=== PATIENT | female | born 1945 | race Caucasian/White ===

== ENCOUNTER 2021-10-27 13:57 | Observation (INO) ==
[2021-10-27 14:22] LABS: Hematocrit (blood only) 30.6 % (37-47); Mean Corpuscular Hemoglobin 30.5 pg (25-34); Mean Corpuscular Hgb Conc 32.7 g/dL (32-36); Mean Corpuscular Volume 93.3 fL (80-100); Mean Platelet Volume 8.7 fL (7.4-10.4); Platelet Count 104 K/uL (130-400); RDW Coefficient of Variation 12.8 % (11.5-14.5); RDW Standard Deviation 43.5 fL (36.4-46.3); Red Blood Count 3.28 M/uL (4.2-5.4); White Blood Count 1.08 K/uL (4.8-10.8)
[2021-10-27 14:57] LABS: ALC (manual) 0.27 K/uL (1.2-3.4); ANC (manual) 0.77 K/uL (1.4-6.5); Blast # (manual) 0.02 K/uL (0-0); Blast Cells % (manual) 1.7 %; Lymphocytes # (manual) 0.27 K/uL (1.2-3.4); Monocytes # (manual) 0.02 K/uL (0.11-0.59); Monocytes % (manual) 1.7 %; Neutrophils # (manual) 0.77 K/uL (1.4-6.5); Neutrophils % (manual) 71.6 %
[2021-10-27 14:59] LABS: Alanine Aminotransferase 30 U/L (7-52); Albumin Level 3.4 gm/dl (3.4-5.0); Alkaline Phosphatase 183 U/L (34-104); Anion Gap 8 (3-11); Aspartate Aminotransferase 31 U/L (13-39); BUN Creatinine Ratio 32.1 (10-20); Bilirubin,Total 0.5 mg/dl (0.2-1.0); Blood Urea Nitrogen 42 mg/dl (6-23); Carbon Dioxide 23 mmol/L (21-32); Chloride 105 mmol/L (98-107); Est GFR (African American) 45.1 ml/min; Est GFR (Non-African American) 38.9 ml/min; Globulin 3.3 gm/dl (2.5-4.0); Glucose 122 mg/dl (70-99(Fasting)); Potassium 4.1 mmol/L (3.5-5.1); Sodium 136 mmol/L (136-145); Total Protein 6.7 gm/dl (6.0-8.3)
[2021-10-27] MEDS ORDERED: SODIUM CHLORIDE 0.9% 1000ML 500 ML IV ONE (15:42)
[2021-10-27] MEDS ORDERED: CEFEPIME 2,000 MG/20 ML VIAL IV STA (15:42)
--- NOTE | 2021-10-27 15:53 | Emergency Department Note ---
Impression & Plan Acute dehydration, Vomiting, Neutropenia, Bladder cancer metastasized to bone ED Provider Note NAME: SIL SALDANA AGE: 76 SEX: F : 1945 ARRIVES VIA: Walk-In INFORMANT: [Patient][family] ED PROVIDER(S): [Hiram Florence MD] CHIEF COMPLAINT: Doctor referred HISTORY OF PRESENT ILLNESS: The patient is a 76-year-old female who presents to the ER with weakness, failure to thrive, lethargy, vomiting. This has been ongoing for about 2 weeks since the patient received her initial dose of chemotherapy for metastatic bladder cancer. In the last 5 to 6 days, patient has complained of a lot of left pelvic and left femur pain. She is on a fentanyl patch and oxycodone but, this is not controlling her pain. She is using Compazine and Zofran at home without control of her nausea/vomiting. There is concern for dehydration. There has been no fever, no cough. She has not complained of abdominal pain. No urinary complaints. She is vaccinated for COVID-19 x3 and has had her influenza vaccination. Her last chemotherapy was 6 days ago. The patient was seen at the cancer center today, she was given IV fluids. Given her lethargy, her weakness, her failure to do well as an outpatient, she was referred to the ER for further work-up and hospitalization. Her family is not able to manage her in her current condition. Of note, the patient was given a dose of Ativan at the cancer center. Now she seems a bit lethargic to the daughter. She was fine before the Ativan. REVIEW OF SYSTEMS: See HPI for pertinent positives and negatives. A total of ten systems were reviewed and were otherwise negative. PMHx/PSHx: See Below SOCIAL HISTORY: See Below. PHYSICAL EXAM: GENERAL: Patient is in no acute distress. HEENT: No acute trauma, normocephalic atraumatic, mucous membranes dry, no nasal congestion, no scleral icterus. NECK: No stridor, no adenopathy, no meningismus, trachea is midline. LUNGS: Clear to auscultation bilaterally when listening anterior, no wheeze, no rhonchi, breath sounds equal. HEART: 2/6 systolic murmur, regular rate and rhythm. ABDOMEN: Soft, nontender, bowel sounds positive, no hernias, no peritonitis. EXTREMITIES: No cyanosis, mild bilateral pedal edema, full range of motion of all the joints without pain or difficulty, no signs for acute trauma. NEUROLOGIC: Sleepy, answers questions, no acute motor or sensory deficits, no focal weakness. SKIN: No rash, no jaundice, no diaphoresis. DIFFERENTIAL DIAGNOSIS: Infection, dehydration, COVID-19, influenza, brain metastases, UTI, bacteremia, sepsis, failed outpatient management, metabolic abnormality, hypo/hyperglycemia, electrolyte disturbance, anemia, hypoxia, cardiac sources, intracerebral event, toxicologic issues, stroke, TIA, as well as other pathologies. EMERGENCY DEPARTMENT COURSE/PROCEDURES: ECG: Indication was weakness. The ECG shows a normal sinus rhythm with a rate of 63. There are inverted T waves in the anterior and inferior lateral leads. There is no ST elevation, no PVCs. The QTc is 474. Compared to an ECG from 05 August 2021, the T wave inversions are new. Continuous Cardiac Monitoring: An order was placed for continuous cardiac monitoring. The monitor shows a rate of 61 with normal sinus rhythm. MEDICAL DECISION MAKING: The patient has a low white count, she is neutropenic. Hemoglobin and platelet count were both low consistent with her recent chemotherapy. There was an elevation to the creatinine consistent with some dehydration. Lactic acid level was not elevated making sepsis less likely. Alk phos was elevated, the remaining liver enzymes were unremarkable. ECG showed a sinus rhythm with some T wave inversions. No ST elevation. Cardiac enzyme testing x1 is not consistent with acute cardiac injury. Urinalysis shows some blood, no infection. COVID testing returned negative. Chest x-ray does not show pneumonia or CHF. Brain CT shows no acute bleed or mass-effect. Films of the pelvis and left femur were done, no lytic lesion seen. On exam, the patient appeared dehydrated and a bit somnolent. The patient was given IV saline, 500 cc. She received IV Dilaudid for pain as needed. She was given IV cefepime as empiric antibiotic coverage. Patient has failed outpatient treatment. She is vomiting despite numerous medications for nausea. Her pain is not controlled despite aggressive outpatie nt pain management. She is no longer strong enough to be taken care of by her family. Hydration, pain control and further work-up are required. I spoke with the patient and her daughter. I spoke with case management. The on-call hospitalist was consulted. 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, back and lung MORONGO (hard of hearing) HTN (hypertension) Hx SBO Osteoarthritis Poor historian SOB (shortness of breath) on exertion Surgical History (Updated 10/19/21 @ 09:49 by Shelli Medina, ELLIE) History of colonoscopy History of intestinal surgery History of surgery TURBT History of total abdominal hysterectomy and bilateral salpingo-oophorectomy History of wisdom tooth extraction Port-A-Cath in place (10/18/21) Insertion Access Port in Right Jugular with Fluoroscopy(Right) - Peterson Dasilva DO, FACS 10/18/21 Family History Father Cancer lung Colorectal cancer Mother Hearing loss Hypertension Stroke Other No family history of adverse response to anesthesia No family history of bleeding disorder Denies family history of Ovarian cancer Prostate cancer Myocardial infarction Breast cancer Social History Smoking Status: Never smoker packs per day: 1; Years Smoked: 10; Second Hand Exposure: No; Hx Alcohol Use: Yes Alcohol type: wine Alcohol Intake Frequency: Monthly or Less Hx Substance Use: No Preferred Language: South African Communication Ability: Effective Hearing Ability: Hard of Hearing Cyber Security Specialist Required: No Beliefs That Will Affect Care: None marital status: / Current Living Situation: Family Current Living Situation Comment: LIVES WITH DAUGHTER TAINA current occupational status: retired How many Children do You have: 3 Feels Safe at Home: Yes Childhood Exposure to Second-Hand Smoke: Yes caffeine: Yes Dental Care, Regularly: No Physical Activity Frequency: Does not Exercise Seatbelt Use: always Sunscreen Use: Yes Assistive Devices: Glasses Allergies Allergies Allergy/AdvReac Type Severity Reaction Status Date / Time morphine AdvReac Intermediate "Makes me Verified 10/27/21 16:48 crazy" Home Meds Home Medications Medication Instructions Recorded Confirmed ascorbic acid (vitamin C) 500 mg 500 mg PO QAM 08/04/21 10/27/21 tablet (Vitamin C) calcium carbonate 600 mg calcium 600 mg PO QAM 08/04/21 10/27/21 (1,500 mg) tablet (Calcium) cholecalciferol (vitamin D3) 25 25 mcg PO QAM 08/04/21 10/27/21 mcg (1,000 unit) capsule (Vitamin D3) cyanocobalamin (vitamin B-12) 1,000 mcg PO QAM 10/08/21 10/27/21 1,000 mcg tablet (Vitamin B-12) omega 6-uko-oqo-fish oil 1,000 mg 1 cap PO QAM 10/08/21 10/27/21 (120 mg-180 mg) capsule (Fish Oil) vitamin E 400 unit capsule 400 unit PO QAM 10/08/21 10/27/21 zinc 50 mg tablet 50 mg PO QAM 10/08/21 10/27/21 acetaminophen 500 mg tablet 500 mg PO Q6H PRN 10/14/21 10/27/21 fentanyl 25 mcg/hr transdermal 1 patch TRANSDERMAL Q72H 10/14/21 10/27/21 patch oxycodone 5 mg tablet 5 mg PO .Q 4-6 HRS PRN 10/14/21 10/27/21 dexamethasone 4 mg tablet 4 mg PO UD 10/27/21 10/27/21 fentanyl 12 mcg/hr transdermal 12 mcg TRANSDERMAL [id number] 10/27/21 10/27/21 patch olanzapine 2.5 mg tablet 2.5 mg PO UD 10/27/21 10/27/21 ondansetron HCl 8 mg tablet 8 mg PO Q8 PRN 10/27/21 10/27/21 prochlorperazine maleate 10 mg 10 mg PO Q6 PRN 10/27/21 10/27/21 tablet Previous Rx's Medication Instructions Recorded amlodipine 5 mg tablet 5 mg PO QPM #90 tab 08/17/21 hydrochlorothiazide 25 mg tablet 25 mg PO QPM #90 tab 08/17/21 metoprolol succinate 100 mg 100 mg PO QPM #90 tab 08/17/21 tablet,extended release 24 hr hydrocortisone-acetic acid 1 %-2 % 5 drp OTIC (EAR) BID PRN #10 ml 09/08/21 ear drops allopurinol 100 mg tablet 100 mg PO BID #60 tab 10/27/21 omeprazole 20 mg tablet,delayed 20 mg PO DAILY #30 tab 10/27/21 release prednisone 50 mg tablet 50 mg PO DAILY #5 tab 10/27/21 Results & Data (ED) Vital Signs Vital Signs - 24 hr 10/27/21 14:00 10/27/21 15:34 10/27/21 17:00 Temperature 36.8 C Temperature Source Temporal Artery Scan Pulse Rate 92 H Pulse Rate [Apical] 61 73 Respiratory Rate 18 18 22 Respiratory Effort / Characteristics Non-Labored Spontaneous Non-Labored Spontaneous Respiratory Depth Normal Normal Blood Pressure 129/73 Blood Pressure [Right Arm] 158/87 H 183/66 H Blood Pressure Mean 91 Blood Pressure Mean [Right Arm] 110 105 Blood Pressure Position [Right Arm] Lying Pulse Oximetry 97 92 93 Oxygen Delivery Method Room Air Room Air Room Air Sepsis Recent Fever Within 48 Hours No Sepsis New/Unexplained Change in Mental Status N/A Sepsis Action Taken by Nursing No Action Required Home Medications Current Medication List: was personally reviewed by me Laboratory Data Attestation: I reviewed the patient's lab results. Result diagrams: 10/27/21 14:13 10/27/21 14:13 Lab Results 10/27/21 10/27/21 10/27/21 Range/Units 14:13 14:13 16:03 WBC 1.08 L (4.8-10.8) K/uL RBC 3.28 L (4.2-5.4) M/uL Hgb 10.0 L (12.0-16.0) g/dL Hct 30.6 L (37-47) % MCV 93.3 (80-100) fL MCH 30.5 (25-34) pg MCHC 32.7 (32-36) g/dL RDW Std Deviation 43.5 (36.4-46.3) fL RDW Coeff of Janice 12.8 (11.5-14.5) % Plt Count 104 L (130-400) K/uL MPV 8.7 (7.4-10.4) fL Neutrophils % (Manual) 71.6 % Lymphocytes % (Manual) 25.0 % Monocytes % (Manual) 1.7 % Blast Cells % (Manual) 1.7 % Neutrophils # (Manual) 0.77 L (1.4-6.5) K/uL Total Absolute Neuts 0.77 L* (1.4-6.5) K/uL Lymphocytes # (Manual) 0.27 L (1.2-3.4) K/uL Total Abs Lymphocytes 0.27 L (1.2-3.4) K/uL Monocytes # (Manual) 0.02 L (0.11-0.59) K/uL Blast Cells # (Man) 0.02 H (0-0) K/uL Blood Smear Review Sodium 136 (136-145) mmol/L Potassium 4.1 (3.5-5.1) mmol/L Chloride 105 (98-107) mmol/L Carbon Dioxide 23 (21-32) mmol/L Anion Gap 8 (3-11) BUN 42 H (6-23) mg/dl Creatinine 1.31 H (0.6-1.2) mg/dl Est Cr Clr Drug Dosing Not Reportable Est GFR ( Amer) 45.1 ml/min Est GFR (Non-Af Amer) 38.9 ml/min BUN/Creatinine Ratio 32.1 H (10-20) Glucose 122 H (70-99(Fasting)) mg/dl Lactate (0.4-2.0) mmol/L Calcium 8.0 L (8.5-10.1) mg/dl Total Bilirubin 0.5 (0.2-1.0) mg/dl AST 31 (13-39) U/L ALT 30 (7-52) U/L Alkaline Phosphatase 183 H (34-104) U/L Troponin I (0-0.04) ng/ml Total Protein 6.7 (6.0-8.3) gm/dl Albumin 3.4 (3.4-5.0) gm/dl Globulin 3.3 (2.5-4.0) gm/dl Albumin/Globulin Ratio 1.0 (0.9-2) Urine Color Yellow Urine Appearance Clear (Clear) Urine pH 5.0 (4.5-7.5) Ur Specific Hickman 1.023 (1.000-1.030) Urine Protein 2+ H (Negative) Urine Glucose (UA) Negative (Negative) Urine Ketones Negative (Negative) Urine Blood 3+ H (Negative) Urine Nitrite Negative (Negative) Urine Bilirubin Negative (Negative) Urine Urobilinogen Negative (Negative) Ur Leukocyte Esterase Negative (Negative) Urine WBC (Auto) 10-30 H (0-5) /hpf Urine RBC (Auto) 10-30 H (0-4) /hpf U Hyaline Cast (Auto) 1-5 (0-5) /lpf U Epithel Cells (Auto) >30 H (0-5) /lpf Urine Bacteria (Auto) Negative (Negative) Urine Yeast Not Reportable SARS-CoV-2, RNA, NAAT (NEGATIVE) 10/27/21 10/27/21 10/27/21 Range/Units 16:13 16:13 17:42 WBC (4.8-10.8) K/uL RBC (4.2-5.4) M/uL Hgb (12.0-16.0) g/dL Hct (37-47) % MCV (80-100) fL MCH (25-34) pg MCHC (32-36) g/dL RDW Std Deviation (36.4-46.3) fL RDW Coeff of Janice (11.5-14.5) % Plt Count (130-400) K/uL MPV (7.4-10.4) fL Neutrophils % (Manual) % Lymphocytes % (Manual) % Monocytes % (Manual) % Blast Cells % (Manual) % Neutrophils # (Manual) (1.4-6.5) K/uL Total Absolute Neuts (1.4-6.5) K/uL Lymphocytes # (Manual) (1.2-3.4) K/uL Total Abs Lymphocytes (1.2-3.4) K/uL Monocytes # (Manual) (0.11-0.59) K/uL Blast Cells # (Man) (0-0) K/uL Blood Smear Review Sodium (136-145) mmol/L Potassium (3.5-5.1) mmol/L Chloride (98-107) mmol/L Carbon Dioxide (21-32) mmol/L Anion Gap (3-11) BUN (6-23) mg/dl Creatinine (0.6-1.2) mg/dl Est Cr Clr Drug Dosing Est GFR ( Amer) ml/min Est GFR (Non-Af Amer) ml/min BUN/Creatinine Ratio (10-20) Glucose (70-99(Fasting)) mg/dl Lactate 0.6 (0.4-2.0) mmol/L Calcium (8.5-10.1) mg/dl Total Bilirubin (0.2-1.0) mg/dl AST (13-39) U/L ALT (7-52) U/L Alkaline Phosphatase (34-104) U/L Troponin I < 0.03 (0-0.04) ng/ml Total Protein (6.0-8.3) gm/dl Albumin (3.4-5.0) gm/dl Globulin (2.5-4.0) gm/dl Albumin/Globulin Ratio (0.9-2) Urine Color Urine Appearance (Clear) Urine pH (4.5-7.5) Ur Specific Hickman (1.000-1.030) Urine Protein (Negative) Urine Glucose (UA) (Negative) Urine Ketones (Negative) Urine Blood (Negative) Urine Nitrite (Negative) Urine Bilirubin (Negative) Urine Urobilinogen (Negative) Ur Leukocyte Esterase (Negative) Urine WBC (Auto) (0-5) /hpf Urine RBC (Auto) (0-4) /hpf U Hyaline Cast (Auto) (0-5) /lpf U Epithel Cells (Auto) (0-5) /lpf Urine Bacteria (Auto) (Negative) Urine Yeast SARS-CoV-2, RNA, NAAT NEGATIVE (NEGATIVE) Administered Medications Hydromorphone HCl (Hydromorphone Inj 0.5 Mg/0.5 Ml Syr) 0.5 mg IV Q15M PRN PRN Reason: Pain Stop: 11/10/21 17:21 Last Admin: 10/27/21 17:32 Dose: 0.5 mg Documented by: [id number] Discontinued Medications Sodium Chloride (Nss 1000ml) 500 mls @ 999 mls/hr IV .Q31M ONE Stop: 10/27/21 16:12 Last Infusion: 10/27/21 16:44 Dose: 0 mls/hr Documented by: [id number] Admin: 10/27/21 16:13 Dose: 999 mls/hr Documented by: [id number] Cefepime HCl (Maxipime) 2,000 mg in 20 mls @ 5 mls/min IV NOW STA; Protocol Stop: 10/27/21 15:45 Last Admin: 10/27/21 16:27 Dose: 5 mls/min Documented by: [id number] Imaging Data Radiologist's Impression: Chest X-Ray 10/27/21 15:42 XR chest 1V portable CLINICAL HISTORY: weakness. Evaluate cardiopulmonary status COMPARISON STUDY: 10/18/2021 TECHNIQUE: 1 view of the chest FINDINGS: Single frontal view of the chest demonstrates the heart to again be enlarged. Right-sided Port-A-Cath is again seen. Stable mild prominence of the interstitial markings is seen at the lung bases which appear chronic in nature. No confluent alveolar opacities are identified. There is no evidence for pleural effusion. There is no evidence for vascular congestion. Lytic, destructive lesion is again seen involving the left clavicle. IMPRESSION: No acute cardiopulmonary disease. Chronic prominence of the interstitial markings at the lung bases. Lytic, destructive lesion of the left clavicle. ACT 112: Negative or not required by law. Electronically signed by: Usman Waterman M.D. 10/27/2021 6:02 PM Femur X-Ray 10/27/21 15:42 XR femur LT 2V routine CLINICAL HISTORY: poss mets. Pain. COMPARISON STUDY: No previous studies for comparison. TECHNIQUE: AP and lateral left femur views FINDINGS: Bones: There is no evidence for an acute fracture or dislocation. There is no lytic or blastic lesion. Joints: There is mild narrowing of the hip joint and the knee joint. The bones are in anatomic alignment. Soft tissues: There is no focal soft tissue abnormality. There is no radiopaque foreign body. IMPRESSION: No acute osseous pathology. ACT 112: Negative or not required by law. Electronically signed by: Usman Waterman M.D. 10/27/2021 6:[address] 10/27/21 15:[address] DOSE: 638.56 mGycm HISTORY: confusion TECHNIQUE: Multiaxial CT images of the head were performed without the use of intravenous contrast. Automated exposure control was utilized for this study. A dose lowering technique was utilized adhering to the principles of ALARA. Comparison: None. Findings: The paranasal sinuses and mastoid air cells are clear. The calvarium and skull base are intact. There is no mass, hematoma, midline shift, acute infarct. White matter hypodensity is nonspecific but suggestive of microvascular ischemic change. The ventricles and sulci demonstrate mild age-related involutional changes. Impression: No acute intracranial abnormality. ACT 112: Negative or not required by law. Electronically signed by: Prakash Concepcion M.D. 10/27/2021 4:52 PM Pelvis X-Ray 10/27/21 15:42 XR pelvis 1-2V routine CLINICAL HISTORY: poss mets. COMPARISON STUDY: No previous studies for comparison. TECHNIQUE: [A single AP radiograph was obtained. FINDINGS: There is no evidence for an acute fracture. There is mild narrowing hip joint spaces bilaterally. Degenerative changes are also seen involving the SI joints. The remaining visualized bones of the pelvis are intact. No lytic or blastic lesions are identified. No focal soft tissue abnormalities identified. IMPRESSION: No acute abnormality. Degenerative changes. ACT 112: Negative or not required by law. Electronically signed by: Usman Waterman M.D. 10/27/2021 5:59 PM Discharge Plan Visit Data Chief Complaint: Referred by Doctor Stated Complaint: VOMITING, ABNORMAL LABS, PAIN ED Provider: Hiram Florence Discharge Problem: Acute dehydration, Vomiting, Neutropenia, Bladder cancer metastasized to bone Patient Disposition: Admitted As Inpatient Condition: Fair Forms Stand Alone Forms: [facility] Prescriptions Prescriptions: No Action amlodipine 5 mg tablet 5 mg PO QPM Qty: 90 RF: 3 hydrochlorothiazide 25 mg tablet 25 mg PO QPM Qty: 90 RF: 3 metoprolol succinate 100 mg tablet extended release 24 hr 100 mg PO QPM Qty: 90 RF: 3 allopurinol 100 mg tablet 100 mg PO BID Qty: 60 RF: 2 omeprazole 20 mg tablet,delayed release (DR/EC) 20 mg PO DAILY Qty: 30 RF: 2 prednisone 50 mg tablet 50 mg PO DAILY Qty: 5 RF: 0 hydrocortisone-acetic acid 1-2 % drops 5 drp otic (ear) BID PRN (Reason: Pain and drainage) Qty: 10 RF: 5 calcium carbonate [Calcium 600] 600 mg calcium (1,500 mg) Tablet 600 mg PO QAM RF: 0 ascorbic acid (vitamin C) [Vitamin C] 500 mg Tablet 500 mg PO QAM RF: 0 cholecalciferol (vitamin D3) [Vitamin D3] 25 mcg (1,000 unit) Capsule 25 mcg PO QAM RF: 0 fentanyl 25 mcg/hr Patch 72 Hour 1 patch TRANSDERMAL Q72H RF: 0 oxycodone 5 mg Tablet 5 mg PO .Q 4-6 HRS PRN (Reason: Pain) RF: 0 acetaminophen 500 mg Tablet 500 mg PO Q6H PRN (Reason: Pain) RF: 0 dexamethasone 4 mg tablet 4 mg PO UD RF: 0 olanzapine 2.5 mg tablet 2.5 mg PO UD RF: 0 ondansetron HCl 8 mg tablet 8 mg PO Q8 PRN (Reason: Nausea And Vomiting) RF: 0 fentanyl 12 mcg/hr patch 72 hour 12 mcg transdermal [id number] RF: 0 prochlorperazine maleate 10 mg tablet 10 mg PO Q6 PRN (Reason: Nausea) RF: 0 cyanocobalamin (vitamin B-12) [Vitamin B-12] 1,000 mcg Tablet 1,000 mcg PO QAM RF: 0 zinc 50 mg Tablet 50 mg PO QAM RF: 0 omega 1-smx-lyo-fish oil [Fish Oil] 1,000 mg (120 mg-180 mg) Capsule 1 cap PO QAM RF: 0 vitamin E 400 unit Capsule 400 unit PO QAM RF: 0 Referrals Referrals: Britt Maria MD [Primary Care Provider] -
[2021-10-27 16:13] LABS: Appearance Urine Clear (Clear); Bacteria Urine Automated Negative (Negative); Bilirubin Urine Negative (Negative); Blood Urine 3+ (Negative); Color Urine Yellow; Epithelial Cell Urine Auto >30 /lpf (0-5); Glucose Urine UA Negative (Negative); Ketones Urine Negative (Negative); Leukocyte Esterase Urine Negative (Negative); Nitrite Urine Negative (Negative); Protein Urine 2+ (Negative); Specific Gravity Urine 1.023 (1.000-1.030); Urobilinogen Urine Negative (Negative)
--- NOTE | 2021-10-27 16:53 | CT Scan Report ---
HEAD CT NONCONTRAST CT DOSE: 638.56 mGycm HISTORY: confusion TECHNIQUE: Multiaxial CT images of the head were performed without the use of intravenous contrast. A utomated exposure control was utilized for this study. A dose lowering technique was utilized adheri ng to the principles of ALARA. Comparison: None. Findings: The paranasal sinuses and mastoid air cells are clear. The calvarium and skull base are int act. There is no mass, hematoma, midline shift, acute infarct. White matter hypodensity is nonspecifi c but suggestive of microvascular ischemic change. The ventricles and sulci demonstrate mild age-rela jimbo involutional changes. Impression: No acute intracranial abnormality. ACT 112: Negative or not required by law. Electronically signed by: Prakash Concepcion M.D. 10/27/2021 4:52 PM
[2021-10-27] MEDS: HYDROmorphone INJ 0.5 MG/0.5 ML SYR IV PRN ×2 (17:32→19:33)
--- NOTE | 2021-10-27 18:01 | XRay Report ---
XR pelvis 1-2V routine CLINICAL HISTORY: poss mets. COMPARISON STUDY: No previous studies for comparison. TECHNIQUE: [A single AP radiograph was obtained. FINDINGS: There is no evidence for an acute fracture. There is mild narrowing hip joint spaces bilaterally. Deg enerative changes are also seen involving the SI joints. The remaining visualized bones of the pelvis are intact. No lytic or blastic lesions are identified. No focal soft tissue abnormalities identifie d. IMPRESSION: No acute abnormality. Degenerative changes. ACT 112: Negative or not required by law. Electronically signed by: Usman Waterman M.D. 10/27/2021 5:59 PM
--- NOTE | 2021-10-27 18:02 | XRay Report ---
XR femur LT 2V routine CLINICAL HISTORY: poss mets. Pain. COMPARISON STUDY: No previous studies for comparison. TECHNIQUE: AP and lateral left femur views FINDINGS: Bones: There is no evidence for an acute fracture or dislocation. There is no lytic or blastic lesion . Joints: There is mild narrowing of the hip joint and the knee joint. The bones are in anatomic alignm ent. Soft tissues: There is no focal soft tissue abnormality. There is no radiopaque foreign body. IMPRESSION: No acute osseous pathology. ACT 112: Negative or not required by law. Electronically signed by: Usman Waterman M.D. 10/27/2021 6:00 PM
--- NOTE | 2021-10-27 18:04 | XRay Report ---
XR chest 1V portable CLINICAL HISTORY: weakness. Evaluate cardiopulmonary status COMPARISON STUDY: 10/18/2021 TECHNIQUE: 1 view of the chest FINDINGS: Single frontal view of the chest demonstrates the heart to again be enlarged. Right-sided Port-A-Cath is again seen. Stable mild prominence of the interstitial markings is seen at the lung bases which a ppear chronic in nature. No confluent alveolar opacities are identified. There is no evidence for ple ural effusion. There is no evidence for vascular congestion. Lytic, destructive lesion is again seen involving the left clavicle. IMPRESSION: No acute cardiopulmonary disease. Chronic prominence of the interstitial markings at the lung bases. Lytic, destructive lesion of the left clavicle. ACT 112: Negative or not required by law. Electronically signed by: Usman Waterman M.D. 10/27/2021 6:02 PM
[2021-10-27] MEDS ORDERED: GABAPENTIN 300 MG CAP PO ONE (18:39)
[2021-10-27] MEDS ORDERED: METOPROLOL SUCC 50MG EXT REL TAB PO STA (18:53)
--- NOTE | 2021-10-27 19:06 | History & Physical Report ---
Date of Service October 27, 2021 Assessment & Plan (1) Vomiting: Plan: 76 yo F with hx HTN, mixed hearing loss, OA, hx bladder cancer, undergoing treatments for recently diagnosed metastatic urothelial carcinoma, admitted for nausea and pain control, found to be neutropenic. Nausea and Vomiting - was on PO zofran and compazine at home, w/o control of symptoms - IV zofran Q4h scheduled, with IV compazine scheduled Q6h in between - dexamethasone 4mg IV daily for additional nausea control - monitor electrolytes - maintenance fluids while nauseous - external urinary catheter, monitor I/O Pain control - pelvis and femur xrays negative for new lytic or blastic lesions, fractures - was on 5mg roxicodone q4h, with 25 mcg transdermal fentanyl patch (due to increase up to 37.5) - Basal control with 37.5 mg fentanyl patch, roxicodone 5mg PO Q4h - Dilaudid 0.5mg Q2h for breakthrough pain - 300 mg gabapentin BID added for possible neuropathic component of pain secondary to cisplatin - radiation oncology consulted for possible palliative radiation treatments Neutropenia - WBC 1.4, absolute neutrophil cunt 0.77 - neutropenic precautions - afebrile, VSS, no findings of infection evident on exam, received cefepime x1 in ER. - blood and urine cultures pending - heme/onc recommendations appreciated HTN - per patient recollection, she is no longer taking her HCTZ because it makes he r urinate more - continue toprol xl 100 Qpm, amlodipine 5 mg QPM Gout - continue allopurinol 100 mg bid per home regimen DVT ppx: lovenox FEN/GI: regular diet as tolerated, iv famotidine Bowel regimen: scheduled daily miralax Code Status: DNR/DNI Dispo: Med/Tele (2) Neutropenia: (3) Bladder cancer metastasized to bone: (4) Acute dehydration: (5) Uncontrolled pain: Admission and Anticipated Discharge Date Admission Date: I personally saw and examined the patient. 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 O/E Thin, not well nourished, in distress due to left lateral leg pain, HS1+2, no murmurs, Chest CTAB, Abdo SNT, Left lateral upper thigh pain not reproducible on palpation. A/P Left sided radiculopathy - will defer further imaging to rad onc +/- pain management. Agree with gabapentin in addition to her usual acetaminophen and oxycodone. Dilaudid for extra breakthrough pain. Nausea and vomiting - suspect secondary to chemotherapy. Continue ondansetron and Compazine PRN. Metastatic high grade muscle invasive urothelial carcinoma - consult oncology and radiation oncology Pancytopenia secondary to chemotherapy - Neutropenic isolation precautions. No fever or symptoms/signs to suggestive infection. Follow up blood and urine cultures but no need for further antibiotics currently History of Present Illness Primary Care Provider: Britt Maria MD Pleasant 76 yo F with hx bladder cancer treated in 2011, recently diagnosed metastatic high grade urothelial carcinoma, started on Cisplastin chemotherapy with CCP, and received round 2 of chemo on 10/21. She states that since then she's had persistent uncontrollable nausea and vomiting since then despite use of zofran and compazine spaced out. Also describes having severe pain throughout her body and back but worst is concentrated in her left hip. She says the pain started today and ranges from being persistent and throbbing to being sharp and burning. Denies any hx of DM or peripheral neuropathy. Has been using her 5mg roxicodone at home every 4 hours without improvement in pain control. Allergies Allergy/AdvReac Type Severity Reaction Status Date / Time morphine AdvReac Intermediate "Makes me Verified 10/27/21 16:48 crazy" Home Medications Medication Instructions Recorded Confirmed Type ascorbic acid (vitamin C) 500 mg 500 mg PO QAM 08/04/21 10/27/21 History tablet (Vitamin C) calcium carbonate 600 mg calcium 600 mg PO QAM 08/04/21 10/27/21 History (1,500 mg) tablet (Calcium) cholecalciferol (vitamin D3) 25 25 mcg PO QAM 08/04/21 10/27/21 History mcg (1,000 unit) capsule (Vitamin D3) amlodipine 5 mg tablet 5 mg PO QPM #90 tab 08/17/21 10/27/21 Rx hydrochlorothiazide 25 mg tablet 25 mg PO QPM #90 tab 08/17/21 10/27/21 Rx metoprolol succinate 100 mg 100 mg PO QPM #90 tab 08/17/21 10/27/21 Rx tablet,extended release 24 hr hydrocortisone-acetic acid 1 %-2 % 5 drp OTIC (EAR) BID PRN #10 ml 09/08/21 10/27/21 Rx ear drops cyanocobalamin (vitamin B-12) 1,000 mcg PO QAM 10/08/21 10/27/21 History 1,000 mcg tablet (Vitamin B-12) omega 3-guy-xqg-fish oil 1,000 mg 1 cap PO QAM 10/08/21 10/27/21 History (120 mg-180 mg) capsule (Fish Oil) vitamin E 400 unit capsule 400 unit PO QAM 10/08/21 10/27/21 History zinc 50 mg tablet 50 mg PO QAM 10/08/21 10/27/21 History acetaminophen 500 mg tablet 500 mg PO Q6H PRN 10/14/21 10/27/21 History fentanyl 25 mcg/hr transdermal 1 patch TRANSDERMAL Q72H 10/14/21 10/27/21 History patch oxycodone 5 mg tablet 5 mg PO .Q 4-6 HRS PRN 10/14/21 10/27/21 History allopurinol 100 mg tablet 100 mg PO BID #60 tab 10/27/21 10/27/21 Rx dexamethasone 4 mg tablet 4 mg PO UD 10/27/21 10/27/21 History fentanyl 12 mcg/hr transdermal 12 mcg TRANSDERMAL [id number] 10/27/21 10/27/21 History patch olanzapine 2.5 mg tablet 2.5 mg PO UD 10/27/21 10/27/21 History omeprazole 20 mg tablet,delayed 20 mg PO DAILY #30 tab 10/27/21 10/27/21 Rx release ondansetron HCl 8 mg tablet 8 mg PO Q8 PRN 10/27/21 10/27/21 History prednisone 50 mg tablet 50 mg PO DAILY #5 tab 10/27/21 10/27/21 Rx prochlorperazine maleate 10 mg 10 mg PO Q6 PRN 10/27/21 10/27/21 History tablet 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, back and lung [place] (hard of hearing) HTN (hypertension) Hx SBO Osteoarthritis Poor historian SOB (shortness of breath) on exertion Surgical History (Updated 10/19/21 @ 09:49 by Shelli Medina, RN) History of colonoscopy History of intestinal surgery History of surgery TURBT History of total abdominal hysterectomy and bilateral salpingo-oophorectomy History of wisdom tooth extraction Port-A-Cath in place (10/18/21) Insertion Access Port in Right Jugular with Fluoroscopy(Right) - Peterson Dasilva DO, FACS 10/18/21 Family History Father Cancer lung Colorectal cancer Mother Hearing loss Hypertension Stroke Other No family history of adverse response to anesthesia No family history of bleeding disorder Denies family history of Ovarian cancer Prostate cancer Myocardial infarction Breast cancer Social History Smoking Status: Former smoker packs per day: 1; Years Smoked: 10; Second Hand Exposure: No; Hx Alcohol Use: Yes Alcohol type: wine Alcohol Intake Frequency: Monthly or Less Hx Substance Use: No Preferred Language: [place] Communication Ability: Effective Hearing Ability: Hard of Hearing Radiography Technician Required: No Beliefs That Will Affect Care: None marital status: / Current Living Situation: Family Current Living Situation Comment: LIVES WITH DAUGHTER TAINA current occupational status: retired How many Children do You have: 3 Feels Safe at Home: Yes Safety Concerns: Feels Safe At This Time Childhood Exposure to Second-Hand Smoke: Yes caffeine: Yes Dental Care, Regularly: No Physical Activity Frequency: Does not Exercise Seatbelt Use: always Sunscreen Use: Yes Assistive Devices: Glasses Review of Systems Constitutional: + sweats, + fatigue and + anorexia; no fever, no chills and no body aches Respiratory: + pain on inspiration (pain with quick deep breath); no cough and no dyspnea Cardiovascular: + dyspnea on exertion; no chest pain, no dyspnea and no edema Gastrointestinal: + nausea and + vomiting; no abdominal pain, no hematemesis, no change in bowel habits, no constipation, no diarrhea/loose stools, no blood in stools and no melena Neurologic: no tingling, no numbness and no dizziness Physical Exam Physical Exam: Constitutional: elderly, fatigued appearing, uncomfortable appearing Eyes: EOMI, pupils equal and reactive bilaterally, no scleral icterus Cardiac: RRR, no murmurs, gallops or rubs. Normal S1, S2 Pulm: CTA BL, no wheezes, rhonchi, crackles or rubs, moving air well throughout both lungs Abd: soft, nontender, nondistended, hyperactive bowel sounds, no rebound or guarding Extremities: 2+ peripheral pulses, 2+ pitting edema to ankles BL Neuro: no focal deficits, moving all 4 limbs, A&Ox3 MSK: TTP over IT band and ASIS, no groin pain Results & Data Results & Data ([facility]) Vital Signs (Past 12 Hours) Vital Signs Temp Pulse Pulse Resp BP BP Pulse Ox 10/27/21 17:00 73 22 183/66 H 93 10/27/21 15:34 61 18 158/87 H 92 10/27/21 14:00 36.8 C 92 H 18 129/73 97 Laboratory Results Laboratory Results WBC 1.08 K/uL (4.8-10.8) L 10/27/21 14:13 RBC 3.28 M/uL (4.2-5.4) L 10/27/21 14:13 Hgb 10.0 g/dL (12.0-16.0) L 10/27/21 14:13 Hct 30.6 % (37-47) L 10/27/21 14:13 MCV 93.3 fL (80-100) 10/27/21 14:13 MCH 30.5 pg (25-34) 10/27/21 14:13 MCHC 32.7 g/dL (32-36) 10/27/21 14:13 RDW Std Deviation 43.5 fL (36.4-46.3) 10/27/21 14:13 RDW Coeff of Janice 12.8 % (11.5-14.5) 10/27/21 14:13 Plt Count 104 K/uL (130-400) L 10/27/21 14:13 MPV 8.7 fL (7.4-10.4) 10/27/21 14:13 Neutrophils % (Manual) 71.6 % 10/27/21 14:13 Lymphocytes % (Manual) 25.0 % 10/27/21 14:13 Monocytes % (Manual) 1.7 % 10/27/21 14:13 Blast Cells % (Manual) 1.7 % 10/27/21 14:13 Neutrophils # (Manual) 0.77 K/uL (1.4-6.5) L 10/27/21 14:13 Total Absolute Neuts 0.77 K/uL (1.4-6.5) L* 10/27/21 14:13 Lymphocytes # (Manual) 0.27 K/uL (1.2-3.4) L 10/27/21 14:13 Total Abs Lymphocytes 0.27 K/uL (1.2-3.4) L 10/27/21 14:13 Monocytes # (Manual) 0.02 K/uL (0.11-0.59) L 10/27/21 14:13 Blast Cells # (Man) 0.02 K/uL (0-0) H 10/27/21 14:13 Blood Smear Review 10/27/21 14:13 Sodium 136 mmol/L (136-145) 10/27/21 14:13 Potassium 4.1 mmol/L (3.5-5.1) 10/27/21 14:13 Chloride 105 mmol/L (98-107) 10/27/21 14:13 Carbon Dioxide 23 mmol/L (21-32) 10/27/21 14:13 Anion Gap 8 (3-11) 10/27/21 14:13 BUN 42 mg/dl (6-23) H 10/27/21 14:13 Creatinine 1.31 mg/dl (0.6-1.2) H 10/27/21 14:13 Est Cr Clr Drug Dosing Not Reportable 10/27/21 14:13 Est GFR ( Amer) 45.1 ml/min 10/27/21 14:13 Est GFR (Non-Af Amer) 38.9 ml/min 10/27/21 14:13 BUN/Creatinine Ratio 32.1 (10-20) H 10/27/21 14:13 Glucose 122 mg/dl (70-99(Fasting)) H 10/27/21 14:13 Lactate 0.6 mmol/L (0.4-2.0) 10/27/21 16:13 Calcium 8.0 mg/dl (8.5-10.1) L 10/27/21 14:13 Phosphorus 2.1 mg/dl (2.5-4.9) L 10/27/21 14:18 Magnesium 1.8 mg/dl (1.7-2.4) 10/27/21 14:18 Total Bilirubin 0.5 mg/dl (0.2-1.0) 10/27/21 14:13 AST 31 U/L (13-39) 10/27/21 14:13 ALT 30 U/L (7-52) 10/27/21 14:13 Alkaline Phosphatase 183 U/L (34-104) H 10/27/21 14:13 Troponin I < 0.03 ng/ml (0-0.04) 10/27/21 16:13 Total Protein 6.7 gm/dl (6.0-8.3) 10/27/21 14:13 Albumin 3.4 gm/dl (3.4-5.0) 10/27/21 14:13 Globulin 3.3 gm/dl (2.5-4.0) 10/27/21 14:13 Albumin/Globulin Ratio 1.0 (0.9-2) 10/27/21 14:13 Urine Color Yellow 10/27/21 16:03 Urine Appearance Clear (Clear) 10/27/21 16:03 Urine pH 5.0 (4.5-7.5) 10/27/21 16:03 Ur Specific [place] 1.023 (1.000-1.030) 10/27/21 16:03 Urine Protein 2+ (Negative) H 10/27/21 16:03 Urine Glucose (UA) Negative (Negative) 10/27/21 16:03 Urine Ketones Negative (Negative) 10/27/21 16:03 Urine Blood 3+ (Negative) H 10/27/21 16:03 Urine Nitrite Negative (Negative) 10/27/21 16:03 Urine Bilirubin Negative (Negative) 10/27/21 16:03 Urine Urobilinogen Negative (Negative) 10/27/21 16:03 Ur Leukocyte Esterase Negative (Negative) 10/27/21 16:03 Urine WBC (Auto) 10-30 /hpf (0-5) H 10/27/21 16:03 Urine RBC (Auto) 10-30 /hpf (0-4) H 10/27/21 16:03 U Hyaline Cast (Auto) 1-5 /lpf (0-5) 10/27/21 16:03 U Epithel Cells (Auto) >30 /lpf (0-5) H 10/27/21 16:03 Urine Bacteria (Auto) Negative (Negative) 10/27/21 16:03 Urine Yeast Not Reportable 10/27/21 16:03 SARS-CoV-2, RNA, NAAT NEGATIVE (NEGATIVE) 10/27/21 17:42 Impressions Chest X-Ray 10/27/21 15:42 XR chest 1V portable CLINICAL HISTORY: weakness. Evaluate cardiopulmonary status COMPARISON STUDY: 10/18/2021 TECHNIQUE: 1 view of the chest FINDINGS: Single frontal view of the chest demonstrates the heart to again be enlarged. Right-sided Port-A-Cath is again seen. Stable mild prominence of the interstitial markings is seen at the lung bases which appear chronic in nature. No confluent alveolar opacities are identified. There is no evidence for pleural effusion. There is no evidence for vascular congestion. Lytic, destructive lesion is again seen involving the left clavicle. IMPRESSION: No acute cardiopulmonary disease. Chronic prominence of the interstitial markings at the lung bases. Lytic, destructive lesion of the left clavicle. ACT 112: Negative or not required by law. Electronically signed by: Usman Waterman M.D. 10/27/2021 6:02 PM Femur X-Ray 10/27/21 15:42 XR femur LT 2V routine CLINICAL HISTORY: poss mets. Pain. COMPARISON STUDY: No previous studies for comparison. TECHNIQUE: AP and lateral left femur views FINDINGS: Bones: There is no evidence for an acute fracture or dislocation. There is no lytic or blastic lesion. Joints: There is mild narrowing of the hip joint and the knee joint. The bones are in anatomic alignment. Soft tissues: There is no focal soft tissue abnormality. There is no radiopaque foreign body. IMPRESSION: No acute osseous pathology. ACT 112: Negative or not required by law. Electronically signed by: Usman Waterman M.D. 10/27/2021 6:[address] 10/27/21 15:[address] DOSE: 638.56 mGycm HISTORY: confusion TECHNIQUE: Multiaxial CT images of the head were performed without the use of intravenous contrast. Automated exposure control was utilized for this study. A dose lowering technique was utilized adhering to the principles of ALARA. Comparison: None. Findings: The paranasal sinuses and mastoid air cells are clear. The calvarium and skull base are intact. There is no mass, hematoma, midline shift, acute infarct. White matter hypodensity is nonspecific but suggestive of microvascular ischemic change. The ventricles and sulci demonstrate mild age-related involutional changes. Impression: No acute intracranial abnormality. ACT 112: Negative or not required by law. Electronically signed by: Prakash Concepcion M.D. 10/27/2021 4:52 PM Pelvis X-Ray 10/27/21 15:42 XR pelvis 1-2V routine CLINICAL HISTORY: poss mets. COMPARISON STUDY: No previous studies for comparison. TECHNIQUE: [A single AP radiograph was obtained. FINDINGS: There is no evidence for an acute fracture. There is mild narrowing hip joint spaces bilaterally. Degenerative changes are also seen involving the SI joints. The remaining visualized bones of the pelvis are intact. No lytic or blastic lesions are identified. No focal soft tissue abnormalities identified. IMPRESSION: No acute abnormality. Degenerative changes. ACT 112: Negative or not required by law. Electronically signed by: Usman Waterman M.D. 10/27/2021 5:59 PM Code Status & VTE Plan VTE Prophylaxis Plan VTE Prophylaxis will be ordered: Yes Resident Activity Tracking Resident Involvement: Resident Care Provided Care Provided: Adult Hospital Medicine (1) Neutropenia Neutropenia type: secondary to cancer chemotherapy Qualified Code(s): D70.1 - Agranulocytosis secondary to cancer chemotherapy; T45.1X5A - Adverse effect of antineoplastic and immunosuppressive drugs, initial encounter (2) Vomiting Nausea presence: with nausea Vomiting type: unspecified Qualified Code(s): R11.2 - Nausea with vomiting, unspecified
[2021-10-27] MEDS ORDERED: PROCHLORPERAZINE 1 ML IV ONE (19:14)
[2021-10-27 19:22] LABS: Magnesium 1.8 mg/dl (1.7-2.4); Phosphorus 2.1 mg/dl (2.5-4.9)
[2021-10-27] MEDS ORDERED: POTASSIUM PHOS 3 MMOL/1 ML INFUSION IV STA (19:44)
[2021-10-27] MEDS ORDERED: oxyCODONE HCL IR 5 MG TAB (IMMEDIATE RELEASE) PO STA (20:57)
[2021-10-27] MEDS ORDERED: POTASSIUM PHOSPHATE 21 MMOL in DEXTROSE 5% 500 ML IV ONE (21:00)
[2021-10-27] MEDS ORDERED: ONDANSETRON INJ 2 MG/ML 2 ML VIAL IV PRN (22:42)
[2021-10-27] MEDS ORDERED: HYDROmorphone INJ 0.5 MG/0.5 ML SYR IV PRN (22:42)
[2021-10-27] MEDS ORDERED: ACETIC AC/HYDROCORTISONE OTIC 10ML BTL OT PRN (22:42)
[2021-10-27] MEDS ORDERED: NITROGLYCERIN SL 0.4 MG/TAB TAB SL PRN (22:42)
[2021-10-27] MEDS ORDERED: ACETAMINOPHEN 325 MG TAB PO PRN (22:42)
[2021-10-27] MEDS ORDERED: PROCHLORPERAZINE 5 MG in SYRINGE 4 ML IV PRN (22:42)
[2021-10-28] MEDS: FAMOTIDINE 20 MG in SYRINGE 3 ML IV SCH ×3 (00:04→20:58)
[2021-10-28] MEDS: dexAMETHasone 4 MG in SYRINGE 0 ML IV SCH ×2 (00:04→07:50)
[2021-10-28] MEDS: METOPROLOL SUCC 50MG EXT REL TAB PO SCH ×2 (00:05→20:53)
[2021-10-28] MEDS: amLODIPine BESYLATE 5 MG TAB PO SCH ×2 (00:05→20:52)
[2021-10-28] MEDS: allopurinoL 100 MG TAB PO SCH ×3 (00:05→20:53)
[2021-10-28] MEDS: SODIUM CHLORIDE 0.9% 1000ML 1,000 ML IV SCH ×2 (00:06→07:50)
[2021-10-28] MEDS: oxyCODONE HCL IR 5 MG TAB (IMMEDIATE RELEASE) PO SCH ×5 (00:12→11:34)
[2021-10-28] MEDS: ENOXAPARIN INJ 40 MG/0.4 ML SYR SQ SCH ×2 (03:02→20:51)
[2021-10-28] MEDS: POLYETHYLENE (MIRALAX) 17 GM PACK PO SCH (07:51)
[2021-10-28] MEDS: PANTOprazole 40 MG TAB PO SCH (07:52)
[2021-10-28 08:44] LABS: Hematocrit (blood only) 31.3 % (37-47); Hemoglobin 10.4 g/dL (12.0-16.0); Mean Corpuscular Hemoglobin 30.5 pg (25-34); Mean Corpuscular Hgb Conc 33.2 g/dL (32-36); Mean Corpuscular Volume 91.8 fL (80-100); Platelet Count 121 K/uL (130-400); RDW Coefficient of Variation 12.4 % (11.5-14.5); RDW Standard Deviation 41.9 fL (36.4-46.3); Red Blood Count 3.41 M/uL (4.2-5.4); White Blood Count 1.14 K/uL (4.8-10.8)
[2021-10-28] MEDS ORDERED: GABAPENTIN 300 MG CAP PO SCH (09:00)
[2021-10-28 09:03] LABS: Immature Granulocytes # (auto) 0.01 K/uL (0.00-0.02); Immature Granulocytes % (auto) 0.9 %; Lymphocytes # (auto) 0.39 K/uL (1.2-3.4); Lymphocytes % (auto) 34.2 %; Monocytes # (auto) 0.04 K/uL (0.11-0.59); Monocytes % (auto) 3.5 %; Neutrophils % (auto) 61.4 %
[2021-10-28 09:30] LABS: Albumin Level 3.2 gm/dl (3.4-5.0); BUN Creatinine Ratio 37.5 (10-20); Bilirubin,Total 0.5 mg/dl (0.2-1.0); Calcium 7.6 mg/dl (8.5-10.1); Est GFR (African American) 59.6 ml/min; Est GFR (Non-African American) 51.4 ml/min; Globulin 3.2 gm/dl (2.5-4.0); Magnesium 1.7 mg/dl (1.7-2.4); Phosphorus 2.1 mg/dl (2.5-4.9); Total Protein 6.4 gm/dl (6.0-8.3)
--- NOTE | 2021-10-28 10:47 | Billing Data ---
Date of Service October 27, 2021 Coding Level of Care Code 55238 Initial Inpt Care Lvl 2
[2021-10-28] MEDS: ACETAMINOPHEN 325 MG TAB PO SCH ×2 (16:08→20:52)
--- NOTE | 2021-10-28 17:58 | Hospitalist Progress Note ---
Date of Service October 28, 2021 Assessment & Plan (1) Vomiting: Plan: 76 yo F with hx HTN, mixed hearing loss, OA, hx bladder cancer, undergoing treatments for recently diagnosed metastatic urothelial carcinoma, admitted for nausea and pain control, found to be neutropenic. Nausea and Vomiting - was on PO zofran and compazine at home, w/o control of symptoms * IV zofran Q4h scheduled, with IV compazine medications (sparingly) * dexamethasone 4mg IV daily for additional nausea control * monitor electrolytes * maintenance fluids while nauseous * external urinary catheter, monitor I/O Pain control - pelvis and femur xrays negative for new lytic or blastic lesions, fractures - At home regimen of 5mg roxicodone q4h, with 25 mcg transdermal fentanyl patch (due to increase up to 37.5) * Basal control with Tylenol 650 mg 4 times daily, 37.5 mg fentanyl patch, roxicodone 5mg PO Q4h * Dilaudid 0.5mg Q2h for breakthrough pain * Discontinued gabapentin * radiation oncology consulted for possible palliative radiation treatments Neutropenia - WBC 1.4, absolute neutrophil count 0.77 * neutropenic precautions * blood and urine cultures pending * heme/onc recommendations appreciated HTN - per patient recollection, she is no longer taking her HCTZ because it makes her urinate more * continue toprol xl 100 Qpm, amlodipine 5 mg QPM Gout * continue allopurinol 100 mg bid per home regimen DVT ppx: lovenox FEN/GI: regular diet as tolerated, iv famotidine Bowel regimen: scheduled daily miralax Code Status: DNR/DNI Dispo: Med/Tele (2) Neutropenia: (3) Bladder cancer metastasized to bone: (4) Acute dehydration: (5) Uncontrolled pain: Admission and Anticipated Discharge Date Admission Date: October 27, 2021 Supervising Physician Co-Signing Physician Notes I personally examined the patient and verified all rosas points of history and exam, discussed case, and agree with decision making with Dr Jama feeling better ate about 50% of lunch no abdominal pain and pain doing better overall. extensive d/w pt and dtr re cancer treatment/symptom management/nutrition vitals noted nad heent nc at mmm breathing unlabored no accessory muscles good effort skin no rashes no pallor or icterus neuro no focal deficits intractable nausea/vomiting, uncontrolled pain - now doing better. follow overnight to ensure improvement in sx holds, then hopefully home tomorrow. to follow w PCP regularly for symptom eval/management, nutritional status, overall status; continue to follow w heme/onc for chemo/cancer related treatments. discussed nutrition extensively, hydration fairly in depth. otherwise as above Subjective Rain is a 76-year-old woman with a history of bladder cancer (2011), as well as a more recent history of metastatic high-grade urothelial carcinoma (on cisplatinweek 1 of 18 weekly chemotherapy treatments). She presented to the emergency room with nausea and worsening pain control and found to be neutropenic. In the room today, patient corroborated this account. She reports that this is the best she has felt in the last 3 to 4 weeks. She reports 0 out of 10 pain. She denies shortness of breath, nausea, vomiting, abdominal pain. Review of Systems Review of Systems: All systems reviewed & are unremarkable except as noted in HPI & below Physical Exam Constitutional: WD/WN, vitals as above Eyes: PERRL, conjunctivae normal, anicteric sclerae Respiratory: normal respiratory effort, lungs clear to auscultation Cardiovascular: RRR, no murmur, no edema Gastrointestinal (Abdomen): normal bowel sounds, soft, nontender, no hepatosplenomegaly Results & Data Results & Data ([facility]) Vital Signs (Past 12 Hours) Vital Signs Temp Pulse Resp BP Pulse Ox 10/28/21 15:29 36.3 C L 58 L 18 130/68 95 10/28/21 07:18 36.6 C 60 18 147/73 H 94 Resident Activity Tracking Resident Involvement: Resident Care Provided Care Provided: Adult Hospital Medicine (1) Neutropenia Neutropenia type: secondary to cancer chemotherapy Qualified Code(s): D70.1 - Agranulocytosis secondary to cancer chemotherapy; T45.1X5A - Adverse effect of antineoplastic and immunosuppressive drugs, initial encounter (2) Vomiting Nausea presence: with nausea Vomiting type: unspecified Qualified Code(s): R11.2 - Nausea with vomiting, unspecified
--- NOTE | 2021-10-28 19:39 | Billing Data ---
Date of Service October 28, 2021 Coding Level of Care Code 06073 Subseq Hosp Care Lvl 3
[2021-10-29] MEDS: oxyCODONE HCL IR 5 MG TAB (IMMEDIATE RELEASE) PO PRN ×2 (05:00→12:24)
--- NOTE | 2021-10-29 05:54 | Electrocardiogram Report ---
Test Reason : Blood Pressure : / mmHG Vent. Rate : 063 BPM Atrial Rate : 063 BPM P-R Int : 168 ms QRS Dur : 090 ms QT Int : 480 ms P-R-T Axes : 045 -23 011 degrees QTc Int : 492 ms Normal sinus rhythm Possible Left atrial enlargement T wave abnormality, consider anterior ischemia Prolonged QT Abnormal ECG When compared with ECG of 05-AUG-2021 10:59, T wave inversion now evident in Inferior leads T wave inversion now evident in Anterior leads QT has lengthened Confirmed by Raghavendra Soria ([id number]) on 10/29/2021 5:53:34 AM Referred By: REFERRED SELF Confirmed By:Raghavendra Soria
--- NOTE | 2021-10-29 07:15 | Hospitalist Progress Note ---
Date of Service October 29, 2021 Assessment & Plan (1) Vomiting: Plan: 76 yo F with hx HTN, mixed hearing loss, OA, hx bladder cancer, undergoing treatments for recently diagnosed metastatic urothelial carcinoma, admitted for nausea and pain control, found to be neutropenic. Nausea and Vomiting - was on PO zofran and compazine at home, w/o control of symptoms * IV zofran Q4h scheduled, with IV Compazine medications * dexamethasone 4mg IV daily for additional nausea control * monitor electrolytes * maintenance fluids while nauseous * external urinary catheter, monitor I/O Pain control - pelvis and femur xrays negative for new lytic or blastic lesions, fractures - At home regimen of 5mg roxicodone q4h, with 25 mcg transdermal fentanyl patch (due to increase up to 37.5) * Basal control with Tylenol 650 mg 4 times daily, 37.5 mg fentanyl patch, roxicodone 5mg PO Q4h * Dilaudid 0.5mg Q2h for breakthrough pain * Discontinued gabapentin * radiation oncology consulted for possible palliative radiation treatments Neutropenia - WBC 1.4, absolute neutrophil count 0.77 * neutropenic precautions * blood and urine cultures pending * heme/onc recommendations appreciated HTN - per patient recollection, she is no longer taking her HCTZ because it makes her urinate more * continue toprol xl 100 Qpm, amlodipine 5 mg QPM Gout * continue allopurinol 100 mg bid per home regimen DVT ppx: lovenox FEN/GI: regular diet as tolerated, iv famotidine Bowel regimen: scheduled daily miralax Code Status: DNR/DNI Dispo: Med/Tele (2) Neutropenia: (3) Bladder cancer metastasized to bone: (4) Acute dehydration: (5) Uncontrolled pain: Admission and Anticipated Discharge Date Admission Date: October 27, 2021 Results & Data Results & Data ([facility]) Vital Signs (Past 12 Hours) Vital Signs Temp Pulse Resp BP Pulse Ox 10/28/21 22:26 36.7 C 59 L 17 121/67 98 (1) Vomiting Nausea presence: with nausea Vomiting type: unspecified Qualified Code(s): R11.2 - Nausea with vomiting, unspecified (2) Neutropenia Neutropenia type: secondary to cancer chemotherapy Qualified Code(s): D70.1 - Agranulocytosis secondary to cancer chemotherapy; T45.1X5A - Adverse effect of antineoplastic and immunosuppressive drugs, initial encounter
[2021-10-29 07:44] LABS: Basophils # (auto) 0.01 K/uL (0-0.2); Basophils % (auto) 0.4 %; Hematocrit (blood only) 27.9 % (37-47); Hemoglobin 9.4 g/dL (12.0-16.0); Immature Granulocytes # (auto) 0.07 K/uL (0.00-0.02); Lymphocytes # (auto) 0.72 K/uL (1.2-3.4); Lymphocytes % (auto) 30.9 %; Mean Corpuscular Hemoglobin 30.7 pg (25-34); Mean Corpuscular Hgb Conc 33.7 g/dL (32-36); Mean Corpuscular Volume 91.2 fL (80-100); Mean Platelet Volume 9.5 fL (7.4-10.4); Monocytes # (auto) 0.35 K/uL (0.11-0.59); Neutrophils # (auto) 1.18 K/uL (1.4-6.5); Neutrophils % (auto) 50.7 %; Nucleated RBC # (auto) 0.08 K/uL (0-0); Nucleated RBC % (auto) 3.2 %; Platelet Count 170 K/uL (130-400); RDW Coefficient of Variation 12.6 % (11.5-14.5); RDW Standard Deviation 42.4 fL (36.4-46.3); Red Blood Count 3.06 M/uL (4.2-5.4); White Blood Count 2.33 K/uL (4.8-10.8)
[2021-10-29 08:21] LABS: BUN Creatinine Ratio 36.5 (10-20); Calcium 7.7 mg/dl (8.5-10.1); Creatinine Clr Calc Pharmacy 38.9 ml/min; Est GFR (African American) 52.8 ml/min; Est GFR (Non-African American) 45.5 ml/min; Potassium 4.2 mmol/L (3.5-5.1)
[2021-10-29] MEDS: ACETAMINOPHEN 325 MG TAB PO SCH ×2 (08:36→12:25)
[2021-10-29] MEDS: PANTOprazole 40 MG TAB PO SCH (08:36)
[2021-10-29] MEDS: allopurinoL 100 MG TAB PO SCH (08:37)
[2021-10-29 08:45] LABS: RBC Morphology Unremarkable
[2021-10-29] MEDS: POLYETHYLENE (MIRALAX) 17 GM PACK PO SCH (10:04)
[2021-10-29] MEDS: dexAMETHasone 4 MG in SYRINGE 0 ML IV SCH (10:04)
[2021-10-29] MEDS: FAMOTIDINE 20 MG in SYRINGE 3 ML IV SCH (10:04)
[2021-10-29] MEDS ORDERED: HEPARIN 100 UNIT/ML 5ML FLUSH FLUSH PRN (10:16)
--- NOTE | 2021-10-29 18:47 | Discharge Summary ---
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 She states that since then she's had persistent uncontrollable nausea and vomiting since then despite use of zofran and compazine spaced out. Also describes having severe pain throughout her body and back but worst is concentrated in her left hip. She says the pain started today and ranges from being persistent and throbbing to being sharp and burning. Denies any hx of DM or peripheral neuropathy. Has been using her 5mg roxicodone at home every 4 hours without improvement in pain control. Principal Diagnosis chemo related side effects Discharge Exam gen aao riaz nad heent nc at mmm abd soft nd nt L thigh lateral soft tissue high tone/tender/decreased ROM - region of IT band - LAS w some improvement pt tolerated well. cn 2-12 grossly intact gross motor/sensory intact Discharge Data Allergies Allergy/AdvReac Type Severity Reaction Status Date / Time morphine AdvReac Intermediate "Makes me Verified 10/27/21 16:48 crazy" Consultations 10/27/21 17:24 ED Decision to Admit Stat Ordered Studies 10/27/21 15:42 CT head/brain wo con Stat Hospital Course (1) Vom[age] yo F with hx HTN, mixed hearing loss, OA, hx bladder cancer, undergoing treatments for recently diagnosed metastatic urothelial carcinoma, admitted for nausea and pain control, found to be neutropenic. Nausea and Vomiting - chemo + dehydration related - improved - stable for home, ongoing symptomatic care prn for now (can escalate if needed) and discussed ensuring hydrated prior to chemo so that when she has worsneing she is less at risk to have dehydration compounding the problem Pain control - pelvis and femur xrays negative for new lytic or blastic lesions, fractures - was on 5mg roxicodone q4h, with 25 mcg transdermal fentanyl patch (due to increase up to 37.5) - despite risks for metastatic pain, etc - actually much of exam c/w tight IT band - likely worsneed by dehydration. OMT done. voltaren gel to region QID Neutropenia, chemotherapy induced pancytopenia - improving - outpt f/u stable for home discussed seeing PCP frequently during chemo/treatment as well for ongoign assessment and management of pain/nausea/failure to thrive/nutrition/etc educated extensively on critical importance of nutrition when going through cancer/chemo (2) Neutropenia: (3) Bladder cancer metastasized to bone: (4) Acute dehydration: (5) Uncontrolled pain: Total Time Total Time Spent Total Time Spent (In Minutes): <30 Discharge Plan Discharge Items Patient Disposition: Home - Self-Care Reason For Visit: UNCONTROLLED PAIN, UNCONT. VOMITING, NEUTROPENIA Discharge Diagnosis: Intractable pain, neutropenia Condition on Discharge: Fair Activity: Per Instructions section Non-emergency contact: Primary Care Provider and Oncologist Call non-emergency contact if: you have any medication questions, your pain is not controlled, your pain is worsening and your temperature is above 101 Follow-up/Referrals: Britt Maria MD [Primary Care Provider] - 11/04/21 11:30 am Diet: Regular Addtl Attending Provider Instructions: You were admitted to the hospital due to worsening uncontrolled pain, vomiting, and neutropenia, which is an abnormally low amount of neutrophils (a type of white blood cell) in your blood. While you were here, you were evaluated and treated for other issues that arose during her stay. Please read carefully for more information on your treatment plan after discharge. Unless otherwise specified here, please continue to take your home medications as instructed. Vomiting -We believe this is a consequence of your chemotherapy treatment. -We are sending you home with a prescription for Zofran for your nausea. * Take Zofran 8 mg every 8 hours for 2 doses. Then take 8 mg every 12 hours for up to 2 days after chemotherapy treatment as needed. Take the first dose about 30 minutes before starting chemo. * If you are still nauseous after, you can take Zofran 8 mg every 8 hours as needed for your nausea. -If this does not help manage your nausea, contact your primary care provider (PCP). Leg pain -Your evaluated for your leg pain while you were here. -We believe your symptoms are consistent with iliotibial band (IT band) pain. * We are sending you home with a prescription for medication called Voltaren gel . * Please apply Voltaren gel 4 times daily as needed for your leg pain. * You can continue taking your Tylenol 650 mg 4 times daily as needed for leg pain. * If you plan to take both the Voltaren and your Tylenol, you should alternate between your pain medications, so as not to take them at the same time. * If you have any trouble managing your pain, or any confusion on how to manage your pain, contact your PCP so that they can help adjust your medications to your satisfaction. Nutrition/Hydration -As we discussed, an important part of chemotherapy is meeting your daily caloric requirements. -We calculated your daily caloric goal to be 1200 santos/day. -It is critical that you consume this many calories every day while you are undergoing chemotherapy. -You can use a variety of calorie counting apps to track your intake for the day. It is highly recommended that you track your caloric intake, rather than guessing/estimating, as this can lead to wildly inaccurate calorie counts. -In order to avoid dehydration after chemotherapy, we recommend that you drink at least 80 ounces of water a day about 4 to 5 days before your treatment. This will allow you to retain enough water to avoid being dehydrated in the following days. -If you have issues meeting your daily caloric target because of nausea, lack of appetite, dehydration, or other physical symptoms that affect your ability to meet your daily goals, please contact your PCP. -Your PCP can make any number of adjustments to help manage your symptoms so it is highly important that you reach out to them. -Finally, as part of a multi-pronged approach to your care, it is highly recommended that you follow-up with your primary care physician at least once a month, for as long as you are undergoing chemotherapy. This is so that your other medical issues related or unrelated to chemotherapy are being addressed. We believe that this approach offers the best chance of success moving forward. It has been a pleasure caring for you here at [facility]. If you have any questions, please feel free to reach out to us. Pending Studies at Discharge: No Stand-Alone Forms: My [facility] emaze, Smoking Cessation Medications and DC Order Prescriptions: Continued amlodipine 5 mg tablet 5 mg PO QPM Qty: 90 RF: 3 hydrochlorothiazide 25 mg tablet 25 mg PO QPM Qty: 90 RF: 3 metoprolol succinate 100 mg tablet extended release 24 hr 100 mg PO QPM Qty: 90 RF: 3 allopurinol 100 mg tablet 100 mg PO BID Qty: 60 RF: 2 omeprazole 20 mg tablet,delayed release (DR/EC) 20 mg PO DAILY Qty: 30 RF: 2 prednisone 50 mg tablet 50 mg PO DAILY Qty: 5 RF: 0 hydrocortisone-acetic acid 1-2 % drops 5 drp otic (ear) BID PRN (Reason: Pain and drainage) Qty: 10 RF: 5 calcium carbonate [Calcium 600] 600 mg calcium (1,500 mg) Tablet 600 mg PO QAM RF: 0 ascorbic acid (vitamin C) [Vitamin C] 500 mg Tablet 500 mg PO QAM RF: 0 cholecalciferol (vitamin D3) [Vitamin D3] 25 mcg (1,000 unit) Capsule 25 mcg PO QAM RF: 0 fentanyl 25 mcg/hr Patch 72 Hour 1 patch TRANSDERMAL Q72H RF: 0 oxycodone 5 mg Tablet 5 mg PO .Q 4-6 HRS PRN (Reason: Pain) RF: 0 dexamethasone 4 mg tablet 4 mg PO UD RF: 0 olanzapine 2.5 mg tablet 2.5 mg PO UD RF: 0 ondansetron HCl 8 mg tablet 8 mg PO Q8 PRN (Reason: Nausea And Vomiting) RF: 0 fentanyl 12 mcg/hr patch 72 hour 12 mcg transdermal [id number] RF: 0 prochlorperazine maleate 10 mg tablet 10 mg PO Q6 PRN (Reason: Nausea) RF: 0 cyanocobalamin (vitamin B-12) [Vitamin B-12] 1,000 mcg Tablet 1,000 mcg PO QAM RF: 0 zinc 50 mg Tablet 50 mg PO QAM RF: 0 omega 8-muc-jgk-fish oil [Fish Oil] 1,000 mg (120 mg-180 mg) Capsule 1 cap PO QAM RF: 0 vitamin E 400 unit Capsule 400 unit PO QAM RF: 0 Changed acetaminophen 500 mg Tablet 650 mg PO Q6H PRN (Reason: Pain) Qty: 0 RF: 0 Discharge Orders: Discharge Order (Routine); Ordered 10/29/21 Ordered By: Nicole Jama Admission Data Admit Date/Time: 10/27/21 18:29 Attending Provider: Nakul Shearer Admit Provider: Tala Rothman Primary Care Provider: Britt Maria Other Providers: Nacho Matos ; [facility] Other Interventions: Discharge Summary Assessment (RN) Last Done: 10/29/21 15:17 Coding Level of Care Code D/C DAY MANAGEMENT <30 MINS Diagnoses Vomiting R11.2 Nausea presence: with nausea Vomiting type: unspecified Neutropenia D70.1; T45.1X5A Neutropenia type: secondary to cancer chemotherapy Bladder cancer metastasized to bone C67.9; C79.51 Acute dehydration E86.0 Uncontrolled pain R52
== END 2021-10-29 18:30 | disposition home health service (06) ==
LOC: ED 13:57 → INTOOBSV 18:29 → EDINP 18:29 → SUATTDRO 18:29 → 3W 22:12

== ENCOUNTER 2021-12-04 18:41 | Inpatient (IN) ==
[2021-12-04] MEDS ORDERED: SODIUM CHLORIDE 0.9% 1000ML 1,000 ML IV ONE ×2 (19:15→21:05)
[2021-12-04] MEDS ORDERED: PROMETHAZINE HCL 12.5 MG in SODIUM CHLORIDE 0.9% 50 ML IV STA (19:18)
[2021-12-04 19:45] LABS: Hematocrit (blood only) 31.6 % (37-47); Hemoglobin 10.9 g/dL (12.0-16.0); Mean Corpuscular Hemoglobin 31.8 pg (25-34); Mean Corpuscular Hgb Conc 34.5 g/dL (32-36); Mean Corpuscular Volume 92.1 fL (80-100); RDW Coefficient of Variation 14.7 % (11.5-14.5); RDW Standard Deviation 45.3 fL (36.4-46.3); Red Blood Count 3.43 M/uL (4.2-5.4); White Blood Count 9.92 K/uL (4.8-10.8)
--- NOTE | 2021-12-04 19:46 | XRay Report ---
XR chest 1V portable HISTORY: SEPSIS COMPARISON: Chest 10/27/2021. FINDINGS: No pneumothorax. No pleural effusions. The cardiac silhouette remains mildly enlarged. No n ew focal lung consolidations to suggest pneumonia. No evidence for pulmonary edema. There is a right jugular Port-A-Cath which terminates at the SVC. Destructive lesion within the left clavicle with a p athologic fracture remains unchanged. IMPRESSION: 1. No change compared to the prior study. No acute process within the chest. 2. Lytic, destructive lesion of the left clavicle remains unchanged. ACT 112: Negative or not required by law. Electronically signed by: Prakash Concepcion M.D. 12/04/2021 7:45 PM
[2021-12-04 19:59] LABS: Partial Thromboplastin Time 26.2 Seconds (21.0-31.0)
[2021-12-04 20:06] LABS: Basophils # (auto) 0.01 K/uL (0-0.2); Basophils % (auto) 0.1 %; Eosinophils # (auto) 0.03 K/uL (0-0.5); Eosinophils % (auto) 0.3 %; Immature Granulocytes # (auto) 0.02 K/uL (0.00-0.02); Immature Granulocytes % (auto) 0.2 %; Lymphocytes # (auto) 0.66 K/uL (1.2-3.4); Lymphocytes % (auto) 6.7 %; Mean Platelet Volume 10.2 fL (7.4-10.4); Monocytes # (auto) 0.02 K/uL (0.11-0.59); Monocytes % (auto) 0.2 %; Neutrophils # (auto) 9.18 K/uL (1.4-6.5); Neutrophils % (auto) 92.5 %; Platelet Count 96 K/uL (130-400); Platelet Estimate Decreased (Normal)
[2021-12-04 20:17] LABS: Troponin I < 0.03 ng/ml (0-0.04)
[2021-12-04 20:20] LABS: Alanine Aminotransferase 92 U/L (7-52); Albumin Globulin Ratio 1.1 (0.9-2); Albumin Level 3.2 gm/dl (3.4-5.0); Alkaline Phosphatase 166 U/L (34-104); Anion Gap 12 (3-11); Aspartate Aminotransferase 74 U/L (13-39); BUN Creatinine Ratio 31.1 (10-20); Bilirubin,Total 0.6 mg/dl (0.2-1.0); Blood Urea Nitrogen 37 mg/dl (6-23); Carbon Dioxide 20 mmol/L (21-32); Chloride 101 mmol/L (98-107); Est GFR (African American) 50.6 ml/min; Est GFR (Non-African American) 43.7 ml/min; Glucose 146 mg/dl (70-99(Fasting)); Magnesium 1.8 mg/dl (1.7-2.4); Potassium 4.3 mmol/L (3.5-5.1); Sodium 133 mmol/L (136-145); Total Protein 6.2 gm/dl (6.0-8.3)
--- NOTE | 2021-12-04 21:05 | Emergency Department Note ---
Impression & Plan Acute dehydration, Urinary tract infection, Acute hypotension, Bradycardia, Vomiting, Abnormal LFTs ED Provider Note NAME: SIL SALDANA AGE: 76 SEX: F : 1945 ARRIVES VIA: Walk-In INFORMANT: Patient, ED PROVIDER(S): Asael Bethea DO CHIEF COMPLAINT: Weakness HPI: The patient is a 76-year-old female who presented to emergency department with her daughter for an evaluation of generalized weakness. The patient has a history of cancer. She received chemotherapy. She states that she was supposed to go to the cancer center on Monday for IV fluids but she was unable to make it to this appointment. She has had intractable nausea and has had decreased p.o. intake because of the nausea. She denies having any headache at this time. She has had no diarrhea or fever. She denies having any rectal bleeding. The patie nt states she has noted lower extremity swelling. She is not seen her family doctor recently for the symptoms. She states her nausea is moderate despite taking her outpatient medications for nausea. ROS: See above HPI for pertinent positives & negatives. A total of 10 systems reviewed and were otherwise negative. PAST MEDICAL HISTORY: See Below PAST SURGICAL HISTORY: See Below FAMILY HISTORY: See Below SOCIAL HISTORY: See Below HOME MEDICATIONS: See Below ALLERGIES: See Below VITALS: See Below PHYSICAL EXAMINATION: GENERAL: The patient is awake and alert. She appears somewhat anxious appearing but overall comfortable. EYES: The conjunctivae are clear. The pupils are round and reactive. EARS, NOSE, MOUTH AND THROAT: The nose is without any evidence of any deformity. Mucous membranes are moist. Tongue is midline. NECK: The neck is nontender and supple. RESPIRATORY: Normal respiratory effort is noted there is no evidence of wheezing rhonchi or rales CARDIOVASCULAR: Regular rate and rhythm noted there no murmurs rubs or gallops normal S1 normal S2. GASTROINTESTINAL: The abdomen is soft. Abdomen is nontender. MUSCULOSKELETAL/EXTREMITIES: There is no evidence of gross deformity full range of motion is noted in the hips and shoulders. SKIN: There is no obvious evidence of any rash. There are no petechiae, pallor or cyanosis noted. NEUROLOGIC: Patient is awake alert and oriented x 3. Strength is symmetric but diminished. MEDICAL DECISION MAKING: The patient is a 76-year-old female who presented to the emergency department with family members for an evaluation of generalized weakness and nausea. The patient has had decreased p.o. intake because of nausea. She was treated with chemotherapy recently. The patient has a known history of cancer. She presented today with nausea. She was noted to have episodes of bradycardia. She had episodes of tachybradycardia syndrome as well. The patient was found to have urinary tract infection based on her urinalysis. She was treated with IV fluids IV antiemetics and IV antibiotics. I discussed patient's laboratory and radiographic studies with her. Because of her findings I also discussed her case with the on-call [facility]. They have agreed to evaluate the patient in the emergency department for further management and disposition. Triage Nursing notes reviewed. Prior medical records reviewed Vital Signs: reviewed and remarkable for no significant abnormalities Differential diagnosis: Infection, dehydration, metabolic abnormality, hypo/hyperglycemia, electrolyte disturbance, anemia, hypoxia, cardiac sources, intracerebral event, toxicologic, neurologic, as well as other pathologies. ER treatment provided: See below Diagnostics interpreted by me: ECG: EKG was obtained in the emergency department. My interpretation is normal sinus rhythm at 81 bpm. There is no ectopy. Nonspecific T wave inversions were noted in the anterior leads. This was compared to a tracing from October 272021. No changes were noted. Cardiac Monitoring: An order was placed for continuous cardiac monitoring. The monitor shows a rate of 90 bpm with sinus rhythm. Laboratory studies: As stated above and show below. Imaging studies: See below Consultation(s): I discussed this case with Dr. Gomez who is on-call for [facility]. 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, back and lung [place] (hard of hearing) HTN (hypertension) Hx SBO Osteoarthritis Poor historian SOB (shortness of breath) on exertion Vomiting Surgical History History of colonoscopy History of intestinal surgery History of surgery TURBT History of total abdominal hysterectomy and bilateral salpingo-oophorectomy History of wisdom tooth extraction Port-A-Cath in place (10/18/21) Insertion Access Port in Right Jugular with Fluoroscopy(Right) - Peterson Dasilva DO, FACS 10/18/21 Family History Father Cancer lung Colorectal cancer Mother Hearing loss Hypertension Stroke Other No family history of adverse response to anesthesia No family history of bleeding disorder Denies family history of Ovarian cancer Prostate cancer Myocardial infarction Breast cancer Social History Smoking Status: Never smoker packs per day: 1; Years Smoked: 10; Second Hand Exposure: No; Hx Alcohol Use: Yes Alcohol type: wine Alcohol Intake Frequency: Monthly or Less Hx Substance Use: No Preferred Language: Moldovan Communication Ability: Effective Hearing Ability: Hard of Hearing Product Support Analyst Required: No Beliefs That Will Affect Care: None marital status: / Current Living Situation: Family Current Living Situation Comment: LIVES WITH DAUGHTER TAINA current occupational status: retired How many Children do You have: 2 Feels Safe at Home: Yes Childhood Exposure to Second-Hand Smoke: Yes caffeine: Yes Dental Care, Regularly: No Physical Activity Frequency: Does not Exercise Seatbelt Use: always Sunscreen Use: Yes Assistive Devices: Cane and Walker Allergies Allergies Allergy/AdvReac Type Severity Reaction Status Date / Time morphine AdvReac Intermediate "Makes me Verified 11/22/21 08:03 crazy" Home Meds Home Medications Medication Instructions Recorded Confirmed ascorbic acid (vitamin C) 500 mg 1,000 mg PO QPM 08/04/21 12/04/21 tablet (Vitamin C) cyanocobalamin (vitamin B-12) 1,000 mcg PO QAM 10/08/21 12/04/21 1,000 mcg tablet (Vitamin B-12) zinc 50 mg tablet 50 mg PO QAM 10/08/21 12/04/21 oxycodone 5 mg tablet 5 mg PO .Q 4-6 HRS PRN 10/14/21 12/04/21 olanzapine 2.5 mg tablet 2.5 mg PO UD 10/27/21 12/04/21 ondansetron HCl 8 mg tablet 8 mg PO Q8 PRN 10/27/21 12/04/21 prochlorperazine maleate 10 mg 10 mg PO Q6 PRN 10/27/21 12/04/21 tablet ferrous sulfate 325 mg (65 mg 325 mg PO QPM 11/22/21 12/04/21 iron) tablet cholecalciferol (vitamin D3) 125 125 mcg PO DAILY 12/04/21 12/04/21 mcg (5,000 unit) tablet fentanyl 37.5 mcg/hour transdermal 1 patch TRANSDERMAL Q72H 12/04/21 12/04/21 patch omeprazole 20 mg tablet,delayed 20 mg PO QAM 12/04/21 12/04/21 release potassium gluconate 595 mg (99 mg) 595 mg PO DAILY 12/04/21 12/04/21 tablet Previous Rx's Medication Instructions Recorded amlodipine 5 mg tablet 5 mg PO QPM #90 tab 08/17/21 metoprolol succinate 100 mg 100 mg PO QPM #90 tab 08/17/21 tablet,extended release 24 hr allopurinol 100 mg tablet 100 mg PO BID #60 tab 10/27/21 acetaminophen 500 mg tablet 650 mg PO Q6H PRN #0 tab 10/29/21 Results & Data (ED) Vital Signs Vital Signs - 24 hr 12/04/21 18:53 12/04/21 19:12 12/04/21 19:15 Temperature 36.1 C L Temperature Source Temporal Artery Scan Pulse Rate 87 79 79 Pulse Rate [Left Apical] Pulse Rate from SpO2 Sensor Pulse Rhythm [Left Apical] Pulse Strength [Left Apical] Respiratory Rate 20 21 16 Respiratory Effort / Characteristics Non-Labored Spontaneous Respiratory Depth Normal Respiratory Pattern Regular Blood Pressure 94/69 L Blood Pressure [Right Arm] Blood Pressure Mean 77 Blood Pressure Mean [Right Arm] Blood Pressure Position [Right Arm] Pulse Oximetry 95 94 95 Oxygen Delivery Method Room Air Room Air Room Air Sepsis Recent Fever Within 48 Hours No Sepsis New/Unexplained Change in Mental Status No Sepsis Action Taken by Nursing No Action Required 12/04/21 19:16 12/04/21 19:30 12/04/21 19:45 Temperature Temperature Source Pulse Rate 80 82 Pulse Rate [Left Apical] Pulse Rate from SpO2 Sensor Pulse Rhythm [Left Apical] Pulse Strength [Left Apical] Respiratory Rate 20 22 Respiratory Effort / Characteristics Respiratory Depth Respiratory Pattern Blood Pressure Blood Pressure [Right Arm] Blood Pressure Mean Blood Pressure Mean [Right Arm] Blood Pressure Position [Right Arm] Pulse Oximetry 97 Oxygen Delivery Method Room Air Sepsis Recent Fever Within 48 Hours Sepsis New/Unexplained Change in Mental Status Sepsis Action Taken by Nursing 12/04/21 20:00 12/04/21 20:13 12/04/21 20:15 Temperature Temperature Source Pulse Rate 81 78 Pulse Rate [Left Apical] 79 Pulse Rate from SpO2 Sensor 72 78 Pulse Rhythm [Left Apical] Regular Pulse Strength [Left Apical] Normal Respiratory Rate 20 21 Respiratory Effort / Characteristics Non-Labored Non-Labored Respiratory Depth Normal Respiratory Pattern Blood Pressure 114/76 Blood Pressure [Right Arm] 114/76 Blood Pressure Mean 88 Blood Pressure Mean [Right Arm] 88 Blood Pressure Position [Right Arm] Pulse Oximetry 94 95 93 Oxygen Delivery Method Room Air Room Air Sepsis Recent Fever Within 48 Hours Sepsis New/Unexplained Change in Mental Status Sepsis Action Taken by Nursing 12/04/21 20:30 12/04/21 20:45 12/04/21 21:00 Temperature Temperature Source Pulse Rate 77 77 75 Pulse Rate [Left Apical] Pulse Rate from SpO2 Sensor 77 77 75 Pulse Rhythm [Left Apical] Pulse Strength [Left Apical] Respiratory Rate 12 20 21 Respiratory Effort / Characteristics Non-Labored Respiratory Depth Respiratory Pattern Blood Pressure 111/74 Blood Pressure [Right Arm] Blood Pressure Mean 86 Blood Pressure Mean [Right Arm] Blood Pressure Position [Right Arm] Pulse Oximetry 94 94 93 Oxygen Delivery Method Sepsis Recent Fever Within 48 Hours Sepsis New/Unexplained Change in Mental Status Sepsis Action Taken by Nursing 12/04/21 21:05 12/04/21 21:15 12/04/21 21:30 Temperature 36.5 C Temperature Source Oral Pulse Rate 143 H 120 H Pulse Rate [Left Apical] 76 Pulse Rate from SpO2 Sensor 100 H 108 H Pulse Rhythm [Left Apical] Regular Pulse Strength [Left Apical] Normal Respiratory Rate 20 19 23 Respiratory Effort / Characteristics Non-Labored Respiratory Depth Normal Respiratory Pattern Blood Pressure Blood Pressure [Right Arm] 111/74 Blood Pressure Mean Blood Pressure Mean [Right Arm] 86 Blood Pressure Position [Right Arm] Lying Pulse Oximetry 94 94 95 Oxygen Delivery Method Room Air Sepsis Recent Fever Within 48 Hours Sepsis New/Unexplained Change in Mental Status Sepsis Action Taken by Nursing 12/04/21 21:44 12/04/21 21:45 12/04/21 21:49 Temperature Temperature Source Pulse Rate 140 H 136 H Pulse Rate [Left Apical] 155 H Pulse Rate from SpO2 Sensor 125 H 121 H Pulse Rhythm [Left Apical] Regular Pulse Strength [Left Apical] Normal Respiratory Rate 20 19 18 Respiratory Effort / Characteristics Non-Labored Respiratory Depth Normal Respiratory Pattern Blood Pressure 118/79 Blood Pressure [Right Arm] 111/74 Blood Pressure Mean 92 Blood Pressure Mean [Right Arm] 86 Blood Pressure Position [Right Arm] Pulse Oximetry 96 97 93 Oxygen Delivery Method Room Air Sepsis Recent Fever Within 48 Hours Sepsis New/Unexplained Change in Mental Status Sepsis Action Taken by Nursing 12/04/21 21:54 12/04/21 22:00 12/04/21 22:25 Temperature Temperature Source Pulse Rate 131 H Pulse Rate [Left Apical] 130 H 90 Pulse Rate from SpO2 Sensor 92 H Pulse Rhythm [Left Apical] Pulse Strength [Left Apical] Respiratory Rate 20 19 20 Respiratory Effort / Characteristics Non-Labored Respiratory Depth Normal Respiratory Pattern Blood Pressure Blood Pressure [Right Arm] 118/75 122/70 Blood Pressure Mean Blood Pressure Mean [Right Arm] 89 87 Blood Pressure Position [Right Arm] Lying Pulse Oximetry 97 94 95 Oxygen Delivery Method Room Air Room Air Sepsis Recent Fever Within 48 Hours Sepsis New/Unexplained Change in Mental Status Sepsis Action Taken by Intermediate Medications Current Medication List: was personally reviewed by me Laboratory Data Attestation: I reviewed the patient's lab results. Result diagrams: 12/04/21 19:29 12/04/21 19:29 Lab Results 12/04/21 12/04/21 12/04/21 Range/Units 19:29 19:29 19:29 WBC 9.92 (4.8-10.8) K/uL RBC 3.43 L (4.2-5.4) M/uL Hgb 10.9 L (12.0-16.0) g/dL Hct 31.6 L (37-47) % MCV 92.1 (80-100) fL MCH 31.8 (25-34) pg MCHC 34.5 (32-36) g/dL RDW Std Deviation 45.3 (36.4-46.3) fL RDW Coeff of Janice 14.7 H (11.5-14.5) % Plt Count 96 L (130-400) K/uL MPV 10.2 (7.4-10.4) fL Immature Gran % (Auto) 0.2 % Neut % (Auto) 92.5 % Lymph % (Auto) 6.7 % Ballard % (Auto) 0.2 % Eos % (Auto) 0.3 % Baso % (Auto) 0.1 % Neut # (Auto) 9.18 H (1.4-6.5) K/uL Lymph # (Auto) 0.66 L (1.2-3.4) K/uL Ballard # (Auto) 0.02 L (0.11-0.59) K/uL Eos # (Auto) 0.03 (0-0.5) K/uL Baso # (Auto) 0.01 (0-0.2) K/uL Immature Gran # (Auto) 0.02 (0.00-0.02) K/uL Platelet Estimate Decreased L (Normal) PT (9.0-12.0) Seconds INR (0.9-1.1) APTT (21.0-31.0) Seconds PTT Ratio Sodium 133 L (136-145) mmol/L Potassium 4.3 (3.5-5.1) mmol/L Chloride 101 (98-107) mmol/L Carbon Dioxide 20 L (21-32) mmol/L Anion Gap 12 H (3-11) BUN 37 H (6-23) mg/dl Creatinine 1.19 (0.6-1.2) mg/dl Est Cr Clr Drug Dosing Not Reportable Est GFR ( Amer) 50.6 ml/min Est GFR (Non-Af Amer) 43.7 ml/min BUN/Creatinine Ratio 31.1 H (10-20) Glucose 146 H (70-99(Fasting)) mg/dl Lactate (0.4-2.0) mmol/L Calcium 8.0 L (8.5-10.1) mg/dl Magnesium 1.8 (1.7-2.4) mg/dl Total Bilirubin 0.6 (0.2-1.0) mg/dl AST 74 H (13-39) U/L ALT 92 H (7-52) U/L Alkaline Phosphatase 166 H (34-104) U/L Troponin I < 0.03 (0-0.04) ng/ml Total Protein 6.2 (6.0-8.3) gm/dl Albumin 3.2 L (3.4-5.0) gm/dl Globulin 3.0 (2.5-4.0) gm/dl Albumin/Globulin Ratio 1.1 (0.9-2) Procalcitonin 0.69 H (0-0.5) ng/ml Urine Color Urine Appearance (Clear) Urine pH (4.5-7.5) Ur Specific [place] (1.000-1.030) Urine Protein (Negative) Urine Glucose (UA) (Negative) Urine Ketones (Negative) Urine Blood (Negative) Urine Nitrite (Negative) Urine Bilirubin (Negative) Urine Urobilinogen (Negative) Ur Leukocyte Esterase (Negative) Urine WBC (Auto) (0-5) /hpf Urine RBC (Auto) (0-4) /hpf U Hyaline Cast (Auto) (0-5) /lpf U Epithel Cells (Auto) (0-5) /lpf Urine Bacteria (Auto) (Negative) SARS-CoV-2, RNA, NAAT (NEGATIVE) 12/04/21 12/04/21 12/04/21 Range/Units 19:29 19:29 21:27 WBC (4.8-10.8) K/uL RBC (4.2-5.4) M/uL Hgb (12.0-16.0) g/dL Hct (37-47) % MCV (80-100) fL MCH (25-34) pg MCHC (32-36) g/dL RDW Std Deviation (36.4-46.3) fL RDW Coeff of Janice (11.5-14.5) % Plt Count (130-400) K/uL MPV (7.4-10.4) fL Immature Gran % (Auto) % Neut % (Auto) % Lymph % (Auto) % Ballard % (Auto) % Eos % (Auto) % Baso % (Auto) % Neut # (Auto) (1.4-6.5) K/uL Lymph # (Auto) (1.2-3.4) K/uL Ballard # (Auto) (0.11-0.59) K/uL Eos # (Auto) (0-0.5) K/uL Baso # (Auto) (0-0.2) K/uL Immature Gran # (Auto) (0.00-0.02) K/uL Platelet Estimate (Normal) PT 10.0 (9.0-12.0) Seconds INR 1.0 (0.9-1.1) APTT 26.2 (21.0-31.0) Seconds PTT Ratio 1.0 Sodium (136-145) mmol/L Potassium (3.5-5.1) mmol/L Chloride (98-107) mmol/L Carbon Dioxide (21-32) mmol/L Anion Gap (3-11) BUN (6-23) mg/dl Creatinine (0.6-1.2) mg/dl Est Cr Clr Drug Dosing Est GFR ( Amer) ml/min Est GFR (Non-Af Amer) ml/min BUN/Creatinine Ratio (10-20) Glucose (70-99(Fasting)) mg/dl Lactate 2.1 H* (0.4-2.0) mmol/L Calcium (8.5-10.1) mg/dl Magnesium (1.7-2.4) mg/dl Total Bilirubin (0.2-1.0) mg/dl AST (13-39) U/L ALT (7-52) U/L Alkaline Phosphatase (34-104) U/L Troponin I (0-0.04) ng/ml Total Protein (6.0-8.3) gm/dl Albumin (3.4-5.0) gm/dl Globulin (2.5-4.0) gm/dl Albumin/Globulin Ratio (0.9-2) Procalcitonin (0-0.5) ng/ml Urine Color Urine Appearance (Clear) Urine pH (4.5-7.5) Ur Specific [place] (1.000-1.030) Urine Protein (Negative) Urine Glucose (UA) (Negative) Urine Ketones (Negative) Urine Blood (Negative) Urine Nitrite (Negative) Urine Bilirubin (Negative) Urine Urobilinogen (Negative) Ur Leukocyte Esterase (Negative) Urine WBC (Auto) (0-5) /hpf Urine RBC (Auto) (0-4) /hpf U Hyaline Cast (Auto) (0-5) /lpf U Epithel Cells (Auto) (0-5) /lpf Urine Bacteria (Auto) (Negative) SARS-CoV-2, RNA, NAAT NEGATIVE (NEGATIVE) 12/04/21 12/04/21 Range/Units 21:34 21:51 WBC (4.8-10.8) K/uL RBC (4.2-5.4) M/uL Hgb (12.0-16.0) g/dL Hct (37-47) % MCV (80-100) fL MCH (25-34) pg MCHC (32-36) g/dL RDW Std Deviation (36.4-46.3) fL RDW Coeff of Janice (11.5-14.5) % Plt Count (130-400) K/uL MPV (7.4-10.4) fL Immature Gran % (Auto) % Neut % (Auto) % Lymph % (Auto) % Ballard % (Auto) % Eos % (Auto) % Baso % (Auto) % Neut # (Auto) (1.4-6.5) K/uL Lymph # (Auto) (1.2-3.4) K/uL Ballard # (Auto) (0.11-0.59) K/uL Eos # (Auto) (0-0.5) K/uL Baso # (Auto) (0-0.2) K/uL Immature Gran # (Auto) (0.00-0.02) K/uL Platelet Estimate (Normal) PT (9.0-12.0) Seconds INR (0.9-1.1) APTT (21.0-31.0) Seconds PTT Ratio Sodium (136-145) mmol/L Potassium (3.5-5.1) mmol/L Chloride (98-107) mmol/L Carbon Dioxide (21-32) mmol/L Anion Gap (3-11) BUN (6-23) mg/dl Creatinine (0.6-1.2) mg/dl Est Cr Clr Drug Dosing Est GFR ( Amer) ml/min Est GFR (Non-Af Amer) ml/min BUN/Creatinine Ratio (10-20) Glucose (70-99(Fasting)) mg/dl Lactate 1.4 (0.4-2.0) mmol/L Calcium (8.5-10.1) mg/dl Magnesium (1.7-2.4) mg/dl Total Bilirubin (0.2-1.0) mg/dl AST (13-39) U/L ALT (7-52) U/L Alkaline Phosphatase (34-104) U/L Troponin I (0-0.04) ng/ml Total Protein (6.0-8.3) gm/dl Albumin (3.4-5.0) gm/dl Globulin (2.5-4.0) gm/dl Albumin/Globulin Ratio (0.9-2) Procalcitonin (0-0.5) ng/ml Urine Color Yellow Urine Appearance Cloudy A (Clear) Urine pH 5.0 (4.5-7.5) Ur Specific [place] 1.020 (1.000-1.030) Urine Protein Trace H (Negative) Urine Glucose (UA) Negative (Negative) Urine Ketones Negative (Negative) Urine Blood Trace H (Negative) Urine Nitrite Negative (Negative) Urine Bilirubin Negative (Negative) Urine Urobilinogen Negative (Negative) Ur Leukocyte Esterase 2+ H (Negative) Urine WBC (Auto) >30 H (0-5) /hpf Urine RBC (Auto) 5-10 H (0-4) /hpf U Hyaline Cast (Auto) 5-10 H (0-5) /lpf U Epithel Cells (Auto) >30 H (0-5) /lpf Urine Bacteria (Auto) 2+ H (Negative) SARS-CoV-2, RNA, NAAT (NEGATIVE) Administered Medications Discontinued Medications Sodium Chloride (Nss 1000ml) 1,000 mls @ 999 mls/hr IV .Q1H1M ONE Stop: 12/04/21 20:15 Last Infusion: 12/04/21 21:06 Dose: 0 mls/hr Documented by: [id number] Admin: 12/04/21 20:00 Dose: 999 mls/hr Documented by: [id number] Promethazine HCl 12.5 mg/ (Sodium Chloride) 50.5 mls @ 202 mls/hr IV NOW STA Stop: 12/04/21 19:32 Last Infusion: 12/04/21 20:16 Dose: 0 mls/hr Documented by: [id number] Admin: 12/04/21 20:00 Dose: 202 mls/hr Documented by: [id number] Sodium Chloride (Nss 1000ml) 1,000 mls @ 999 mls/hr IV .Q1H1M ONE Stop: 12/04/21 22:05 Last Infusion: 12/04/21 22:28 Dose: 0 mls/hr Documented by: [id number] Admin: 12/04/21 21:26 Dose: 999 mls/hr Documented by: [id number] Imaging Data Radiologist's Impression: Chest X-Ray 12/04/21 19:16 XR chest 1V portable HISTORY: SEPSIS COMPARISON: Chest 10/27/2021. FINDINGS: No pneumothorax. No pleural effusions. The cardiac silhouette remains mildly enlarged. No new focal lung consolidations to suggest pneumonia. No evidence for pulmonary edema. There is a right jugular Port-A-Cath which terminates at the SVC. Destructive lesion within the left clavicle with a pathologic fracture remains unchanged. IMPRESSION: 1. No change compared to the prior study. No acute process within the chest. 2. Lytic, destructive lesion of the left clavicle remains unchanged. ACT 112: Negative or not required by law. Electronically signed by: Prakash Concepcion M.D. 12/04/2021 7:45 PM Discharge Plan Visit Data Chief Complaint: Dehydration Stated Complaint: DEHYDRATED, NAUSEA, WEAKNESS, VOMITING ED Provider: Asael Bethea Discharge Problem: Acute dehydration, Urinary tract infection, Acute hypotension, Bradycardia, Vomiting, Abnormal LFTs Patient Disposition: Being Evaluated by Hospitalist Forms Stand Alone Forms: [facility] Prescriptions Prescriptions: No Action amlodipine 5 mg tablet 5 mg PO QPM Qty: 90 RF: 3 metoprolol succinate 100 mg tablet extended release 24 hr 100 mg PO QPM Qty: 90 RF: 3 allopurinol 100 mg tablet 100 mg PO BID Qty: 60 RF: 2 ascorbic acid (vitamin C) [Vitamin C] 500 mg Tablet 1,000 mg PO QPM RF: 0 oxycodone 5 mg Tablet 5 mg PO .Q 4-6 HRS PRN (Reason: Pain) RF: 0 olanzapine 2.5 mg tablet 2.5 mg PO UD RF: 0 ondansetron HCl 8 mg tablet 8 mg PO Q8 PRN (Reason: Nausea And Vomiting) RF: 0 prochlorperazine maleate 10 mg tablet 10 mg PO Q6 PRN (Reason: Nausea) RF: 0 acetaminophen 500 mg Tablet 650 mg PO Q6H PRN (Reason: Pain) Qty: 0 RF: 0 cholecalciferol (vitamin D3) 125 mcg (5,000 unit) Tablet 125 mcg PO DAILY RF: 0 omeprazole 20 mg tablet,delayed release (DR/EC) 20 mg PO QAM RF: 0 potassium gluconate 595 mg (99 mg) Tablet 595 mg PO DAILY RF: 0 fentanyl 37.5 mcg/hour Patch 72 Hour 1 patch TRANSDERMAL Q72H RF: 0 cyanocobalamin (vitamin B-12) [Vitamin B-12] 1,000 mcg Tablet 1,000 mcg PO QAM RF: 0 zinc 50 mg Tablet 50 mg PO QAM RF: 0 ferrous sulfate 325 mg (65 mg iron) Tablet 325 mg PO QPM RF: 0 Referrals Referrals: Britt Maria MD [Primary Care Provider] -
[2021-12-04 22:02] LABS: Appearance Urine Cloudy (Clear); Bacteria Urine Automated 2+ (Negative); Bilirubin Urine Negative (Negative); Blood Urine Trace (Negative); Color Urine Yellow; Epithelial Cell Urine Auto >30 /lpf (0-5); Glucose Urine UA Negative (Negative); Ketones Urine Negative (Negative); Leukocyte Esterase Urine 2+ (Negative); Nitrite Urine Negative (Negative); Protein Urine Trace (Negative); Urobilinogen Urine Negative (Negative); WBC Urine Automated >30 /hpf (0-5)
[2021-12-04] MEDS ORDERED: cefTRIAXone SODIUM 1,000 MG/50 ML BAG IV STA (22:41)
--- NOTE | 2021-12-04 22:50 | History & Physical Report ---
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 Renal function is intact. Mild hyponatremia, electrolytes otherwise WNL. Patient given 2L NSS in the ER. -Continue LR at 80mL/hr x 1 liter -Repeat chemistry in AM (2) Tachycardia-bradycardia: Plan: Patient with witnessed tachycardia - sinus and brief run of what appeared to be atrial fibrillation as well as sinus pauses and bradycardia. Troponin is Negative x 1. No EKG evidence of ischemia. Electrolytes are largely unremarkable. Patient is on several anti-emetics that may contribute to conduction abnormality - on metoprolol as well -Hold Metoprolol for now -Hold Compazine -May consider Ativan, Benadryl or Dexamethasone for additional anti-emetics if needed -Cardiology Consultation appreciated (3) Urinary tract infection: Plan: Patient with UA suggestive of infection. She is afebrile, HD stable, non-toxic in appearance. She does have a mildly elevated procalcitonin. No complaints of dysuria/frequency/urgency, however, given immunocompromised state on chemotherapy will initiate treatment with Ceftriaxone -Follow urine culture -Ceftriaxone 1gm IV daily (4) Nausea: Plan: Patient with persistent nausea following chemotherapy. This is fairly typical for her but is usually controlled by her medications at home. Dehydration and UTI possibly contributing as well. 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 -Continue Oxycodone as needed for pain -Continue Fentanyl patch (6) Benign hypertension: Plan: Blood pressure stable at present, 122/70 -Continue Amlodipine 5mg po daily -Monitor (7) Acid reflux disease: Plan: Chronic -Pepcid for now Plan: F/E/N - LR at 80mL/hr x 1 liter, electrolytes WNL - repeat chemistry in AM, Regular diet as tolerated Ppx - Lovenox Code - DNR/DNI per discussion with patient and daughter Dispo - Admit to medical with telemetry History of Present Illness Chief Complaint: weakness, fatigue, nausea Primary Care Provider: MD Rain Mayoic is a 76yo female with history of bladder cancer s/p treatment in 2011 presently with 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 She is s/p TURBT and presently on chemotherapy with Cisplatin - just completed her 3rd cycle. She follows with Hematology/Oncology - Dr. Li and Dr. Yen. She had he last chemotherapy on 12/01/21. She developed severe nausea after her treatment with is not uncommon. She has been taking her medications as recommended to include Zofran, Compazine and Olanzapine. She was to have [facility] 12/[facility], however, due to inclement weather the Cancer Center was closed and she was unable to receive fluids. She has had persistent nausea with inability to keep down food or liquids, multiple episodes of non-bloody/nonbilious. She has also had generalized weakness, fatigue, episodes of lightheadedness and SOB ongoing since her chemo treatment. Also with a headache and pain on the plantar surface of her feet. She has been having chills here, but overall denies fever, chest pain, palpitations, abdominal pain, diarrhea or constipation. No dysuria or increased urinary frequency or urgency. Patient was instructed to come to the ER by her Palliative Care nurse for presumed dehydration and IVF. Upon arrival patient afebrile, HD stable. She did have several episodes of sinus pauses followed by PVCs. This was initially noted while she was receiving Phenergan in the ER which was subsequently stopped. Also was briefly in atrial fibrillation. During my encounter patient seemed to be in AF on monitor with rate of 155. She had several PVCs then converted to sinus rhythm at rate of 94. ER Course: NSS x 2 liters, Promethazine 12.5mg, Ceftriaxone 1gm Allergies Allergy/AdvReac Type Severity Reaction Status Date / Time morphine AdvReac Intermediate "Makes me Verified 11/22/21 08:03 crazy" Home Medications Medication Instructions Recorded Confirmed Type ascorbic acid (vitamin C) 500 mg 1,000 mg PO QPM 08/04/21 12/04/21 History tablet (Vitamin C) amlodipine 5 mg tablet 5 mg PO QPM #90 tab 08/17/21 12/04/21 Rx metoprolol succinate 100 mg 100 mg PO QPM #90 tab 08/17/21 12/04/21 Rx tablet,extended release 24 hr cyanocobalamin (vitamin B-12) 1,000 mcg PO QAM 10/08/21 12/04/21 History 1,000 mcg tablet (Vitamin B-12) zinc 50 mg tablet 50 mg PO QAM 10/08/21 12/04/21 History oxycodone 5 mg tablet 5 mg PO .Q 4-6 HRS PRN 10/14/21 12/04/21 History allopurinol 100 mg tablet 100 mg PO BID #60 tab 10/27/21 12/04/21 Rx olanzapine 2.5 mg tablet 2.5 mg PO UD 10/27/21 12/04/21 History ondansetron HCl 8 mg tablet 8 mg PO Q8 PRN 10/27/21 12/04/21 History prochlorperazine maleate 10 mg 10 mg PO Q6 PRN 10/27/21 12/04/21 History tablet acetaminophen 500 mg tablet 650 mg PO Q6H PRN #0 tab 10/29/21 12/04/21 Rx ferrous sulfate 325 mg (65 mg 325 mg PO QPM 11/22/21 12/04/21 History iron) tablet cholecalciferol (vitamin D3) 125 125 mcg PO DAILY 12/04/21 12/04/21 History mcg (5,000 unit) tablet fentanyl 37.5 mcg/hour transdermal 1 patch TRANSDERMAL Q72H 12/04/21 12/04/21 History patch omeprazole 20 mg tablet,delayed 20 mg PO QAM 12/04/21 12/04/21 History release potassium gluconate 595 mg (99 mg) 595 mg PO DAILY 12/04/21 12/04/21 History tablet 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, back and lung VIEJAS (hard of hearing) HTN (hypertension) Hx SBO Osteoarthritis Poor historian SOB (shortness of breath) on exertion Vomiting Surgical History History of colonoscopy History of intestinal surgery History of surgery TURBT History of total abdominal hysterectomy and bilateral salpingo-oophorectomy History of wisdom tooth extraction Port-A-Cath in place (10/18/21) Insertion Access Port in Right Jugular with Fluoroscopy(Right) - Peterson Dasilva DO, FACS 10/18/21 Family History Father Cancer lung Colorectal cancer Mother Hearing loss Hypertension Stroke Other No family history of adverse response to anesthesia No family history of bleeding disorder Denies family history of Ovarian cancer Prostate cancer Myocardial infarction Breast cancer Social History Smoking Status: Never smoker packs per day: 1; Years Smoked: 10; Second Hand Exposure: No; Hx Alcohol Use: Yes Alcohol type: wine Alcohol Intake Frequency: Monthly or Less Hx Substance Use: No Preferred Language: Micronesian Communication Ability: Effective Hearing Ability: Hard of Hearing Customer Relations Advisor Required: No Beliefs That Will Affect Care: None marital status: / Current Living Situation: Family Current Living Situation Comment: LIVES WITH DAUGHTER TAINA current occupational status: retired How many Children do You have: 2 Feels Safe at Home: Yes Childhood Exposure to Second-Hand Smoke: Yes caffeine: Yes Dental Care, Regularly: No Physical Activity Frequency: Does not Exercise Seatbelt Use: always Sunscreen Use: Yes Assistive Devices: Cane and Walker Review of Systems Review of Systems: All systems reviewed & are unremarkable except as noted in HPI & below Physical Exam Physical Exam: General: patient resting comfortably, NAD, fatigued and ill appearance, AA&O x 4 Skin: warm, dry, intact, no rashes or lesions HEENT: NC/AT, PERRL, EOMI, anicteric sclera, conjunctiva without injection, external ear normal to inspection and nontender, nares patent, dry mucus membranes, dentition intact, no oropharyngeal lesions, neck supple, trachea midline, no LAD, no thyromegaly, no JVD Heart: +S1/S2, regular, no m/r/g Lungs: equal air entry bilaterally, no rales/rhonchi/wheezes Abd: +BS, soft, NT/ND, no masses/organomegaly/ascites Ext: warm, 2+ pulses in UE/LE bilaterally, no clubbing/cyanosis or edema Neuro: nonfocal, patient AA&O x 4, speech intact, no facial droop, moving all extremities on command with equal strength 5/5 Results & Data Results & Data ([facility]) Vital Signs (Past 12 Hours) Vital Signs Temp Pulse Pulse Resp BP BP Pulse Ox 12/04/21 22:25 90 20 122/70 95 12/04/21 22:00 131 H 19 94 12/04/21 21:54 130 H 20 118/75 97 12/04/21 21:49 136 H 18 118/79 93 12/04/21 21:45 140 H 19 97 12/04/21 21:44 155 H 20 111/74 96 12/04/21 21:30 36.5 C 120 H 23 95 12/04/21 21:15 143 H 19 94 12/04/21 21:05 76 20 111/74 94 12/04/21 21:00 75 21 111/74 93 12/04/21 20:45 77 20 94 12/04/21 20:30 77 12 94 12/04/21 20:15 78 21 93 12/04/21 20:13 95 12/04/21 20:00 81 79 20 114/76 114/76 94 12/04/21 19:45 82 22 12/04/21 19:30 80 20 12/04/21 19:16 97 12/04/21 19:15 79 16 95 12/04/21 19:12 79 21 94 12/04/21 18:53 36.1 C L 87 20 94/69 L 95 Laboratory Results Laboratory Results WBC 9.92 K/uL (4.8-10.8) 12/04/21 19:29 RBC 3.43 M/uL (4.2-5.4) L 12/04/21 19:29 Hgb 10.9 g/dL (12.0-16.0) L 12/04/21 19:29 Hct 31.6 % (37-47) L 12/04/21 19:29 MCV 92.1 fL (80-100) 12/04/21 19:29 MCH 31.8 pg (25-34) 12/04/21 19:29 MCHC 34.5 g/dL (32-36) 12/04/21 RDW Std Deviation 45.3 fL (36.4-46.3) 12/04/21 RDW Coeff of Janice 14.7 % (11.5-14.5) H 12/04/21 Plt Count 96 K/uL (130-400) L 12/04/21 MPV 10.2 fL (7.4-10.4) 12/04/21: Immature Gran % (Auto) 0.2 % 12/04/21: Neut % (Auto) 92.5 % 12/04/21: Lymph % (Auto) 6.7 % 12/04/21 [place] % (Auto) 0.2 % 12/04/21 Eos % (Auto) 0.3 % 12/04/21 Baso % (Auto) 0.1 % 12/04/21 Neut # (Auto) 9.18 K/uL (1.4-6.5) H 12/04/21 Lymph # (Auto) 0.66 K/uL (1.2-3.4) L 12/04/21 [place] # (Auto) 0.02 K/uL (0.11-0.59) L 12/04/21 Eos # (Auto) 0.03 K/uL (0-0.5) 12/04/21 Baso # (Auto) 0.01 K/uL (0-0.2) 12/04/21 Immature Gran # (Auto) 0.02 K/uL (0.00-0.02) 12/04/21 Platelet Estimate Decreased (Normal) L 12/04/21 PT 10.0 Seconds (9.0-12.0) 12/04/21 INR 1.0 (0.9-1.1) 12/04/21 APTT 26.2 Seconds (21.0-31.0) 12/04/21 PTT Ratio 1.0 12/04/21 Sodium 133 mmol/L (136-145) L 12/04/21 Potassium 4.3 mmol/L (3.5-5.1) 12/04/21 19: Chloride 101 mmol/L (98-107) 12/04/21 19: Carbon Dioxide 20 mmol/L (21-32) L 12/04/21: Anion Gap 12 (3-11) H 12/04/21 19: BUN 37 mg/dl (6-23) H 12/04/21 19: Creatinine 1.19 mg/dl (0.6-1.2) 12/04/21: Est Cr Clr Drug Dosing Not Reportable 12/04/21 19: Est GFR ( Amer) 50.6 ml/min 12/04/21 19: Est GFR (Non-Af Amer) 43.7 ml/min 12/04/21: BUN/Creatinine Ratio 31.1 (10-20) H 12/04/21: Glucose 146 mg/dl (70-99(Fasting)) H 12/04/21 19: Lactate 1.4 mmol/L (0.4-2.0) 12/04/21 21:34 Calcium 8.0 mg/dl (8.5-10.1) L 12/04/21: Magnesium 1.8 mg/dl (1.7-2.4) 12/04/21: Total Bilirubin 0.6 mg/dl (0.2-1.0) 12/04/21 19: AST 74 U/L (13-39) H 12/04/21: ALT 92 U/L (7-52) H 12/04/21: Alkaline Phosphatase 166 U/L (34-104) H 12/04/21: Troponin I < 0.03 ng/ml (0-0.04) 12/04/21 19: Total Protein 6.2 gm/dl (6.0-8.3) 12/04/21: Albumin 3.2 gm/dl (3.4-5.0) L 12/04/21 19: Globulin 3.0 gm/dl (2.5-4.0) 12/04/21 19: Albumin/Globulin Ratio 1.1 (0.9-2) 12/04/21 19: Procalcitonin 0.69 ng/ml (0-0.5) H 12/04/21 19:29 Urine Color Yellow 12/04/21 21:51 Urine Appearance Cloudy (Clear) A 12/04/21 21:51 Urine pH 5.0 (4.5-7.5) 12/04/21 21:51 Ur Specific [place] 1.020 (1.000-1.030) 12/04/21 21:51 Urine Protein Trace (Negative) H 12/04/21 21:51 Urine Glucose (UA) Negative (Negative) 12/04/21 21:51 Urine Ketones Negative (Negative) 12/04/21 21:51 Urine Blood Trace (Negative) H 12/04/21 21:51 Urine Nitrite Negative (Negative) 12/04/21 21:51 Urine Bilirubin Negative (Negative) 12/04/21 21:51 Urine Urobilinogen Negative (Negative) 12/04/21 21:51 Ur Leukocyte Esterase 2+ (Negative) H 12/04/21 21:51 Urine WBC (Auto) >30 /hpf (0-5) H 12/04/21 21:51 Urine RBC (Auto) 5-10 /hpf (0-4) H 12/04/21 21:51 U Hyaline Cast (Auto) 5-10 /lpf (0-5) H 12/04/21 21:51 U Epithel Cells (Auto) >30 /lpf (0-5) H 12/04/21 21:51 Urine Bacteria (Auto) 2+ (Negative) H 12/04/21 21:51 SARS-CoV-2, RNA, NAAT NEGATIVE (NEGATIVE) 12/04/21 21:27 Impressions Chest X-Ray 12/04/21 19:16 XR chest 1V portable HISTORY: SEPSIS COMPARISON: Chest 10/27/2021. FINDINGS: No pneumothorax. No pleural effusions. The cardiac silhouette remains mildly enlarged. No new focal lung consolidations to suggest pneumonia. No evidence for pulmonary edema. There is a right jugular Port-A-Cath which terminates at the SVC. Destructive lesion within the left clavicle with a pathologic fracture remains unchanged. IMPRESSION: 1. No change compared to the prior study. No acute process within the chest. 2. Lytic, destructive lesion of the left clavicle remains unchanged. ACT 112: Negative or not required by law. Electronically signed by: Prakash Concepcion M.D. 12/04/2021 7:45 PM ECG Additional Comments: EKG with NSR at 81, MI=581, QRS=82, YOk=917, TW abnormalities present in anterior leads - present on prior study from 27 Oct 2021. Had inferior TWI in the past which have now resolved. Code Status & VTE Plan VTE Prophylaxis Plan VTE Prophylaxis will be ordered: Yes PG Care Time/CCT Total # of Minutes Spent Total Time Spent with Patient: Total time spent is greater than 50% in coordination of care (as documented) at patient's floor/unit and/or counseling patient: Coding Level of Care Code 34322 Initial Inpt Care Lvl 3 Diagnoses Acute dehydration E86.0 Urinary tract infection N39.0 Hematuria presence: without hematuria Urinary tract infection type: site unspecified Benign hypertension I10 Acid reflux disease K21.9 Nausea R11.0 Tachycardia-bradycardia I49.5 Bladder cancer metastasized to bone C67.9; C79.51 (1) Urinary tract infection Hematuria presence: without hematuria Urinary tract infection type: site unspecified Qualified Code(s): N39.0 - Urinary tract infection, site not specified
[2021-12-05] MEDS ORDERED: FENTANYL TD SCH (00:06)
[2021-12-05] MEDS ORDERED: oxyCODONE HCL IR 5 MG TAB (IMMEDIATE RELEASE) PO PRN (00:06)
[2021-12-05] MEDS: LACTATED RINGER'S 1,000 ML IV SCH ×2 (01:20→13:07)
[2021-12-05] MEDS ORDERED: Heparin IV Adult Wt-Based Standard *NO* Bolus Protocol IV SCH (02:08)
--- NOTE | 2021-12-05 02:15 | Communication Note ---
Date of Service: December 05, 2021 Patient has been alternating between a-fib up to 150bpm (lasting ~30 minutes) and NSR 70s-80s (lasting 30 minutes) over the last several hours. EKG showed a- flutter with PVCs. Patient is asymptomatic during the a-fib/flutter episodes - sleeping and easily arousable without any reported chest pain, palpitations, syncope/near-syncope or diaphoresis. New paroxysmal a-flutter, CHADS-VASc score of 4: - started Heparin gtt (standard dosing without bolus); defer decision regarding long-term anti-coagulation to day team and Cardiology - discontinued Lovenox
[2021-12-05 02:58] LABS: Hematocrit (blood only) 26.3 % (37-47); Hemoglobin 8.8 g/dL (12.0-16.0); Mean Corpuscular Volume 92.6 fL (80-100); RDW Coefficient of Variation 14.5 % (11.5-14.5); RDW Standard Deviation 45.5 fL (36.4-46.3); Red Blood Count 2.84 M/uL (4.2-5.4); White Blood Count 8.65 K/uL (4.8-10.8)
[2021-12-05 03:06] LABS: Mean Corpuscular Hgb Conc 33.5 g/dL (32-36); Platelet Count 71 K/uL (130-400)
[2021-12-05 03:16] LABS: Partial Thromboplastin Time 26.5 Seconds (21.0-31.0); Prothrombin Time 10.3 Seconds (9.0-12.0)
[2021-12-05] MEDS: HEPARIN SODIUM/DEXTROSE 25,000 UNITS/500 ML BAG IV SCH (03:17)
[2021-12-05 03:40] LABS: Basophils # (auto) 0.01 K/uL (0-0.2); Basophils % (auto) 0.1 %; Eosinophils # (auto) 0.02 K/uL (0-0.5); Eosinophils % (auto) 0.2 %; Immature Granulocytes # (auto) 0.01 K/uL (0.00-0.02); Immature Granulocytes % (auto) 0.1 %; Lymphocytes # (auto) 1.03 K/uL (1.2-3.4); Lymphocytes % (auto) 11.9 %; Monocytes # (auto) 0.04 K/uL (0.11-0.59); Monocytes % (auto) 0.5 %; Neutrophils # (auto) 7.54 K/uL (1.4-6.5); Neutrophils % (auto) 87.2 %
[2021-12-05] MEDS ORDERED: dilTIAZem HCl 5 MG/ML 5 ML VIAL IV STA (03:41)
[2021-12-05] MEDS ORDERED: HEPARIN 100 UNIT/ML 5ML FLUSH FLUSH PRN (03:55)
--- NOTE | 2021-12-05 04:03 | Communication Note ---
Date of Service: December 05, 2021 Patient's runs of a-flutter are becoming more sustained, with HR up to 150. SBP remains 120s-150 during bouts of a-flutter with RVR. Patient remains asy mptomatic and is resting/sleeping through this. Transferred patient to PCU/tele in order to trial Diltiazem IVP to obtain rate control. Will plan on initiating Diltiazem gtt if patient responds to IVP.
[2021-12-05] MEDS: ACETAMINOPHEN 325 MG TAB PO PRN (04:20)
[2021-12-05 05:28] LABS: Hematocrit (blood only) 24.5 % (37-47); Hemoglobin 8.2 g/dL (12.0-16.0); Mean Corpuscular Hemoglobin 31.2 pg (25-34); Mean Corpuscular Hgb Conc 33.5 g/dL (32-36); Mean Corpuscular Volume 93.2 fL (80-100); RDW Coefficient of Variation 14.6 % (11.5-14.5); RDW Standard Deviation 45.3 fL (36.4-46.3); Red Blood Count 2.63 M/uL (4.2-5.4); White Blood Count 7.76 K/uL (4.8-10.8)
[2021-12-05 05:29] LABS: Mean Platelet Volume 10.3 fL (7.4-10.4); Platelet Count 75 K/uL (130-400)
[2021-12-05] MEDS: METOPROLOL SUCC 50MG EXT REL TAB PO SCH (05:33)
[2021-12-05] MEDS ORDERED: ENOXAPARIN INJ 40 MG/0.4 ML SYR SQ SCH (06:00)
[2021-12-05 06:07] LABS: Basophils # (auto) 0.02 K/uL (0-0.2); Basophils % (auto) 0.3 %; Eosinophils # (auto) 0.02 K/uL (0-0.5); Eosinophils % (auto) 0.3 %; Immature Granulocytes # (auto) 0.02 K/uL (0.00-0.02); Immature Granulocytes % (auto) 0.3 %; Lymphocytes # (auto) 1.25 K/uL (1.2-3.4); Lymphocytes % (auto) 16.1 %; Monocytes # (auto) 0.03 K/uL (0.11-0.59); Monocytes % (auto) 0.4 %; Neutrophils # (auto) 6.42 K/uL (1.4-6.5); Neutrophils % (auto) 82.6 %
[2021-12-05 06:54] LABS: Albumin Level 2.6 gm/dl (3.4-5.0); BUN Creatinine Ratio 36.9 (10-20); Bilirubin Direct 0.1 mg/dl (0-0.2); Bilirubin,Total 0.5 mg/dl (0.2-1.0); Calcium 7.3 mg/dl (8.5-10.1); Creatinine Clr Calc Pharmacy 53.1 ml/min; Est GFR (African American) 77.2 ml/min; Est GFR (Non-African American) 66.6 ml/min; Potassium 3.7 mmol/L (3.5-5.1); Total Protein 5.1 gm/dl (6.0-8.3)
[2021-12-05] MEDS: CHECK fentaNYL PATCH PLACEMENT SCH ×4 (08:43→16:03)
[2021-12-05] MEDS: fentaNYL 12 MCG/HR TDSY TD SCH (08:45)
[2021-12-05] MEDS: fentaNYL 25 MCG/HR TDSY TD SCH (08:46)
[2021-12-05] MEDS: allopurinoL 100 MG TAB PO SCH ×2 (08:52→20:58)
[2021-12-05] MEDS: FAMOTIDINE 40 MG TABLET PO SCH (08:52)
[2021-12-05] MEDS ORDERED: METOPROLOL SUCC 50MG EXT REL TAB PO SCH (09:00)
[2021-12-05 10:24] LABS: Partial Thromboplastin Ratio 2.8
[2021-12-05 10:34] LABS: Partial Thromboplastin Time 74.1 Seconds (21.0-31.0)
--- NOTE | 2021-12-05 10:58 | Cardiology Consultation ---
Date of Consultation December 05, 2021 Assessment & Plan (1) Tachycardia-bradycardia: -demonstrates paroxysms of atrial fibrillation/flutter with a rapid ventricular response. -intermittent episodes of sinus bradycardia, junctional bradycardia, and 3 second pauses. -okay to use metoprolol orally and intravenously. -may require a transcatheter RV apex pacemaker ([employer]tronic Micra). -cannot use right subclavian vein due to A port. -cannot use left subclavian vein due to clavicular fracture. -may be a candidate for amiodarone (transaminases are improving). -may be a candidate for long-term anticoagulation. (2) Benign hypertension: -adequate control on current regimen. History of Present Illness Attending Physician: Alfonso Arevalo History of Present Illness Mrs. Newsome is a 76-year-old female admitted yesterday with nausea, vomiting, dehydration, urinary tract infection. The patient was noted to possible tachycardia/bradycardia syndrome, therefore, this consultation was ordered. Unfortunately, the patient was diagnosed with bladder carcinoma back in 2011. She underwent a TURBT at that time and is currently undergoing chemotherapy for her metastatic papillary urothelial malignancy. She just received chemotherapy (cisplatin) on December 01 and began to experience her typical nausea, vomiting, and poor p.o. intake. She was unable to receive intravenous fluids at the cancer center on Monday due to inclement weather. She was instructed to proceed to the emergency room yesterday for further care. While being evaluated in the emergency room, the patient demonstrated paroxysms of rapid atrial fibrillation flutter. She also demonstrated pauses of at least 3 seconds along with a junctional bradycardia and sinus bradycardia. Her metoprolol was placed on hold. She was started on intravenous heparin and admitted. The patient has been completely asymptomatic from a cardiac perspective. She has not experienced any palpitations, syncope, or presyncope. We have discussed the above likely a need for a permanent pacemaker along with possible anti arrhythmic therapy. The patient understands and agrees to proceed as directed. Currently, patient is resting comfortably in bed without complaints. Past medical and surgical history 1. Hypertension 2. DJD 3. Chronic low back pain 4. Hearing deficit 5. Bladder carcinoma-papillary urothelial malignancy 6. Bone and lung metastases 7. Pathologic left clavicular fracture-10/08/2021 8. TURBT-2011 9. FILEMON/BSO 10. A port-October 18, 2021 Social history , lives with her daughter No tobacco Occasional alcohol Family history Noncontributory Review of systems A 10 review systems was undertaken and negative except for that described above. Allergies Allergy/AdvReac Type Severity Reaction Status Date / Time morphine AdvReac Intermediate "Makes me Verified 11/22/21 08:03 crazy" Home Medications Medication Instructions Recorded Confirmed Type ascorbic acid (vitamin C) 500 mg 1,000 mg PO QPM 08/04/21 12/04/21 History tablet (Vitamin C) amlodipine 5 mg tablet 5 mg PO QPM #90 tab 08/17/21 12/04/21 Rx metoprolol succinate 100 mg 100 mg PO QPM #90 tab 08/17/21 12/04/21 Rx tablet,extended release 24 hr cyanocobalamin (vitamin B-12) 1,000 mcg PO QAM 10/08/21 12/04/21 History 1,000 mcg tablet (Vitamin B-12) zinc 50 mg tablet 50 mg PO QAM 10/08/21 12/04/21 History oxycodone 5 mg tablet 5 mg PO .Q 4-6 HRS PRN 10/14/21 12/04/21 History allopurinol 100 mg tablet 100 mg PO BID #60 tab 10/27/21 12/04/21 Rx olanzapine 2.5 mg tablet 2.5 mg PO UD 10/27/21 12/04/21 History ondansetron HCl 8 mg tablet 8 mg PO Q8 PRN 10/27/21 12/04/21 History prochlorperazine maleate 10 mg 10 mg PO Q6 PRN 10/27/21 12/04/21 History tablet acetaminophen 500 mg tablet 650 mg PO Q6H PRN #0 tab 10/29/21 12/04/21 Rx ferrous sulfate 325 mg (65 mg 325 mg PO QPM 11/22/21 12/04/21 History iron) tablet cholecalciferol (vitamin D3) 125 125 mcg PO DAILY 12/04/21 12/04/21 History mcg (5,000 unit) tablet fentanyl 37.5 mcg/hour transdermal 1 patch TRANSDERMAL Q72H 12/04/21 12/04/21 History patch omeprazole 20 mg tablet,delayed 20 mg PO QAM 12/04/21 12/04/21 History release potassium gluconate 595 mg (99 mg) 595 mg PO DAILY 12/04/21 12/04/21 History tablet Patient History Medical History Acute dehydration Chronic back pain Fracture, clavicle LEFT-CURRENTLY Seen in ER 10/08/21- Left shoulder and clavicle x-raythere is bony metastases in the left clavicle with an associated comminuted fracture History of bladder cancer ~10 years ago > treated surgically Recent dx of stage IV bladder cancer with metastasis to clavicle, back and lung AMBLER (hard of hearing) HTN (hypertension) Hx SBO Osteoarthritis Poor historian SOB (shortness of breath) on exertion Vomiting Surgical History History of colonoscopy History of intestinal surgery History of surgery TURBT History of total abdominal hysterectomy and bilateral salpingo-oophorectomy History of wisdom tooth extraction Port-A-Cath in place (10/18/21) Insertion Access Port in Right Jugular with Fluoroscopy(Right) - Peterson Dasilva DO, FACS 10/18/21 Family History Father Cancer lung Colorectal cancer Mother Hearing loss Hypertension Stroke Other No family history of adverse response to anesthesia No family history of bleeding disorder Denies family history of Ovarian cancer Prostate cancer Myocardial infarction Breast cancer Social History Smoking Status: Former smoker packs per day: 1; Years Smoked: 10; Second Hand Exposure: No; Hx Alcohol Use: Yes Alcohol type: wine Alcohol Intake Frequency: Monthly or Less Hx Substance Use: Yes Preferred Language: Slovenian Communication Ability: Effective Hearing Ability: Hard of Hearing Contract Negotiator Required: No Beliefs That Will Affect Care: None marital status: / Current Living Situation: Family Current Living Situation Comment: Daughter current occupational status: retired How many Children do You have: 2 Feels Safe at Home: Yes Childhood Exposure to Second-Hand Smoke: Yes caffeine: Yes Dental Care, Regularly: No Physical Activity Frequency: Does not Exercise Seatbelt Use: always Sunscreen Use: Yes Assistive Devices: Cane and Walker Results & Data ([facility]) Vital Signs (Past 12 Hours) Vital Signs Temp Pulse Pulse Resp BP BP Pulse Ox 12/05/21 08:11 37.1 C 78 16 119/71 98 12/05/21 05:30 124 H 101/63 12/05/21 04:25 36.6 C 76 16 123/73 95 12/05/21 04:00 36.8 C 64 18 146/77 H 95 12/05/21 03:53 36.6 C 78 18 113/71 93 12/05/21 02:02 36.5 C 76 18 103/69 97 Laboratory Results CBC notes hemoglobin of 8.2, hematocrit 24.5, white count 7.76, platelet count of 75,000. Electrolytes note a sodium of 136, potassium 3.7, chloride 107, bicarb 21, BUN 31, creatinine 0.84, a glucose of 100. AST is 47 but improving. ALT is 63, but improving. Magnesium normal 1.8. Diagnostic Findings EKG notes sinus rhythm with an anterior T-wave abnormality chest x-ray shows no acute disease. A port is noted on the right. Left clavicular fracture identified. PG Care Time/CCT Total # of Minutes Spent Total Time Spent with Patient: Total time spent is greater than 50% in coordination of care (as documented) at patient's floor/unit and/or counseling patient: Coding Level of Care Code 34047 Initial Inpt Care Lvl 3 Diagnoses Tachycardia-bradycardia I49.5 Benign hypertension I10
--- NOTE | 2021-12-05 12:51 | Electrocardiogram Report ---
Test Reason : Blood Pressure : / mmHG Vent. Rate : 081 BPM Atrial Rate : 081 BPM P-R Int : 156 ms QRS Dur : 082 ms QT Int : 384 ms P-R-T Axes : 010 -25 025 degrees QTc Int : 446 ms Normal sinus rhythm T wave abnormality, consider anterior ischemia Abnormal ECG When compared with ECG of 27-OCT-2021 16:26, T wave inversion no longer evident in Lateral leads Confirmed by Asael Mei ([id number]) on 12/05/2021 12:51:13 PM Referred By: REFERRED SELF Confirmed By:Asael Mei
[2021-12-05 17:38] LABS: Partial Thromboplastin Ratio 3.2
[2021-12-05 17:41] LABS: Partial Thromboplastin Time 84.8 Seconds (21.0-31.0)
[2021-12-05] MEDS ORDERED: MELATONIN 3 MG TAB PO PRN (20:24)
--- NOTE | 2021-12-05 20:24 | Hospitalist Progress Note ---
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 Renal function is intact. Mild hyponatremia, electrolytes otherwise WNL. Patient given 2L NSS in the ER. -Continue LR at 80mL/hr x 1 liter -creatinine improved (2) Tachycardia-bradycardia: Plan: Patient with witnessed tachycardia - sinus and brief run of what appeared to be atrial fibrillation as well as sinus pauses and bradycardia. Troponin is Negative x 1. No EKG evidence of ischemia. Electrolytes are largely unremarkable. Patient is on several anti-emetics that may contribute to conduction abnormality - on metoprolol as well -Hold Metoprolol for now -Hold Compazine -May consider Ativan, Benadryl or Dexamethasone for additional anti-emetics if needed -Cardiology Consultation appreciated -will obtain pacemaker. -will discuss with oncology as patient would like their input.. (3) Urinary tract infection: Plan: Patient with UA suggestive of infection. She is afebrile, HD stable, non-toxic in appearance. She does have a mildly elevated procalcitonin. No complaints of dysuria/frequency/urgency, however, given immunocompromised state on chemotherapy will initiate treatment with Ceftriaxone -Follow urine culture -Ceftriaxone 1gm IV daily (4) Nausea: Plan: Patient with persistent nausea following chemotherapy. This is fairly typical for her but is usually controlled by her medications at home. Dehydration and UTI possibly contributing as well. 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 -Continue Oxycodone as needed for pain -Continue Fentanyl patch (6) Benign hypertension: Plan: Blood pressure stable at present, 122/70 -Continue Amlodipine 5mg po daily -Monitor (7) Acid reflux disease: Plan: Chronic -Pepcid for now Plan: F/E/N - LR at 80mL/hr x 1 liter, electrolytes WNL - repeat chemistry in AM, Regular diet as tolerated Ppx - Lovenox Code - DNR/DNI per discussion with patient and daughter Admission and Anticipated Discharge Date Admission Date: December 04, 2021 Subjective Patient reports no new symptoms today. She is asking for a sleep medicine tonight. Review of Systems Review of Systems: All systems reviewed & are unremarkable except as noted in HPI & below Physical Exam Physical Exam: General: patient resting comfortably, NAD, fatigued and ill appearance, AA&O x 4 Skin: warm, dry, intact, no rashes or lesions HEENT: NC/AT, PERRL, EOMI, anicteric sclera, conjunctiva without injection, external ear normal to inspection and nontender, nares patent, dry mucus membranes, dentition intact, no oropharyngeal lesions, neck supple, trachea midline, no LAD, no thyromegaly, no JVD Heart: +S1/S2, regular, no m/r/g Lungs: equal air entry bilaterally, no rales/rhonchi/wheezes Abd: +BS, soft, NT/ND, no masses/organomegaly/ascites Ext: warm, 2+ pulses in UE/LE bilaterally, no clubbing/cyanosis or edema Neuro: nonfocal, patient AA&O x 4, speech intact, no facial droop, moving all extremities on command with equal strength 5/5 Results & Data Results & Data ([facility]) Vital Signs (Past 12 Hours) Vital Signs Pulse Resp BP Pulse Ox 12/05/21 14:00 74 16 122/72 94 PG Care Time/CCT Total # of Minutes Spent Total Time Spent with Patient: Total time spent is greater than 50% in coordination of care (as documented) at patient's floor/unit and/or counseling patient: Coding Level of Care Code 64773 Subseq Hosp Care Lvl 2 Diagnoses Acute dehydration E86.0 Tachycardia-bradycardia I49.5 Urinary tract infection N39.0 Hematuria presence: without hematuria Urinary tract infection type: site unspecified Nausea R11.0 Bladder cancer metastasized to bone C67.9; C79.51 Benign hypertension I10 Acid reflux disease K21.9 (1) Urinary tract infection Hematuria presence: without hematuria Urinary tract infection type: site unspecified Qualified Code(s): N39.0 - Urinary tract infection, site not specified
[2021-12-05] MEDS: amLODIPine BESYLATE 5 MG TAB PO SCH (20:58)
[2021-12-05] MEDS: cefTRIAXone SODIUM 1,000 MG in DEXTROSE 5% 50 ML IV SCH (20:58)
[2021-12-05] MEDS ORDERED: OLANZAPINE 2.5 MG TAB PO SCH (21:00)
[2021-12-06] MEDS: CHECK fentaNYL PATCH PLACEMENT SCH ×6 (00:14→15:08)
[2021-12-06 01:24] LABS: Partial Thromboplastin Ratio 2.7
[2021-12-06 01:27] LABS: Partial Thromboplastin Time 71.7 Seconds (21.0-31.0)
[2021-12-06] MEDS: HEPARIN SODIUM/DEXTROSE 25,000 UNITS/500 ML BAG IV SCH ×2 (03:09→05:52)
[2021-12-06 06:03] LABS: Hematocrit (blood only) 21.2 % (37-47); Mean Corpuscular Hemoglobin 30.3 pg (25-34); Mean Corpuscular Hgb Conc 32.5 g/dL (32-36); Mean Platelet Volume 10.6 fL (7.4-10.4); Platelet Count 43 K/uL (130-400); RDW Coefficient of Variation 14.7 % (11.5-14.5); Red Blood Count 2.28 M/uL (4.2-5.4); White Blood Count 6.21 K/uL (4.8-10.8)
[2021-12-06 06:05] LABS: Basophils # (auto) 0.03 K/uL (0-0.2); Basophils % (auto) 0.5 %; Eosinophils # (auto) 0.01 K/uL (0-0.5); Eosinophils % (auto) 0.2 %; Immature Granulocytes # (auto) 0.01 K/uL (0.00-0.02); Immature Granulocytes % (auto) 0.2 %; Lymphocytes # (auto) 1.13 K/uL (1.2-3.4); Lymphocytes % (auto) 18.2 %; Monocytes # (auto) 0.03 K/uL (0.11-0.59); Monocytes % (auto) 0.5 %; Neutrophils % (auto) 80.4 %; RBC Morphology Unremarkable
[2021-12-06 06:28] LABS: BUN Creatinine Ratio 27.6 (10-20); Calcium 7.4 mg/dl (8.5-10.1); Creatinine Clr Calc Pharmacy 58.7 ml/min; Est GFR (African American) 87.1 ml/min; Est GFR (Non-African American) 75.1 ml/min; Potassium 3.8 mmol/L (3.5-5.1)
[2021-12-06 07:59] LABS: Partial Thromboplastin Ratio 2.8
[2021-12-06] MEDS: FAMOTIDINE 40 MG TABLET PO SCH (07:59)
[2021-12-06] MEDS: allopurinoL 100 MG TAB PO SCH ×2 (07:59→21:30)
[2021-12-06] MEDS: METOPROLOL SUCC 50MG EXT REL TAB PO SCH (08:00)
[2021-12-06] MEDS: ONDANSETRON INJ 2 MG/ML 2 ML VIAL IV PRN ×2 (08:03→08:04)
[2021-12-06 08:19] LABS: Partial Thromboplastin Time 74.7 Seconds (21.0-31.0)
--- NOTE | 2021-12-06 10:13 | Hospitalist Progress Note ---
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 Renal function is intact. Mild hyponatremia, electrolytes otherwise WNL. Patient given 2L NSS in the ER. -Continue LR at 80mL/hr x 1 liter -creatinine improved (2) Tachycardia-bradycardia: Plan: Patient with witnessed tachycardia - sinus and brief run of what appeared to be atrial fibrillation as well as sinus pauses and bradycardia. Troponin is Negative x 1. No EKG evidence of ischemia. Electrolytes are largely unremarkable. Patient is on several anti-emetics that may contribute to conduction abnormality - on metoprolol as well -Hold Metoprolol for now -Hold Compazine -May consider Ativan, Benadryl or Dexamethasone for additional anti-emetics if needed -Cardiology Consultation appreciated -will obtain pacemaker. Plan is for later in the week. will hold discharge for now. -will discuss with oncology as patient would like their input.. (3) Urinary tract infection: Plan: Patient with UA suggestive of infection. She is afebrile, HD stable, non-toxic in appearance. She does have a mildly elevated procalcitonin. No complaints of dysuria/frequency/urgency, however, given immunocompromised state on chemotherapy will initiate treatment with Ceftriaxone -Follow urine culture -Ceftriaxone 1gm IV daily (4) Nausea: Plan: Patient with persistent nausea following chemotherapy. This is fairly typical for her but is usually controlled by her medications at home. Dehydration and UTI possibly contributing as well. 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 -Continue Oxycodone as needed for pain -Continue Fentanyl patch (6) Benign hypertension: Plan: Blood pressure stable at present, 122/70 -Continue Amlodipine 5mg po daily -Monitor (7) Acid reflux disease: Plan: Chronic -Pepcid for now Plan: F/E/N - LR at 80mL/hr x 1 liter, electrolytes WNL - repeat chemistry in AM, Regular diet as tolerated Ppx - Lovenox Code - DNR/DNI per discussion with patient and daughter Admission and Anticipated Discharge Date Admission Date: December 04, 2021 Subjective Patient reports no new symptoms. Earlier in the day, patient had nausea during tachy atif event. Review of Systems Review of Systems: All systems reviewed & are unremarkable except as noted in HPI & below Physical Exam Physical Exam: General: patient resting comfortably, NAD, fatigued and ill appearance, AA&O x 4 Skin: warm, dry, intact, no rashes or lesions HEENT: NC/AT, PERRL, EOMI, anicteric sclera, conjunctiva without injection, external ear normal to inspection and nontender, nares patent, dry mucus membranes, dentition intact, no oropharyngeal lesions, neck supple, trachea midline, no LAD, no thyromegaly, no JVD Heart: +S1/S2, regular, no m/r/g Lungs: equal air entry bilaterally, no rales/rhonchi/wheezes Abd: +BS, soft, NT/ND, no masses/organomegaly/ascites Ext: warm, 2+ pulses in UE/LE bilaterally, no clubbing/cyanosis or edema Neuro: nonfocal, patient AA&O x 4, speech intact, no facial droop, moving all extremities on command with equal strength 5/5 Results & Data Results & Data ([facility]) Vital Signs (Past 12 Hours) Vital Signs Pulse Resp Pulse Ox 12/06/21 01:15 150 H 16 94 12/06/21 01:00 143 H 20 92 12/06/21 00:45 136 H 18 97 12/06/21 00:30 74 10 L 96 12/06/21 00:15 92 H 19 96 12/06/21 00:00 74 10 L 94 12/05/21 23:30 85 23 62 L 12/05/21 23:00 76 20 92 12/05/21 22:30 74 22 95 PG Care Time/CCT Total # of Minutes Spent Total Time Spent with Patient: Total time spent is greater than 50% in coordination of care (as documented) at patient's floor/unit and/or counseling patient: Coding Level of Care Code 47450 Subseq Hosp Care Lvl 2 Diagnoses Acute dehydration E86.0 Tachycardia-bradycardia I49.5 Urinary tract infection N39.0 Hematuria presence: without hematuria Urinary tract infection type: site unspecified Nausea R11.0 Bladder cancer metastasized to bone C67.9; C79.51 Benign hypertension I10 Acid reflux disease K21.9 (1) Urinary tract infection Hematuria presence: without hematuria Urinary tract infection type: site unspecified Qualified Code(s): N39.0 - Urinary tract infection, site not specified
[2021-12-06] MEDS: ACETAMINOPHEN 325 MG TAB PO PRN (13:41)
[2021-12-06 14:51] LABS: Partial Thromboplastin Ratio 3.6
--- NOTE | 2021-12-06 16:05 | Cardiology Progress Note ---
Date of Service December 06, 2021 Assessment & Plan (1) Tachycardia-bradycardia: Plan: 1. Tachybradycardia: She has tachycardia when she is in atrial fibrillation with a rapid heart rate, she also has bradycardia especially when her atrial arrhythmia slows. This is consistent with sinus node dysfunction but is an issue with regard to treating her tachycardia. It may be very reasonable to implant a pacemaker to help control her rhythm as this will provide heart rate support and allow us to increase her AV arnaldo blocking medications to control her rate during atrial fibrillation. She is agreeable to this approach, however access is difficult as she has a port on the right and has had a left subclavian fracture. She may also be prone to infection. A leadless pacemaker (Micra) is a very reasonable option. I discussed the approach of implanting a pacemaker to allow medical therapy with the patient and she is agreeable however wanted me to discuss it with her daughter. I did discuss it with her daughter by telephone today and her daughter is also agreeable in general with this approach, including the use of the Micra pacemaker which she understands has not be used at this institution before, however wanted me to make sure that I discussed it with oncology. I have not done that as yet. Admission and Anticipated Discharge Date Admission Date: December 04, 2021 Subjective Review of her hospitalization and telemetry was performed. As noted she has periods of atrial fibrillation with rapid heart rate as well as sinus node dysfunction with pauses and bradycardia. Both appear to be symptomatic. Today she is feeling relatively well but weak, she is not aware of palpitations but currently is in sinus rhythm. Physical Exam Physical Exam: Cardiac rhythm is regular with no murmur, gallop or rub Chest wall is notable for a right sided port in place. Lungs are clear Extremities have no edema Results & Data ([facility]) Vital Signs (Past 12 Hours) Vital Signs Pulse Resp BP Pulse Ox 12/06/21 14:00 79 21 12/06/21 13:38 121 H 19 131/101 H 12/06/21 12:00 160 H 21 12/06/21 10:00 73 9 L 95 12/06/21 08:00 157 H 16 98 12/06/21 07:58 159 H 15 98/70 L 96 12/06/21 07:00 160 H 22 Laboratory Results Coagulation 12/05/21 12/06/21 12/06/21 Range/Units 16:59 00:43 07:17 APTT 84.8 H* 71.7 H* 74.7 H* (21.0-31.0) Seconds 12/06/21 Range/Units 14:20 APTT 94.0 H* (21.0-31.0) Seconds CBC 12/06/21 Range/Units 05:04 WBC 6.21 (4.8-10.8) K/uL RBC 2.28 L (4.2-5.4) M/uL Hgb 7.0 L (12.0-16.0) g/dL Hct 21.2 L (37-47) % Plt Count 43 L (130-400) K/uL Neut # (Auto) 5.00 (1.4-6.5) K/uL Lymph # (Auto) 1.13 L (1.2-3.4) K/uL [place] # (Auto) 0.03 L (0.11-0.59) K/uL Eos # (Auto) 0.01 (0-0.5) K/uL Baso # (Auto) 0.03 (0-0.2) K/uL Comprehensive Metabolic Panel 12/06/21 Range/Units 05:04 Sodium 136 (136-145) mmol/L Potassium 3.8 (3.5-5.1) mmol/L Chloride 106 (98-107) mmol/L Carbon Dioxide 23 (21-32) mmol/L BUN 21 (6-23) mg/dl Creatinine 0.76 (0.6-1.2) mg/dl Glucose 88 (70-99(Fasting)) mg/dl Calcium 7.4 L (8.5-10.1) mg/dl Intake and Output 12/06/21 12/06/21 12/06/21 06:59 14:59 22:59 Intake Total 1317.633 / 2930.450 548.3 / 548.3 Output Total 200 / 1350 Balance 1117.633 / 1580.450 548.3 / 548.3 Intake: IV 1197.633 / 2510.450 48.3 / 48.3 Heparin Sodium/Dextrose 25,000 197.633 / 517.783 48.3 / 48.3 units In 500 ml @ 850 UNITS/HR 17 mls/hr IV .Q24H [facility] Rx#: [id number] Lactated Ringer's 1,000 ml @ 80 1000 / 1942.667 mls/hr IV .[id number] [facility] Rx#: [id number] Oral 120 / 420 500 / 500 Output: Urine 200 / 1350 Other: # Unmeasured Voids 3 Diagnostic Findings Telemetry: Periods of atrial fibrillation with heart rates in the 120 bpm range alternating with periods of sinus rhythm. With termination of atrial fibrillation she will have pauses as long as 3 seconds although generally not that long and periods of junctional bradycardia for several seconds. The slow rates appear to be symptomatic. PG Care Time/CCT Total # of Minutes Spent Total Time Spent with Patient: Total time spent is greater than 50% in coordination of care (as documented) at patient's floor/unit and/or counseling patient: Coding Level of Care Code 15971 Subseq Hosp Care Lvl 2 Diagnoses Tachycardia-bradycardia I49.5
[2021-12-06] MEDS: cefTRIAXone SODIUM 1,000 MG in DEXTROSE 5% 50 ML IV SCH (21:25)
[2021-12-06 21:27] LABS: Partial Thromboplastin Ratio 1.7; Partial Thromboplastin Time 43.9 Seconds (21.0-31.0)
[2021-12-06] MEDS: amLODIPine BESYLATE 5 MG TAB PO SCH (21:30)
[2021-12-07] MEDS: CHECK fentaNYL PATCH PLACEMENT SCH ×6 (00:06→15:32)
[2021-12-07] MEDS ORDERED: METOPROLOL TARTRATE 1 MG/ML VIAL IV STA (03:20)
[2021-12-07 04:47] LABS: Partial Thromboplastin Ratio 1.8
[2021-12-07 05:03] LABS: Hematocrit (blood only) 20.8 % (37-47)
[2021-12-07] MEDS ORDERED: SODIUM CHLORIDE 0.9% 250 ML IV PRN (05:06)
--- NOTE | 2021-12-07 05:11 | Communication Note ---
Date of Service: December 07, 2021 Patient converted to a-fib RVR with rates 140s-160s at 0300. She was given Metoprolol tartrate 5mg IV x1 and converted back to NSR 70s-80s after ~1 hour. S he was complaining of chest burning/pain during the a-fib RVR - EKG was obtained which confirmed a-fib RVR but without ST/T changes. Chest burning/pain resolved once converted back to NSR. BP has remained stable at 100s-110s/60s. Suspect that patient's chronic anemia (? 2/2 chemo/malignancy) contributed to RVR. H/H was 7.0/20.8 (similar to yesterday). Given recent a-fib RVR and profound anemia, will transfuse 1 unit pR[address] and will place another unit on hold. Patient was consented for blood - consent placed in chart.
[2021-12-07 05:30] LABS: Partial Thromboplastin Time 46.1 Seconds (21.0-31.0)
[2021-12-07] MEDS: HEPARIN SODIUM/DEXTROSE 25,000 UNITS/500 ML BAG IV SCH (07:27)
[2021-12-07] MEDS: FAMOTIDINE 40 MG TABLET PO SCH (07:30)
[2021-12-07] MEDS: allopurinoL 100 MG TAB PO SCH ×2 (07:30→20:53)
[2021-12-07] MEDS: METOPROLOL SUCC 50MG EXT REL TAB PO SCH (07:30)
--- NOTE | 2021-12-07 10:52 | Cardiology Progress Note ---
Date of Service December 07, 2021 Assessment & Plan (1) Tachycardia-bradycardia: Plan: -paroxysms of atrial fibrillation/flutter with a rapid ventricular response. -intermittent episodes of sinus bradycardia, junctional bradycardia, and a 4 second pause. -stable on metoprolol succinate. -requires a transcatheter RV apex pacemaker ([employer] Micra), Dr. Krueger making arrangements. -cannot use right subclavian vein due to A port. -cannot use left subclavian vein due to clavicular fracture. -may be a candidate for amiodarone. Would recheck liver transaminases. -may be a candidate for long-term anticoagulation. (2) Benign hypertension: Plan: -adequate control on current regimen. Admission and Anticipated Discharge Date Admission Date: December 04, 2021 Subjective The patient is resting comfortably in bed without complaints of chest pain, dyspnea, palpitations, syncope, or presyncope. Physical Exam Physical Exam: In general is well-developed well-nourished white female in no acute distress. HEENT exam is negative. Neck is supple with full carotid upstrokes. No carotid bruits. Jugular venous pressure is flat 90. Cardiovascular exam reveals a regular rhythm with normal S1-S2. Heart sounds are distant. No obvious murmurs. Lungs are clear without rales, rhonchi or wheezes. Abdomen is soft without bruits. Extremities reveal 1+ pretibial edema. Results & Data ([facility]) Vital Signs (Past 12 Hours) Vital Signs Temp Pulse Pulse Resp BP BP Pulse Ox 12/07/21 10:00 75 14 98 12/07/21 09:45 77 19 97 12/07/21 09:30 81 19 119/64 97 12/07/21 09:15 137 H 20 89 L 12/07/21 09:05 36.8 C 12/07/21 09:00 120 H 9 L 117/88 97 12/07/21 08:45 137 H 11 L 114/77 98 12/07/21 08:35 36.8 C 12/07/21 08:30 155 H 13 120/71 99 12/07/21 08:15 144 H 18 98 12/07/21 08:05 36.8 C 12/07/21 08:00 163 H 24 135/80 99 12/07/21 07:53 76 17 117/67 98 12/07/21 07:50 36.7 C 12/07/21 07:45 76 21 98 12/07/21 07:35 36.8 C 12/07/21 07:33 76 15 111/60 98 12/07/21 07:30 79 21 90 12/07/21 07:21 37 C 72 19 131/74 98 12/07/21 07:16 75 18 131/74 98 12/07/21 07:15 79 17 98 12/07/21 07:00 71 13 99 12/07/21 04:00 37.2 C 73 20 107/66 93 12/07/21 03:34 145 H 118/76 12/07/21 00:00 36.9 C 78 15 113/64 96 Diagnostic Findings surveillance system monitor notes paroxysms of atrial fibrillation with a rapid ventricular response. There was a 4 second pause. Episodes of junctional bradycardia also noted. PG Care Time/CCT Total # of Minutes Spent Total Time Spent with Patient: Total time spent is greater than 50% in coordination of care (as documented) at patient's floor/unit and/or counseling patient: Coding Level of Care Code 24577 Subseq Hosp Care Lvl 3 Diagnoses Tachycardia-bradycardia I49.5 Benign hypertension I10
--- NOTE | 2021-12-07 13:19 | Electrocardiogram Report ---
Test Reason : Blood Pressure : / mmHG Vent. Rate : 157 BPM Atrial Rate : 166 BPM P-R Int : 000 ms QRS Dur : 084 ms QT Int : 298 ms P-R-T Axes : 000 -07 141 degrees QTc Int : 481 ms Atrial fibrillation with rapid ventricular response Nonspecific ST and T wave abnormality Abnormal ECG When compared with ECG of 05-DEC-2021 00:34, Atrial fibrillation has replaced Atrial flutter ST no longer elevated in Inferior leads ST now depressed in Lateral leads T wave inversion no longer evident in Inferior leads Nonspecific T wave abnormality, improved in Anterolateral leads Confirmed by Asael Mei ([id number]) on 12/07/2021 1:19:23 PM Referred By: REFERRED SELF Confirmed By:Asael Mei
--- NOTE | 2021-12-07 20:49 | Hospitalist Progress Note ---
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 Renal function is intact. Mild hyponatremia, electrolytes otherwise WNL. Patient given 2L NSS in the ER. -received LR at 80mL/hr x 1 liter -creatinine improved (2) Tachycardia-bradycardia: Plan: Patient with witnessed tachycardia - sinus and brief run of what appeared to be atrial fibrillation as well as sinus pauses and bradycardia. Troponin is Negative x 1. No EKG evidence of ischemia. Electrolytes are largely unremarkable. Patient is on several anti-emetics that may contribute to conduction abnormality - on metoprolol as well -Hold Metoprolol for now -Hold Compazine -May consider Ativan, Benadryl or Dexamethasone for additional anti-emetics if needed -Cardiology Consultation appreciated -will obtain pacemaker. Plan is for later in the week. will hold discharge for now. -oncology is aware and agreeable. (3) Urinary tract infection: Plan: Patient with UA suggestive of infection. She is afebrile, HD stable, non-toxic in appearance. She does have a mildly elevated procalcitonin. No complaints of dysuria/frequency/urgency, however, given immunocompromised state on chemotherapy will initiate treatment with Ceftriaxone -Follow urine culture -Ceftriaxone 1gm IV daily (4) Nausea: Plan: Patient with persistent nausea following chemotherapy. This is fairly typical for her but is usually controlled by her medications at home. Dehydration and UTI possibly contributing as well. 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 -Continue Oxycodone as needed for pain -Continue Fentanyl patch (6) Benign hypertension: Plan: Blood pressure stable at present, 122/70 -Continue Amlodipine 5mg po daily -Monitor (7) Acid reflux disease: Plan: Chronic -Pepcid for now (8) Anemia: Plan: hemoglobin is 7. will recheck in AM. likely due to chemo iron levels normal. will transfuse if worsens. Plan: F/E/N - LR at 80mL/hr x 1 liter, electrolytes WNL - repeat chemistry in AM, Regular diet as tolerated Ppx - Lovenox Code - DNR/DNI per discussion with patient and daughter Admission and Anticipated Discharge Date Admission Date: December 04, 2021 Subjective Patient reports having an episode of tachycardia last ight, patient felt badly, nausea, burning sensation in chest. Today, though she has felt well. Review of Systems Review of Systems: All systems reviewed & are unremarkable except as noted in HPI & below Physical Exam Physical Exam: General: patient resting comfortably, NAD, AA&O x 4 Skin: warm, dry, intact, no rashes or lesions HEENT: NC/AT, PERRL, EOMI, anicteric sclera, conjunctiva without injection, external ear normal to inspection and nontender, nares patent, dry mucus membranes, dentition intact, no oropharyngeal lesions, neck supple, trachea midline, no LAD, no thyromegaly, no JVD Heart: +S1/S2, regular, no m/r/g Lungs: equal air entry bilaterally, no rales/rhonchi/wheezes Abd: +BS, soft, NT/ND, no masses/organomegaly/ascites Ext: warm, 2+ pulses in UE/LE bilaterally, no clubbing/cyanosis or edema Neuro: nonfocal, patient AA&O x 4, speech intact, no facial droop, moving all extremities on command with equal strength 5/5 Results & Data Results & Data ([facility]) Vital Signs (Past 12 Hours) Vital Signs Temp Pulse Pulse Resp BP BP BP 12/07/21 19:23 36.7 C 76 22 139/76 12/07/21 16:23 36.6 C 78 16 108/74 12/07/21 11:04 36.6 C 68 16 120/73 12/07/21 10:00 75 14 12/07/21 09:45 77 19 12/07/21 09:30 81 19 119/64 12/07/21 09:15 137 H 20 12/07/21 09:05 36.8 C 12/07/21 09:00 120 H 9 L 117/88 Pulse Ox 12/07/21 19:23 96 12/07/21 16:23 96 12/07/21 11:04 98 12/07/21 10:00 98 12/07/21 09:45 97 12/07/21 09:30 97 12/07/21 09:15 89 L 12/07/21 09:05 12/07/21 09:00 97 PG Care Time/CCT Total # of Minutes Spent Total Time Spent with Patient: Total time spent is greater than 50% in coordination of care (as documented) at patient's floor/unit and/or counseling patient: Coding Level of Care Code 68167 Subseq Hosp Care Lvl 3 Diagnoses Acute dehydration E86.0 Tachycardia-bradycardia I49.5 Urinary tract infection N39.0 Hematuria presence: without hematuria Urinary tract infection type: site unspecified Nausea R11.0 Bladder cancer metastasized to bone C67.9; C79.51 Benign hypertension I10 Acid reflux disease K21.9 Anemia D64.9 (1) Urinary tract infection Hematuria presence: without hematuria Urinary tract infection type: site unspecified Qualified Code(s): N39.0 - Urinary tract infection, site not specified
[2021-12-07] MEDS: amLODIPine BESYLATE 5 MG TAB PO SCH (20:53)
[2021-12-07] MEDS: cefTRIAXone SODIUM 1,000 MG in DEXTROSE 5% 50 ML IV SCH (20:54)
[2021-12-08] MEDS: CHECK fentaNYL PATCH PLACEMENT SCH ×6 (00:21→14:35)
[2021-12-08 06:31] LABS: Partial Thromboplastin Ratio 1.6
[2021-12-08 06:52] LABS: Albumin Level 2.8 gm/dl (3.4-5.0); Bilirubin Direct 0.1 mg/dl (0-0.2); Bilirubin,Total 0.4 mg/dl (0.2-1.0); Calcium 8.8 mg/dl (8.5-10.1); Creatinine Clr Calc Pharmacy 57.5 ml/min; Est GFR (African American) 81.8 ml/min; Est GFR (Non-African American) 70.6 ml/min; Potassium 3.8 mmol/L (3.5-5.1); Total Protein 5.4 gm/dl (6.0-8.3)
[2021-12-08 07:13] LABS: Hematocrit (blood only) 23.9 % (37-47); Hemoglobin 8.1 g/dL (12.0-16.0); Mean Corpuscular Hemoglobin 30.9 pg (25-34); Mean Corpuscular Hgb Conc 33.9 g/dL (32-36); Mean Corpuscular Volume 91.2 fL (80-100); Mean Platelet Volume 10.3 fL (7.4-10.4); Platelet Count 18 K/uL (130-400); Platelet Estimate SIGNIFIC DECREASED (Normal); RBC Morphology Unremarkable; RDW Coefficient of Variation 14.4 % (11.5-14.5); Red Blood Count 2.62 M/uL (4.2-5.4)
[2021-12-08 07:15] LABS: ALC (manual) 0.98 K/uL (1.2-3.4); ANC (manual) 0.83 K/uL (1.4-6.5); Lymphocytes # (manual) 0.98 K/uL (1.2-3.4); Lymphocytes % (manual) 51.7 %; Monocytes # (manual) 0.08 K/uL (0.11-0.59); Monocytes % (manual) 4.4 %; Neutrophils # (manual) 0.83 K/uL (1.4-6.5); Neutrophils % (manual) 43.9 %
--- NOTE | 2021-12-08 08:04 | Hospitalist Progress Note ---
Date of Service December 08, 2021 Assessment & Plan (1) Tachycardia-bradycardia: Plan: Patient with witnessed tachycardia - sinus and brief run of what appeared to be atrial fibrillation as well as sinus pauses and bradycardia. Troponin is Negative x 1. No EKG evidence of ischemia even with high rate. Electrolytes are largely unremarkable. Patient is on several anti-emetics that may contribute to conduction abnormality - on metoprolol as well - -Cardiology Consultation -paroxysms of atrial fibrillation/flutter with a rapid ventricular response. -intermittent episodes of sinus bradycardia, junctional bradycardia, and a 4 second pause. -stable on metoprolol succinate. -requires a transcatheter RV apex pacemaker (Medtronic Micra), Dr. Krueger on case -cannot use right subclavian vein due to A port. -cannot use left subclavian vein due to clavicular fracture. -may be a candidate for amiodarone. liver transaminases slightly elevated. -on iv therapeutic heparin -Electrophysiology is considering using a Medtronic Micra which is a RV apical pacemaker which can be implanted through the femoral vein into the heart. Dr. 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 resolved (3) Urinary tract infection: Plan: Patient with UA suggestive of infection, three organisms seen suspect infection. She is afebrile, HD stable, non-toxic in appearance. She does have a mildly elevated procalcitonin. No complaints of dysuria/frequency/urgency, however, given immunocompromised state on chemotherapy remains on Ceftriaxone -reculture urine (4) Nausea: Plan: Patient with persistent nausea following chemotherapy. This is fairly typical for her but is usually controlled by her medications at home. -resolved -Pepcid daily (5) Bladder cancer metastasized to bone: Plan: On chemotherapy as above. -Continue Oxycodone as needed for pain -Continue Fentanyl patch (6) Benign hypertension: Plan: Blood pressure stable at present, 122/70 -Continue Amlodipine 5mg po daily plus metoprolol (7) Acid reflux disease: Plan: Chronic -Pepcid for now (8) Anemia: Plan: hemoglobin is stable Is pancytopenic secondary to chemotherapy iron levels normal. will transfuse if worsens. Plan: Code - DNR/DNI per discussion with patient and daughter Admission and Anticipated Discharge Date Admission Date: December 04, 2021 Subjective Patient is in good spirits he has reasonable pain control with regard to her clavicular mass she remains pancytopenic likely from medications Review of Systems Review of Systems: Mild distress and moderate fatigue no headache, no visual changes no speech or swallowing issues Left-sided mechanical chest pain, no pressure or palpitations no shortness of breath, cough or wheezes no abdominal pain, nausea or vomiting, diarrhea or constipation no dysuria, hematuria or frequency no focal joint pain or swelling no back pain, CVA tenderness or radicular pain no bruising, bleeding or rashes no focal signs of weakness or numbness or altered sensation no complaints of anxiety or depression.. Physical Exam Physical Exam: The patient appeared well nourished and normally developed. Vital signs as documented. Head exam is normocephalic atraumatic Neck is without JVD, thyromegaly, or carotid bruits. Patient has an a port in her right chest and she has some clavicular deformities or tenderness on her left chest. Lungs are clear to auscultation, no focal loss of breath sounds Cardiac exam, seemingly regular rate control systolic murmur is heard Abdominal exam reveals normal bowel sounds, soft non tender, no masses Extremities are trace edematous and both pedal pulses are present Neurologic exam is alert and oriented, no focal loss of strength or sensation Skin is without bruises or rashes Psychologically is without concerns for anxiety or depression.. Results & Data Results & Data ([facility]) Vital Signs (Past 12 Hours) Vital Signs Temp Pulse Pulse Resp BP Pulse Ox 12/08/21 07:48 97.7 F 70 16 133/66 98 12/08/21 03:35 97.9 F 68 16 124/67 95 12/07/21 23:59 72 12/07/21 23:42 97.9 F 76 18 146/78 H 99 PG Care Time/CCT Total # of Minutes Spent Total Time Spent with Patient: Total time spent is greater than 50% in coordination of care (as documented) at patient's floor/unit and/or counseling patient: Coding Level of Care Code 98761 Subseq Hosp Care Lvl 3 Diagnoses Acute dehydration E86.0 Tachycardia-bradycardia I49.5 Urinary tract infection N39.0 Hematuria presence: without hematuria Urinary tract infection type: site unspecified Nausea R11.0 Bladder cancer metastasized to bone C67.9; C79.51 Benign hypertension I10 Acid reflux disease K21.9 Anemia D64.9 (1) Urinary tract infection Hematuria presence: without hematuria Urinary tract infection type: site unspecified Qualified Code(s): N39.0 - Urinary tract infection, site not specified
[2021-12-08] MEDS: allopurinoL 100 MG TAB PO SCH ×2 (08:10→20:26)
[2021-12-08] MEDS: METOPROLOL SUCC 50MG EXT REL TAB PO SCH (08:10)
[2021-12-08] MEDS: FAMOTIDINE 40 MG TABLET PO SCH (08:10)
[2021-12-08] MEDS: fentaNYL 25 MCG/HR TDSY TD SCH (08:17)
[2021-12-08] MEDS: fentaNYL 12 MCG/HR TDSY TD SCH (08:17)
[2021-12-08 13:12] LABS: Partial Thromboplastin Ratio 1.5; Partial Thromboplastin Time 40.7 Seconds (21.0-31.0)
[2021-12-08] MEDS: HEPARIN SODIUM/DEXTROSE 25,000 UNITS/500 ML BAG IV SCH (17:10)
[2021-12-08] MEDS: amLODIPine BESYLATE 5 MG TAB PO SCH (20:25)
[2021-12-08] MEDS: cefTRIAXone SODIUM 1,000 MG in DEXTROSE 5% 50 ML IV SCH (20:26)
[2021-12-08 20:50] LABS: Partial Thromboplastin Ratio 1.7
[2021-12-09] MEDS: CHECK fentaNYL PATCH PLACEMENT SCH ×6 (00:08→16:45)
[2021-12-09] MEDS: ONDANSETRON INJ 2 MG/ML 2 ML VIAL IV PRN ×2 (05:35→21:16)
[2021-12-09 06:33] LABS: Partial Thromboplastin Ratio 1.7
[2021-12-09 06:34] LABS: Partial Thromboplastin Time 45.7 Seconds (21.0-31.0)
--- NOTE | 2021-12-09 09:29 | Cardiology Progress Note ---
Date of Service December 09, 2021 Assessment & Plan (1) Tachycardia-bradycardia: (2) Thrombocytopenia: Plan: 1. Tachybradycardia: She has tachycardia when she is in atrial fibrillation with a rapid heart rate, she also has bradycardia especially with termination of her atrial fibrillation. This is consistent with sinus node dysfunction and is an issue with regard to treating her tachycardia. We should implant a pacemaker to help control her bradycardia to allow us to increase her AV arnaldo blocking medications to control her rate during atrial fibrillation. She is agreeable to this approach, however access is difficult as she has a port on the right and has had a left subclavian fracture. She may also be prone to infection with leukopenia and an indwelling venous port. A leadless pacemaker (Micra) is a very reasonable option. 2. Thrombocytopenia: Her platelet count had been marginal however on yesterday's count her platelet count was quite low. Today is pending. It may be HIT or possibly secondary to chemotherapy, I will review today's CBC. If her platelet count is very low tomorrow it may be an issue with regard to pacemaker implantation and it may be better to hold off. We will make that decision later today. I discussed the indications, procedure, risks and alternatives of pacemaker implantation with her and she understands and agrees to proceed. I also discussed the use of a leadless pacemaker which is implanted from the groin and is less prone to infection and complications. We have not done that procedure here although [facility] staff have been fully trained. She understands this and agrees to proceed. I have discussed this with her daughter as well several days ago and oncology does not see an issue with pacemaker implantation. Consent for the procedure as well as consent for conscious sedation were obtained. Admission and Anticipated Discharge Date Admission Date: December 04, 2021 Subjective She is feeling well today and has no complaints. She is free of palpitations, chest discomfort or shortness of breath. She has for the most part been in bed. Physical Exam Physical Exam: Alert cooperative and in no distress. HEENT exam is unremarkable Neck exam is without jugular venous distention, carotid pulses are regular without bruits. Cardiac rhythm is regular with no murmur, gallop or rub Chest wall is notable for a right sided port in place. Lungs are clear Extremities have no edema Results & Data ([facility]) Vital Signs (Past 12 Hours) Vital Signs Temp Pulse Resp BP BP Pulse Ox 12/09/21 08:41 36.5 C 77 16 130/72 94 12/09/21 03:34 36.8 C 73 20 123/67 93 12/08/21 23:58 36.5 C 70 14 118/62 94 Laboratory Results Coagulation 12/08/21 12/08/21 12/09/21 Range/Units 12:48 20:13 04:52 APTT 40.7 H 48.0 H* 45.7 H* (21.0-31.0) Seconds Intake and Output 12/08/21 12/09/21 12/09/21 22:59 06:59 14:59 Intake Total 359.3 / 725.633 240 / 725.633 182.4 / 182.4 Output Total 0 / 875 400 / 875 Balance 359.3 / -149.367 -160 / -149.367 182.4 / 182.4 Intake: IV 119.3 / 245.633 182.4 / 182.4 Heparin Sodium/Dextrose 25,000 69.3 / 195.633 182.4 / 182.4 units In 500 ml @ 18 mls/hr IV .[facility] Rx#:[id number] cefTRIAXone SODIUM 1,000 mg In 50 / 50 Dextrose 5% 50 ml @ 100 mls/hr IV [facility] Rx#:[id number] Oral 240 / 480 240 / 480 Output: Urine 400 / 875 # Bowel Movements 0 / 0 0 / 0 Other: Weight 75.2 kg 74.2 kg Weight Measurement Method Built in [facility] Diagnostic Findings Telemetry: Sinus rhythm, rate typically in the 70s, no atrial fibrillation for 24 to 48 hours. PG Care Time/CCT Total # of Minutes Spent Total Time Spent with Patient: Total time spent is greater than 50% in coordination of care (as documented) at patient's floor/unit and/or counseling patient: Coding Level of Care Code 03269 Subseq Hosp Care Lvl 3 Diagnoses Tachycardia-bradycardia I49.5 Thrombocytopenia D69.6
[2021-12-09 09:48] LABS: Hematocrit (blood only) 22.9 % (37-47); Hemoglobin 7.7 g/dL (12.0-16.0); Mean Corpuscular Hemoglobin 30.9 pg (25-34); Mean Corpuscular Hgb Conc 33.6 g/dL (32-36); Nucleated RBC # (auto) 0.05 K/uL (0-0); Nucleated RBC % (auto) 1.8 %; Platelet Count 18 K/uL (130-400); RDW Coefficient of Variation 14.4 % (11.5-14.5); RDW Standard Deviation 46.5 fL (36.4-46.3); Red Blood Count 2.49 M/uL (4.2-5.4); White Blood Count 2.97 K/uL (4.8-10.8)
[2021-12-09] MEDS ORDERED: SODIUM CHLORIDE 0.9% 250 ML IV PRN ×2 (10:07→19:09)
[2021-12-09 10:16] LABS: Basophils # (auto) 0.01 K/uL (0-0.2); Basophils % (auto) 0.3 %; Eosinophils # (auto) 0.02 K/uL (0-0.5); Eosinophils % (auto) 0.7 %; Immature Granulocytes # (auto) 0.03 K/uL (0.00-0.02); Lymphocytes # (auto) 1.06 K/uL (1.2-3.4); Lymphocytes % (auto) 35.7 %; Monocytes % (auto) 13.5 %; Neutrophils # (auto) 1.45 K/uL (1.4-6.5); Neutrophils % (auto) 48.8 %; RBC Morphology Unremarkable
[2021-12-09] MEDS: METOPROLOL SUCC 50MG EXT REL TAB PO SCH (11:02)
[2021-12-09] MEDS: allopurinoL 100 MG TAB PO SCH ×2 (11:02→20:07)
[2021-12-09] MEDS: FAMOTIDINE 40 MG TABLET PO SCH (11:02)
--- NOTE | 2021-12-09 13:11 | Hospitalist Progress Note ---
Date of Service December 09, 2021 Assessment & Plan (1) Tachycardia-bradycardia: Plan: tachycardia and atrial fibrillation as well as sinus pauses and bradycardia. Troponin is negative. No EKG evidence of ischemia. - -Cardiology Consultation appreciated-paroxysms of atrial fibrillation/flutter with a rapid ventricular response. -intermittent episodes of sinus bradycardia, junctional bradycardia, and a 4 second pause. -stable on metoprolol succinate. -requires a transcatheter RV apex pacemaker (Medtronic Micra), Dr. Krueger on case -cannot use right subclavian vein due to A port. -cannot use left subclavian vein due to clavicular fracture. -may be a candidate for amiodarone. liver transaminases slightly elevated. -iv heparin has been discontinued due to thrombocytopenia -Electrophysiology is considering using a Medtronic Micra which is a RV apical pacemaker which can be implanted through the femoral vein into the heart. Dr. Delaney will insert pacemaker tomorrow, December 10. (2) Acute dehydration: Plan: presenting with persistent nausea, vomiting and PO intolerance following chemotherapy treatment. resolved (3) Urinary tract infection: Plan: Patient with UA suggestive of infection, three organisms seen suspect infection. She is afebrile, HD stable, non-toxic in appearance. She does have a mildly elevated procalcitonin. No complaints of dysuria/frequency/urgency, however, given immunocompromised state on chemotherapy. Remains on Ceftriaxone -reculture urine (4) Nausea: Plan: Patient with persistent nausea following chemotherapy. -resolved -Pepcid daily (5) Bladder cancer metastasized to bone: Plan: On chemotherapy as above. -Continue Oxycodone as needed for pain -Continue Fentanyl patch (6) Benign hypertension: Plan: Blood pressure stable -Continue Amlodipine 5mg po daily plus metoprolol (7) Acid reflux disease: Plan: Chronic -Pepcid (8) Anemia: Plan: hemoglobin is stable Pancytopenic secondary to chemotherapy. Transfuse to keep platelet count greater than 50,000 until pacemaker is inserted iron levels normal. Plan: Code - DNR/DNI per discussion with patient and daughter Disposition: Eventual discharge to home Admission and Anticipated Discharge Date Admission Date: December 04, 2021 Subjective Alert and oriented. Case discussed with Dr. Chandu cotton. We will transfuse platelets to keep greater than 50,000 until the pacemaker can be inserted. Heparin drip has been discontinued since she does not absolutely need it and she is thrombocytopenic. Review of Systems Review of Systems: Constitutional-no fever or chills ENT-no blurred vision, no double vision, no epistaxis, no sore throat Respiratory-no cough, no wheezing, no shortness of breath Cardiac-no palpitations, no chest pain, no syncope GI-no nausea, vomiting, diarrhea, melena, hematochezia -no urinary retention, no urinary incontinence, no dysuria, no hematuria Musculoskeletal-no joint pain, no muscle tenderness Skin-no bruising, no rashes, no pruritus Neuro-no isolated weakness, no paresthesia, no weakness Psych-no depression, no anxiety Physical Exam Physical Exam: General-alert and oriented x3, no fevers, no chills HEENT-head atraumatic and normocephalic, TMs intact bilaterally, pupils equal and reactive to light, extraocular muscles intact Neck-no lymphadenopathy or thyromegaly, trachea midline Chest-clear to auscultation percussion. No rales wheezing or rhonchi Cardiac-regular rate and rhythm, normal S1 and S2, no murmurs Abdomen-normal bowel sounds, nontender, no hepatosplenomegaly Extremities-no cyanosis, clubbing, or edema Neuro-cranial nerves II through XII intact, motor and sensory function within n ormal limits, strength symmetrical 5/5, no focal deficits Psych-normal affect, normal mood Results & Data Results & Data ([facility]) Vital Signs (Past 12 Hours) Vital Signs Temp Pulse Pulse Resp BP BP BP 12/09/21 12:44 36.6 C 77 23 138/77 12/09/21 12:27 36.6 C 76 24 138/77 12/09/21 12:12 36.6 C 74 15 123/80 12/09/21 12:07 36.6 C 74 22 132/72 12/09/21 08:41 36.5 C 77 16 130/72 12/09/21 03:34 36.8 C 73 20 123/67 Pulse Ox 12/09/21 12:44 97 12/09/21 12:27 97 12/09/21 12:12 97 12/09/21 12:07 95 12/09/21 08:41 94 12/09/21 03:34 93 Laboratory Results 12/09/21 04:57 12/08/21 06:10 PG Care Time/CCT Total # of Minutes Spent Total Time Spent with Patient: Total time spent is greater than 50% in coordination of care (as documented) at patient's floor/unit and/or counseling patient: Coding Level of Care Code 98594 Subseq Hosp Care Lvl 3 Diagnoses Tachycardia-bradycardia I49.5 Acute dehydration E86.0 Urinary tract infection N39.0 Hematuria presence: without hematuria Urinary tract infection type: site unspecified Nausea R11.0 Bladder cancer metastasized to bone C67.9; C79.51 Benign hypertension I10 Acid reflux disease K21.9 Anemia D64.9 (1) Urinary tract infection Hematuria presence: without hematuria Urinary tract infection type: site unspecified Qualified Code(s): N39.0 - Urinary tract infection, site not specified
[2021-12-09 18:30] LABS: Platelet Count 28 K/uL (130-400); Platelet Estimate SIGNIFIC DECREASED (Normal)
[2021-12-09] MEDS: amLODIPine BESYLATE 5 MG TAB PO SCH (20:07)
[2021-12-09] MEDS: cefTRIAXone SODIUM 1,000 MG in DEXTROSE 5% 50 ML IV SCH (22:08)
[2021-12-10] MEDS: CHECK fentaNYL PATCH PLACEMENT SCH ×8 (00:06→23:34)
[2021-12-10 00:42] LABS: Platelet Count 38 K/uL (130-400)
[2021-12-10 05:47] LABS: Partial Thromboplastin Time 26.6 Seconds (21.0-31.0)
[2021-12-10 05:54] LABS: Hematocrit (blood only) 20.5 % (37-47); Mean Corpuscular Hemoglobin 31.4 pg (25-34); Mean Corpuscular Hgb Conc 34.1 g/dL (32-36); Mean Corpuscular Volume 91.9 fL (80-100); Mean Platelet Volume 9.4 fL (7.4-10.4); Nucleated RBC # (auto) 0.06 K/uL (0-0); Nucleated RBC % (auto) 1.4 %; Platelet Count 46 K/uL (130-400); RDW Coefficient of Variation 14.2 % (11.5-14.5); RDW Standard Deviation 45.3 fL (36.4-46.3); Red Blood Count 2.23 M/uL (4.2-5.4); White Blood Count 4.01 K/uL (4.8-10.8)
[2021-12-10 06:01] LABS: RBC Morphology Unremarkable
[2021-12-10 06:03] LABS: ALC (manual) 1.24 K/uL (1.2-3.4); ANC (manual) 2.53 K/uL (1.4-6.5); Lymphocytes # (manual) 1.24 K/uL (1.2-3.4); Myelocytes # (manual) 0.04 K/uL (0-0); Neutrophils # (manual) 2.53 K/uL (1.4-6.5)
[2021-12-10 08:08] LABS: Platelet Count 51 K/uL (130-400)
--- NOTE | 2021-12-10 08:11 | Pre Anesthesia Assessment ---
Date of Service December 10, 2021 Pre Sedation Assessment Vital Signs Temp Pulse Pulse Pulse Resp BP BP 12/10/21 07:22 36.8 C 68 18 12/10/21 04:28 36.8 C 69 19 120/54 L 12/10/21 04:03 64 18 113/57 L 12/10/21 03:33 63 17 114/62 12/10/21 03:18 36.7 C 64 14 118/58 L 12/10/21 02:59 36.7 C 64 14 120/55 L 12/10/21 00:00 37 C 70 14 144/58 H 12/09/21 22:13 36.8 C 68 18 144/68 H 12/09/21 21:36 69 20 143/77 H 12/09/21 21:21 36.8 C 72 19 166/81 H 12/09/21 21:01 37.1 C 71 18 150/74 H 12/09/21 20:00 37.1 C 73 16 150/74 H 12/09/21 16:00 77 12/09/21 12:44 36.6 C 77 23 138/77 12/09/21 12:27 36.6 C 76 24 138/77 12/09/21 12:12 36.6 C 74 15 123/80 12/09/21 12:07 36.6 C 74 22 132/72 12/09/21 08:41 36.5 C 77 16 12/09/21 08:37 77 24 130/72 BP Pulse Ox 12/10/21 07:22 124/76 96 12/10/21 04:28 96 12/10/21 04:03 99 12/10/21 03:33 97 12/10/21 03:18 98 12/10/21 02:59 97 12/10/21 00:00 99 12/09/21 22:13 98 12/09/21 21:36 97 12/09/21 21:21 98 12/09/21 21:01 95 12/09/21 20:00 95 12/09/21 16:00 12/09/21 12:44 97 12/09/21 12:27 97 12/09/21 12:12 97 12/09/21 12:07 95 12/09/21 08:41 130/72 94 12/09/21 08:37 97 Cardiovascular RRR, no murmur, no edema Respiratory normal respiratory effort, lungs clear to auscultation Pre-Sedation Airway Assessment Smoking Status: Former smoker Hx Sleep Apnea: No Short, Thick Neck: No Thyromental Distance: > or= 3.5 Finger Breadths Oral Cavity: + WNL Mallampati Class: III ASA: ASA3 NPO Status Date of Last Intake of Fluids: 12/09/21 Time of Last Intake of Fluids: 22:00 Date of Last Intake of Solid Food: 12/09/21 Time of Last Intake of Solid Foods: 22:00 Procedure Planning Contraindications for Sedation: none Current Medications Reviewed: Yes Notes The planned sedation has been discussed with the patient. Informed Consent was obtained. I have identified the patient, determined the appropriateness of sedation and have assessed the patient immediately prior to the procedure. All medicine(s) and interventions are by my order.
[2021-12-10] MEDS ORDERED: HEPARIN (PORCINE) 1000 UNIT/ML 10 ML (CATH LAB USE ONLY) ONE (08:21)
[2021-12-10] MEDS ORDERED: ceFAZolin 330 MG/ML 1 GM VIAL ONE (08:23)
[2021-12-10] MEDS ORDERED: MIDAZOLAM HCL 5 MG/ML 1 ML VIAL ONE ×2 (08:23→09:14)
[2021-12-10] MEDS ORDERED: fentaNYL citrate 100 MCG/2 ML VIAL ONE ×2 (08:23→09:03)
[2021-12-10] MEDS ORDERED: ACETAMINOPHEN W/CODEINE #3 1 TAB PO PRN (10:40)
[2021-12-10] MEDS ORDERED: ACETAMINOPHEN 325 MG TAB PO PRN (10:40)
--- NOTE | 2021-12-10 10:40 | Electrophysiology Report ---
Date of Service December 10, 2021 Electrophysiology Procedure Electrophysiology Procedure Report Preoperative diagnosis: Tachybradycardia syndrome Postoperative diagnosis: Same Procedure: Micra leadless pacemaker implantation Surgeon: Rafita Krueger MD Anesthesia: Local with sedation Estimated blood loss: 20 cc Complications: None Specimens: None Disposition: Food Consultant recovery: Procedure details: After obtaining informed consent for the procedure, the patient was brought to the laboratory and prepped and draped in the standard sterile manner. The right groin was anesthetized with 1% lidocaine local anesthetic and venipuncture was performed by percutaneous technique and a guidewire placed through the right femoral vein into the superior vena cava. Sequential dilators were used to dilate the femoral vein insertion site. A Micra sheath was placed over the guidewire and advanced to the right atrium. The Micra positioning sheath and pacemaker were advanced into the right atrium and then into the right ventricle. The tip of the pacemaker was positioned against the intraventricular septum and position was documented with dye injection. The pacemaker was then deployed, tested for sensing and capture and tested for fixation. Once in place the tether was removed followed by the micropositioning system. Final pacing and sensing characteristics are noted on the data sheet. The sheath was then removed through a [id number] suture at the right groin and hemostasis obtained by firm pressure at the site and a dressing applied. [facility] Electrophysiology codes Indication for Procedure (1) Tachy-atif syndrome: PG Moderate Sedation Codes Moderate Sedation Codes Procedure 1: Sedation/Anesthesia: 88029 Mod Sedation by the same physician;Init15 Min Child Age 5 & Up Procedure 2: Sedation/Anesthesia: 15913 Mod Sedation by the same physician; Ea [id number] Minutes
[2021-12-10] MEDS: METOPROLOL SUCC 25MG EXT REL TAB PO SCH (11:26)
[2021-12-10] MEDS: FAMOTIDINE 40 MG TABLET PO SCH (11:26)
[2021-12-10] MEDS: allopurinoL 100 MG TAB PO SCH ×2 (11:26→20:21)
[2021-12-10] MEDS: METOPROLOL SUCC 50MG EXT REL TAB PO SCH (11:27)
--- NOTE | 2021-12-10 11:37 | Hospitalist Progress Note ---
Date of Service December 10, 2021 Assessment & Plan (1) Tachycardia-bradycardia: Plan: tachycardia and atrial fibrillation as well as sinus pauses and bradycardia. Troponin is negative. No EKG evidence of ischemia. - -Cardiology Consultation appreciated-paroxysms of atrial fibrillation/flutter with a rapid ventricular response. -intermittent episodes of sinus bradycardia, junctional bradycardia, and a 4 second pause. -stable on metoprolol succinate. -requires a transcatheter RV apex pacemaker (Medtronic Micra), Dr. Krueger performed today -cannot use right subclavian vein due to A port. -cannot use left subclavian vein due to clavicular fracture. -may be a candidate for amiodarone. liver transaminases slightly elevated. -iv heparin has been discontinued due to thrombocytopenia -Electrophysiology is considering using a Medtronic Micra which is a RV apical pacemaker which can be implanted through the femoral vein into the heart. Dr. Delaney will insert pacemaker tomorrow, December 10. (2) Acute dehydration: Plan: presenting with persistent nausea, vomiting and PO intolerance following chemotherapy treatment. resolved (3) Urinary tract infection: Plan: Patient with UA suggestive of infection, three organisms seen suspect infection. She is afebrile, HD stable, non-toxic in appearance. She does have a mildly elevated procalcitonin. No complaints of dysuria/frequency/urgency, however, given immunocompromised state on chemotherapy. Ceftriaxone 5 day course can be discontinued today. (4) Nausea: Plan: Patient with persistent nausea following chemotherapy. -resolved -Pepcid daily (5) Bladder cancer metastasized to bone: Plan: On chemotherapy as above. -Continue Oxycodone as needed for pain -Continue Fentanyl patch (6) Benign hypertension: Plan: Blood pressure stable -Continue Amlodipine 5mg po daily plus metoprolol (7) Acid reflux disease: Plan: Chronic -Pepcid (8) Anemia: Plan: hemoglobin is stable Pancytopenic secondary to chemotherapy. Transfuse to keep platelet count greater than 50,000 until pacemaker is inserted iron levels normal. Plan: Code - DNR/DNI per discussion with patient and daughter Disposition: Eventual discharge to home Admission and Anticipated Discharge Date Admission Date: December 04, 2021 Subjective Patient seen after pacemaker insertion. No acute concerns or complaints at this time. Pacemaker was placed through her right groin. Currently not had anything to eat after pacemaker insertion today. No active bleeding noted. No melena or bright red blood in stool. Review of Systems Review of Systems: All systems reviewed & are unremarkable except as noted in Subjective Physical Exam Constitutional: WD/WN, vitals as above Respiratory: normal respiratory effort, lungs clear to auscultation Cardiovascular: RRR, no murmur, no edema Gastrointestinal (Abdomen): Percussion/Palpation: abdomen soft; abdomen nontender Neurologic: moves all extremities and awake; not confused Results & Data Results & Data ([facility]) Vital Signs (Past 12 Hours) Vital Signs Temp Pulse Pulse Pulse Resp BP BP 12/10/21 10:40 36.9 C 80 20 12/10/21 10:23 80 80 16 143/75 H 12/10/21 10:08 80 80 16 139/66 12/10/21 07:22 36.8 C 68 18 12/10/21 07:00 69 12/10/21 04:28 36.8 C 69 19 120/54 L 12/10/21 04:03 64 18 113/57 L 12/10/21 03:33 63 17 114/62 12/10/21 03:18 36.7 C 64 14 118/58 L 12/10/21 02:59 36.7 C 64 14 120/55 L 12/10/21 00:00 37 C 70 14 144/58 H BP Pulse Ox 12/10/21 10:40 12/10/21 10:23 98 12/10/21 10:08 98 12/10/21 07:22 124/76 96 12/10/21 07:00 12/10/21 04:28 96 12/10/21 04:03 99 12/10/21 03:33 97 12/10/21 03:18 98 12/10/21 02:59 97 12/10/21 00:00 99 PG Care Time/CCT Total # of Minutes Spent Total Time Spent with Patient: Total time spent is greater than 50% in coordination of care (as documented) at patient's floor/unit and/or counseling patient: Coding Level of Care Code 56594 Subseq Hosp Care Lvl 2 Diagnoses Tachycardia-bradycardia I49.5 Acute dehydration E86.0 Urinary tract infection N39.0 Hematuria presence: without hematuria Urinary tract infection type: site unspecified Nausea R11.0 Bladder cancer metastasized to bone C67.9; C79.51 Benign hypertension I10 Acid reflux disease K21.9 Anemia D64.9 (1) Urinary tract infection Hematuria presence: without hematuria Urinary tract infection type: site unspecified Qualified Code(s): N39.0 - Urinary tract infection, site not spe cified
[2021-12-10 12:50] LABS: Platelet Count 54 K/uL (130-400)
--- NOTE | 2021-12-10 13:17 | Post Anesthesia Assessment ---
Date of Service December 10, 2021 Post Sedation Assessment Vital Signs Temp Pulse Pulse Pulse Resp BP BP 12/10/21 13:00 64 12 140/73 12/10/21 12:45 63 16 12/10/21 12:30 65 16 12/10/21 12:15 63 14 12/10/21 12:00 36.8 C 64 14 139/70 12/10/21 11:45 64 17 12/10/21 11:30 67 15 12/10/21 11:24 67 16 136/76 12/10/21 11:15 67 10 L 136/73 12/10/21 11:00 68 15 135/73 12/10/21 10:45 69 17 127/73 12/10/21 10:40 36.9 C 80 20 12/10/21 10:38 68 16 140/71 12/10/21 10:35 69 14 12/10/21 10:30 36.5 C 70 20 140/71 12/10/21 10:23 80 80 16 143/75 H 12/10/21 10:08 80 80 16 139/66 12/10/21 07:22 36.8 C 68 18 12/10/21 07:00 69 12/10/21 04:28 36.8 C 69 19 120/54 L 12/10/21 04:03 64 18 113/57 L 12/10/21 03:33 63 17 114/62 12/10/21 03:18 36.7 C 64 14 118/58 L 12/10/21 02:59 36.7 C 64 14 120/55 L 12/10/21 00:00 37 C 70 14 144/58 H 12/09/21 22:13 36.8 C 68 18 144/68 H 12/09/21 21:36 69 20 143/77 H 12/09/21 21:21 36.8 C 72 19 166/81 H 12/09/21 21:01 37.1 C 71 18 150/74 H 12/09/21 20:00 37.1 C 73 16 150/74 H 12/09/21 16:00 77 BP Pulse Ox 12/10/21 13:00 12/10/21 12:45 12/10/21 12:30 12/10/21 12:15 98 12/10/21 12:00 96 12/10/21 11:45 12/10/21 11:30 100 12/10/21 11:24 100 12/10/21 11:15 100 12/10/21 11:00 98 12/10/21 10:45 99 12/10/21 10:40 12/10/21 10:38 12/10/21 10:35 12/10/21 10:30 98 12/10/21 10:23 98 12/10/21 10:08 98 12/10/21 07:22 124/76 96 12/10/21 07:00 12/10/21 04:28 96 12/10/21 04:03 99 12/10/21 03:33 97 12/10/21 03:18 98 12/10/21 02:59 97 12/10/21 00:00 99 12/09/21 22:13 98 12/09/21 21:36 97 12/09/21 21:21 98 12/09/21 21:01 95 12/09/21 20:00 95 12/09/21 16:00 Discharge Sedation Level of Care: Fast Track Phase II Post Sedation Plan On clinical assessment, the patient appears to have tolerated the sedation without complications. Patient is recovering as anticipated. Patient will continue to be monitored by nursing and may be discharged when sedation discharge criteria are met per below protocol. Upon Completions of procedure up to 15 minutes continue every 5 minute vital signs and the P.A.R. score; then discharge to a Phase I or Fast Track to Phase II per the following guidelines: * Discharge Patient to appropriate Phase II area if PAR is 8 or greater or return to pre- procedure baseline. The post - procedure orders will be as directed. * If PAR score is less than 8 or not return to pre-procedure baseline then patient will follow Phase I monitoring till PAR is reached for Phase II. The Phase I may be done in procedure room or may call to secure a Phase I area. * If naloxone or flumazenil are used for reversal, hold in Phase I for continued monitoring from when last reversal dose was given for a minimum of 60 minutes or longer pending the nurse and/or physician discretion of patient condition before discharge to Phase II. Please call the Sedation Physician to re-evaluate and complete post-note for discharge to Phase II area. Do NOT discharge from procedure sedation or Phase 1 until post- sedation evaluation note is complete by procedure /sedation MD Sedation Discharge Instructions to be given to the patient at discharge to home.
[2021-12-10] MEDS: HEPARIN SODIUM/DEXTROSE 25,000 UNITS/500 ML BAG IV SCH (14:14)
--- NOTE | 2021-12-10 19:16 | Electrocardiogram Report ---
Test Reason : Blood Pressure : / mmHG Vent. Rate : 065 BPM Atrial Rate : 065 BPM P-R Int : 174 ms QRS Dur : 086 ms QT Int : 432 ms P-R-T Axes : 013 -14 024 degrees QTc Int : 449 ms Normal sinus rhythm T wave abnormality, consider anterior ischemia Abnormal ECG When compared with ECG of 07-DEC-2021 03:28, Sinus rhythm has replaced Atrial fibrillation Vent. rate has decreased BY 92 BPM Non-specific change in ST segment in Inferior leads ST no longer depressed in Lateral leads T wave inversion now evident in Anterior leads Nonspecific T wave abnormality no longer evident in Lateral leads Confirmed by Janusz Rendon ([id number]) on 12/10/2021 7:15:36 PM Referred By: REFERRED SELF Confirmed By:Hayden Rendon
[2021-12-10] MEDS: amLODIPine BESYLATE 5 MG TAB PO SCH (20:21)
[2021-12-11] MEDS: CHECK fentaNYL PATCH PLACEMENT SCH ×4 (07:59→17:06)
[2021-12-11] MEDS: METOPROLOL SUCC 50MG EXT REL TAB PO SCH (08:02)
[2021-12-11] MEDS: fentaNYL 25 MCG/HR TDSY TD SCH (08:02)
[2021-12-11] MEDS: allopurinoL 100 MG TAB PO SCH ×2 (08:03→20:16)
[2021-12-11] MEDS: FAMOTIDINE 40 MG TABLET PO SCH (08:03)
[2021-12-11] MEDS: METOPROLOL SUCC 25MG EXT REL TAB PO SCH (08:03)
[2021-12-11] MEDS: fentaNYL 12 MCG/HR TDSY TD SCH (08:07)
--- NOTE | 2021-12-11 09:08 | XRay Report ---
XR chest 2V PA/lateral CLINICAL HISTORY: Arrhythmia. Status post pacemaker insertion. TECHNIQUE: AP and lateral radiographs of the chest was obtained. Comparison: Comparison is made to chest one view 12/04/2021 FINDINGS: Stable port catheter. Interval placement of platelets pacemaker. Stable cardiomediastinal silhouette. Atelectasis is seen in the left lung base. No pleural effusion or pneumothorax. IMPRESSION: No acute chest disease. ACT 112: Negative or not required by law. Electronically signed by: Mert Renee M.D. 12/11/2021 9:06 AM
[2021-12-11 09:17] LABS: Partial Thromboplastin Time 26.2 Seconds (21.0-31.0)
[2021-12-11 10:54] LABS: Hematocrit (blood only) 22.3 % (37-47); Hemoglobin 7.4 g/dL (12.0-16.0); Mean Corpuscular Hgb Conc 33.2 g/dL (32-36); Mean Corpuscular Volume 93.3 fL (80-100); Nucleated RBC # (auto) 0.07 K/uL (0-0); RDW Coefficient of Variation 14.3 % (11.5-14.5); Red Blood Count 2.39 M/uL (4.2-5.4); White Blood Count 3.76 K/uL (4.8-10.8)
[2021-12-11 11:04] LABS: Mean Platelet Volume 10.4 fL (7.4-10.4); Platelet Count 60 K/uL (130-400)
[2021-12-11 11:07] LABS: BUN Creatinine Ratio 19.7 (10-20); Calcium 8.8 mg/dl (8.5-10.1); Creatinine Clr Calc Pharmacy 64.7 ml/min; Est GFR (African American) 94.6 ml/min; Est GFR (Non-African American) 81.6 ml/min; Potassium 3.7 mmol/L (3.5-5.1)
[2021-12-11 11:18] LABS: Basophils # (auto) 0.02 K/uL (0-0.2); Basophils % (auto) 0.5 %; Eosinophils # (auto) 0.07 K/uL (0-0.5); Eosinophils % (auto) 1.9 %; Immature Granulocytes # (auto) 0.06 K/uL (0.00-0.02); Immature Granulocytes % (auto) 1.6 %; Lymphocytes # (auto) 0.98 K/uL (1.2-3.4); Lymphocytes % (auto) 26.1 %; Monocytes # (auto) 0.64 K/uL (0.11-0.59); Neutrophils # (auto) 1.99 K/uL (1.4-6.5); Neutrophils % (auto) 52.9 %; Polychromasia 1+
--- NOTE | 2021-12-11 13:37 | Hospitalist Progress Note ---
Date of Service December 11, 2021 Assessment & Plan (1) Tachycardia-bradycardia: Plan: tachycardia and atrial fibrillation as well as sinus pauses and bradycardia. Troponin is negative. No EKG evidence of ischemia. - -Cardiology Consultation appreciated-paroxysms of atrial fibrillation/flutter with a rapid ventricular response. -intermittent episodes of sinus bradycardia, junctional bradycardia, and a 4 second pause. -stable on metoprolol succinate. -requires a transcatheter RV apex pacemaker (Medtronic Micra), Dr. Krueger performed 12/10 -cannot use right subclavian vein due to A port. -cannot use left subclavian vein due to clavicular fracture. -may be a candidate for amiodarone. liver transaminases slightly elevated. -iv heparin has been discontinued due to thrombocytopenia (2) Acute dehydration: Plan: presenting with persistent nausea, vomiting and PO intolerance following chemotherapy treatment. resolved (3) Urinary tract infection: Plan: Patient with UA suggestive of infection, three organisms seen suspect infection. She is afebrile, HD stable, non-toxic in appearance. She does have a mildly elevated procalcitonin. No complaints of dysuria/frequency/urgency, however, given immunocompromised state on chemotherapy. Ceftriaxone 5 day course can be discontinued today. (4) Nausea: Plan: Patient with persistent nausea following chemotherapy. -resolved -Pepcid daily (5) Bladder cancer metastasized to bone: Plan: On chemotherapy as above. -Continue Oxycodone as needed for pain -Continue Fentanyl patch (6) Benign hypertension: Plan: Blood pressure stable -Continue Amlodipine 5mg po daily plus metoprolol (7) Acid reflux disease: Plan: Chronic -Pepcid (8) Anemia: Plan: hemoglobin is stable Pancytopenic secondary to chemotherapy. iron levels normal. Plan: Code - DNR/DNI per discussion with patient and daughter Disposition: PT/OT ordered, may need rehab on discharge Admission and Anticipated Discharge Date Admission Date: December 04, 2021 Subjective Patient asking about possible discharge although is still wanting to use the bedpan as she has significant weakness on ambulation. Not yet had physical therapy this admission. Discussed case with Dr. Soria and agreed there is no zhu to put this patient on anticoagulation especially since she is not in atrial fibrillation at this time and given recent pacemaker insertion. Review of Systems Review of Systems: All systems reviewed & are unremarkable except as noted in Subjective Physical Exam Constitutional: WD/WN, vitals as above Respiratory: normal respiratory effort, lungs clear to auscultation Cardiovascular: RRR, no murmur, no edema Gastrointestinal (Abdomen): Percussion/Palpation: abdomen soft; abdomen nontender Neurologic: moves all extremities and awake; not confused Results & Data Results & Data ([facility]) Vital Signs (Past 12 Hours) Vital Signs Temp Pulse Pulse Resp BP Pulse Ox 12/11/21 11:04 36.7 C 68 19 137/76 99 12/11/21 07:25 36.7 C 70 18 145/82 H 97 12/11/21 07:00 68 12/11/21 04:01 36.8 C 69 17 122/64 97 PG Care Time/CCT Total # of Minutes Spent Total Time Spent with Patient: Total time spent is greater than 50% in coordination of care (as documented) at patient's floor/unit and/or counseling patient: Coding Level of Care Code 60471 Subseq Hosp Care Lvl 2 Diagnoses Tachycardia-bradycardia I49.5 Acute dehydration E86.0 Urinary tract infection N39.0 Hematuria presence: without hematuria Urinary tract infection type: site unspecified Nausea R11.0 Bladder cancer metastasized to bone C67.9; C79.51 Benign hypertension I10 Acid reflux disease K21.9 Anemia D64.9 (1) Urinary tract infection Hematuria presence: without hematuria Urinary tract infection type: site unspecified Qualified Code(s): N39.0 - Urinary tract infection, site not specified
--- NOTE | 2021-12-11 17:32 | Cardiology Progress Note ---
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 In sinus rhythm today. On beta-alex for rate control strategy. 2. Paroxysmal atrial fibrillation: Continue beta-alex for rate control strategy. If needed, more aggressive therapy can be instituted in the future. Elevated chads Vasc score and therefore anticoagulation therapy is indicated and recommended if no contraindication. Currently quite anemic and with thrombocytopenia, although improving. If platelets continue to improve and no obvious contraindications, would recommend anticoagulation therapy with close monitoring of blood counts. 3. Pacemaker placement: Has a lead less pacemaker in place. No obvious complications. Follow-up in pacemaker device Clinic. 4. Disposition: Cardiology will sign off at this time. Please call with any other questions or concerns. Follow-up with Dr. Mei for ongoing Cardiology and pacemaker management. Patient care communicated with Dr. Matos of the primary hospitalist service. She can be discharged from a cardiology perspective. Initial follow-up will be arranged by Dr. Krueger, who performed place maker placement. Admission and Anticipated Discharge Date Admission Date: December 04, 2021 Subjective Patient seen earlier today. She was alone in her hospital room. She denied any discomfort, bleeding, or drainage from her right femoral vein access site for her pacemaker. She denies chest pain, shortness of breath, syncope, palpitations, or bleeding. Physical Exam Physical Exam: Gen.: No acute distress. Alert. HEENT: Anicteric sclera. Neck: No JVD. Cardiac: Regular. Normal S1-S2. No murmurs, rubs, or gallops. Pulmonary: Clear to auscultation bilaterally without wheezes, rales, or rhonchi. Abdomen: Soft, nontender, nondistended, with normoactive bowel sounds. No bruits noted. Extremities: 2+ radial pulses bilaterally. Right femoral venous access site was clean, dry, and intact without erythema or discharge. No ecchymosis or hematoma noted. 2+ posterior tibialis pulses bilaterally. Trace bilateral lower extremity edema. No cyanosis. Psychiatric: Affect appears appropriate. Results & Data ([facility]) Vital Signs (Past 12 Hours) Vital Signs Temp Pulse Pulse Resp BP Pulse Ox 12/11/21 16:02 70 12/11/21 15:18 36.4 C L 69 18 123/68 95 12/11/21 11:04 36.7 C 68 19 137/76 99 12/11/21 07:25 36.7 C 70 18 145/82 H 97 12/11/21 07:00 68 Laboratory Results Laboratory Results - last 24 hr 12/11/21 12/11/21 12/11/21 08:31 08:32 08:32 WBC 3.76 L RBC 2.39 L Hgb 7.4 L Hct 22.3 L MCV 93.3 MCH 31.0 MCHC 33.2 RDW Std Deviation 46.0 RDW Coeff of Janice 14.3 Plt Count 60 L MPV 10.4 Immature Gran % (Auto) 1.6 Neut % (Auto) 52.9 Lymph % (Auto) 26.1 [place] % (Auto) 17.0 Eos % (Auto) 1.9 Baso % (Auto) 0.5 Neut # (Auto) 1.99 Lymph # (Auto) 0.98 L [place] # (Auto) 0.64 H Eos # (Auto) 0.07 Baso # (Auto) 0.02 Immature Gran # (Auto) 0.06 H Absolute Nucleated RBC 0.07 H Nucleated RBC % (auto) 2.0 Polychromasia 1+ APTT 26.2 PTT Ratio 1.0 Sodium 139 Potassium 3.7 Chloride 103 Carbon Dioxide 27 Anion Gap 9 BUN 14 Creatinine 0.71 Est Cr Clr Drug Dosing 64.7 Est GFR ( Amer) 94.6 Est GFR (Non-Af Amer) 81.6 BUN/Creatinine Ratio 19.7 Glucose 112 H Calcium 8.8 Diagnostic Findings Telemetry personally reviewed: Sinus rhythm. No arrhythmia. Medications Administered Current Inpatient Medications Acetaminophen (Acetaminophen 325 Mg Tab) 650 mg PO Q4H PRN PRN Reason: Mild pain (rating 1,2,3) Stop: 01/09/22 10:39 Acetaminophen/Codeine Phosphate (Acetaminophen W/Codeine #3 1 Tab) 1 - 2 tab PO Q4H PRN PRN Reason: Moderate-Severe Pain Stop: 01/09/22 10:39 Allopurinol (Allopurinol 100 Mg Tab) 100 mg PO BID [facility] Stop: 01/04/22 08:59 Last Admin: 12/11/21 08:03 Dose: 100 mg Documented by: Amlodipine Besylate (Amlodipine Besylate 5 Mg Tab) 5 mg PO QPM [facility] Stop: 01/04/22 20:59 Last Admin: 12/10/21 20:21 Dose: 5 mg Documented by: Famotidine (F[facility]otidine 40 Mg Tablet) [facility] Stop: 01/04/22 08:59 Last Admin: 12/11/21 08:03 Dose: 40 mg Documented by: Fentanyl (Fentanyl 25 Mcg/Hr Tdsy) 25 mcg TD Q72H [facility] Stop: 12/19/21 08:59 Last Admin: 12/11/21 08:02 Dose: 25 mcg Documented by: Fentanyl (Fentanyl 12 Mcg/Hr Tdsy) 12 mcg TD Q72H [facility] Stop: 12/19/21 09:01 Last Admin: 12/11/21 08:07 Dose: 12 mcg Documented by: Heparin Sodium (Porcine) (Heparin 100 Unit/Ml 5ml Flush) 5 ml FLUSH PRN PRN PRN Reason: Flush Stop: 01/04/22 03:54 Melatonin (Melatonin 3 Mg Tab) 3 mg PO HS PRN PRN Reason: Sleep Stop: 01/04/22 20:23 Metoprolol Succinate (Metoprolol Succ 50mg Ext Rel Tab) 100 mg PO [facility] Stop: 01/04/22 05:19 Last Admin: 12/11/21 08:02 Dose: 100 mg Documented by: Metoprolol Succinate (Metoprolol Succ 25mg Ext Rel Tab) 25 mg PO [facility] Stop: 01/09/22 10:44 Last Admin: 12/11/21 08:03 Dose: 25 mg Documented by: Miscellaneous (Fentanyl Patch Remove & Waste) 1 ea N/A Q72H [facility] Stop: 01/04/22 08:58 Last Admin: 12/11/21 08:02 Dose: 1 ea Documented by: Miscellaneous (Check Fentanyl Patch Placement) 1 ea N/A QS [facility] Stop: 01/04/22 07:59 Last Admin: 12/11/21 17:05 Dose: 1 ea Documented by: Aminacellaneous (Fentanyl Patch Remove & Waste) 1 ea N/A Q72H [facility] Stop: 01/04/22 09:00 Last Admin: 12/11/21 08:04 Dose: 1 ea Documented by: Miscellaneous (Check Fentanyl Patch Placement) 1 ea N/A QS [facility] Stop: 01/04/22 07:59 Last Admin: 12/11/21 17:06 Dose: 1 ea Documented by: Ondansetron HCl (Ondansetron Inj 2 Mg/Ml 2 Ml Vial) 4 mg IV Q6H PRN PRN Reason: Nausea Stop: 01/04/22 00:05 Last Admin: 12/09/21 21:16 Dose: 4 mg Documented by: Oxycodone HCl (Oxycodone Hcl Ir 5 Mg Tab (Immediate Release)) 5 mg PO Q4H PRN PRN Reason: Pain Stop: 12/19/21 00:05 Last Admin: 12/06/21 03:09 Dose: 5 mg Documented by: Pantoprazole Sodium (Pantoprazole 40 Mg Tab) 40 mg PO QAM [facility] Stop: 01/11/22 08:59 Vitamin D (Cholecalciferol 5,000 Units 125 Mcg Tab) 5,000 units PO DAILY [facility] Stop: 01/11/22 08:59 PG Care Time/CCT Total # of Minutes Spent Total Time Spent with Patient: Total time spent is greater than 50% in coordination of care (as documented) at patient's floor/unit and/or counseling patient: Coding Level of Care Code 41509 Subseq Hosp Care Lvl 3 Diagnoses Tachy-atif syndrome I49.5 Paroxysmal atrial fibrillation I48.0 S/P placement of cardiac pacemaker Z95.0
[2021-12-11] MEDS: amLODIPine BESYLATE 5 MG TAB PO SCH (20:16)
[2021-12-12] MEDS: CHECK fentaNYL PATCH PLACEMENT SCH ×8 (00:01→23:27)
[2021-12-12 06:24] LABS: Partial Thromboplastin Ratio 1.4; Partial Thromboplastin Time 38.3 Seconds (21.0-31.0)
[2021-12-12 06:40] LABS: Hematocrit (blood only) 19.7 % (37-47); Hemoglobin 6.6 g/dL (12.0-16.0); Mean Corpuscular Hemoglobin 31.3 pg (25-34); Mean Corpuscular Hgb Conc 33.5 g/dL (32-36); Mean Corpuscular Volume 93.4 fL (80-100); Mean Platelet Volume 10.1 fL (7.4-10.4); Nucleated RBC # (auto) 0.04 K/uL (0-0); Nucleated RBC % (auto) 0.9 %; Platelet Count 84 K/uL (130-400); RDW Coefficient of Variation 14.7 % (11.5-14.5); RDW Standard Deviation 46.3 fL (36.4-46.3); Red Blood Count 2.11 M/uL (4.2-5.4); White Blood Count 4.13 K/uL (4.8-10.8)
[2021-12-12 06:51] LABS: ALC (manual) 1.13 K/uL (1.2-3.4); ANC (manual) 2.47 K/uL (1.4-6.5); Basophils # (manual) 0.04 K/uL (0-0.2); Basophils % (manual) 0.9 %; Eosinophils # (manual) 0.07 K/uL (0-0.5); Eosinophils % (manual) 1.7 %; Lymphocytes # (manual) 1.13 K/uL (1.2-3.4); Lymphocytes % (manual) 27.4 %; Monocytes # (manual) 0.43 K/uL (0.11-0.59); Monocytes % (manual) 10.3 %; Neutrophils # (manual) 2.47 K/uL (1.4-6.5); Neutrophils % (manual) 59.7 %; Polychromasia 1+
[2021-12-12] MEDS ORDERED: SODIUM CHLORIDE 0.9% 250 ML IV PRN (06:53)
[2021-12-12] MEDS: allopurinoL 100 MG TAB PO SCH ×2 (08:03→20:05)
[2021-12-12] MEDS: CHOLECALCIFEROL 5,000 UNITS 125 MCG TAB PO SCH (08:04)
[2021-12-12] MEDS: PANTOprazole 40 MG TAB PO SCH (08:04)
[2021-12-12] MEDS: FAMOTIDINE 40 MG TABLET PO SCH (08:04)
[2021-12-12] MEDS: METOPROLOL SUCC 25MG EXT REL TAB PO SCH (08:04)
[2021-12-12] MEDS: METOPROLOL SUCC 50MG EXT REL TAB PO SCH (08:04)
[2021-12-12 15:51] LABS: Hematocrit (blood only) 25.3 % (37-47); Hemoglobin 8.3 g/dL (12.0-16.0)
[2021-12-12] MEDS: amLODIPine BESYLATE 5 MG TAB PO SCH (20:05)
--- NOTE | 2021-12-12 20:26 | Hospitalist Progress Note ---
Date of Service December 12, 2021 Assessment & Plan (1) Tachycardia-bradycardia: Plan: tachycardia and atrial fibrillation as well as sinus pauses and bradycardia. Troponin is negative. No EKG evidence of ischemia. - -Cardiology Consultation appreciated-paroxysms of atrial fibrillation/flutter with a rapid ventricular response. -intermittent episodes of sinus bradycardia, junctional bradycardia, and a 4 second pause. -stable on metoprolol succinate. -requires a transcatheter RV apex pacemaker (Medtronic Micra), Dr. Krueger performed 12/10 -cannot use right subclavian vein due to A port. -cannot use left subclavian vein due to clavicular fracture. -iv heparin has been discontinued due to thrombocytopenia (2) Anemia: Plan: Pancytopenic secondary to chemotherapy. iron levels previously normal Hgb down to 6.6 today ? due to pacemaker insertion - no bleeding around site. FOB Transfuse 1 unit PRBCs and repeat H&H. Aim > 8. Do not start anticoagulation - may need to discuss anticoagulation with hematology as if she will be pancytopenic each chemotherapy treatment she may be too high risk of bleed with thrombocytopenia. (3) Acute dehydration: Plan: presenting with persistent nausea, vomiting and PO intolerance following chemotherapy treatment. resolved (4) Urinary tract infection: Plan: Patient with UA suggestive of infection, three organisms seen suspect infection. She is afebrile, HD stable, non-toxic in appearance. She does have a mildly elevated procalcitonin. No complaints of dysuria/frequency/urgency, however, given immunocompromised state on chemotherapy. Ceftriaxone 5 day course, now discontinued. (5) Nausea: Plan: Patient with persistent nausea following chemotherapy. -resolved -Pepcid daily (6) Bladder cancer metastasized to bone: Plan: On chemotherapy as above. -Continue Oxycodone as needed for pain -Continue Fentanyl patch (7) Benign hypertension: Plan: Blood pressure stable -Continue Amlodipine 5mg po daily plus metoprolol (8) Acid reflux disease: Plan: Chronic -Pantoprazole 40mg PO daily Plan: Code - DNR/DNI per discussion with patient and daughter Disposition: PT/OT ordered, may need rehab on discharge Admission and Anticipated Discharge Date Admission Date: December 04, 2021 Subjective Feels well. Keen to get out of hospital. Hgb down to 6.6 from 7.4. She denies any melena, bright red blood in stool, abdominal pain, nausea, vomiting, chest pain, shortness of breath or dizziness. Due to anemia PT did not work with her today. Review of Systems Review of Systems: All systems reviewed & are unremarkable except as noted in Subjective Physical Exam Constitutional: WD/WN, vitals as above Respiratory: normal respiratory effort, lungs clear to auscultation Cardiovascular: RRR, no murmur, no edema Gastrointestinal (Abdomen): Percussion/Palpation: abdomen soft; abdomen nontender Neurologic: moves all extremities and awake; not confused Results & Data Results & Data ([facility]) Vital Signs (Past 12 Hours) Vital Signs Temp Pulse Pulse Resp BP BP Pulse Ox 12/12/21 19:30 36.9 C 72 18 127/68 92 12/12/21 15:54 36.2 C L 65 18 131/74 96 12/12/21 12:36 36.5 C 69 16 130/73 95 12/12/21 11:23 36.6 C 67 18 132/74 94 12/12/21 10:23 36.6 C 67 18 113/68 95 12/12/21 09:53 36.5 C 70 18 122/76 12/12/21 09:38 36.5 C 72 16 117/66 94 12/12/21 09:20 36.3 C L 70 16 136/72 94 PG Care Time/CCT Total # of Minutes Spent Total Time Spent with Patient: Total time spent is greater than 50% in coordination of care (as documented) at patient's floor/unit and/or counseling patient: Coding Level of Care Code 36495 Subseq Hosp Care Lvl 2 Diagnoses Tachycardia-bradycardia I49.5 Acute dehydration E86.0 Urinary tract infection N39.0 Hematuria presence: without hematuria Urinary tract infection type: site unspecified Nausea R11.0 Bladder cancer metastasized to bone C67.9; C79.51 Benign hypertension I10 Acid reflux disease K21.9 Anemia D64.9 (1) Urinary tract infection Hematuria presence: without hematuria Urinary tract infection type: site unspecified Qualified Code(s): N39.0 - Urinary tract infection, site not specified
[2021-12-13 07:20] LABS: Nucleated RBC # (auto) 0.03 K/uL (0-0); Nucleated RBC % (auto) 0.6 %
[2021-12-13 07:41] LABS: BUN Creatinine Ratio 15.3 (10-20); Calcium 8.1 mg/dl (8.5-10.1); Creatinine Clr Calc Pharmacy 61.9 ml/min; Est GFR (Non-African American) 80.2 ml/min; Potassium 3.8 mmol/L (3.5-5.1)
[2021-12-13] MEDS: allopurinoL 100 MG TAB PO SCH ×2 (07:48→21:01)
[2021-12-13] MEDS: CHOLECALCIFEROL 5,000 UNITS 125 MCG TAB PO SCH (07:49)
[2021-12-13] MEDS: PANTOprazole 40 MG TAB PO SCH (07:49)
[2021-12-13] MEDS: FAMOTIDINE 40 MG TABLET PO SCH (07:49)
[2021-12-13] MEDS: METOPROLOL SUCC 50MG EXT REL TAB PO SCH (07:49)
[2021-12-13] MEDS: METOPROLOL SUCC 25MG EXT REL TAB PO SCH (07:49)
[2021-12-13 07:52] LABS: Basophils # (auto) 0.02 K/uL (0-0.2); Basophils % (auto) 0.5 %; Eosinophils # (auto) 0.08 K/uL (0-0.5); Eosinophils % (auto) 1.8 %; Hematocrit (blood only) 25.6 % (37-47); Hemoglobin 8.5 g/dL (12.0-16.0); Immature Granulocytes # (auto) 0.07 K/uL (0.00-0.02); Immature Granulocytes % (auto) 1.6 %; Lymphocytes # (auto) 1.07 K/uL (1.2-3.4); Lymphocytes % (auto) 24.3 %; Mean Corpuscular Hemoglobin 30.8 pg (25-34); Mean Corpuscular Hgb Conc 33.2 g/dL (32-36); Mean Corpuscular Volume 92.8 fL (80-100); Mean Platelet Volume 9.8 fL (7.4-10.4); Monocytes # (auto) 1.08 K/uL (0.11-0.59); Monocytes % (auto) 24.5 %; Neutrophils # (auto) 2.08 K/uL (1.4-6.5); Neutrophils % (auto) 47.3 %; Platelet Count 137 K/uL (130-400); Platelet Estimate Normal (Normal); RDW Coefficient of Variation 14.9 % (11.5-14.5); RDW Standard Deviation 46.7 fL (36.4-46.3); Red Blood Count 2.76 M/uL (4.2-5.4)
[2021-12-13] MEDS: CHECK fentaNYL PATCH PLACEMENT SCH ×6 (09:12→23:57)
[2021-12-13] MEDS: fentaNYL 12 MCG/HR TDSY TD SCH (09:34)
[2021-12-13] MEDS: fentaNYL 25 MCG/HR TDSY TD SCH (09:34)
--- NOTE | 2021-12-13 15:10 | Hospitalist Progress Note ---
Date of Service December 13, 2021 Assessment & Plan (1) Tachycardia-bradycardia: Plan: A. fib part of picture; status post pacemaker; cardiology outpatient follow-up Noted recommendation for anticoagulation but in my view risks are significant with likely intermittent severe thrombocytopenia with chemowill obtain oncology input (2) Anemia: Plan: Improvedfollow (3) Acute dehydration: Plan: presenting with persistent nausea, vomiting and PO intolerance following chemotherapy treatment. resolved (4) Urinary tract infection: Plan: Patient with UA suggestive of infection, three organisms seen suspect infection. She is afebrile, HD stable, non-toxic in appearance. She does have a mildly elevated procalcitonin. No complaints of dysuria/frequency/urgency, however, given immunocompromised state on chemotherapy. Ceftriaxone 5 day course, now discontinued. (5) Nausea: Plan: Patient with persistent nausea following chemotherapy. -resolved -Pepcid daily (6) Bladder cancer metastasized to bone: Plan: On chemotherapy as above. -Continue Oxycodone as needed for pain -Continue Fentanyl patch (7) Benign hypertension: Plan: Blood pressure stable -Given edema stop amlodipine; low-dose ARB; do not find echo but cardiology has seen and can consider during cardiology follow-up (8) Acid reflux disease: Plan: Chronic -Pantoprazole 40mg PO daily Plan: Foot pain is prominent symptomology -x-rays Diuretic not given for symptomatic edema given recent gout -might improve with mobilization Code - DNR/DNI per discussion with patient and daughter Disposition: PT/OT ordered, may need rehab on discharge Could not reach daughtertried Admission and Anticipated Discharge Date Admission Date: December 04, 2021 Subjective Follow-up of tachybradycardia, status post pacemaker Main complaint is foot pain such that it is causing difficulty ambulating along with some edema; reports acute gout about a month ago Physical Exam Physical Exam: Constitutional and general: No acute distress, looks biologic age Head and face: No puffiness, atraumatic Eyes: No scleral icterus, extraocular movements normal Neck: Supple, no JVD Musculoskeletal: No acute joint swelling, no bony abnormalities Skin/dermatologic/integument: No rash, no purpura Hematologic and lymphatic: pallor +, no petechia Gastrointestinal/abdomen: Nondistended, soft, nonacute Neurologic: Cranial nerves intact, nonfocal Psychiatry: Awake, alert, pleasant, communicative Cardiovascular: Heart rhythm regular, no rub, no murmur, no gallop Respiratory: Chest movements equal, no use of accessory muscles, no adventitious sounds Extremities: edema+, no cyanosis Results & Data Results & Data ([facility]) Vital Signs (Past 12 Hours) Vital Signs Temp Pulse Pulse Resp BP BP Pulse Ox 12/13/21 11:47 65 12/13/21 10:20 36.3 C L 69 13 125/78 93 12/13/21 07:15 36.4 C L 69 16 146/76 H 91 Laboratory Results Laboratory Results - last 24 hr 12/12/21 12/13/21 12/13/21 15:24 06:45 06:45 WBC 4.40 L RBC 2.76 L Hgb 8.3 L 8.5 L Hct 25.3 L 25.6 L MCV 92.8 MCH 30.8 MCHC 33.2 RDW Std Deviation 46.7 H RDW Coeff of Janice 14.9 H Plt Count 137 D MPV 9.8 Immature Gran % (Auto) 1.6 Neut % (Auto) 47.3 Lymph % (Auto) 24.3 [place] % (Auto) 24.5 Eos % (Auto) 1.8 Baso % (Auto) 0.5 Neut # (Auto) 2.08 Lymph # (Auto) 1.07 L [place] # (Auto) 1.08 H Eos # (Auto) 0.08 Baso # (Auto) 0.02 Immature Gran # (Auto) 0.07 H Absolute Nucleated RBC 0.03 H Nucleated RBC % (auto) 0.6 Platelet Estimate Normal Sodium 140 Potassium 3.8 Chloride 104 Carbon Dioxide 29 Anion Gap 7 BUN 11 Creatinine 0.72 Est Cr Clr Drug Dosing 61.9 Est GFR ( Amer) 93.0 Est GFR (Non-Af Amer) 80.2 BUN/Creatinine Ratio 15.3 Glucose 84 Calcium 8.1 L PG Care Time/CCT Total # of Minutes Spent Total Time Spent with Patient: Total time spent is greater than 50% in coordination of care (as documented) at patient's floor/unit and/or counseling patient: Coding Level of Care Code 17482 Subseq Hosp Care Lvl 2 Diagnoses Tachycardia-bradycardia I49.5 Anemia D64.9 Acute dehydration E86.0 Urinary tract infection N39.0 Hematuria presence: without hematuria Urinary tract infection type: site unspecified Nausea R11.0 Bladder cancer metastasized to bone C67.9; C79.51 Benign hypertension I10 Acid reflux disease K21.9 (1) Urinary tract infection Hematuria presence: without hematuria Urinary tract infection type: site u nspecified Qualified Code(s): N39.0 - Urinary tract infection, site not specified
--- NOTE | 2021-12-13 15:50 | XRay Report ---
XR foot LT min 3V routine, XR foot RT min 3V routine HISTORY: 76 years-old Female foot pain patient presents with acute bilateral foot pain COMPARISON: None TECHNIQUE: 3 views of the bilateral feet FINDINGS: LEFT: Hallux valgus. There is mostly mild multifocal osteoarthritis. There is extension of the metatarsal-p halangeal with flexion of the interphalangeal joints. Mild diffuse soft tissue swelling. Corticated o ssifications adjacent to the first metatarsal head are likely degenerative. There is cortical thicken ing of the third and fourth metatarsals. RIGHT: There is mostly mild multifocal osteoarthritis. There is extension of the metatarsal-phalangeal with flexion of the interphalangeal joints. Mild diffuse soft tissue swelling. Corticated ossifications ad jacent to the first metatarsal head are likely degenerative. Degenerative spurring of the calcaneus w ith dystrophic calcifications within the distribution of the plantar fascia and Achilles tendon. Nir ical thickening of the third metatarsal. IMPRESSION: 1. No acute fracture or dislocation. 2. Mild multifocal osteoarthritis. 3. There is cortical thickening involving several metatarsals bilaterally which may represent healed stress injuries. ACT 112: Negative or not required by law. The above report was generated using voice recognition software. It may contain grammatical, syntax o r spelling errors. Electronically signed by: Frank Crook M.D. 12/13/2021 3:49 PM
[2021-12-14] MEDS ORDERED: LOSARTAN POTASSIUM 25 MG TAB PO SCH (09:00)
[2021-12-14] MEDS: CHECK fentaNYL PATCH PLACEMENT SCH ×2 (09:18)
[2021-12-14] MEDS: METOPROLOL SUCC 50MG EXT REL TAB PO SCH (09:19)
[2021-12-14] MEDS: METOPROLOL SUCC 25MG EXT REL TAB PO SCH (09:19)
[2021-12-14] MEDS: allopurinoL 100 MG TAB PO SCH (09:19)
[2021-12-14] MEDS: CHOLECALCIFEROL 5,000 UNITS 125 MCG TAB PO SCH (09:20)
[2021-12-14] MEDS: PANTOprazole 40 MG TAB PO SCH (09:20)
[2021-12-14] MEDS: FAMOTIDINE 40 MG TABLET PO SCH (09:20)
--- NOTE | 2021-12-14 09:56 | Consultation Report ---
DATE OF SERVICE: 12/14/2021. REASON FOR CONSULTATION: Concern regarding anticoagulation and the patient receiving cytotoxic chemo therapy hence with resultant thrombocytopenia. 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 The p atient has been seen in consultation by Cardiology, determined to require pacemaker, believed atrial fibrillation as well as sinus pauses and bradycardia were occurring with patient. As a result, [facility] and because of patient's current chemotherapeutic regimen, there is certainly a concern moving forward about the inherent risk moving forward. The patient was originally seen at [facility] in late 2020 when she was diagnosed with a high-grade metastatic urothelial ca rcinoma. She was initially seen by my new partner, Dr. Yen and recommended Gemzar and Cisplatin. She received one cycle of the original combination and had to be switched to carboplatin because of i ntolerance to Cisplatin. I actually reviewed laboratory trends from when she initiated chemotherapy and her platelet count has not dropped below 100,000 throughout the course of treatment thus far. Lolly parr has received 3 cycles in total. Last dose of gemcitabine was administered on 12/01/2021. Thus, [facility] primary service appropriately is concerned with moving forward with anticoagulation and the patient could potentially have significant issues with platelets as both gemcitabine and carboplatin can res ult in thrombocytopenia. PAST MEDICAL HISTORY: Pathologic fracture of the left clavicle, history of bladder cancer. Original diagnosis was 10 years ago, conductive hearing loss, hypertension, osteoarthritis, tachybrady syndro me, paroxysmal atrial fibrillation. PAST SURGICAL HISTORY: Includes TURP, colonoscopy, total abdominal hysterectomy, bilateral salpingo- oophorectomy, wisdom teeth extraction, MediPort placement. MEDICATIONS PRIOR TO ADMISSION: Vitamin C 1000 mg p.o. daily, amlodipine 5 mg p.o. daily, metoprolol 100 mg p.o. daily, cyanocobalamin 1000 mcg p.o. daily, zinc 50 mg p.o. daily, oxycodone 5 mg p.o. q. 4-6 hours p.r.n., allopurinol 100 mg p.o. b.i.d., olanzapine 2.5 mg p.o. as directed, Zofran 8 mg p. o. q. 8 hours p.r.n., Compazine 10 mg p.o. q. 6 hours p.r.n., ferrous sulfate 325 mg p.o. daily, chol ecalciferol 125 mcg p.o. daily, fentanyl 37.5 mcg per hour 1 patch q. 72 hours, omeprazole 20 mg p.o. daily, potassium gluconate 595 mg p.o. daily. ALLERGIES: MORPHINE. FAMILY HISTORY: Father suffered from both lung and colorectal cancers. Mother suffered from hyperte nsion and cardiovascular disease. SOCIAL HISTORY: She lives with her daughter at present. She is a . She likes to drink wine s ocially. Negative for cigarettes or illicit substances otherwise. REVIEW OF SYSTEMS: As per HPI. PHYSICAL EXAMINATION: GENERAL: Very pleasant 76-year-old female, awake, alert, appropriate, in no acute distress . VITAL SIGNS: Temperature 36.6, pulse 63, respiratory rate 18, blood pressure 125/64. SKIN: Warm, dry, noncyanotic without petechia, rash or ecchymosis. HEENT: Head is atraumatic, normocephalic. Eyes: PERRLA, EOMI. Nares patent without rhinorrhea or discharge. Throat clear. Tongue midline. Mucous membranes are moist. NECK: Supple without JVD or thyromegaly. LYMPH: No cervical, supraclavicular palpable nodes. HEART: Regular rate and rhythm. No clicks, rubs, murmurs or gallops. LUNGS: Clear to auscultation bilaterally. ABDOMEN: Soft, nontender, nondistended. EXTREMITIES: No clubbing, cyanosis or edema. NEUROLOGIC: Grossly intact. LABORATORY DATA: Peripheral counts from 12/13/2021, WBCs 4400, hemoglobin 8.5, platelet count 137,00 0. Sodium 140, potassium 3.8, chloride 104, carbon dioxide 29, BUN 11, creatinine 0.72. IMPRESSION: 1. Tachybrady syndrome. 2. Mild thrombocytopenia. 3. Anemia. 4. Urinary tract infection. 5. Metastatic urothelial carcinoma (bony skeleton) status post combination carboplatin and gemcitabi ne cycle #3 last administered on 12/01/2021. PLAN: The patient is a pleasant, somewhat complex 76-year-old female patient recently diagnosed with metastatic urothelial carcinoma to bone. She was originally started on Cisplatin and gemcitabine in October of this year. I believe because of her conductive hearing loss Dr. Yen switched her out t o carboplatin in its place, which she has received for both cycles #2 and 3. Last drug administered with gemcitabine on 12/01/2021. I reviewed her platelet trends leading up to admission and truthfull y her platelets have never fallen below 100,000 until she became ill. Thus, I believe some of the dr op in platelet count can be attributed to myelosuppression brought on by her urinary tract infection. Her salvatore happened on 12/08/2021 at which time her platelet count was 18,000. It would appear she is steadily in the recovery and currently at 137,000. Two options moving forward with anticoagulatio n, could consider perhaps prophylactic dose of Eliquis 2.5 mg p.o. b.i.d. The other option is for us in Medical Oncology to adjust her dosing downward a bit to avoid a dramatic swings in platelet count . The dilemma is the influence of the chemotherapeutic agents versus her infection because clearly a t the beginning of the year. Her platelets were not dropping this robustly. Thus, I think the safes t call is to place her on half dose Eliquis moving forward and carefully monitoring her platelet tren ds in the future and make appropriate adjustments to avoid bleeding complications. I discussed roberto rodriguez's case with Vilma Lopez, who has been overseeing patient's chemotherapy thus far and is advised she will be discharged on anticoagulation moving forward. Thank you very much for consultation and trust. We will be seeing the patient very shortly post-disc harge to discuss plans moving forward with treatment. Job ID: [id number]
--- NOTE | 2021-12-14 13:03 | Cardiology Progress Note ---
Date of Service December 14, 2021 Assessment & Plan (1) Tachy-atif syndrome: Plan: -patient has been in sinus rhythm for over 48 hours. -no evidence of atrial fibrillation/flutter -no evidence of heart block. (2) Paroxysmal atrial fibrillation: Plan: -as above, no evidence of atrial fibrillation/flutter for over 48 hours. -use of long-term anticoagulation seems to be at high risk realizing her thrombocytopenia. -would consider use of amiodarone should her atrial dysrhythmia recur. (3) S/P placement of cardiac pacemaker: Plan: -Dr. Krueger placed a lead less pacemaker last week. Admission and Anticipated Discharge Date Admission Date: December 04, 2021 Subjective The patient is resting comfortably in bed without complaints of chest pain, dyspnea, or palpitations. Physical Exam Physical Exam: In general is well-developed well-nourished white female in no acute distress. HEENT exam is negative. Neck is supple with full carotid upstrokes. No carotid bruits. Jugular venous pressure is flat 90. Cardiovascular exam reveals a regular rhythm with normal S1-S2. Heart sounds are distant. No obvious murmurs. Lungs are clear without rales, rhonchi or wheezes. Abdomen is soft without bruits. Extremities reveal 1+ pretibial edema. Results & Data ([facility]) Vital Signs (Past 12 Hours) Vital Signs Temp Pulse Pulse Resp BP BP Pulse Ox 12/14/21 12:47 36.5 C 67 20 134/71 92 12/14/21 07:30 63 12/14/21 07:00 36.6 C 66 18 125/64 97 12/14/21 04:02 36.9 C 68 18 126/72 90 Diagnostic Findings radiologic technologist notes normal sinus rhythm. No evidence of pacemaking. No evidence of atrial fibrillation or flutter. PG Care Time/CCT Total # of Minutes Spent Total Time Spent with Patient: Total time spent is greater than 50% in coordination of care (as documented) at patient's floor/unit and/or counseling patient: Coding Level of Care Code 45863 Subseq Hosp Care Lvl 3 Diagnoses Tachy-atif syndrome I49.5 Paroxysmal atrial fibrillation I48.0 S/P placement of cardiac pacemaker Z95.0
--- NOTE | 2021-12-14 16:36 | Discharge Summary ---
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 She is s/p TURBT and presently on chemotherapy with Cisplatin - just completed her 3rd cycle. She follows with Hematology/Oncology - Dr. Li and Dr. Yen. She had he last chemotherapy on 12/01/21. She developed severe nausea after her treatment with is not uncommon. She has been taking her medications as recommended to include Zofran, Compazine and Olanzapine. She was to have IVF at the [facility] yesterday 12/03/21, however, due to inclement weather the Cancer Center was closed and she was unable to receive fluids. She has had persistent nausea with inability to keep down food or liquids, multiple episodes of non-bloody/nonbilious. She has also had generalized weakness, fatigue, episodes of lightheadedness and SOB ongoing since her chemo treatment. Also with a headache and pain on the plantar surface of her feet. She has been having chills here, but overall denies fever, chest pain, palpitations, abdominal pain, diarrhea or constipation. No dysuria or increased urinary frequency or urgency. Patient was instructed to come to the ER by her Palliative Care nurse for presumed dehydration and IVF. Upon arrival patient afebrile, HD stable. She did have several episodes of sinus pauses followed by PVCs. This was initially noted while she was receiving Phenergan in the ER which was subsequently stopped. Also was briefly in atrial fibrillation. During my encounter patient seemed to be in AF on monitor with rate of 155. She had several PVCs then converted to sinus rhythm at rate of 94. ER Course: NSS x 2 liters, Promethazine 12.5mg, Ceftriaxone 1gm Primary problem appeared to be a combination of post chemo nausea vomiting and tachybradycardia syndrome Principal Diagnosis Tachybradycardia syndrome Discharge Exam Constitutional and general: No acute distress, looks biologic age Head and face: No puffiness, atraumatic Eyes: No scleral icterus, extraocular movements normal Neck: Supple, no JVD Musculoskeletal: No acute joint swelling, no bony abnormalities Skin/dermatologic/integument: No rash, no purpura Hematologic and lymphatic: pallor +, no petechia Gastrointestinal/abdomen: Nondistended, soft, nonacute Neurologic: Cranial nerves intact, nonfocal Psychiatry: Awake, alert, pleasant, communicative Cardiovascular: Heart rhythm regular, no rub, no murmur, no gallop Respiratory: Chest movements equal, no use of accessory muscles, no adventitious sounds Extremities: edema+, no cyanosis Vital Signs Temp Pulse Pulse Pulse Pulse Resp BP 12/14/21 15:49 36.5 C 67 67 70 20 134/71 12/14/21 15:13 70 12/14/21 12:47 36.5 C 67 20 134/71 12/14/21 07:30 63 12/14/21 07:00 36.6 C 66 18 125/64 12/14/21 04:02 36.9 C 68 18 12/14/21 00:55 67 12/13/21 23:42 36.6 C 82 20 136/78 12/13/21 19:34 36.7 C 73 18 BP Pulse Ox 12/14/21 15:49 126/72 92 12/14/21 15:13 12/14/21 12:47 92 12/14/21 07:30 12/14/21 07:00 97 12/14/21 04:02 126/72 90 12/14/21 00:55 12/13/21 23:42 99 12/13/21 19:34 127/69 95 Intake and Output 12/14/21 12/14/21 12/14/21 06:59 14:59 22:59 Intake Total 200 / 920 1015 / 1015 Balance 200 / 920 1015 / 1015 Intake: Oral 200 / 920 1015 / 1015 Other: # Unmeasured Voids 5 Weight 74 kg 74 kg 74 kg Weight Measurement Method Built [facility] Patient Weight 12/15/21 06:59 Weight 74 kg Discharge Data Allergies Allergy/AdvReac Type Severity Reaction Status Date / Time morphine AdvReac Intermediate "Makes me Verified 11/22/21 08:03 tiffanie" Consultations 12/04/21 21:55 ED Decision to Admit Stat 12/04/21 22:47 Consult Cardiology Routine 12/13/21 15:02 Consult Oncology Routine Procedures Performed Operation Date: 12/10/21 08:00 Actual Procedures s Venogram, Unilateral - Rafita Krueger MD p Insert/Replace Leadless PM - Rafita Krueger MD Ordered Studies 12/10/21 07:50 CL Cath Imgs for PACS use only Routine Hospital Course (1) Tachycardia-bradycardia: A. fib part of picture; status post pacemaker; cardiology outpatient follow-up At this point, cardiology deemed risks exceeds benefit of anticoagulation given thrombocytopenia; my view is I agree; oncology was consulted and their provisional impression was that thrombocytopenia may have been related to UTI induced myelosuppression; however, upon review, there never was documented UTI; discussed with oncology and they accepted the the same. In summary, till it is clear that serious thrombocytopenia will not recur post chemo at present arguably risks exceeds benefit for anticoagulation; however, after a couple of cycles in a couple of months if there is stability can revisit as outpatient (2) Anemia: Improvedfollow (3) Acute dehydration: presenting with persistent nausea, vomiting and PO intolerance following chemotherapy treatment. resolved during the course (4) Urinary tract infection: No convincing symptomology;, given benefit of doubt and treated with a course of Rocephin (5) Nausea: Patient with persistent nausea following chemotherapy. -resolved -Pepcid daily (6) Bladder cancer metastasized to bone: On chemotherapy as above. -Continue Oxycodone as needed for pain -Continue Fentanyl patch Outpatient oncology follow-up (7) Benign hypertension: Blood pressure stable -Given edema stopped amlodipine; added low-dose ARB; do not find echo but cardiology has seen and can consider during cardiology follow-up (8) Acid reflux disease: Chronic -Pantoprazole 40mg PO daily Foot pain prominent symptomology -feet x-ray suspicious for healed stress fracturesrecommend outpatient podiatry consultation (not available here, will have to be obtained by PCP) Diuretic intentionally not given for symptomatic edema given recent gout -might improve with mobilization; can use stockings, feet elevation (she did not desire recurrence of gout); as noted, calcium channel alex discontinued to the extent same is contributing though do not suspect that to be the primary etiology Home OT/PT Daughter updated, discussed increasing metoprolol dose, discussed new antihypertensive in simple terms Total Time Total Time Spent Total Time Spent (In Minutes): 40 Discharge Plan Discharge Items Patient Disposition: Home - Home Health Services Reason For Visit: WEAKNESS,FATIGUE,TACHY-BRANDIE Discharge Diagnosis: Tacky-bradycardia syndrome Activity: As commented below Activity Comment: As tolerated Non-emergency contact: Primary Care Provider, Mother Helper and Oncologist Call non-emergency contact if: your symptoms worsen Follow-up/Referrals: Woody Stallings MD [Physician] - 12/30/21 9:00 am Britt Maria MD [Primary Care Provider] - 12/22/21 11:30 am Vilma Lopez CRNP [Nurse Practitioner] - 12/15/21 12:30 pm () Diet: Heart Healthy and Low Sodium (2gm) Addtl Attending Provider Instructions: ACTIVITY RECOMMENDATIONS: It is common to feel weak and fatigue for a few days. * Do not drive or operate any motorized equipment for the next three days. * Limit stair usage (2 or 3 trips a day only) for the next three days. * Do not lift anything heavier than 10 pounds for the next three days. * Do not engage in vigorous exercise or any sports for the next five days. * You may shower the day after your procedure, but do not immerse the area for three days. Cleanse the site gently with soap and water. SPECIAL CARE INSTRUCTIONS: * You may replace the pressure dressing or band-aid the morning after the procedure. * After your procedure, it is normal to have a small bruise or small lump at the site. Examine your site daily for any change in the bruise or lump, redness, swelling, drainage or numbness. Notify your doctor if any change. BLEEDING: * If there is a small amount of bleeding at the site, lie down and apply firm pressure with a clean cloth for ten minutes. When the bleeding stops, lie quietly keeping the procedure limb straight for six hours. Notify your doctor as soon as possible. * If the bleeding does not stop after ten minutes or if there is a large amount of bleeding or spurting, call 911 immediately. Continue to lie down and hold firm pressure until help arrives. SKIN IRRITATION: * You may experience some redness and/or swelling in the area where radiation was administered. If any skin irritation occurs, please contact your family physician. FOLLOW UP VISIT: 1. Follow up in cardiology office as recommended by Dr. Krueger following pacemaker placement. Office telephone [phone]. 2. Keep any scheduled doctor appointments. At some point you had fractures of your feet and recommend you see a mold operator- same can be coordinated through your primary physician It is also recommended that you use stockings and keep your feet elevated as much as possible to decrease the swelling; as discussed, a diuretic, commonly known as a water pill, is not initiated on account of risk of gout that you did not desire Pending Studies at Discharge: No Stand-Alone Forms: My [facility], Smoking Cessation Medications and DC Order Prescriptions: New metoprolol succinate 50 mg Tablet Extended Release 24 Hr 125 mg PO QAM 30 Days Qty: 75 RF: 0 losartan 25 mg Tablet 25 mg PO QAM 30 Days Qty: 30 RF: 0 Continued allopurinol 100 mg tablet 100 mg PO BID Qty: 60 RF: 2 ascorbic acid (vitamin C) [Vitamin C] 500 mg Tablet 1,000 mg PO QPM RF: 0 oxycodone 5 mg Tablet 5 mg PO .Q 4-6 HRS PRN (Reason: Pain) RF: 0 olanzapine 2.5 mg tablet 2.5 mg PO UD RF: 0 ondansetron HCl 8 mg tablet 8 mg PO Q8 PRN (Reason: Nausea And Vomiting) RF: 0 prochlorperazine maleate 10 mg tablet 10 mg PO Q6 PRN (Reason: Nausea) RF: 0 acetaminophen 500 mg Tablet 650 mg PO Q6H PRN (Reason: Pain) Qty: 0 RF: 0 cholecalciferol (vitamin D3) 125 mcg (5,000 unit) Tablet 125 mcg PO DAILY RF: 0 omeprazole 20 mg tablet,delayed release (DR/EC) 20 mg PO QAM RF: 0 potassium gluconate 595 mg (99 mg) Tablet 595 mg PO DAILY RF: 0 fentanyl 37.5 mcg/hour Patch 72 Hour 1 patch TRANSDERMAL Q72H RF: 0 cyanocobalamin (vitamin B-12) [Vitamin B-12] 1,000 mcg Tablet 1,000 mcg PO QAM RF: 0 zinc 50 mg Tablet 50 mg PO QAM RF: 0 ferrous sulfate 325 mg (65 mg iron) Tablet 325 mg PO QPM RF: 0 Discontinued amlodipine 5 mg tablet 5 mg PO QPM Qty: 90 RF: 3 metoprolol succinate 100 mg tablet extended release 24 hr 100 mg PO QPM Qty: 90 RF: 3 Discharge Orders: Discharge Order (Routine); Ordered 12/14/21 Ordered By: Kameron Gaytan Admission Data Admit Date/Time: 12/04/21 22:47 Attending Provider: Kameron Gaytan Admit Provider: Autumn Gomez Primary Care Provider: Britt Maria Other Providers: [facility],Home [facility] ; Autumn Gomez ; Asael Mei ; Flip Li V. Other Interventions: Discharge Summary Assessment (RN) Last Done: 12/14/21 15:49 Coding Level of Care Code D/C DAY MANAGEMENT >30 MINS Diagnoses Tachycardia-bradycardia I49.5 Anemia D64.9 Acute dehydration E86.0 Urinary tract infection N39.0 Hematuria presence: without hematuria Urinary tract infection type: site unspecified Nausea R11.0 Bladder cancer metastasized to bone C67.9; C79.51 Benign hypertension I10 Acid reflux disease K21.9
== END 2021-12-14 16:34 | disposition home health service (06) | DRG 228 ==
LOC: ED 18:41 → 2W 22:47 → SUATTDRO 22:47 → 2W 23:38 → 1E 12-05 04:40 → 2S 12-10 16:02 → 2W 12-11 15:00

== ENCOUNTER 2022-02-17 11:35 | Inpatient (IN) ==
--- NOTE | 2022-02-17 12:05 | Emergency Department Note ---
Impression & Plan Neutropenia, Atrial fibrillation with RVR ADMIT ED Provider Note HPI: The patient is a 76-year-old female with history of bladder cancer, currently on chemotherapy, presents the emergency department with generalized weakness, chills, and fever earlier this morning by temperature at home of 100.5 Fahrenheit. Patient does have a history of recent neutropenia, therefore was advised by her outpatient provider to present to the emergency department for further evaluation. On arrival to the ED the patient is hemodynamically stable, she complains of generalized weakness, no other focal complaints. ROS: -General: History of neutropenia, fever by history generalized weakness *10 point review systems was conducted and is otherwise negative unless stated above *Outpatient medications and allergy history reviewed PE: General: Alert, NAD HEENT: Normocephalic, atraumatic Eyes: Extraocular eye movement is intact, no scleral erythema Pulmonary: Clear to auscultation bilaterally, no wheezing Cardio: Regular rate and rhythm GI: Abdomen is soft, nontender : No suprapubic tenderness MSK: No evidence of trauma or malformation of the extremities, no edema Skin: No evidence of rash Neuro: Alert, no focal deficits Psychiatric: Cooperative quality assurance nurse: - An order was placed for continuous cardiac monitoring - Patient was noted to be in sinus rhythm with rate of 55 EKG # 1: Rate: 62 Rhythm: Normal sinus rhythm Intervals: Within normal limits ST changes: No ST elevation Time: 1214 EKG #2: Rate: 134 Rhythm: Atrial fibrillation with RVR Intervals: Within normal limits ST changes: No ST elevation Time: 1243 Medical Decision Making: Patient presented to the emergency department with generalized weakness, she had a fever at home that daughter states was documented at 100.5 on home temperature check. On arrival here to the ED she is hemodynamically stable, she is in no acute distress on my initial evaluation but is complaining of some generalized weakness, no focal complaint of pain, no shortness of breath. Shortly after arrival IV was established, lab work obtained, blood cultures drawn. Lab work shows evidence of neutropenia with ANC of 620, urinalysis is indeterminate for infection but does show evidence of pyuria with leukocyte Estrace. Shortly after the patient arrived she had an episode of tachycardia into the 130s, repeat EKG was obtained and shows evidence of atrial fibrillation with RVR, patient does have a history of atrial fibrillation according to her daughter at the bedside. She was given diltiazem and a dose of metoprolol and atrial fibrillation did resolve, on reassessment patient is back in sinus rhythm with a rate of 55. Blood pressure remained stable throughout. Patient did have an episode of apnea when she was sleeping to 89% on room air and therefore was placed on 2 L nasal cannula oxygen with good improvement. Patient was initiated on broad-spectrum antibiotics here in the ED, she was IV fluid resuscitated but did hold off on a full 30 cc/kg fluid bolus given the patient's hemodynamic stability and concern for potential fluid overload. Chest x-ray does not show any evidence of obvious pneumonia, COVID-19 testing was obtained and is negative. I discussed all the above findings with the patient's on-call hematology/oncology provider, Dr. Marie, who is in agreement for admission given the patient's fever by history, neutropenia, and issues with A. fib with RVR while here as an ED patient which did require rate control medications to be given intravenously. Patient and her daughter at the bedside are in agreement for admission, I discussed all the above findings with the on- call hospitalist, Dr. You, and the patient was admitted in improved condition for further care. * CRITICAL CARE TIME: 40 minutes -Stabilization of tachyarrhythmia requiring IV rate control medications metoprolol and diltiazem, time spent at the bedside and management of neutropenia with fever by history, initiation of broad-spectrum antibiotics and fluid resuscitation, discussion with other physicians and arrangement of admission Diagnosis: 1. Neutropenia, on chemotherapy 2. Fever by history 3. Urinary tract infection 4. Atrial fibrillation with RVR, acute Disposition: Admission Gerardo Davidson DO Emergency Medicine Past Med/Surg History Medical History Abnormal LFTs Acute dehydration Acute dehydration Acute hypotension Bradycardia Chronic back pain Fracture, clavicle History of bladder cancer [place] (hard of hearing) HTN (hypertension) Hx SBO Osteoarthritis Paroxysmal atrial fibrillation Poor historian SOB (shortness of breath) on exertion Vomiting Vomiting Surgical History History of colonoscopy History of intestinal surgery History of surgery History of total abdominal hysterectomy and bilateral salpingo-oophorectomy History of wisdom tooth extraction Port-A-Cath in place (10/18/21) S/P placement of cardiac pacemaker Family History Father Cancer Colorectal cancer Mother Hearing loss Hypertension Stroke Other No family history of adverse response to anesthesia No family history of bleeding disorder Denies family history of Ovarian cancer Prostate cancer Myocardial infarction Breast cancer Social History Smoking Status: Never smoker packs per day: 1; Years Smoked: 10; Second Hand Exposure: No; Hx Alcohol Use: Yes Alcohol type: wine Alcohol Intake Frequency: Monthly or Less Hx Substance Use: No Preferred Language: Polish Communication Ability: Effective Visual Impairment: No Limitations Hearing Ability: Hard of Hearing Hand Or Machine Paster Required: No Beliefs That Will Affect Care: None marital status: / Current Living Situation: Family Current Living Situation Comment: Daughter current occupational status: retired How many Children do You have: 2 Feels Safe at Home: Yes Childhood Exposure to Second-Hand Smoke: Yes caffeine: Yes Dental Care, Regularly: No Physical Activity Frequency: Does not Exercise Seatbelt Use: always Sunscreen Use: Yes Assistive Devices: None and Glasses Allergies Allergies Allergy/AdvReac Type Severity Reaction Status Date / Time morphine AdvReac Intermediate "Makes me Verified 02/17/22 14:57 crazy" Home Meds Home Medications Medication Instructions Recorded Confirmed oxycodone 5 mg tablet 5 mg PO .Q 4-6 HRS PRN 10/14/21 02/17/22 olanzapine 2.5 mg tablet 2.5 mg PO HS 10/27/21 02/17/22 ondansetron HCl 8 mg tablet 8 mg PO Q8 PRN 10/27/21 02/17/22 prochlorperazine maleate 10 mg 10 mg PO Q6 PRN 10/27/21 02/17/22 tablet ferrous sulfate 325 mg (65 mg 325 mg PO HS 11/22/21 02/17/22 iron) tablet fentanyl 37.5 mcg/hour transdermal 1 patch TRANSDERMAL Q72H 12/04/21 02/17/22 patch prednisone 5 mg tablet 15 mg PO QAM 12/30/21 02/17/22 allopurinol 300 mg tablet 300 mg PO QAM 02/17/22 02/17/22 calcium carbonate 600 mg calcium 600 mg PO HS 02/17/22 02/17/22 (1,500 mg) tablet (Calcium) carboplatin 10 mg/mL intravenous 0 mg IV UD 02/17/22 02/17/22 solution gemcitabine 100 mg/mL intravenous 0 mg IV UD 02/17/22 02/17/22 solution losartan 50 mg tablet 50 mg PO QAM 02/17/22 02/17/22 metoprolol succinate 50 mg 25 mg PO BID 02/17/22 02/17/22 tablet,extended release 24 hr zoledronic acid 4 mg intravenous 0 mg IV MONTHLY 02/17/22 02/17/22 solution Previous Rx's Medication Instructions Recorded acetaminophen 500 mg tablet 650 mg PO Q6H PRN #0 tab 10/29/21 omeprazole 20 mg tablet,delayed 20 mg PO QAM #30 tab 12/20/21 release apixaban 5 mg tablet 5 mg PO BID #60 tab 12/30/21 Results & Data (ED) Vital Signs Vital Signs - 24 hr 02/17/22 11:38 02/17/22 12:02 02/17/22 12:32 Temperature 37.0 C Temperature Source Oral Pulse Rate 104 H Pulse Rate [Apical] Respiratory Rate 18 18 20 Respiratory Effort / Characteristics Non-Labored Non-Labored Spontaneous Non-Labored Spontaneous Respiratory Depth Respiratory Pattern Blood Pressure 119/70 Blood Pressure [Right Arm] Blood Pressure Mean 86 Blood Pressure Mean [Right Arm] Blood Pressure Position [Right Arm] Pulse Oximetry 96 95 96 Oxygen Delivery Method Room Air Nasal Cannula Nasal Cannula Oxygen Flow Rate 2 2 Sepsis Recent Fever Within 48 Hours No Sepsis New/Unexplained Change in Mental Status N/A Sepsis Action Taken by Nursing No Action Required 02/17/22 12:33 02/17/22 12:40 02/17/22 12:47 Temperature Temperature Source Pulse Rate Pulse Rate [Apical] 70 154 H 84 Respiratory Rate 18 18 18 Respiratory Effort / Characteristics Non-Labored Spontaneous Non-Labored Spontaneous Non-Labored Spontaneous Respiratory Depth Normal Normal Normal Respiratory Pattern Regular Regular Regular Blood Pressure Blood Pressure [Right Arm] 114/61 123/84 101/65 Blood Pressure Mean Blood Pressure Mean [Right Arm] 78 97 77 Blood Pressure Position [Right Arm] Sitting Sitting Sitting Pulse Oximetry 95 95 95 Oxygen Delivery Method Nasal Cannula Room Air Nasal Cannula Oxygen Flow Rate 2 2 Sepsis Recent Fever Within 48 Hours Sepsis New/Unexplained Change in Mental Status Sepsis Action Taken by Nursing 02/17/22 13:02 02/17/22 13:15 02/17/22 13:30 Temperature Temperature Source Pulse Rate Pulse Rate [Apical] 85 92 H 118 H Respiratory Rate 18 18 18 Respiratory Effort / Characteristics Non-Labored Spontaneous Non-Labored Spontaneous Respiratory Depth Normal Normal Respiratory Pattern Regular Regular Blood Pressure Blood Pressure [Right Arm] 109/74 110/72 126/61 Blood Pressure Mean Blood Pressure Mean [Right Arm] 85 84 82 Blood Pressure Position [Right Arm] Sitting Sitting Sitting Pulse Oximetry 95 96 95 Oxygen Delivery Method Nasal Cannula Nasal Cannula Nasal Cannula Oxygen Flow Rate 2 2 2 Sepsis Recent Fever Within 48 Hours Sepsis New/Unexplained Change in Mental Status Sepsis Action Taken by Nursing 02/17/22 13:45 02/17/22 13:59 02/17/22 14:00 Temperature Temperature Source Pulse Rate 135 H Pulse Rate [Apical] 122 H 112 H Respiratory Rate 18 16 Respiratory Effort / Characteristics Non-Labored Spontaneous Non-Labored Spontaneous Respiratory Depth Normal Normal Respiratory Pattern Regular Regular Blood Pressure 118/71 Blood Pressure [Right Arm] 111/73 119/71 Blood Pressure Mean Blood Pressure Mean [Right Arm] 85 87 Blood Pressure Position [Right Arm] Sitting Sitting Pulse Oximetry 97 96 Oxygen Delivery Method Nasal Cannula Nasal Cannula Oxygen Flow Rate 2 2 Sepsis Recent Fever Within 48 Hours Sepsis New/Unexplained Change in Mental Status Sepsis Action Taken by Nursing 02/17/22 14:30 02/17/22 15:00 02/17/22 15:30 Temperature Temperature Source Pulse Rate Pulse Rate [Apical] 64 Respiratory Rate 16 16 16 Respiratory Effort / Characteristics Non-Labored Spontaneous Non-Labored Spontaneous Non-Labored Spontaneous Respiratory Depth Normal Respiratory Pattern Regular Blood Pressure Blood Pressure [Right Arm] 121/70 Blood Pressure Mean Blood Pressure Mean [Right Arm] 87 Blood Pressure Position [Right Arm] Sitting Pulse Oximetry 97 97 97 Oxygen Delivery Method Nasal Cannula Nasal Cannula Nasal Cannula Oxygen Flow Rate 2 2 2 Sepsis Recent Fever Within 48 Hours Sepsis New/Unexplained Change in Mental Status Sepsis Action Taken by Nursing 02/17/22 16:00 02/17/22 16:30 Temperature Temperature Source Pulse Rate Pulse Rate [Apical] 53 L Respiratory Rate 18 16 Respiratory Effort / Characteristics Non-Labored Spontaneous Non-Labored Spontaneous Respiratory Depth Normal Respiratory Pattern Regular Blood Pressure Blood Pressure [Right Arm] 154/82 H Blood Pressure Mean Blood Pressure Mean [Right Arm] 106 Blood Pressure Position [Right Arm] Sitting Pulse Oximetry 98 97 Oxygen Delivery Method Nasal Cannula Nasal Cannula Oxygen Flow Rate 2 2 Sepsis Recent Fever Within 48 Hours Sepsis New/Unexplained Change in Mental Status Sepsis Action Taken by Nursing Laboratory Data Result diagrams: 02/17/22 12:25 02/17/22 12:25 Lab Results 02/17/22 02/17/22 02/17/22 Range/Units 12:25 12:25 12:25 WBC 1.67 L (4.8-10.8) K/uL RBC 2.48 L (4.2-5.4) M/uL Hgb 8.2 L (12.0-16.0) g/dL Hct 25.0 L (37-47) % MCV 100.8 H (80-100) fL MCH 33.1 (25-34) pg MCHC 32.8 (32-36) g/dL RDW Std Deviation 56.2 H (36.4-46.3) fL RDW Coeff of Janice 15.5 H (11.5-14.5) % Plt Count 206 (130-400) K/uL MPV 9.8 (7.4-10.4) fL Absolute Nucleated RBC 0.04 H (0-0) K/uL Nucleated RBC % (auto) 2.6 % Neutrophils % (Manual) 37.4 % Lymphocytes % (Manual) 43.5 % Monocytes % (Manual) 13.9 % Basophils % (Manual) 1.7 % Metamyelocytes % (Man) 2.6 % Myelocytes % (Man) 0.9 % Neutrophils # (Manual) 0.62 L (1.4-6.5) K/uL Total Absolute Neuts 0.62 L* (1.4-6.5) K/uL Lymphocytes # (Manual) 0.73 L (1.2-3.4) K/uL Total Abs Lymphocytes 0.73 L (1.2-3.4) K/uL Monocytes # (Manual) 0.23 (0.11-0.59) K/uL Basophils # (Manual) 0.03 (0-0.2) K/uL Metamyelocytes # (Man) 0.04 H (0-0) K/uL Myelocytes # (Manual) 0.02 H (0-0) K/uL Anisocytosis Present PT 12.3 H (9.0-12.0) Seconds INR 1.2 H (0.9-1.1) APTT 81.7 H* (21.0-31.0) Seconds PTT Ratio 3.0 Sodium (136-145) mmol/L Potassium (3.5-5.1) mmol/L Chloride (98-107) mmol/L Carbon Dioxide (21-32) mmol/L Anion Gap (3-11) BUN (6-23) mg/dl Creatinine (0.6-1.2) mg/dl Est Cr Clr Drug Dosing ml/min Est GFR ( Amer) ml/min Est GFR (Non-Af Amer) ml/min BUN/Creatinine Ratio (10-20) Glucose (70-99(Fasting)) mg/dl Lactate (0.4-2.0) mmol/L Calcium (8.5-10.1) mg/dl Magnesium (1.7-2.4) mg/dl Total Bilirubin (0.2-1.0) mg/dl AST (13-39) U/L ALT (7-52) U/L Alkaline Phosphatase (34-104) U/L Total Protein (6.0-8.3) gm/dl Albumin (3.4-5.0) gm/dl Globulin (2.5-4.0) gm/dl Albumin/Globulin Ratio (0.9-2) Procalcitonin 0.06 (0-0.5) ng/ml Urine Color Urine Appearance (Clear) Urine pH (4.5-7.5) Ur Specific [place] (1.000-1.030) Urine Protein (Negative) Urine Glucose (UA) (Negative) Urine Ketones (Negative) Urine Blood (Negative) Urine Nitrite (Negative) Urine Bilirubin (Negative) Urine Urobilinogen (Negative) Ur Leukocyte Esterase (Negative) Urine WBC (Auto) (0-5) /hpf Urine RBC (Auto) (0-4) /hpf U Hyaline Cast (Auto) (0-5) /lpf U Epithel Cells (Auto) (0-5) /lpf Urine Bacteria (Auto) (Negative) SARS-CoV-2 (PCR) (Negative) Influenza Type A (PCR) (Neg) Influenza Type B (PCR) (Neg) RSV (RT-PCR) (Neg) 02/17/22 02/17/22 02/17/22 Range/Units 12:25 12:25 12:25 WBC (4.8-10.8) K/uL RBC (4.2-5.4) M/uL Hgb (12.0-16.0) g/dL Hct (37-47) % MCV (80-100) fL MCH (25-34) pg MCHC (32-36) g/dL RDW Std Deviation (36.4-46.3) fL RDW Coeff of Janice (11.5-14.5) % Plt Count (130-400) K/uL MPV (7.4-10.4) fL Absolute Nucleated RBC (0-0) K/uL Nucleated RBC % (auto) % Neutrophils % (Manual) % Lymphocytes % (Manual) % Monocytes % (Manual) % Basophils % (Manual) % Metamyelocytes % (Man) % Myelocytes % (Man) % Neutrophils # (Manual) (1.4-6.5) K/uL Total Absolute Neuts (1.4-6.5) K/uL Lymphocytes # (Manual) (1.2-3.4) K/uL Total Abs Lymphocytes (1.2-3.4) K/uL Monocytes # (Manual) (0.11-0.59) K/uL Basophils # (Manual) (0-0.2) K/uL Metamyelocytes # (Man) (0-0) K/uL Myelocytes # (Manual) (0-0) K/uL Anisocytosis PT (9.0-12.0) Seconds INR (0.9-1.1) APTT (21.0-31.0) Seconds PTT Ratio Sodium 137 (136-145) mmol/L Potassium 4.0 (3.5-5.1) mmol/L Chloride 106 (98-107) mmol/L Carbon Dioxide 24 (21-32) mmol/L Anion Gap 7 (3-11) BUN 21 (6-23) mg/dl Creatinine 1.28 H (0.6-1.2) mg/dl Est Cr Clr Drug Dosing 34.5 ml/min Est GFR ( Amer) 46.4 ml/min Est GFR (Non-Af Amer) 40.0 ml/min BUN/Creatinine Ratio 16.4 (10-20) Glucose 96 (70-99(Fasting)) mg/dl Lactate 1.5 (0.4-2.0) mmol/L Calcium 8.4 L (8.5-10.1) mg/dl Magnesium 1.3 L (1.7-2.4) mg/dl Total Bilirubin 0.4 (0.2-1.0) mg/dl AST 15 (13-39) U/L ALT 11 (7-52) U/L Alkaline Phosphatase 70 (34-104) U/L Total Protein 6.1 (6.0-8.3) gm/dl Albumin 3.4 (3.4-5.0) gm/dl Globulin 2.7 (2.5-4.0) gm/dl Albumin/Globulin Ratio 1.3 (0.9-2) Procalcitonin (0-0.5) ng/ml Urine Color Dark Yellow Urine Appearance Cloudy A (Clear) Urine pH 5.0 (4.5-7.5) Ur Specific [place] 1.021 (1.000-1.030) Urine Protein 1+ H (Negative) Urine Glucose (UA) Negative (Negative) Urine Ketones Trace H (Negative) Urine Blood 3+ H (Negative) Urine Nitrite Negative (Negative) Urine Bilirubin Negative (Negative) Urine Urobilinogen Negative (Negative) Ur Leukocyte Esterase 1+ H (Negative) Urine WBC (Auto) 10-30 H (0-5) /hpf Urine RBC (Auto) >30 H (0-4) /hpf U Hyaline Cast (Auto) 5-10 H (0-5) /lpf U Epithel Cells (Auto) >30 H (0-5) /lpf Urine Bacteria (Auto) 1+ H (Negative) SARS-CoV-2 (PCR) (Negative) Influenza Type A (PCR) (Neg) Influenza Type B (PCR) (Neg) RSV (RT-PCR) (Neg) 02/17/22 Range/Units 12:59 WBC (4.8-10.8) K/uL RBC (4.2-5.4) M/uL Hgb (12.0-16.0) g/dL Hct (37-47) % MCV (80-100) fL MCH (25-34) pg MCHC (32-36) g/dL RDW Std Deviation (36.4-46.3) fL RDW Coeff of Janice (11.5-14.5) % Plt Count (130-400) K/uL MPV (7.4-10.4) fL Absolute Nucleated RBC (0-0) K/uL Nucleated RBC % (auto) % Neutrophils % (Manual) % Lymphocytes % (Manual) % Monocytes % (Manual) % Basophils % (Manual) % Metamyelocytes % (Man) % Myelocytes % (Man) % Neutrophils # (Manual) (1.4-6.5) K/uL Total Absolute Neuts (1.4-6.5) K/uL Lymphocytes # (Manual) (1.2-3.4) K/uL Total Abs Lymphocytes (1.2-3.4) K/uL Monocytes # (Manual) (0.11-0.59) K/uL Basophils # (Manual) (0-0.2) K/uL Metamyelocytes # (Man) (0-0) K/uL Myelocytes # (Manual) (0-0) K/uL Anisocytosis PT (9.0-12.0) Seconds INR (0.9-1.1) APTT (21.0-31.0) Seconds PTT Ratio Sodium (136-145) mmol/L Potassium (3.5-5.1) mmol/L Chloride (98-107) mmol/L Carbon Dioxide (21-32) mmol/L Anion Gap (3-11) BUN (6-23) mg/dl Creatinine (0.6-1.2) mg/dl Est Cr Clr Drug Dosing ml/min Est GFR ( Amer) ml/min Est GFR (Non-Af Amer) ml/min BUN/Creatinine Ratio (10-20) Glucose (70-99(Fasting)) mg/dl Lactate (0.4-2.0) mmol/L Calcium (8.5-10.1) mg/dl Magnesium (1.7-2.4) mg/dl Total Bilirubin (0.2-1.0) mg/dl AST (13-39) U/L ALT (7-52) U/L Alkaline Phosphatase (34-104) U/L Total Protein (6.0-8.3) gm/dl Albumin (3.4-5.0) gm/dl Globulin (2.5-4.0) gm/dl Albumin/Globulin Ratio (0.9-2) Procalcitonin (0-0.5) ng/ml Urine Color Urine Appearance (Clear) Urine pH (4.5-7.5) Ur Specific [place] (1.000-1.030) Urine Protein (Negative) Urine Glucose (UA) (Negative) Urine Ketones (Negative) Urine Blood (Negative) Urine Nitrite (Negative) Urine Bilirubin (Negative) Urine Urobilinogen (Negative) Ur Leukocyte Esterase (Negative) Urine WBC (Auto) (0-5) /hpf Urine RBC (Auto) (0-4) /hpf U Hyaline Cast (Auto) (0-5) /lpf U Epithel Cells (Auto) (0-5) /lpf Urine Bacteria (Auto) (Negative) SARS-CoV-2 (PCR) NEGATIVE (Negative) Influenza Type A (PCR) Negative (Neg) Influenza Type B (PCR) Negative (Neg) RSV (RT-PCR) Negative (Neg) Administered Medications Discontinued Medications Diltiazem HCl (Diltiazem Hcl 5 Mg/Ml 5 Ml Vial) 10 mg IV NOW STA Stop: 02/17/22 12:41 Last Admin: 02/17/22 12:44 Dose: 10 mg Documented by: [id number] Cosigned by: [id number] Sodium Chloride (Nss 1000ml) 1,000 mls @ 999 mls/hr IV .Q1H1M ROMERO Stop: 02/17/22 13:15 Last Infusion: 02/17/22 14:22 Dose: 0 mls/hr Documented by: [id number] Admin: 02/17/22 12:44 Dose: 999 mls/hr Documented by: [id number] Cefepime HCl (Maxipime) 2,000 mg in 20 mls @ 5 mls/min IV NOW STA; Protocol Stop: 02/17/22 13:36 Last Admin: 02/17/22 13:52 Dose: 5 mls/min Documented by: [id number] Vancomycin HCl 1,250 mg/ (Sodium Chloride) 525 mls @ 200 mls/hr IV NOW ONE Stop: 02/17/22 16:10 Last Admin: 02/17/22 14:16 Dose: 200 mls/hr Documented by: [id number] Sodium Chloride (Nss 1000ml) 1,000 mls @ 999 mls/hr IV .Q1H1M ONE Stop: 02/17/22 14:34 Last Infusion: 02/17/22 15:08 Dose: 0 mls/hr Documented by: [id number] Admin: 02/17/22 13:59 Dose: 999 mls/hr Documented by: [id number] Metoprolol Tartrate (Metoprolol Tartrate 1 Mg/Ml Vial) 5 mg IV NOW STA Stop: 02/17/22 13:40 Last Admin: 02/17/22 13:59 Dose: 5 mg Documented by: [id number] Imaging Data Radiologist's Impression: Chest X-Ray 02/17/22 12:02 XR chest 1V portable HISTORY: SEPSIS COMPARISON: Chest 12/11/2021. FINDINGS: No pneumothorax. No pleural effusions. The cardiac silhouette remains mildly enlarged. No new focal lung consolidations to suggest pneumonia. No evidence for pulmonary edema. Right jugular Port-A-Cath terminates at the SVC. This remains in change. Destructive lesion within the distal left clavicle with associated pathologic fracture is also unchanged. Permeative appearance to the right lateral seventh rib also consistent with metastatic disease. IMPRESSION: 1. No significant change compared to the prior study. No acute process within the chest. 2. Stable mild cardiomegaly. 3. Osseous metastatic disease again noted. ACT 112: Negative or not required by law. Electronically signed by: Prakash Concepcion M.D. 02/17/2022 12:43 PM Discharge Plan Visit Data Chief Complaint: Abnormal Labs/Diagnostic Testing Stated Complaint: NEUTROPENIC/FEVER ED Provider: Gerardo Davidson Discharge Problem: Neutropenia, Atrial fibrillation with RVR Forms Stand Alone Forms: [facility] Prescriptions Prescriptions: No Action omeprazole 20 mg tablet,delayed release (DR/EC) 20 mg PO QAM Qty: 30 RF: 5 prednisone 5 mg tablet 15 mg PO QAM RF: 0 apixaban 5 mg tablet 5 mg PO BID Qty: 60 RF: 2 oxycodone 5 mg Tablet 5 mg PO .Q 4-6 HRS PRN (Reason: Pain) RF: 0 olanzapine 2.5 mg tablet 2.5 mg PO HS RF: 0 ondansetron HCl 8 mg tablet 8 mg PO Q8 PRN (Reason: Nausea And Vomiting) RF: 0 prochlorperazine maleate 10 mg tablet 10 mg PO Q6 PRN (Reason: Nausea) RF: 0 acetaminophen 500 mg Tablet 650 mg PO Q6H PRN (Reason: Pain) Qty: 0 RF: 0 fentanyl 37.5 mcg/hour Patch 72 Hour 1 patch TRANSDERMAL Q72H RF: 0 calcium carbonate [Calcium 600] 600 mg calcium (1,500 mg) Tablet 600 mg PO HS RF: 0 allopurinol 300 mg tablet 300 mg PO QAM RF: 0 zoledronic acid [Zometa] 4 mg Recon Soln 0 mg IV MONTHLY RF: 0 carboplatin 10 mg/mL Solution 0 mg IV UD RF: 0 gemcitabine 100 mg/mL Solution 0 mg IV UD RF: 0 losartan 50 mg tablet 50 mg PO QAM RF: 0 metoprolol succinate 50 mg tablet extended release 24 hr 25 mg PO BID RF: 0 ferrous sulfate 325 mg (65 mg iron) Tablet 325 mg PO HS RF: 0 Referrals Referrals: Brtit Maria MD [Primary Care Provider] - Discharge Problem: Neutropenia Qualifiers: Neutropenia type: secondary to cancer chemotherapy Qualified Code(s): D70.1 - Agranulocytosis secondary to cancer chemotherapy
[2022-02-17] MEDS ORDERED: SODIUM CHLORIDE 0.9% 1000ML 1,000 ML IV SCH (12:15)
[2022-02-17] MEDS ORDERED: dilTIAZem HCl 5 MG/ML 5 ML VIAL IV STA (12:40)
--- NOTE | 2022-02-17 12:44 | XRay Report ---
XR chest 1V portable HISTORY: SEPSIS COMPARISON: Chest 12/11/2021. FINDINGS: No pneumothorax. No pleural effusions. The cardiac silhouette remains mildly enlarged. No n ew focal lung consolidations to suggest pneumonia. No evidence for pulmonary edema. Right jugular Por t-A-Cath terminates at the SVC. This remains in change. Destructive lesion within the distal left cla vicle with associated pathologic fracture is also unchanged. Permeative appearance to the right later al seventh rib also consistent with metastatic disease. IMPRESSION: 1. No significant change compared to the prior study. No acute process within the chest. 2. Stable mild cardiomegaly. 3. Osseous metastatic disease again noted. ACT 112: Negative or not required by law. Electronically signed by: Prakash Concepcion M.D. 02/17/2022 12:43 PM
[2022-02-17 12:46] LABS: Hemoglobin 8.2 g/dL (12.0-16.0); Mean Corpuscular Hemoglobin 33.1 pg (25-34); Mean Corpuscular Hgb Conc 32.8 g/dL (32-36); Mean Corpuscular Volume 100.8 fL (80-100); Mean Platelet Volume 9.8 fL (7.4-10.4); Nucleated RBC # (auto) 0.04 K/uL (0-0); Nucleated RBC % (auto) 2.6 %; Platelet Count 206 K/uL (130-400); RDW Coefficient of Variation 15.5 % (11.5-14.5); RDW Standard Deviation 56.2 fL (36.4-46.3); Red Blood Count 2.48 M/uL (4.2-5.4); White Blood Count 1.67 K/uL (4.8-10.8)
[2022-02-17 13:03] LABS: Albumin Globulin Ratio 1.3 (0.9-2); Albumin Level 3.4 gm/dl (3.4-5.0); BUN Creatinine Ratio 16.4 (10-20); Bilirubin,Total 0.4 mg/dl (0.2-1.0); Calcium 8.4 mg/dl (8.5-10.1); Creatinine Clr Calc Pharmacy 34.5 ml/min; Est GFR (African American) 46.4 ml/min; Globulin 2.7 gm/dl (2.5-4.0); Magnesium 1.3 mg/dl (1.7-2.4); Total Protein 6.1 gm/dl (6.0-8.3)
[2022-02-17 13:07] LABS: Appearance Urine Cloudy (Clear); Bacteria Urine Automated 1+ (Negative); Bilirubin Urine Negative (Negative); Blood Urine 3+ (Negative); Color Urine Dark Yellow; Epithelial Cell Urine Auto >30 /lpf (0-5); Glucose Urine UA Negative (Negative); Ketones Urine Trace (Negative); Leukocyte Esterase Urine 1+ (Negative); Nitrite Urine Negative (Negative); Protein Urine 1+ (Negative); RBC Urine Automated >30 /hpf (0-4); Specific Gravity Urine 1.021 (1.000-1.030); Urobilinogen Urine Negative (Negative)
[2022-02-17 13:14] LABS: Anisocytosis Present
[2022-02-17 13:15] LABS: ALC (manual) 0.73 K/uL (1.2-3.4); ANC (manual) 0.62 K/uL (1.4-6.5); Basophils # (manual) 0.03 K/uL (0-0.2); Basophils % (manual) 1.7 %; Lymphocytes # (manual) 0.73 K/uL (1.2-3.4); Lymphocytes % (manual) 43.5 %; Metamyelocytes # (manual) 0.04 K/uL (0-0); Metamyelocytes % (manual) 2.6 %; Monocytes # (manual) 0.23 K/uL (0.11-0.59); Monocytes % (manual) 13.9 %; Myelocytes # (manual) 0.02 K/uL (0-0); Myelocytes % (manual) 0.9 %; Neutrophils # (manual) 0.62 K/uL (1.4-6.5); Neutrophils % (manual) 37.4 %
[2022-02-17 13:19] LABS: INR 1.2 (0.9-1.1); Prothrombin Time 12.3 Seconds (9.0-12.0)
[2022-02-17 13:29] LABS: Partial Thromboplastin Time 81.7 Seconds (21.0-31.0)
[2022-02-17] MEDS ORDERED: VANCOMYCIN CONSULT ACTIVE PRN (13:33)
[2022-02-17] MEDS ORDERED: VANCOMYCIN HCL 1,250 MG in SODIUM CHLORIDE 0.9% 500 ML IV ONE (13:33)
[2022-02-17] MEDS ORDERED: CEFEPIME 2,000 MG/20 ML VIAL IV STA (13:33)
[2022-02-17] MEDS ORDERED: SODIUM CHLORIDE 0.9% 1000ML 1,000 ML IV ONE (13:34)
[2022-02-17] MEDS ORDERED: METOPROLOL TARTRATE 1 MG/ML VIAL IV STA (13:39)
[2022-02-17 14:37] LABS: Influenza A virus by PCR Negative (Neg); Influenza B virus by PCR Negative (Neg); RSV by PCR Negative (Neg); SARS CoV2 RNA(COVID-19) InHosp NEGATIVE (Negative)
--- NOTE | 2022-02-17 17:23 | History & Physical Report ---
Date of Service February 17, 2022 Assessment & Plan (1) Neutropenic fever: (2) Atrial fibrillation with RVR: (3) Tachy-atif syndrome: (4) Anemia: (5) Bladder cancer metastasized to bone: (6) Benign hypertension: (7) Acid reflux disease: Plan: 76 yo F PMHx significant for A. 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 Neutropenic fever: Presents with 2 days of chills and malaise with one day of fever to Tmax 100.5. Differentials for fever include infection, cancer, chemo-related. Leukopenic to 1.67 with ANC 620. No clear evidence of infection on labwork, CXR, exam. However, suspect most likely source to be urinary given has history of recurrent UTIs with known bladder wall wound and irritation per Urology. Blood and urine cultures collected. Empiric antibiotics vanc/cefepime started; to continue as we await blood culture results. If blood cultures positive, may need to consider removal of port/pacemaker. AFib with RVR: History of AFib with tachy-atif syndrome, s/p pacemaker ~1 month ago. Had brief episode of RVR in ER; improved with metoprolol 5 mg IV x1 and diltiazem 10 mg IV x1. Suspect episode occurred due to dehydration and illness. Care of fever as described above. Continue Eliquis 5mg BID. Continue metoprolol succinate 25mg BID. Lopressor 5mg IV q6h as needed for HR >120. 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 Follows with Dr. Marie for chemotherapy and is between chemo cycles. To undergo cystoscopy with possible biopsy/resection/debridement later this month. Continue Fentanyl patches and oxycodone as needed for bony pain. Anemia: Hgb fluctuates between 8-10 points over the last several months. On admission with Hgb 8.2 with macrocytic MCV; chronic and stable. B12 and folate levels pending. Continue home iron supplementation. GERD: Continue PPI. HTN: Continue losartan 50mg daily. Code Status: DNR/DNI FEN: Regular diet DVT ppx: Eliquis 5mg BID Dispo: Med/Surg with Telemetry History of Present Illness Chief Complaint: fever Primary Care Provider: Britt Maria MD 76 yo F PMHx significant for A. 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 She was advised by her PCP to report to the ER for evaluation. Patient noted to have elevated heart rate with EKG showing A. fib with RVR; this resolved after receiving Lopressor 5 mg IV x1 and diltiazem 10 mg IV x1. Patient did have a brief episode of apnea when she was sleeping to 89% on room air and was placed on 2 LNC with good improvement. Lab work notable for leukopenia with neutropenia, anemia with hemoglobin 8.2 (decreased from ~10 in December), creatinine stable at 1.28, magnesium 1.3. Urinalysis notable for >30 RBCs, 1+ leukocyte esterase, 10-30 WBCs, >30 epithelials, 1+ bacteria. Blood and urine cultures were collected, and then patient was placed on empiric antibiotics vancomycin/cefepime. She also received a total of 2 L NSS for sepsis. Case was discussed with Dr. Marie by ER provider who agreed with admission for neutropenic fever evaluation. Allergies Allergy/AdvReac Type Severity Reaction Status Date / Time morphine AdvReac Intermediate "Makes me Verified 02/17/22 14:57 crazy" Home Medications Medication Instructions Recorded Confirmed Type oxycodone 5 mg tablet 5 mg PO .Q 4-6 HRS PRN 10/14/21 02/17/22 History olanzapine 2.5 mg tablet 2.5 mg PO HS 10/27/21 02/17/22 History ondansetron HCl 8 mg tablet 8 mg PO Q8 PRN 10/27/21 02/17/22 History prochlorperazine maleate 10 mg 10 mg PO Q6 PRN 10/27/21 02/17/22 History tablet acetaminophen 500 mg tablet 650 mg PO Q6H PRN #0 tab 10/29/21 02/17/22 Rx ferrous sulfate 325 mg (65 mg 325 mg PO HS 11/22/21 02/17/22 History iron) tablet fentanyl 37.5 mcg/hour transdermal 1 patch TRANSDERMAL Q72H 12/04/21 02/17/22 History patch omeprazole 20 mg tablet,delayed 20 mg PO QAM #30 tab 12/20/21 02/17/22 Rx release apixaban 5 mg tablet 5 mg PO BID #60 tab 12/30/21 02/17/22 Rx prednisone 5 mg tablet 15 mg PO QAM 12/30/21 02/17/22 History allopurinol 300 mg tablet 300 mg PO QAM 02/17/22 02/17/22 History calcium carbonate 600 mg calcium 600 mg PO HS 02/17/22 02/17/22 History (1,500 mg) tablet (Calcium) carboplatin 10 mg/mL intravenous 0 mg IV UD 02/17/22 02/17/22 History solution gemcitabine 100 mg/mL intravenous 0 mg IV UD 02/17/22 02/17/22 History solution losartan 50 mg tablet 50 mg PO QAM 02/17/22 02/17/22 History metoprolol succinate 50 mg 25 mg PO BID 02/17/22 02/17/22 History tablet,extended release 24 hr zoledronic acid 4 mg intravenous 0 mg IV MONTHLY 02/17/22 02/17/22 History solution Past Med/Surg History Medical History Abnormal LFTs Acute dehydration Acute dehydration Acute hypotension Bradycardia Chronic back pain Fracture, clavicle LEFT-CURRENTLY Seen in ER 10/08/21- Left shoulder and clavicle x-raythere is bony metastases in the left clavicle with an associated comminuted fracture History of bladder cancer ~10 years ago > treated surgically Recent dx of stage IV bladder cancer with metastasis to clavicle, back and lung BLACKFEET (hard of hearing) HTN (hypertension) Hx SBO Osteoarthritis Paroxysmal atrial fibrillation Poor historian SOB (shortness of breath) on exertion Vomiting Vomiting Surgical History History of colonoscopy History of intestinal surgery History of surgery TURBT History of total abdominal hysterectomy and bilateral salpingo-oophorectomy History of wisdom tooth extraction Port-A-Cath in place (10/18/21) Insertion Access Port in Right Jugular with Fluoroscopy(Right) - Peterson Dasilva DO, FACS 10/18/21 S/P placement of cardiac pacemaker Family History Father Cancer lung Colorectal cancer Mother Hearing loss Hypertension Stroke Other No family history of adverse response to anesthesia No family history of bleeding disorder Denies family history of Ovarian cancer Prostate cancer Myocardial infarction Breast cancer Social History (Updated 02/17/22 @ 17:21 by Rosa Saldaña DO) Smoking Status: Former smoker packs per day: 1; Years Smoked: 10; Second Hand Exposure: No; Hx Alcohol Use: Yes Alcohol type: wine Alcohol Intake Frequency: Monthly or Less Hx Substance Use: No Preferred Language: Ukrainian Communication Ability: Effective Visual Impairment: No Limitations Hearing Ability: Hard of Hearing Field Examiner Required: No Beliefs That Will Affect Care: None marital status: / Current Living Situation: Family Current Living Situation Comment: Daughter current occupational status: retired How many Children do You have: 2 Feels Safe at Home: Yes Childhood Exposure to Second-Hand Smoke: Yes caffeine: Yes Dental Care, Regularly: No Physical Activity Frequency: Does not Exercise Seatbelt Use: always Sunscreen Use: Yes Assistive Devices: None and Glasses Review of Systems Review of Systems: All systems reviewed & are unremarkable except as noted in HPI & below Constitutional: + fever, + chills and + malaise Respiratory: no cough and no dyspnea Cardiovascular: no chest pain, no palpitations and no edema Gastrointestinal: no abdominal pain, no constipation and no diarrhea/loose stools Genitourinary: no dysuria and no hematuria Physical Exam Constitutional: WD/WN, vitals as above Eyes: PERRL, conjunctivae normal, anicteric sclerae ENMT: external ear and nose normal, oropharynx normal Neck: normal visual inspection Respiratory: normal respiratory effort, lungs clear to auscultation Cardiovascular: RRR, no murmur, no edema Gastrointestinal (Abdomen): normal bowel sounds, soft, nontender, no hepatosplenomegaly Musculoskeletal: no cyanosis or clubbing, extremities motor strength 5/5 Skin: no rashes, warm and dry (port noted in right upper chest; no erythema, warmth, tenderness) Neurologic: Normal speech. PERRLA, EOMI, no nystagmus. Normal visual acuity bilaterally. Bilateral UE, LE, and face without sensory or motor deficits. No pronator drift. No tremor. Negative Kernig's and Brudzinski signs. Psychiatric: A+Ox3, euthymic affect Results & Data Results & Data ([facility]) Vital Signs (Past 12 Hours) Vital Signs Temp Pulse Pulse Resp BP BP Pulse Ox 02/17/22 17:00 18 97 02/17/22 16:30 16 97 02/17/22 16:00 53 L 18 154/82 H 98 02/17/22 15:30 16 97 02/17/22 15:00 16 97 02/17/22 14:30 64 16 121/70 97 02/17/22 14:00 112 H 16 119/71 96 02/17/22 13:59 135 H 118/71 02/17/22 13:45 122 H 18 111/73 97 02/17/22 13:30 118 H 18 126/61 95 02/17/22 13:15 92 H 18 110/72 96 02/17/22 13:02 85 18 109/74 95 02/17/22 12:47 84 18 101/65 95 02/17/22 12:40 154 H 18 123/84 95 02/17/22 12:33 70 18 114/61 95 02/17/22 12:32 20 96 02/17/22 12:02 18 95 02/17/22 11:38 37.0 C 104 H 18 119/70 96 Supervising Physician Co-Signing Physician Notes Patient seen and examined, discussed with resident. Patient is here with vague infectious symptoms. Had low-grade temp along with some malaise at home. Does have a history of bladder cancer with metastasis, currently getting chemotherapy. Found to be neutropenic on admission with ANC of 0.62. Exam is essentially unrevealing, patient has a right upper chest wall port which is accessed. Recent pacer placement now which appears to be well-healed. Heart is regular rate with no murmurs, lungs clear to auscultation. Plan to treat for neutropenic fever with broad-spectrum antibiotics, continue cefepime and vancomycin for now. Await blood and urine cultures. Continue other medications as noted above. Resident Activity Tracking Resident Involvement: Resident Care Provided Care Provided: Adult [facility]
[2022-02-17] MEDS ORDERED: METOPROLOL TARTRATE 1 MG/ML VIAL IV PRN (17:57)
[2022-02-17] MEDS ORDERED: PROCHLORPERAZINE MALEATE 10 MG TAB PO PRN (20:59)
[2022-02-17] MEDS ORDERED: ACETAMINOPHEN 325 MG TAB PO PRN (20:59)
[2022-02-17] MEDS ORDERED: oxyCODONE HCL IR 5 MG TAB (IMMEDIATE RELEASE) PO PRN (20:59)
[2022-02-17] MEDS ORDERED: FENTANYL TD SCH (20:59)
[2022-02-17] MEDS ORDERED: ONDANSETRON 4 MG OD TAB PO PRN (20:59)
[2022-02-17] MEDS: APIXABAN 5 MG TABLET PO SCH (22:25)
[2022-02-17] MEDS: OLANZAPINE 2.5 MG TAB PO SCH (22:25)
[2022-02-17] MEDS: CALCIUM 600MG + VIT D 400 IU TAB PO SCH (22:26)
[2022-02-17] MEDS: FERROUS SULFATE 325 MG TAB PO SCH (22:26)
[2022-02-17] MEDS: METOPROLOL SUCC 25MG EXT REL TAB PO SCH (22:26)
[2022-02-18] MEDS: CEFEPIME 2,000 MG in SYRINGE 0 ML IV SCH ×3 (00:58→23:15)
[2022-02-18 05:58] LABS: Hematocrit (blood only) 22.7 % (37-47); Hemoglobin 7.6 g/dL (12.0-16.0); Mean Corpuscular Hemoglobin 33.8 pg (25-34); Mean Corpuscular Hgb Conc 33.5 g/dL (32-36); Mean Corpuscular Volume 100.9 fL (80-100); Mean Platelet Volume 9.5 fL (7.4-10.4); Nucleated RBC # (auto) 0.03 K/uL (0-0); Nucleated RBC % (auto) 1.4 %; Platelet Count 187 K/uL (130-400); RDW Coefficient of Variation 15.3 % (11.5-14.5); RDW Standard Deviation 55.2 fL (36.4-46.3); Red Blood Count 2.25 M/uL (4.2-5.4); White Blood Count 2.24 K/uL (4.8-10.8)
[2022-02-18] MEDS ORDERED: VANCOMYCIN HCL 1,000 MG in SODIUM CHLORIDE 0.9% 250 ML IV SCH (06:00)
[2022-02-18 06:30] LABS: Calcium 7.8 mg/dl (8.5-10.1); Creatinine Clr Calc Pharmacy 43.5 ml/min; Est GFR (African American) 58.9 ml/min; Est GFR (Non-African American) 50.8 ml/min; Potassium 4.2 mmol/L (3.5-5.1)
[2022-02-18 06:45] LABS: Polychromasia 1+
[2022-02-18 06:46] LABS: ALC (manual) 0.82 K/uL (1.2-3.4); Eosinophils # (manual) 0.04 K/uL (0-0.5); Eosinophils % (manual) 1.7 %; Lymphocytes # (manual) 0.82 K/uL (1.2-3.4); Lymphocytes % (manual) 36.5 %; Monocytes # (manual) 0.45 K/uL (0.11-0.59); Myelocytes # (manual) 0.14 K/uL (0-0); Myelocytes % (manual) 6.1 %; Neutrophils % (manual) 35.7 %
[2022-02-18 06:52] LABS: Folate (Folic Acid) > 22.30 ng/ml (>5.38)
[2022-02-18 06:54] LABS: Vitamin B12 737 pg/ml (180-914)
[2022-02-18] MEDS ORDERED: HEPARIN 100 UNIT/ML 5ML FLUSH ONE (07:31)
--- NOTE | 2022-02-18 08:33 | Pharmacy Report ---
Pharmacy Vanc AUC Short Note - Date of Service February 18, 2022 - Assessment & Plan Assessment 76 year old F receiving empiric vancomycin and cefepime for treatment of febrile neutropenia with currently unknown source of infection. Pertinent PMH includes metastatic bladder cancer, pancytopenia, and recurrent UTI. Pertinent microbiologic data includes: blood x 2 and urine cultures all pending. SCr appears to have rebounded to at/near baseline this morning. Day # 2 of antimicrobial therapy. Plan Vancomycin * AUC/ROCKY is the preferred PK/PD target for vancomycin * AUC guided dosing is effective and associated with decreased risk of nephrotoxicity compared to traditional trough targets * Originally dosed at 1000 mg IV q24h, but given improvement in renal function will change to vancomycin 1250 mg IV q24h, which is predicted to achieve target AUC/ROCKY of 400-600 mg/L.hr and may be associated with a 12 % risk of nephrotoxicity * Will order trough/random vanco level if therapy is to be extended beyond 48 hours Cefepime * Target dose of 2 g IV q8h * Will reduce to 2 g IV q12h for eCrCl of 44 mL/min Pharmacy will continue to follow and will adjust dose/frequency as necessary. Thank you.
[2022-02-18] MEDS: LOSARTAN POTASSIUM 50 MG TAB PO SCH (08:34)
[2022-02-18] MEDS: METOPROLOL SUCC 25MG EXT REL TAB PO SCH ×2 (08:35→20:41)
[2022-02-18] MEDS: predniSONE 5 MG TAB PO SCH (08:35)
[2022-02-18] MEDS: PANTOprazole 40 MG TAB PO SCH (08:35)
[2022-02-18] MEDS: allopurinoL 300 MG TAB PO SCH (08:35)
[2022-02-18] MEDS: APIXABAN 5 MG TABLET PO SCH ×2 (08:35→20:42)
[2022-02-18] MEDS ORDERED: 12mcg patch: fentaNYL PATCH REMOVE & WASTE SCH (08:59)
[2022-02-18] MEDS ORDERED: 25 mcg patch: fentaNYL PATCH REMOVE & WASTE SCH (08:59)
[2022-02-18] MEDS ORDERED: fentaNYL 12 MCG/HR TDSY TD SCH (09:00)
[2022-02-18] MEDS ORDERED: fentaNYL 25 MCG/HR TDSY TD SCH (09:00)
[2022-02-18] MEDS: HEPARIN 100 UNIT/ML 5ML FLUSH FLUSH PRN (12:33)
--- NOTE | 2022-02-18 14:16 | Hospitalist Progress Note ---
Date of Service February 18, 2022 Assessment & Plan (1) Neutropenic fever: Plan: 76 yo F PMHx significant for A. 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 Neutropenic fever: - p/w 2 days of chills and malaise with one day of fever to Tmax 100.5. - DDx include infection, cancer, chemo-related. - Leukopenic to 1.67 with ANC 620. REmains neutropenic 02/18 - No clear evidence of infection on labwork, CXR, exam. No URI symptoms. Most likely source to be urinary given has history of recurrent UTIs with known bladder wall wound and irritation per Urology. - Blood and urine cultures pending.UC with pinpoint growth and reintubating. Prior urine with Gardnerella-like bacteria Continue empiric Vanco/cefepime pending above Patient does have indwelling port which would likely need to be removed in the setting of bacteremia, blood cultures at this time remain negative CXR:No acute findings, stable compared to prior. Metastatic bony disease is appreciated in the right seventh rib and left clavicle AFib with RVR: -History of AFib with tachy-atif syndrome, s/p pacemaker ~1 month ago. -Had brief episode of RVR in ER; improved with metoprolol 5 mg IV x1 and diltiazem 10 mg IV x1. -Suspect episode occurred due to dehydration and illness. Care of fever as described above. Adequate rate control at morning assessment. -Continue Eliquis 5mg BID. -Continue metoprolol succinate 25mg BID. -Lopressor 5mg IV q6h as needed for HR >120. 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 -Follows with Dr. Marie for chemotherapy and is between chemo cycles. -To undergo cystoscopy with possible biopsy/resection/debridement later this month. -Continue Fentanyl patches and oxycodone as needed for bony pain. Anemia: -Hgb fluctuates between 8-10 points over the last several months. -On admission with Hgb 8.2 with macrocytic MCV; chronic and stable. -B12 and folate levels normal -Continue home iron supplementation. GERD: -Continue PPI. HTN: -Continue losartan 50mg daily. Code Status: DNR/DNI FEN: Regular diet DVT ppx: Eliquis 5mg BID Dispo: Med/Surg with Telemetry (2) Atrial fibrillation with RVR: (3) Tachy-atif syndrome: (4) Anemia: (5) Bladder cancer metastasized to bone: (6) Benign hypertension: (7) Acid reflux disease: Admission and Anticipated Discharge Date Admission Date: February 17, 2022 Subjective Through the seen at the bedside. She reports she had a low-grade fever, does not think she has any recurrent fevers since admission. Has not felt febrile. Denies chills, sweats, chest pain, chest pressure, burning with urination, abdominal pain, cough, respiratory/URI symptoms. Would like to go home when possible, is aware that some cultures remain pending. No questions or concerns at bedside. She denies chest pain/chest pressure/palpitations this morning. Review of Systems Review of Systems: All systems reviewed & are unremarkable except as noted in Subjective Physical Exam Physical Exam: General: A&Ox3. NAD. Cooperative. HEENT: Atraumatic, normocephalic. Vision and hearing grossly intact. Pupils equal and reactive to light. Pulm: CTAB A&P. -wheezes, -rales, -rhonchi. Symmetrical chest rise. No increase in work of breathing. No respiratory distress. Cardiac: RRR, -mrg. Radial pulses intact and symmetrical. Abdominal: Nontender, nondistended, soft. BS present. Results & Data Results & Data ([facility]) Vital Signs (Past 12 Hours) Vital Signs Temp Pulse Pulse Resp BP Pulse Ox 02/18/22 11:17 36.7 C 57 L 17 116/57 L 95 02/18/22 08:00 50 L 02/18/22 06:31 36.4 C L 53 L 18 122/81 92 02/18/22 03:00 36.4 C L 54 L 18 113/72 97 PG Care Time/CCT Total # of Minutes Spent Total Time Spent with Patient: Total time spent is greater than 50% in coordination of care (as documented) at patient's floor/unit and/or counseling patient: Coding Level of Care Code 25458 Subseq Hosp Care Lvl 2 Diagnoses Neutropenic fever D70.9; R50.81 Atrial fibrillation with RVR I48.91 Tachy-atif syndrome I49.5 Anemia D64.9 Bladder cancer metastasized to bone C67.9; C79.51 Benign hypertension I10 Acid reflux disease K21.9
--- NOTE | 2022-02-18 18:13 | Electrocardiogram Report ---
Test Reason : Blood Pressure : / mmHG Vent. Rate : 062 BPM Atrial Rate : 062 BPM P-R Int : 164 ms QRS Dur : 082 ms QT Int : 416 ms P-R-T Axes : 008 -17 011 degrees QTc Int : 422 ms Normal sinus rhythm T wave abnormality, consider anterior ischemia Abnormal ECG When compared with ECG of 10-DEC-2021 11:54, T wave inversion less evident in Anterior leads Confirmed by Raghavendra Soria ([id number]) on 02/18/2022 6:13:11 PM Referred By: REFERRED SELF Confirmed By:Raghavendra Soria
--- NOTE | 2022-02-18 19:24 | Electrocardiogram Report ---
Test Reason : Blood Pressure : / mmHG Vent. Rate : 134 BPM Atrial Rate : 133 BPM P-R Int : 000 ms QRS Dur : 080 ms QT Int : 294 ms P-R-T Axes : 000 -07 015 degrees QTc Int : 439 ms Poor data quality, interpretation may be adversely affected Atrial fibrillation with rapid ventricular response Abnormal ECG When compared with ECG of 17-FEB-2022 12:14, Atrial fibrillation has replaced Sinus rhythm Vent. rate has increased BY 72 BPM Confirmed by Raghavendra Soria ([id number]) on 02/18/2022 7:23:44 PM Referred By: REFERRED SELF Confirmed By:Raghavendra Soria
[2022-02-18] MEDS: OLANZAPINE 2.5 MG TAB PO SCH (20:41)
[2022-02-18] MEDS: CALCIUM 600MG + VIT D 400 IU TAB PO SCH (20:42)
[2022-02-18] MEDS: FERROUS SULFATE 325 MG TAB PO SCH (20:42)
[2022-02-18] MEDS ORDERED: VANCOMYCIN HCL 1,250 MG in SODIUM CHLORIDE 0.9% 250 ML IV SCH (22:00)
[2022-02-19 06:22] LABS: Hematocrit (blood only) 21.8 % (37-47); Hemoglobin 7.2 g/dL (12.0-16.0); Mean Corpuscular Hemoglobin 33.8 pg (25-34); Mean Corpuscular Volume 102.3 fL (80-100); Mean Platelet Volume 9.9 fL (7.4-10.4); Nucleated RBC # (auto) 0.03 K/uL (0-0); Nucleated RBC % (auto) 1.3 %; Platelet Count 225 K/uL (130-400); RDW Coefficient of Variation 15.3 % (11.5-14.5); RDW Standard Deviation 55.8 fL (36.4-46.3); Red Blood Count 2.13 M/uL (4.2-5.4)
[2022-02-19 06:44] LABS: Albumin Globulin Ratio 1.3 (0.9-2); Anisocytosis Present; BUN Creatinine Ratio 18.6 (10-20); Basophilic Stippling 1+; Basophils # (auto) 0.01 K/uL (0-0.2); Basophils % (auto) 0.4 %; Bilirubin,Total 0.3 mg/dl (0.2-1.0); Creatinine Clr Calc Pharmacy 44.8 ml/min; Eosinophils # (auto) 0.01 K/uL (0-0.5); Eosinophils % (auto) 0.4 %; Est GFR (Non-African American) 52.6 ml/min; Globulin 2.4 gm/dl (2.5-4.0); Immature Granulocytes # (auto) 0.08 K/uL (0.00-0.02); Immature Granulocytes % (auto) 3.3 %; Lymphocytes # (auto) 0.76 K/uL (1.2-3.4); Lymphocytes % (auto) 31.7 %; Macrocytosis Present; Monocytes # (auto) 0.76 K/uL (0.11-0.59); Monocytes % (auto) 31.7 %; Neutrophils # (auto) 0.78 K/uL (1.4-6.5); Neutrophils % (auto) 32.5 %; Polychromasia 1+; Potassium 3.8 mmol/L (3.5-5.1); Total Protein 5.4 gm/dl (6.0-8.3)
--- NOTE | 2022-02-19 07:48 | Communication Note ---
Date of Service: February 19, 2022 Notified of critical lab neutrophils 0.78.
[2022-02-19] MEDS: LOSARTAN POTASSIUM 50 MG TAB PO SCH (08:23)
[2022-02-19] MEDS: METOPROLOL SUCC 25MG EXT REL TAB PO SCH ×2 (08:23→20:26)
[2022-02-19] MEDS: PANTOprazole 40 MG TAB PO SCH (08:23)
[2022-02-19] MEDS: APIXABAN 5 MG TABLET PO SCH ×2 (08:23→20:17)
[2022-02-19] MEDS: predniSONE 5 MG TAB PO SCH (08:24)
[2022-02-19] MEDS: allopurinoL 300 MG TAB PO SCH (08:24)
[2022-02-19 08:47] LABS: Ferritin 878.5 ng/ml (8-388)
[2022-02-19] MEDS: HEPARIN 100 UNIT/ML 5ML FLUSH FLUSH PRN ×2 (11:45→17:07)
[2022-02-19] MEDS: CEFEPIME 2,000 MG in SYRINGE 0 ML IV SCH (11:45)
[2022-02-19 13:44] LABS: Reticulocyte % 4.7 % (0.5-2.0)
[2022-02-19] MEDS ORDERED: ACETAMINOPHEN 325 MG TAB PO ONE (16:23)
[2022-02-19] MEDS ORDERED: diphenhydrAMINE Capsule 25 MG CAP PO ONE (16:23)
[2022-02-19] MEDS ORDERED: SODIUM CHLORIDE 0.9% 250 ML IV PRN (16:23)
--- NOTE | 2022-02-19 16:33 | Hospitalist Progress Note ---
Date of Service February 19, 2022 Assessment & Plan (1) Neutropenic fever: Plan: 76 yo F PMHx significant for A. 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 Neutropenic fever: - p/w 2 days of chills and malaise with one day of fever to Tmax 100.5. - DDx include infection, cancer, chemo-related. - Leukopenic to 1.67 with ANC 620. REmains neutropenic 02/18 - No clear evidence of infection on labwork, CXR, exam. No URI symptoms. Most likely source to be urinary given has history of recurrent UTIs with known bladder wall wound and irritation per Urology. - Blood and urine cultures pending.UC with pinpoint growth and reintubated showing multiple organisms present possible pieter. Prior urine with Gardnerella-like bacteria Given above will therapeutically narrow antibiotics to Keflex for 5-day course, and follow for recurrent fevers Patient does have indwelling port which would likely need to be removed in the setting of bacteremia, blood cultures at this time remain negative CXR:No acute findings, stable compared to prior. Metastatic bony disease is appreciated in the right seventh rib and left clavicle No need for antipyretics in last 24 hours AFib with RVR: -History of AFib with tachy-atif syndrome, s/p pacemaker ~1 month ago. -Had brief episode of RVR in ER; improved with metoprolol 5 mg IV x1 and diltiazem 10 mg IV x1. -Suspect episode occurred due to dehydration and illness. Care of fever as described above. Adequate rate control at morning assessment. -Continue Eliquis 5mg BID. -Continue metoprolol succinate 25mg BID. -Lopressor 5mg IV q6h as needed for HR >120. 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 -Follows with Dr. Marie for chemotherapy and is between chemo cycles. -To undergo cystoscopy with possible biopsy/resection/debridement later this month. -Continue Fentanyl patches and oxycodone as needed for bony pain. Anemia: -Hgb fluctuates between 8-10 points over the last several months. -On admission with Hgb 8.2 with macrocytic MCV -B12 and folate levels normal -Continue home iron supplementation. Hemoglobin levels have continued to downtrend to 7.2. Patient does not have chest pain with this but does endorse increased fatigue despite treatment for neutropenic fever above. Iron levels reviewed, no evidence of iron deficiency. B12/folate normal. Reticulocyte index suggests hypoproliferation consistent with observed pancytopenia in the setting of chemotherapy. While she does have some blood in her urine with chronic Singh, she has not had gross hematuria and occult blood is negative. Low suspicion for active bleeding leading to downtrend. Given steady decline w hemoglobin near 7 (7.2 today) and fatigue discussed risk/benefits of transfusion versus continued monitoring. On shared decision making patient would prefer to have 2 units of transfusion at this time and follow counts in the morning and follow-up with hematology oncology if appropriate rise in stable with consideration of other interventions/Procrit as outpatient. 2 units of reduced irradiated packed RBC ordered. GERD: -Continue PPI. HTN: -Continue losartan 50mg daily. Code Status: DNR/DNI FEN: Regular diet DVT ppx: Eliquis 5mg BID Dispo: Med/Surg with Telemetry (2) Atrial fibrillation with RVR: (3) Tachy-atif syndrome: (4) Anemia: (5) Bladder cancer metastasized to bone: (6) Benign hypertension: (7) Acid reflux disease: Admission and Anticipated Discharge Date Admission Date: February 17, 2022 Subjective Seen at bedside this morning. Has felt fatigued and a little lightheaded today. Denies any red-tinged urine/blood in urine. No bleeding. No GI bleeding/melena. No nosebleeds. Denies chest pain, chest pressure, shortness of breath. No abdominal pain. No dysuria. Review of Systems Review of Systems: All systems reviewed & are unremarkable except as noted in Subjective Physical Exam Physical Exam: General: A&Ox3. NAD. Cooperative. HEENT: Atraumatic, normocephalic. Vision and hearing grossly intact. Pupils equal and reactive to light. Pulm: CTAB A&P. -wheezes, -rales, -rhonchi. Symmetrical chest rise. No increase in work of breathing. No respiratory distress. Cardiac: RRR, -mrg. Radial pulses intact and symmetrical. Abdominal: Nontender, nondistended, soft. BS present. Results & Data Results & Data ([facility]) Vital Signs (Past 12 Hours) Vital Signs Temp Pulse Pulse Resp BP BP Pulse Ox 02/19/22 15:26 36.4 C L 76 18 171/78 H 96 02/19/22 14:15 57 L 02/19/22 11:48 36.7 C 52 L 18 154/80 H 93 02/19/22 07:24 62 02/19/22 06:45 36.5 C 53 L 20 137/78 98 PG Care Time/CCT Total # of Minutes Spent Total Time Spent with Patient: Total time spent is greater than 50% in coordination of care (as documented) at patient's floor/unit and/or counseling patient: Coding Level of Care Code 70202 Subseq Hosp Care Lvl 2 Diagnoses Neutropenic fever D70.9; R50.81 Atrial fibrillation with RVR I48.91 Tachy-atif syndrome I49.5 Anemia D64.9 Bladder cancer metastasized to bone C67.9; C79.51 Benign hypertension I10 Acid reflux disease K21.9
[2022-02-19] MEDS: cephALEXin 500 MG CAP PO SCH (18:01)
[2022-02-19] MEDS: CALCIUM 600MG + VIT D 400 IU TAB PO SCH (20:16)
[2022-02-19] MEDS: OLANZAPINE 2.5 MG TAB PO SCH (20:16)
[2022-02-19] MEDS: FERROUS SULFATE 325 MG TAB PO SCH (20:17)
[2022-02-20] MEDS: cephALEXin 500 MG CAP PO SCH ×2 (01:25→09:30)
--- NOTE | 2022-02-20 04:04 | Communication Note ---
Date of Service: February 20, 2022 Notified by nursing that patient's HR frequently going to the low 40s while patient sleeping. Patient easily wakes up for vital check and is asymptomatic. P keyonna does have a pacer and per chart review it appears that the "low threshold" for patient's pacer is 50 bpm; cardiology appointment and pacemaker device check about 1 month ago with no concerns. Reviewed monitor with tele ends breakage clerk and informed that patient frequently with HR in the 40s and with only intermittent activation of the pacer. Consider cardiology consult for possible pacemaker interrogation.
[2022-02-20 07:43] LABS: Hematocrit (blood only) 30.2 % (37-47); Hemoglobin 10.3 g/dL (12.0-16.0); Mean Corpuscular Hemoglobin 32.8 pg (25-34); Mean Corpuscular Hgb Conc 34.1 g/dL (32-36); Mean Corpuscular Volume 96.2 fL (80-100); Mean Platelet Volume 9.6 fL (7.4-10.4); Nucleated RBC # (auto) 0.09 K/uL (0-0); Nucleated RBC % (auto) 1.9 %; Platelet Count 234 K/uL (130-400); RDW Coefficient of Variation 18.1 % (11.5-14.5); RDW Standard Deviation 61.5 fL (36.4-46.3); Red Blood Count 3.14 M/uL (4.2-5.4); White Blood Count 4.95 K/uL (4.8-10.8)
[2022-02-20 07:44] LABS: Basophils # (auto) 0.03 K/uL (0-0.2); Basophils % (auto) 0.6 %; Calcium 8.5 mg/dl (8.5-10.1); Creatinine Clr Calc Pharmacy 47.9 ml/min; Eosinophils # (auto) 0.01 K/uL (0-0.5); Eosinophils % (auto) 0.2 %; Est GFR (African American) 66.5 ml/min; Est GFR (Non-African American) 57.4 ml/min; Immature Granulocytes # (auto) 0.33 K/uL (0.00-0.02); Immature Granulocytes % (auto) 6.7 %; Lymphocytes # (auto) 1.51 K/uL (1.2-3.4); Lymphocytes % (auto) 30.5 %; Monocytes # (auto) 1.51 K/uL (0.11-0.59); Monocytes % (auto) 30.5 %; Neutrophils # (auto) 1.56 K/uL (1.4-6.5); Neutrophils % (auto) 31.5 %
[2022-02-20] MEDS: APIXABAN 5 MG TABLET PO SCH (08:06)
[2022-02-20] MEDS: predniSONE 5 MG TAB PO SCH (08:06)
[2022-02-20] MEDS: PANTOprazole 40 MG TAB PO SCH (08:06)
[2022-02-20] MEDS: allopurinoL 300 MG TAB PO SCH (08:07)
[2022-02-20] MEDS: LOSARTAN POTASSIUM 50 MG TAB PO SCH (08:07)
[2022-02-20] MEDS: METOPROLOL SUCC 25MG EXT REL TAB PO SCH (08:07)
--- NOTE | 2022-02-20 09:01 | Discharge Summary ---
Date of Service February 20, 2022 Admission HPI Per Admitting Provider 76 yo F PMHx significant for A. 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 She was advised by her PCP to report to the ER for evaluation. Patient noted to have elevated heart rate with EKG showing A. fib with RVR; this resolved after receiving Lopressor 5 mg IV x1 and diltiazem 10 mg IV x1. Patient did have a brief episode of apnea when she was sleeping to 89% on room air and was placed on 2 LNC with good improvement. Lab work notable for leukopenia with neutropenia, anemia with hemoglobin 8.2 (decreased from ~10 in December), creatinine stable at 1.28, magnesium 1.3. Urinalysis notable for >30 RBCs, 1+ leukocyte esterase, 10-30 WBCs, >30 epithelials, 1+ bacteria. Blood and urine cultures were collected, and then patient was placed on empiric antibiotics vancomycin/cefepime. She also received a total of 2 L NSS for sepsis. Case was discussed with Dr. Marie by ER provider who agreed with admission for neutropenic fever evaluation. Principal Diagnosis Neutropenic Fever Anemia 2/2 Chronic Disease vs Chemo, no acute bleeding Discharge Exam General: A&Ox3. NAD. Cooperative. HEENT: Atraumatic, normocephalic. Vision and hearing grossly intact. Pupils equal and reactive to light. Pulm: CTAB A&P. -wheezes, -rales, -rhonchi. Symmetrical chest rise. No increase in work of breathing. No respiratory distress. Cardiac: RRR, -mrg. Radial pulses intact and symmetrical. Abdominal: Nontender, nondistended, soft. BS present Discharge Data Allergies Allergy/AdvReac Type Severity Reaction Status Date / Time morphine AdvReac Intermediate "Makes me Verified 02/17/22 14:57 crazy" Consultations 02/17/22 16:48 ED Decision to Admit Stat 02/20/22 07:05 Consult Cardiology Routine Hospital Course (1) Neutropenic fever: 76 yo F PMHx significant for A. 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 Neutropenic fever: - p/w 2 days of chills and malaise with one day of fever to Tmax 100.5. - DDx include infection, cancer, chemo-related. - Leukopenic to 1.67 with ANC 620. REmains neutropenic 02/18 - No clear evidence of infection on labwork, CXR, exam. No URI symptoms. Most likely source to be urinary given has history of recurrent UTIs with known bladder wall wound and irritation per Urology. - Blood and urine cultures pending.UC with pinpoint growth and reintubated showing multiple organisms present possible pieter. Prior urine with Gardnerella-like bacteria Given above will therapeutically narrow antibiotics to Keflex for 5-day course, and follow for recurrent fevers Patient does have indwelling port which would likely need to be removed in the setting of bacteremia, blood cultures at this time remain negative CXR:No acute findings, stable compared to prior. Metastatic bony disease is appreciated in the right seventh rib and left clavicle No need for antipyretics in 46 prior to dc. AFib with RVR: -History of AFib with tachy-atif syndrome, s/p pacemaker ~1 month ago. -Had brief episode of RVR in ER; improved with metoprolol 5 mg IV x1 and diltiazem 10 mg IV x1. -Suspect episode occurred due to dehydration and illness. Care of fever as described above. Adequate rate control at morning assessment. -Continue Eliquis 5mg BID. -Continue metoprolol succinate 25mg BID. -Lopressor 5mg IV q6h as needed for HR >120. 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 -Follows with Dr. Marie for chemotherapy and is between chemo cycles. -To undergo cystoscopy with possible biopsy/resection/debridement later this month. -Continue Fentanyl patches and oxycodone as needed for bony pain. Anemia: -Hgb fluctuates between 8-10 points over the last several months. -On admission with Hgb 8.2 with macrocytic MCV -B12 and folate levels normal -Continue home iron supplementation. Hemoglobin levels have continued to downtrend to 7.2. Patient does not have chest pain with this but does endorse increased fatigue despite treatment for neutropenic fever above. Iron levels reviewed, no evidence of iron deficiency. B12/folate normal. Reticulocyte index suggests hypoproliferation consistent with observed pancytopenia in the setting of chemotherapy. While she does have some blood in her urine with chronic Singh, she has not had gross hematuria and occult blood is negative. Low suspicion for active bleeding leading to downtrend. Given steady decline w hemoglobin near 7 (7.2)and fatigue discussed risk/benefits of transfusion versus continued monitoring. 2u pRBC transfused with appropriate rise to ~10 and stable. Pt discharged to [facility]. GERD: -Continue PPI. HTN: -Continue losartan 50mg daily. Code Status: DNR/DNI FEN: Regular diet DVT ppx: Eliquis 5mg BID Dispo: Med/Surg with Telemetry (2) Atrial fibrillation with RVR: (3) Tachy-atif syndrome: (4) Anemia: (5) Bladder cancer metastasized to bone: (6) Benign hypertension: (7) Acid reflux disease: Total Time Total Time Spent Total Time Spent (In Minutes): Total time spent 40 minutes including direct pt care, counseling, review of labs/images, and documentation Discharge Plan Discharge Items Patient Disposition: Home - Self-Care Reason For Visit: NEUTROPENIC FEVER Discharge Diagnosis: Neutropenic fever, suspected UTI Anemia of chronic disease/chemotherapy, no acute bleeding Activity: Resume your previous activity Non-emergency contact: Primary Care Provider and Oncologist Call non-emergency contact if: you have any medication questions and your symptoms worsen Follow-up/Referrals: Britt Maria MD [Primary Care Provider] - Diet: Regular Addtl Attending Provider Instructions: You were seen in the hospital for fever in the setting of neutropenia and chemotherapy. A urinary culture was drawn which showed multiple growth, this was recultured and showed multiple organisms which may have also been due to skin contamination. Due to your neutropenia and high risk, you were continued on a 5-day course of empiric antibiotics. During admission you had a slow but steady downtrend in your blood levels which are normally between 8 and 9. Your iron studies did not show iron deficiency. Your levels of folate and B12 are normal. A fecal occult blood test, which test for bleeding in the gastrointestinal tract, did not show evidence of GI bleeding. While you did have microscopic blood in your urine, this was not felt to be the cause of your overall anemia. Reticulocyte levels were checked and based on your blood work it is likely that you have hypoproliferation/poor blood cell production in the bone marrow as result of chronic disease and chemotherapy. Due to your fatigue which did not improve with treatment of your neutropenic fever and blood counts which had down trended to 7.2 the risk/benefits of a blood transfusion were discussed, and 2 units of irradiated blood were ordered. You had appropriate rise in your blood levels and no observable bleeding. You are discharged to follow-up with oncology and your PCP. You have been prescribed 5 days of a antibiotic, Keflex. Please take Keflex 500 mg every 8 hours for 3 additional days to treat potential underlying UTI. If you develop any new or worsening symptoms including fever, chills, sweats, chest pain, chest pressure, difficulty breathing, uncontrolled nausea/vomiting, rash, wheezing, passing out or nearly passing out, bleeding, black/bloody bowel movements, or other new or concerning symptoms please call your primary care physician, or call 911 for re-evaluation in the emergency department if you are very concerned. Pending Studies at Discharge: No Stand-Alone Forms: [facility], Smoking Cessation Medications and DC Order Prescriptions: New cephalexin 500 mg Capsule 500 mg PO Q8H 3 Days Qty: 9 RF: 0 Continued omeprazole 20 mg tablet,delayed release (DR/EC) 20 mg PO QAM Qty: 30 RF: 5 prednisone 5 mg tablet 15 mg PO QAM RF: 0 apixaban 5 mg tablet 5 mg PO BID Qty: 60 RF: 2 oxycodone 5 mg Tablet 5 mg PO .Q 4-6 HRS PRN (Reason: Pain) RF: 0 olanzapine 2.5 mg tablet 2.5 mg PO HS RF: 0 ondansetron HCl 8 mg tablet 8 mg PO Q8 PRN (Reason: Nausea And Vomiting) RF: 0 prochlorperazine maleate 10 mg tablet 10 mg PO Q6 PRN (Reason: Nausea) RF: 0 acetaminophen 500 mg Tablet 650 mg PO Q6H PRN (Reason: Pain) Qty: 0 RF: 0 fentanyl 37.5 mcg/hour Patch 72 Hour 1 patch TRANSDERMAL Q72H RF: 0 calcium carbonate [Calcium 600] 600 mg calcium (1,500 mg) Tablet 600 mg PO HS RF: 0 allopurinol 300 mg tablet 300 mg PO QAM RF: 0 zoledronic acid [Zometa] 4 mg Recon Soln 0 mg IV MONTHLY RF: 0 carboplatin 10 mg/mL Solution 0 mg IV UD RF: 0 gemcitabine 100 mg/mL Solution 0 mg IV UD RF: 0 losartan 50 mg tablet 50 mg PO QAM RF: 0 metoprolol succinate 50 mg tablet extended release 24 hr 25 mg PO BID RF: 0 ferrous sulfate 325 mg (65 mg iron) Tablet 325 mg PO HS RF: 0 Discharge Orders: Discharge Order (Routine); Ordered 02/20/22 Ordered By: Isaias Quintana Admission Data Admit Date/Time: 02/17/22 17:57 Attending Provider: Isaias Quintana Admit Provider: Tl You Primary Care Provider: Britt Maria Other Providers: Tl You ; [facility] ; Alessandro Garsia Coding Level of Care Code D/C DAY MANAGEMENT >30 MINS Diagnoses Neutropenic fever D70.9; R50.81 Atrial fibrillation with RVR I48.91 Tachy-atif syndrome I49.5 Anemia D64.9 Bladder cancer metastasized to bone C67.9; C79.51 Benign hypertension I10 Acid reflux disease K21.9
[2022-02-20] MEDS: HEPARIN 100 UNIT/ML 5ML FLUSH FLUSH PRN (09:30)
== END 2022-02-20 11:25 | disposition home or self-care (01) | DRG 864 ==
LOC: ED 11:35 → SUATTDRO 17:57 → 2W 17:57

== ENCOUNTER 2022-03-29 11:30 | Inpatient (IN) ==
[2022-03-29] MEDS ORDERED: METOPROLOL TARTRATE 1 MG/ML VIAL IV STA (11:55)
[2022-03-29] MEDS ORDERED: SODIUM CHLORIDE 0.9% 1000ML 250 ML IV ONE (11:55)
--- NOTE | 2022-03-29 12:00 | Emergency Department Note ---
History of Present Illness General Chief complaint: Cardiac Assessment Stated complaint: CARDIAC ASSESSMENT, Time Seen by Provider: 03/29/22 11:43 Source: patient History of Present Illness Provider complaint: Chest pain Onset (ago): day(s) 3 Location: chest Radiation: extremity (Both shoulders) Pain Consistency: + intermittent and + now resolved Quality: + burning and + other (Tightness) Relieved By: + none Exacerbated By: + none Associated symptoms: + chest pain and + shortness of breath; no cough, no fever/chills, no nausea/vomiting or no syncope This is a 76-year-old female with a history of atrial fibrillation presenting with chest pain starting 3 days ago. The chest pain will come on at any time. Today the patient was getting up for the day and walking around when she developed palpitations. Her heart was racing and she felt pain in her chest in the upper portion. It radiated to both shoulders. She stated that the pain in the upper chest felt like a burning sensation and the pain in her shoulders felt like a tightness squeezing like a blood pressure cuff. It lasted about 45 minutes and went away. She denies feeling any palpitations at this time. She states that she has sporadically been having the symptoms for the past 3 days. She did not pass out. She does have shortness of breath when she moves around but she states this is normal for her. She denies any recent fever, cough or cold symptoms, abdominal pain, vomiting or diarrhea. She has had no urinary symptoms. She is on Eliquis for atrial fibrillation. She did have a pacemaker placed 2 months ago. She last had chemotherapy 8 days ago. She states this is her week off. Home Medications Medication Instructions Recorded Confirmed Type olanzapine 2.5 mg tablet 2.5 mg PO HS 10/27/21 03/21/22 History ondansetron HCl 8 mg tablet 8 mg PO BID 10/27/21 03/21/22 History prochlorperazine maleate 10 mg 10 mg PO Q6 PRN 10/27/21 03/21/22 History tablet ferrous sulfate 325 mg (65 mg 325 mg PO HS 11/22/21 03/21/22 History iron) tablet fentanyl 37.5 mcg/hour transdermal 1 patch TRANSDERMAL Q72H 12/04/21 03/21/22 History patch omeprazole 20 mg tablet,delayed 20 mg PO QAM #30 tab 12/20/21 03/21/22 Rx release prednisone 5 mg tablet 15 mg PO QAM 12/30/21 03/21/22 History calcium carbonate 600 mg calcium 600 mg PO HS 02/17/22 03/21/22 History (1,500 mg) tablet (Calcium) losartan 50 mg tablet 50 mg PO QAM 02/17/22 03/21/22 History tamsulosin 0.4 mg capsule 0.4 mg PO HS #30 cap 02/28/22 03/08/22 Rx amlodipine 2.5 mg tablet 2.5 mg PO DAILY #90 tab 03/04/22 03/08/22 Rx acetaminophen 325 mg tablet 650 mg PO QID PRN 03/08/22 03/21/22 History oxycodone 5 mg tablet 5 mg PO Q6H PRN 03/08/22 03/21/22 History allopurinol 300 mg tablet 300 mg PO QAM #180 tab 03/14/22 03/21/22 Rx apixaban 5 mg tablet 5 mg PO BID #60 tab 03/15/22 03/21/22 Rx metoprolol succinate 100 mg 100 mg PO .COMPLEX #135 tab 03/21/22 03/21/22 Rx tablet,extended release 24 hr Allergies Allergy/AdvReac Type Severity Reaction Status Date / Time morphine AdvReac Intermediate "Makes me Verified 03/21/22 15:57 crazy" Past Med/Surg History Medical History (Updated 03/29/22 @ 13:54 by Frederick Herring MD) Abnormal LFTs Acute dehydration Acute hypotension Anemia Bradycardia follows with Dr. 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, back and lung [place] (hard of hearing) HTN (hypertension) Hx SBO with surgical intervention > no colostomy Nocturnal hypoxemia per daughters report Osteoarthritis Paroxysmal atrial fibrillation Pacer> placed December 2021 Poor historian SOB (shortness of breath) on exertion Steroid dependent Vomiting controlled with Zofran Surgical History History of cardiac cath 12/10/21 > no stents History of colonoscopy History of surgery TURBT History of total abdominal hysterectomy and bilateral salpingo-oophorectomy History of wisdom tooth extraction Port-A-Cath in place (10/18/21) Insertion Access Port in Right Jugular with Fluoroscopy(Right) - Peterson Dasilva DO, FACS 10/18/21 S/P placement of cardiac pacemaker Medtronic > placed December 2021 [facility] > last checked at [place] during admission February 2022 Family History Father Cancer lung Colorectal cancer Mother Hearing loss Hypertension Stroke Other No family history of adverse response to anesthesia No family history of bleeding disorder Denies family history of Ovarian cancer Prostate cancer Myocardial infarction Breast cancer Social History Smoking Status: Never smoker Tobacco Type: Cigarettes packs per day: 1; Years Smoked: 10; Second Hand Exposure: No; Hx Alcohol Use: No Hx Substance Use: No Preferred Language: Beninese Communication Ability: Effective Visual Impairment: No Limitations Hearing Ability: Hard of Hearing [employer] Sales[employer] Required: No Beliefs That Will Affect Care: None marital status: / Current Living Situation: Family Current Living Situation Comment: Daughter current occupational status: retired How many Children do You have: 2 Feels Safe at Home: Yes Childhood Exposure to Second-Hand Smoke: Yes caffeine: Yes Dental Care, Regularly: No Physical Activity Frequency: Does not Exercise Seatbelt Use: always Sunscreen Use: Yes Assistive Devices: None Review of Systems See HPI for pertinent positives & negatives. and A total of 10 systems reviewed and were otherwise negative Physical Exam Vital Signs Vital Signs - 24 hr 03/29/22 11:41 03/29/22 11:51 03/29/22 12:00 Temperature 36.8 C 36.8 C Temperature Source Oral Oral Pulse Rate 168 H 160 H Pulse Rate [Apical] 155 H Pulse Rhythm [Apical] Irregular Respiratory Rate 12 20 14 Respiratory Effort / Characteristics Non-Labored Spontaneous Respiratory Depth Normal Respiratory Pattern Regular Blood Pressure 127/88 135/91 Blood Pressure [Left Arm] 127/88 Blood Pressure Mean 101 105 Blood Pressure Mean [Left Arm] 101 Blood Pressure Position Lying Blood Pressure Position [Left Arm] Semi-fowlers Pulse Oximetry 94 94 96 Oxygen Delivery Method Room Air Room Air Sepsis Recent Fever Within 48 Hours No Sepsis New/Unexplained Change in Mental Status N/A Sepsis Action Taken by Nursing No Action Required 03/29/22 12:30 03/29/22 12:57 03/29/22 13:00 Temperature Temperature Source Pulse Rate 78 74 Pulse Rate [Apical] Pulse Rhythm [Apical] Respiratory Rate 18 18 Respiratory Effort / Characteristics Respiratory Depth Respiratory Pattern Blood Pressure 122/79 96/56 L Blood Pressure [Left Arm] Blood Pressure Mean 93 69 Blood Pressure Mean [Left Arm] Blood Pressure Position Blood Pressure Position [Left Arm] Pulse Oximetry 96 97 96 Oxygen Delivery Method Room Air Sepsis Recent Fever Within 48 Hours Sepsis New/Unexplained Change in Mental Status Sepsis Action Taken by Nursing Constitutional: Vital signs reviewed. Eyes: Pupils are equal round reactive to light. Conjunctiva are noninjected. ENT: Pharynx is clear without erythema or exudate. Mucous membranes are moist. Neck supple without meningeal signs. Respiratory: Clear to auscultation bilaterally. Breath sounds are equal bilaterally. Cardiovascular: Tachycardic. Heart rate 171. GI: Soft, nondistended and nontender. Bowel sounds are present. Musculoskeletal: No peripheral edema. No lower extremity tenderness. Integumentary: No cyanosis. or jaundice. Neurological: The patient is awake and alert. No focal deficits. Psychiatric: Normal affect. Not anxious appearing. Course Administered Medications Acetaminophen (Acetaminophen 325 Mg Tab) 650 mg PO QID PRN PRN Reason: Pain Stop: 04/28/22 15:17 Last Admin: 03/29/22 18:49 Dose: 650 mg Documented by: [id number] Fentanyl (Fentanyl 25 Mcg/Hr Tdsy) 25 mcg TD Q72H [facility] Stop: 04/12/22 16:59 Last Admin: 03/29/22 16:45 Dose: 25 mcg Documented by: [id number] Fentanyl (Fentanyl 12 Mcg/Hr Tdsy) 12 mcg TD Q72H [facility] Stop: 04/12/22 16:59 Last Admin: 03/29/22 16:44 Dose: 12 mcg Documented by: [id number] Amiodarone HCl/Dextrose (Nexterone / D5w) 360 mg in 200 mls @ 33.333 mls/hr IV ONE ONE Stop: 03/29/22 23:25 Last Admin: 03/29/22 18:06 Dose: 33.3 mls/hr Documented by: [id number] Cosigned by: [id number] Metoprolol Tartrate (Metoprolol Tartrate 1 Mg/Ml Vial) 5 mg IV Q4 PRN PRN Reason: sbp > 185, dbp >95, HR >120 Stop: 04/28/22 15:17 Last Admin: 03/29/22 17:22 Dose: 5 mg Documented by: [id number] Miscellaneous (Fentanyl Patch Remove & Waste) 1 ea N/A Q72H [facility] Stop: 04/28/22 16:58 Last Admin: 03/29/22 16:49 Dose: 1 ea Documented by: [id number] Cosigned by: [id number] Miscellaneous (Fentanyl Patch Remove & Waste) 1 ea N/A Q72H [facility] Stop: 04/28/22 16:58 Last Admin: 03/29/22 16:49 Dose: 1 ea Documented by: [id number] Cosigned by: [id number] Oxycodone HCl (Oxycodone Hcl Ir 5 Mg Tab (Immediate Release)) 5 mg PO Q6H PRN PRN Reason: Pain Stop: 04/12/22 15:17 Last Admin: 03/29/22 18:49 Dose: 5 mg Documented by: [id number] Discontinued Medications Sodium Chloride (Nss 1000ml) 250 mls @ 999 mls/hr IV .Q16M ONE Stop: 03/29/22 12:10 Last Infusion: 03/29/22 12:49 Dose: 0 mls/hr Documented by: [id number] Admin: 03/29/22 12:16 Dose: 999 mls/hr Documented by: [id number] Magnesium Sulfate/Dextrose (Magnesium Sulfate / D5w) 1 gm in 100 mls @ 100 mls/hr IV Q1H [facility] Stop: 03/29/22 15:00 Last Infusion: 03/29/22 15:23 Dose: 0 mls/hr Documented by: [id number] Admin: 03/29/22 14:15 Dose: 100 mls/hr Documented by: [id number] Infusion: 03/29/22 14:13 Dose: 100 mls/hr Documented by: [id number] Admin: 03/29/22 13:13 Dose: 100 mls/hr Documented by: [id number] Hydrocortisone Sodium (Succinate 50 mg/ Syringe) 1 mls @ 4 mls/min IV NOW STA Stop: 03/29/22 15:39 Last Admin: 03/29/22 16:49 Dose: 4 mls/min Documented by: [id number] Amiodarone HCl/Dextrose (Nexterone / D5w) 150 mg in 100 mls @ 600 mls/hr IV NOW STA Stop: 03/29/22 17:25 Last Infusion: 03/29/22 18:19 Dose: 0 mls/hr Documented by: [id number] Cosigned by: [id number] Admin: 03/29/22 17:52 Dose: 600 mls/hr Documented by: [id number] Cosigned by: [id number] Metoprolol Tartrate (Metoprolol Tartrate 1 Mg/Ml Vial) 2.5 mg IV NOW STA Stop: 03/29/22 11:56 Last Admin: 03/29/22 12:15 Dose: 2.5 mg Documented by: [id number] Critical Care Time Critical Care Time: Yes Total Critical Care Time: 35 I have personally spent approximately 35 minutes of critical care time in the direct management of this patient. This includes bedside care, interpretation of diagnostic studies, and testing, discussion with consultants, patient, and family members, and other required patient management activities. These minutes are in excess of all separately billable procedures. Medical Decision Making Differential Diagnosis A. fib with RVR, electrolyte abnormality, metabolic derangement, tachybradycardia syndrome, ACS, anemia Medical Records Attestation: I reviewed the patient's medical records. I did perform a limited focused review of portions of the patient's old chart on the electronic medical record. The patient was admitted a month ago for A. fib with RVR as well as neutropenic fever. She was treated with Cardizem and Lopressor in the ED. She was noted to have had a pacemaker placed about a month ago for A. fib with tachybradycardia syndrome. She was seen again on March 08 after having tachycardia with A. fib in dialysis. She was diagnosed with a vasovagal syncopal episode and discharged home. Home Medications Current Medication List: was personally reviewed by me Laboratory Data Attestation: I reviewed the patient's lab results. Result diagrams: 03/29/22 11:50 03/29/22 11:50 Lab Results 03/29/22 03/29/22 03/29/22 Range/Units 11:50 11:50 12:20 WBC 2.58 L (4.8-10.8) K/uL RBC 2.35 L (4.2-5.4) M/uL Hgb 7.6 L (12.0-16.0) g/dL Hct 22.9 L (37-47) % MCV 97.4 (80-100) fL MCH 32.3 (25-34) pg MCHC 33.2 (32-36) g/dL RDW Std Deviation 55.7 H (36.4-46.3) fL RDW Coeff of Janice 15.8 H (11.5-14.5) % Plt Count 20 L* (130-400) K/uL MPV 9.8 (7.4-10.4) fL Immature Gran % (Auto) 0.0 % Neut % (Auto) 29.8 % Lymph % (Auto) 69.8 % [place] % (Auto) 0.4 % Eos % (Auto) 0.0 % Baso % (Auto) 0.0 % Neut # (Auto) 0.77 L* (1.4-6.5) K/uL Lymph # (Auto) 1.80 (1.2-3.4) K/uL [place] # (Auto) 0.01 L (0.11-0.59) K/uL Eos # (Auto) 0.00 (0-0.5) K/uL Baso # (Auto) 0.00 (0-0.2) K/uL Immature Gran # (Auto) 0.00 (0.00-0.02) K/uL Platelet Estimate SIGNIFIC DECREASED (Normal) RBC Morphology Unremarkable Sodium 141 (136-145) mmol/L Potassium 3.8 (3.5-5.1) mmol/L Chloride 108 H (98-107) mmol/L Carbon Dioxide 25 (21-32) mmol/L Anion Gap 8 (3-11) BUN 31 H (6-23) mg/dl Creatinine 1.13 (0.6-1.2) mg/dl Est Cr Clr Drug Dosing 39.1 ml/min Est GFR ( Amer) 53.9 ml/min Est GFR (Non-Af Amer) 46.5 ml/min BUN/Creatinine Ratio 27.4 H (10-20) Glucose 94 (70-99(Fasting)) mg/dl Calcium 8.9 (8.5-10.1) mg/dl Magnesium 1.4 L (1.7-2.4) mg/dl Total Bilirubin 0.5 (0.2-1.0) mg/dl AST 21 (13-39) U/L ALT 30 (7-52) U/L Alkaline Phosphatase 76 (34-104) U/L Troponin I High Sens 54.0 H* D (0-14) pg/ml Total Protein 6.1 (6.0-8.3) gm/dl Albumin 3.4 (3.4-5.0) gm/dl Globulin 2.7 (2.5-4.0) gm/dl Albumin/Globulin Ratio 1.3 (0.9-2) SARS-CoV-2, RNA, NAAT NEGATIVE (NEGATIVE) Blood Type Antibody Screen Crossmatch 03/29/22 Range/Units 13:10 WBC (4.8-10.8) K/uL RBC (4.2-5.4) M/uL Hgb (12.0-16.0) g/dL Hct (37-47) % MCV (80-100) fL MCH (25-34) pg MCHC (32-36) g/dL RDW Std Deviation (36.4-46.3) fL RDW Coeff of Janice (11.5-14.5) % Plt Count (130-400) K/uL MPV (7.4-10.4) fL Immature Gran % (Auto) % Neut % (Auto) % Lymph % (Auto) % [place] % (Auto) % Eos % (Auto) % Baso % (Auto) % Neut # (Auto) (1.4-6.5) K/uL Lymph # (Auto) (1.2-3.4) K/uL [place] # (Auto) (0.11-0.59) K/uL Eos # (Auto) (0-0.5) K/uL Baso # (Auto) (0-0.2) K/uL Immature Gran # (Auto) (0.00-0.02) K/uL Platelet Estimate (Normal) RBC Morphology Sodium (136-145) mmol/L Potassium (3.5-5.1) mmol/L Chloride (98-107) mmol/L Carbon Dioxide (21-32) mmol/L Anion Gap (3-11) BUN (6-23) mg/dl Creatinine (0.6-1.2) mg/dl Est Cr Clr Drug Dosing ml/min Est GFR ( Amer) ml/min Est GFR (Non-Af Amer) ml/min BUN/Creatinine Ratio (10-20) Glucose (70-99(Fasting)) mg/dl Calcium (8.5-10.1) mg/dl Magnesium (1.7-2.4) mg/dl Total Bilirubin (0.2-1.0) mg/dl AST (13-39) U/L ALT (7-52) U/L Alkaline Phosphatase (34-104) U/L Troponin I High Sens (0-14) pg/ml Total Protein (6.0-8.3) gm/dl Albumin (3.4-5.0) gm/dl Globulin (2.5-4.0) gm/dl Albumin/Globulin Ratio (0.9-2) SARS-CoV-2, RNA, NAAT (NEGATIVE) Blood Type O Positive Antibody Screen NEGATIVE Crossmatch See Detail Imaging Data Radiologist's Impression: Chest X-Ray 03/29/22 11:56 XR chest 1V portable CLINICAL HISTORY: Dysrhythmia TECHNIQUE: Single frontal radiograph of the chest was obtained. Comparison: Comparison is made to chest radiograph 03/08/2022 FINDINGS: A port catheter is seen. Calcified aortic knob is seen. The lungs are clear. No evidence of pleural effusion or pneumothorax. IMPRESSION: No acute chest disease. ACT 112: Negative or not required by law. Electronically signed by: Mert Renee M.D. 03/29/2022 12:28 PM ECG Data Attestation: I personally reviewed and interpreted this ECG as follows: Indication: + chest pain and + tachycardia Rate (beats per minute): 153 Rhythm: + atrial fibrillation ECG ST segments: + Nonspecific ST abnormalities ECG Findings: + PVCs Comparison ECG Date: from (March 08, 2022 at 1341) Change: no significant change Prescription Drug Monitoring Prescription Drug Findings: Repeat twelve-lead EKG performed at 1310 per my interpretation shows sinus rhy thm with a rate of 74 bpm. There are no ST elevations concerning for STEMI. No PVCs. Significant improvement from prior EKG. MDM Narrative I did evaluate the patient as noted above. Patient is presenting with intermittent chest pain and tachycardia. access was established. I did place an order for continuous cardiac monitoring. The monitor showed atrial fibrillation with RVR with a rate of 181 bpm. I did order and personally review the patient's 12-lead EKG as described above. She does have atrial fibrillation with RVR and nonspecific ST-T wave changes. She is not currently having any chest discomfort or shortness of breath. I did treat her with Lopressor 2.5 mg IV. She was also given a bolus of normal saline 250 mL IV. On reassessment her heart rate improved and her blood pressure increase. I did order and personally reviewed the images of the patient's chest x-ray as described above. There is no evidence of acute process. I did order and review the patient's blood work as noted in the electronic medical record. She has pancytopenia with a white count of 2.5 and an ANC of 770. Her platelet count is 20 and her hemoglobin is 7.6. CMP is remarkable for a magnesium 1.4. I did order 2 g of magnesium IV. Troponin is slightly elevated at 54. I did reassess the patient again. I did obtain informed consent for blood transfusion. Her heart rate is now 77 and her blood pressure is normal. I did discuss the test results with the patient and her daughter. She denies any melanotic stools or hematochezia. I did order 2 units of packed red blood cells to be transfused after they are irradiated. I did order a second EKG which showed no acute ischemic changes as outlined below. I did discuss the case with the hospitalist and case management social worker. Impression & Plan Atrial fibrillation with RVR, Symptomatic anemia, Pancytopenia, Anticoagulated, Elevated troponin I level, Hypomagnesemia Discharge Plan Visit Data Chief Complaint: Cardiac Assessment Stated Complaint: CARDIAC ASSESSMENT, ED Provider: Frederick Dai Discharge Problem: Atrial fibrillation with RVR, Symptomatic anemia, Pancytopenia, Anticoagulated, Elevated troponin I level, Hypomagnesemia Patient Disposition: Admitted As Inpatient Discharge Instructions Interventions: ED Discharge Assessment Last Done: 03/29/22 14:35
--- NOTE | 2022-03-29 12:30 | XRay Report ---
XR chest 1V portable CLINICAL HISTORY: Dysrhythmia TECHNIQUE: Single frontal radiograph of the chest was obtained. Comparison: Comparison is made to chest radiograph 03/08/2022 FINDINGS: A port catheter is seen. Calcified aortic knob is seen. The lungs are clear. No evidence of pleural e ffusion or pneumothorax. IMPRESSION: No acute chest disease. ACT 112: Negative or not required by law. Electronically signed by: Mert Renee M.D. 03/29/2022 12:28 PM
[2022-03-29 12:31] LABS: Hematocrit (blood only) 22.9 % (37-47); Hemoglobin 7.6 g/dL (12.0-16.0); Mean Corpuscular Hemoglobin 32.3 pg (25-34); Mean Corpuscular Volume 97.4 fL (80-100); RDW Coefficient of Variation 15.8 % (11.5-14.5); RDW Standard Deviation 55.7 fL (36.4-46.3); Red Blood Count 2.35 M/uL (4.2-5.4); White Blood Count 2.58 K/uL (4.8-10.8)
[2022-03-29 12:42] LABS: Mean Corpuscular Hgb Conc 33.2 g/dL (32-36); Mean Platelet Volume 9.8 fL (7.4-10.4); Platelet Count 20 K/uL (130-400)
[2022-03-29 12:44] LABS: Lymphocytes % (auto) 69.8 %; Monocytes # (auto) 0.01 K/uL (0.11-0.59); Monocytes % (auto) 0.4 %; Neutrophils # (auto) 0.77 K/uL (1.4-6.5); Neutrophils % (auto) 29.8 %; Platelet Estimate SIGNIFIC DECREASED (Normal); RBC Morphology Unremarkable
[2022-03-29 12:45] LABS: Albumin Globulin Ratio 1.3 (0.9-2); Albumin Level 3.4 gm/dl (3.4-5.0); BUN Creatinine Ratio 27.4 (10-20); Bilirubin,Total 0.5 mg/dl (0.2-1.0); Calcium 8.9 mg/dl (8.5-10.1); Creatinine Clr Calc Pharmacy 39.1 ml/min; Est GFR (African American) 53.9 ml/min; Est GFR (Non-African American) 46.5 ml/min; Globulin 2.7 gm/dl (2.5-4.0); Magnesium 1.4 mg/dl (1.7-2.4); Potassium 3.8 mmol/L (3.5-5.1); Total Protein 6.1 gm/dl (6.0-8.3)
[2022-03-29] MEDS ORDERED: SODIUM CHLORIDE 0.9% 250 ML IV PRN (13:00)
[2022-03-29] MEDS: MAGNESIUM SULFATE / D5W 1 GM/100 ML BAG IV SCH ×2 (13:13→14:15)
--- NOTE | 2022-03-29 13:25 | History & Physical Report ---
Date of Service March 29, 2022 Assessment & Plan (1) Atrial fibrillation with RVR: Plan: Patient presents with atrial fibrillation RVR she has associated chest pain related symptoms and elevated troponin. Escalate metoprolol to 100 twice daily replete magnesium, continue Eliquis Electrophysiology consultation leadless intraventricular pacemaker Escalating her metoprolol we will hold her daily amlodipine, cardiology recommended with increase heart rate initiate amiodarone gtt (2) Elevated troponin: Plan: Elevated troponin repeat in 2 hours high-sensitivity if this continues to go up patient may benefit from ischemic risk stratification evaluation Repeat troponin 2 hours 1 in the morning to be obtained EchoCardiogram is pending for evaluation of regional wall motion abnormalities and ejection fraction pt with second trop elevated, low platelets and not acute changes on ecg, will keep npo after MN, will hold apixiban dose this evenig and start heparin in am if possible heart cath with pharmacy oversight, if not will resume epiquis as long as hgb and platelets are stable (3) Anemia: Plan: Patient is pancytopenic but the anemia may be stressing her cardiac symptoms subsequently she is ordered 2 units transfusion packed red blood cells in the emergency department recheck hemoglobin this evening Assume that the anemia is from her chemotherapy iron and B12 levels pending for the morning last TSH was checked March 08 and was found to be normal (4) H/O primary malignant neoplasm of urinary bladder: Plan: Patient known to have bony mets follows [facility] under care of Dr. Yen She is known to have a clavicular met as evidenced in September 2021 (5) Chronic steroid use: Plan: Patient is on chronic steroid use. She does have some softer blood pressures here in the emergency department. 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 Patient presents with substernal chest burning and sensation of palpations. This was associated with a squeezing sensation. In the emergency department the patient was tachycardic which was remedied by intravenous metoprolol. She has an elevated high-sensitivity troponin but she does not have any acute changes on her EKG. Patient is found to be anemic as she is undergoing concurrent cancer treatment for metastatic bladder cancer to her skeleton and hypomagnesemic. She carries a history of her atrial fibrillation for which she takes metoprolol 100 the morning 50 at night and is anticoagulated with Eliquis. Currently she is stable after administration of the metoprolol Patient COVID-negative on admission Allergies Allergy/AdvReac Type Severity Reaction Status Date / Time morphine AdvReac Intermediate "Makes me Verified 03/21/22 15:57 crazy" Home Medications Medication Instructions Recorded Confirmed Type olanzapine 2.5 mg tablet 2.5 mg PO HS 10/27/21 03/21/22 History ondansetron HCl 8 mg tablet 8 mg PO BID 10/27/21 03/21/22 History prochlorperazine maleate 10 mg 10 mg PO Q6 PRN 10/27/21 03/21/22 History tablet ferrous sulfate 325 mg (65 mg 325 mg PO HS 11/22/21 03/21/22 History iron) tablet fentanyl 37.5 mcg/hour transdermal 1 patch TRANSDERMAL Q72H 12/04/21 03/21/22 History patch omeprazole 20 mg tablet,delayed 20 mg PO QAM #30 tab 12/20/21 03/21/22 Rx release prednisone 5 mg tablet 15 mg PO QAM 12/30/21 03/21/22 History calcium carbonate 600 mg calcium 600 mg PO HS 02/17/22 03/21/22 History (1,500 mg) tablet (Calcium) losartan 50 mg tablet 50 mg PO QAM 02/17/22 03/21/22 History tamsulosin 0.4 mg capsule 0.4 mg PO HS #30 cap 02/28/22 03/08/22 Rx amlodipine 2.5 mg tablet 2.5 mg PO DAILY #90 tab 03/04/22 03/08/22 Rx acetaminophen 325 mg tablet 650 mg PO QID PRN 03/08/22 03/21/22 History oxycodone 5 mg tablet 5 mg PO Q6H PRN 03/08/22 03/21/22 History allopurinol 300 mg tablet 300 mg PO QAM #180 tab 03/14/22 03/21/22 Rx apixaban 5 mg tablet 5 mg PO BID #60 tab 03/15/22 03/21/22 Rx metoprolol succinate 100 mg 100 mg PO .COMPLEX #135 tab 03/21/22 03/21/22 Rx tablet,extended release 24 hr Past Med/Surg History Medical History (Updated 03/29/22 @ 13:54 by Frederick Herring MD) Abnormal LFTs Acute dehydration Acute hypotension Anemia Bradycardia follows with Dr. 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, back and lung [place] (hard of hearing) HTN (hypertension) Hx SBO with surgical intervention > no colostomy Nocturnal hypoxemia per daughters report Osteoarthritis Paroxysmal atrial fibrillation Pacer> placed December 2021 Poor historian SOB (shortness of breath) on exertion Steroid dependent Vomiting controlled with Zofran Surgical History History of cardiac cath 12/10/21 > no stents History of colonoscopy History of surgery TURBT History of total abdominal hysterectomy and bilateral salpingo-oophorectomy History of wisdom tooth extraction Port-A-Cath in place (10/18/21) Insertion Access Port in Right Jugular with Fluoroscopy(Right) - Peterson Dasilva DO, FACS 10/18/21 S/P placement of cardiac pacemaker Medtr[employer] > placed December [address] [facility] > [place] February 2022 Family History Father Cancer lung Colorectal cancer Mother Hearing loss Hypertension Stroke Other No family history of adverse response to anesthesia No family history of bleeding disorder Denies family history of Ovarian cancer Prostate cancer Myocardial infarction Breast cancer Social History Smoking Status: Never smoker Tobacco Type: Cigarettes packs per day: 1; Years Smoked: 10; Second Hand Exposure: No; Hx Alcohol Use: No Hx Substance Use: No Preferred Language: Pashto Communication Ability: Effective Visual Impairment: No Limitations Hearing Ability: Hard of Hearing Aerospace Technician Required: No Beliefs That Will Affect Care: None marital status: / Current Living Situation: Family Current Living Situation Comment: Daughter current occupational status: retired How many Children do You have: 2 Feels Safe at Home: Yes Childhood Exposure to Second-Hand Smoke: Yes caffeine: Yes Dental Care, Regularly: No Physical Activity Frequency: Does not Exercise Seatbelt Use: always Sunscreen Use: Yes Assistive Devices: None Review of Systems Review of Systems: Mild distress and fatigue no headache, no visual changes no speech or swallowing issues Prehospital chest burning with radiation to her right arm Some dyspnea associated with chest burning no abdominal pain, nausea or vomiting, diarrhea or constipation no dysuria, hematuria or frequency no focal joint pain or swelling no back pain, CVA tenderness or radicular pain no bruising, bleeding or rashes no focal signs of weakness or numbness or altered sensation no complaints of anxiety or depression.. Physical Exam Physical Exam: The patient appeared chronically ill but well hydrated Vital signs as documented. Head exam is normocephalic atraumatic Neck is without JVD, thyromegaly, or carotid bruits. Lungs are clear to auscultation, no focal loss of breath sounds Cardiac exam, Rhythm is regular.. Ejection murmur was heard at the right upper sternal border Abdominal exam reveals normal bowel sounds, soft non tender, no masses Extremities are nonedematous and both pedal pulses are present Neurologic exam is alert and oriented, no focal loss of strength or sensation Skin is without bruises or rashes Psychologically is without concerns for anxiety or depression.. Results & Data Results & Data ([facility]) Vital Signs (Past 12 Hours) Vital Signs Temp Pulse Pulse Resp BP BP Pulse Ox 03/29/22 12:57 97 03/29/22 12:30 78 18 122/79 96 03/29/22 12:00 160 H 14 135/91 96 03/29/22 11:51 98.2 F 168 H 20 127/88 94 03/29/22 11:41 98.2 F 155 H 12 127/88 94 Diagnostic Findings Chest X-Ray 03/29/22 11:56 XR chest 1V portable CLINICAL HISTORY: Dysrhythmia TECHNIQUE: Single frontal radiograph of the chest was obtained. Comparison: Comparison is made to chest radiograph 03/08/2022 FINDINGS: A port catheter is seen. Calcified aortic knob is seen. The lungs are clear. No evidence of pleural effusion or pneumothorax. IMPRESSION: No acute chest disease. ACT 112: Negative or not required by law. Electronically signed by: Mert Renee M.D. 03/29/2022 12:28 PM ECG Additional Comments: Atrial fibrillation rapid ventricular rate narrow complex tachycardia no acute ST or T wave changes see Code Status & VTE Plan VTE Prophylaxis Plan VTE Prophylaxis will be ordered: Yes PG Care Time/CCT Total # of Minutes Spent Total Time Spent with Patient: Total time spent is greater than 50% in coordination of care (as documented) at patient's floor/unit and/or counseling patient: Coding Level of Care Code 76486 Initial Inpt Care Lvl 3 Diagnoses Anemia D64.9 H/O primary malignant neoplasm of urinary bladder Z85.51 Atrial fibrillation with RVR I48.91 Chronic steroid use Elevated troponin R77.8
--- NOTE | 2022-03-29 14:25 | Electrocardiogram Report ---
Test Reason : Blood Pressure : / mmHG Vent. Rate : 153 BPM Atrial Rate : 197 BPM P-R Int : 000 ms QRS Dur : 080 ms QT Int : 290 ms P-R-T Axes : 000 -01 122 degrees QTc Int : 463 ms Atrial fibrillation with rapid ventricular response with premature ventricular or aberrantly conducte d complexes Nonspecific ST and T wave abnormality Abnormal ECG When compared with ECG of 08-MAR-2022 15:49, Atrial fibrillation has replaced Sinus rhythm Vent. rate has increased BY 89 BPM Non-specific change in ST segment in Inferior leads ST now depressed in Lateral leads Inverted T waves have replaced nonspecific T wave abnormality in Lateral leads Confirmed by Asael Mei ([id number]) on 03/29/2022 2:24:45 PM Referred By: Confirmed By:Asael Mei
--- NOTE | 2022-03-29 14:29 | Electrocardiogram Report ---
Test Reason : Blood Pressure : / mmHG Vent. Rate : 074 BPM Atrial Rate : 074 BPM P-R Int : 162 ms QRS Dur : 088 ms QT Int : 392 ms P-R-T Axes : 036 -11 030 degrees QTc Int : 435 ms Sinus rhythm Leftward axis Abnormal ECG When compared with ECG of 29-MAR-2022 11:40, (unconfirmed) Atrial fibrillation no longer present Vent. rate has decreased BY 79 BPM Confirmed by Asael Mei ([id number]) on 03/29/2022 2:29:03 PM Referred By: Confirmed By:Asael Mei
[2022-03-29] MEDS ORDERED: MoRPHine SULFATE 2 MG/ML CARP IV PRN (15:18)
[2022-03-29] MEDS ORDERED: PROCHLORPERAZINE MALEATE 10 MG TAB PO PRN (15:18)
[2022-03-29] MEDS ORDERED: HYDROCORTISONE SOD SUCCINATE 100 MG/2 ML VIAL IV STA (15:18)
[2022-03-29] MEDS ORDERED: NITROGLYCERIN SL 0.4 MG/TAB TAB SL PRN (15:18)
[2022-03-29] MEDS ORDERED: ONDANSETRON INJ 2 MG/ML 2 ML VIAL IV PRN (15:18)
[2022-03-29] MEDS ORDERED: HYDROCORTISONE SOD 50 MG in SYRINGE 0 ML IV STA (15:38)
--- NOTE | 2022-03-29 16:07 | XCELERA ---
[id number]
[2022-03-29] MEDS ORDERED: fentaNYL 12 MCG/HR TDSY TD SCH (17:00)
[2022-03-29] MEDS ORDERED: fentaNYL 25 MCG/HR TDSY TD SCH (17:00)
[2022-03-29] MEDS ORDERED: AMIODARONE IV BOLUS & DRIP IV STA (17:16)
[2022-03-29] MEDS ORDERED: AMIODARONE / D5W 150 MG/100 ML BAG IV STA (17:16)
[2022-03-29] MEDS ORDERED: STAT IV Infusion **Titration per Protocol STA (17:16)
[2022-03-29] MEDS ORDERED: 0.2 MICRON FILTER SET 1 EA IV ONE (17:16)
[2022-03-29] MEDS: METOPROLOL TARTRATE 1 MG/ML VIAL IV PRN (17:22)
[2022-03-29] MEDS ORDERED: AMIODARONE / D5W 360 MG/200 ML BAG IV ONE (17:26)
[2022-03-29] MEDS: oxyCODONE HCL IR 5 MG TAB (IMMEDIATE RELEASE) PO PRN (18:49)
[2022-03-29] MEDS: ACETAMINOPHEN 325 MG TAB PO PRN (18:49)
[2022-03-29] MEDS: CALCIUM CARBONATE 1250MG TAB PO SCH (20:18)
[2022-03-29] MEDS: FERROUS SULFATE 325 MG TAB PO SCH (20:18)
[2022-03-29] MEDS: TAMSULOSIN HCL 0.4 MG CAP PO SCH (20:18)
[2022-03-29] MEDS: METOPROLOL SUCC 50MG EXT REL TAB PO SCH (20:19)
[2022-03-29] MEDS ORDERED: OLANZAPINE 2.5 MG TAB PO PRN (21:00)
[2022-03-29] MEDS ORDERED: APIXABAN 5 MG TABLET PO SCH (21:00)
[2022-03-29] MEDS: MELATONIN 3 MG TAB PO PRN (22:22)
[2022-03-29] MEDS ORDERED: HYDROCORTISONE SOD SUCCINATE 100 MG/2 ML VIAL IV ONE (23:00)
[2022-03-29] MEDS ORDERED: HYDROCORTISONE SOD 50 MG in SYRINGE 0 ML IV ONE (23:00)
[2022-03-29] MEDS: AMIODARONE / D5W 360 MG/200 ML BAG IV SCH (23:42)
[2022-03-29] MEDS: CHECK fentaNYL PATCH PLACEMENT SCH ×2 (23:47→23:48)
[2022-03-30] MEDS: ACETAMINOPHEN 325 MG TAB PO PRN ×3 (01:20→17:03)
[2022-03-30] MEDS: oxyCODONE HCL IR 5 MG TAB (IMMEDIATE RELEASE) PO PRN ×3 (01:20→17:03)
--- NOTE | 2022-03-30 07:45 | Cardiology Consultation ---
Date of Consultation March 30, 2022 Assessment & Plan (1) Paroxysmal atrial fibrillation: (2) Chest discomfort: (3) Elevated troponin: (4) Tachy-atif syndrome: (5) S/P placement of cardiac pacemaker: (6) Hypertension: 1. Paroxysmal atrial fibrillation: She continues to have atrial fibr illation with a rapid heart rate, despite being on good doses of beta-blockade. She does have underlying sinus bradycardia and we have been reluctant to go up too quickly on her beta-alex although she has been taking 150 mg of metoprolol succinate daily (she believes she has been taking it as directed) but still had a very rapid heart rate yesterday in the emergency room. At this point I think the best option is to try rhythm control with amiodarone, at least so far intravenous amiodarone appears to be controlling her rhythm. I am going to continue it and add oral amiodarone to her regimen, overlapping for at least 24 hours otherwise her level will drop on oral and she will probably have recurrence. We may have to consider additional rate controlling medications, at least until the amiodarone takes effect, and she is on 200 mg daily of metoprolol succinate so I am reluctant to increase that. I am going to add digoxin to her regimen. We could also add calcium blockade as she is protected from bradycardia with her pacemaker but I would still prefer not to have her pace any more than needed. 2. Chest discomfort: Her chest discomfort appears to be myocardial ischemia however it is only present during the atrial arrhythmia. With ECG changes showing lateral ST depression, a significantly elevated troponin and chest discomfort I think it is quite likely ischemia possibly in the presence of underlying coronary artery disease which is asymptomatic otherwise. I am reluctant to investigate that at the moment given her other issues (low blood counts especially) and the fact that she is asymptomatic except with very rapid heart rates. Her worsening symptoms on presentation yesterday could represent worsening of her underlying disease but it could also represent an additional factor of low hemoglobin resulting in worsening of her ischemia without a change in coronary arteries. 3. Elevated troponin: Her troponin was mildly elevated on arrival but increased substantially afterwards consistent with myocardial ischemia. It is still little bit higher this morning but I do not think suggestive of an acute cardiac event. I will repeat the troponin later today. 4. Tachybradycardia syndrome: She does have a resting sinus bradycardia and does have a pacemaker to control her lowest heart rates, however it is a single- chamber device and is programmed for 50 bpm so that does not pace very often. This could be reprogrammed although I have not done that, hoping not to pace very often since that can be hemodynamically detrimental. The amiodarone may ultimately slow her heart rate down but on the intravenous it has not done that appreciably. 5. Pacemaker: Excellent pacing and sensing characteristics. Pacemaker reprogrammed to VVI 50 to eliminate heart rates less than 50 bpm. 6. Hypertension: Her blood pressure seems to be somewhat labile but it is generally significantly elevated. She is on losartan 50 mg daily and now metoprolol succinate 100 mg twice a day and still has significant hypertension. I do not think there would be much value in increasing her metoprolol succinate at this point. We could go up on losartan, or add a different agent. I have not done that. History of Present Illness Reason for Consultation: Recurrent atrial fibrillation Attending Physician: Frederick Herring MD History of Present Illness This is a 76-year-old woman with a history of metastatic bladder cancer, hypertension, and hyperlipidemia. She was admitted on December 04, 2021 with nausea, vomiting and dehydration associated with urinary tract infection. This was following a dose of chemotherapy. She presented to the emergency room and was noted to be in atrial fibrillation with rapid ventricular response. She was placed on metoprolol for rate control during atrial fibrillation which was paroxysmal and she had pauses of 3 seconds followed by junctional bradycardia and periods of sinus bradycardia. Access was compromised due to the presence of a right subclavian access port and a left clavicular fracture. A leadless pacemaker (Medtronic Micra) was therefore implanted on December 10, 2021. She was seen at March 04, 2020 was observed that her heart rate was 47 bpm altho ug set to 50 bpm. This device does have an automatic 5 bpm hysteresis when automatic mode switching is activated which probably explains this discrepancy. She had an episode of syncope and presented to the emergency room on March 08, 2022 but no clear cause was identified. She had reported to chemotherapy subsequently and was noted to be in atrial fibrillation with a rapid heart rate and an electrocardiogram in the emergency room initially showed a heart rate of 119 bpm in atrial fibrillation which subsequently converted spontaneously to sinus rhythm. She was seen in the office on March 21, 2022 for pacemaker evaluation and it was found to be functioning well. She did however have evidence of paroxysmal atrial fibrillation and her metoprolol was increased from 50 mg twice a day to 150 mg daily. A Holter monitor was scheduled as the monitoring in her pacemaker is limited however I do not believe this was done yet. She now returns to the emergency room on March 29, 2022 with intermittent chest discomfort of about 3 days duration. She has been having intermittent palpitations as well. Atrial fibrillation with a rapid heart rate (153 bpm on ECG) was identified in the emergency room. An echocardiogram March 29, 2022 shows normal left ventricular systolic function with moderate concentric left ventricular hypertrophy and ejection fraction of 55 to 60%. Mild mitral regurgitation. Cardiac enzymes however are abnormal with a presenting value of 54 but a follow-up measurement 3-1/2 hours later of 1521. This morning her troponin is 2200. Her electrocardiogram on arrival demon strated atrial fibrillation with a heart rate of 153 bpm with premature ventricular beats and lateral ST depression. Repeated a short time later in sinus rhythm there was no significant abnormality and no ST deviation. To my knowledge she has not had a coronary evaluation. Her hemoglobin has also been dropping, to 7.6 on presentation which is increased this morning following blood transfusions. With intermittent atrial fibrillation associated with chest discomfort and abnormal enzymes she was started on intravenous amiodarone to control her rhythm as myocardial ischemia at high heart rates was likely. Eliquis however was held on the evening of March 29, 2022 in case invasive evaluation is required. Today she is feeling well. She has no sense of palpitations and no chest discomfort. I discussed her chest discomfort with her and she does describe a burning sensation in her chest which she has had ever since her palpitations started however yesterday it radiated to both of her shoulders and the back of her neck, she does not recall that happening before. Evidently it is only with the palpitations. She does not recall ever having it with exertion. Allergies Allergy/AdvReac Type Severity Reaction Status Date / Time morphine AdvReac Intermediate "Makes me Verified 03/21/22 15:57 crazy" Home Medications Medication Instructions Recorded Confirmed Type olanzapine 2.5 mg tablet 2.5 mg PO HS 10/27/21 03/21/22 History ondansetron HCl 8 mg tablet 8 mg PO BID 10/27/21 03/21/22 History prochlorperazine maleate 10 mg 10 mg PO Q6 PRN 10/27/21 03/21/22 History tablet ferrous sulfate 325 mg (65 mg 325 mg PO HS 11/22/21 03/21/22 History iron) tablet fentanyl 37.5 mcg/hour transdermal 1 patch TRANSDERMAL Q72H 12/04/21 03/21/22 History patch omeprazole 20 mg tablet,delayed 20 mg PO QAM #30 tab 12/20/21 03/21/22 Rx release prednisone 5 mg tablet 15 mg PO QAM 12/30/21 03/21/22 History calcium carbonate 600 mg calcium 600 mg PO HS 02/17/22 03/21/22 History (1,500 mg) tablet (Calcium) losartan 50 mg tablet 50 mg PO QAM 02/17/22 03/21/22 History tamsulosin 0.4 mg capsule 0.4 mg PO HS #30 cap 02/28/22 03/08/22 Rx amlodipine 2.5 mg tablet 2.5 mg PO DAILY #90 tab 03/04/22 03/08/22 Rx acetaminophen 325 mg tablet 650 mg PO QID PRN 03/08/22 03/21/22 History oxycodone 5 mg tablet 5 mg PO Q6H PRN 03/08/22 03/21/22 History allopurinol 300 mg tablet 300 mg PO QAM #180 tab 03/14/22 03/21/22 Rx apixaban 5 mg tablet 5 mg PO BID #60 tab 03/15/22 03/21/22 Rx metoprolol succinate 100 mg 100 mg PO .COMPLEX #135 tab 03/21/22 03/21/22 Rx tablet,extended release 24 hr Patient History Medical History Abnormal LFTs Acute dehydration Acute hypotension Anemia Bradycardia follows with Dr. 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, back and lung [place] (hard of hearing) HTN (hypertension) Hx SBO with surgical intervention > no colostomy Nocturnal hypoxemia per daughters report Osteoarthritis Paroxysmal atrial fibrillation Pacer> placed December 2021 Poor historian SOB (shortness of breath) on exertion Steroid dependent Vomiting controlled with Zofran Surgical History History of cardiac cath 12/10/21 > no stents History of colonoscopy History of surgery TURBT History of total abdominal hysterectomy and bilateral salpingo-oophorectomy History of wisdom tooth extraction Port-A-Cath in place (10/18/21) Insertion Access Port in Right Jugular with Fluoroscopy(Right) - Peterson Dasilva DO, FACS 10/18/21 S/P placement of cardiac pacemaker Medtronic > placed December 2021 [facility] > last checked at [facility] during admission February 2022 Family History Father Cancer lung Colorectal cancer Mother Hearing loss Hypertension Stroke Other No family history of adverse response to anesthesia No family history of bleeding disorder Denies family history of Ovarian cancer Prostate cancer Myocardial infarction Breast cancer Social History Smoking Status: Never smoker Tobacco Type: Cigarettes packs per day: 1; Years Smoked: 10; Second Hand Exposure: No; Hx Alcohol Use: No Hx Substance Use: No Preferred Language: Iranian Communication Ability: Effective Visual Impairment: No Limitations Hearing Ability: Hard of Hearing Inspector Watch Train Required: No Beliefs That Will Affect Care: None marital status: / Current Living Situation: Family Current Living Situation Comment: Daughter current occupational status: retired How many Children do You have: 2 Feels Safe at Home: Yes Childhood Exposure to Second-Hand Smoke: Yes caffeine: Yes Dental Care, Regularly: No Physical Activity Frequency: Does not Exercise Seatbelt Use: always Sunscreen Use: Yes Assistive Devices: None Review of Systems Review of Systems: All systems reviewed & are unremarkable except as noted in HPI & below Physical Exam Physical Exam: Constitutional: Alert, cooperative and in no distress. HEENT: Unremarkable Neck: No jugular venous distention, carotid pulses are normal and equal bilaterally without bruits. Pulmonary: Clear to auscultation bilaterally. Cardiac: Regular rhythm with no murmur, gallop or rub. Abdomen: Soft, nontender with normal bowel sounds. Extremities: No edema. Distal pulses intact. Neurologic: No focal findings. Gait is steady. Skin: No rash, ecchymoses or petechiae. She has a port in her right side. Results & Data ([facility]) Vital Signs (Past 12 Hours) Vital Signs Temp Pulse Pulse Resp BP BP Pulse Ox 03/30/22 07:24 36.5 C 58 L 20 177/91 H 96 03/30/22 05:00 37.0 C 56 L 16 154/88 H 95 03/29/22 23:00 36.6 C 54 L 53 L 16 146/87 H 98 03/29/22 22:45 36.6 C 55 L 16 151/89 H 95 03/29/22 22:00 36.4 C L 55 L 16 157/79 H 95 03/29/22 21:00 36.6 C 56 L 14 127/81 94 03/29/22 20:30 36.6 C 56 L 16 134/72 95 03/29/22 20:14 36.2 C L 52 L 18 138/86 95 Laboratory Results Cardiac Enzymes 03/29/22 03/29/22 Range/Units 11:50 15:22 AST 21 (13-39) U/L Troponin I High Sens 54.0 H* D 1521.1 H* D (0-14) pg/ml CBC 03/29/22 03/29/22 Range/Units 11:50 23:42 WBC 2.58 L (4.8-10.8) K/uL RBC 2.35 L (4.2-5.4) M/uL Hgb 7.6 L 9.5 L (12.0-16.0) g/dL Hct 22.9 L (37-47) % Plt Count 20 L* (130-400) K/uL Neut # (Auto) 0.77 L* (1.4-6.5) K/uL Lymph # (Auto) 1.80 (1.2-3.4) K/uL [place] # (Auto) 0.01 L (0.11-0.59) K/uL Eos # (Auto) 0.00 (0-0.5) K/uL Baso # (Auto) 0.00 (0-0.2) K/uL Comprehensive Metabolic Panel 03/29/22 Range/Units 11:50 Sodium 141 (136-145) mmol/L Potassium 3.8 (3.5-5.1) mmol/L Chloride 108 H (98-107) mmol/L Carbon Dioxide 25 (21-32) mmol/L BUN 31 H (6-23) mg/dl Creatinine 1.13 (0.6-1.2) mg/dl Glucose 94 (70-99(Fasting)) mg/dl Calcium 8.9 (8.5-10.1) mg/dl AST 21 (13-39) U/L ALT 30 (7-52) U/L Alkaline Phosphatase 76 (34-104) U/L Total Protein 6.1 (6.0-8.3) gm/dl Albumin 3.4 (3.4-5.0) gm/dl Intake and Output 03/29/22 03/30/22 03/30/22 22:59 06:59 14:59 Intake Total 1070 / 1666.48 246.48 / 1666.48 Output Total 250 / 430 180 / 430 Balance 820 / 1236.48 66.48 / 1236.48 Intake: IV 200 / 736.48 186.48 / 736.48 Amiodarone / D5w 150 mg In 100 100 / 100 ml @ 600 mls/hr IV NOW STA Rx#: [id number] Amiodarone / D5w 360 mg In 200 186.48 / 186.48 ml @ 33.333 mls/hr IV ONE ONE Rx#:[id number] Magnesium Sulfate / D5w 1 gm In 100 / 200 100 ml @ 100 mls/hr IV Q1H [facility] Rx#:[id number] Oral 200 / 260 60 / 260 Intake (Blood Product) Amt 620 / 620 Packed Cells, Leukored, Irrad 310 / 310 Unit [id number] Packed Cells, Leukored, Irrad 310 / 310 Unit [id number] Other 50 / 50 Packed Cells, Leukored, Irrad 50 / 50 Unit [id number] Output: Urine 250 / 430 180 / 430 Other: # Unmeasured Voids 2 Weight 68.7 kg 69.7 kg Weight Measurement Method [facility] Diagnostic Findings Telemetry: She had 2 fairly prolonged episodes of atrial fibrillation yesterday, 1 present on arrival which resolved spontaneously after several hours and another 1 at around 4:00 in the evening for around an hour, both terminated spontaneously. Otherwise she has been in sinus rhythm and sinus bradycardia with occasional ventricular pacing. Pacemaker evaluation: Her pacemaker is working very well with excellent pacing and sensing characteristics. There is an automatic 10 beat hysteresis programmed when automatic mode switching is programmed to, I do not know that that is working correctly therefore I have reprogrammed it to VVI 50 so that she will not get heart rates below 50 bpm. PG Care Time/CCT Total # of Minutes Spent Total Time Spent with Patient: Total time spent is greater than 50% in coordination of care (as documented) at patient's floor/unit and/or counseling patient: Coding Level of Care Code 06947 Initial Inpt Care Lvl 3 Diagnoses Paroxysmal atrial fibrillation I48.0 Chest discomfort R07.89 Elevated troponin R77.8 Tachy-atif syndrome I49.5 S/P placement of cardiac pacemaker Z95.0 Hypertension I10 Hypertension type: primary hypertension CPT Codes Pacemaker Single Lead Programming - [id number] ([id number]) (1) Hypertension Hypertension type: primary hypertension Qualified Code(s): I10 - Essential (primary) hypertension
[2022-03-30] MEDS ORDERED: SODIUM CHLORIDE 0.9% 250 ML IV PRN (08:09)
[2022-03-30] MEDS: PANTOprazole 40 MG TAB PO SCH (08:16)
[2022-03-30] MEDS: CHECK fentaNYL PATCH PLACEMENT SCH ×4 (08:16→16:23)
[2022-03-30] MEDS: LOSARTAN POTASSIUM 50 MG TAB PO SCH (08:16)
[2022-03-30] MEDS: allopurinoL 300 MG TAB PO SCH (08:17)
[2022-03-30] MEDS: METOPROLOL SUCC 50MG EXT REL TAB PO SCH ×2 (08:17→21:14)
[2022-03-30] MEDS ORDERED: DIGOXIN 0.25 MG TAB PO ONE (09:01)
[2022-03-30] MEDS: HEPARIN 100 UNIT/ML 5ML FLUSH FLUSH PRN (09:03)
[2022-03-30 09:09] LABS: Calcium 8.7 mg/dl (8.5-10.1); Creatinine Clr Calc Pharmacy 44.4 ml/min; Est GFR (African American) 62.5 ml/min; Est GFR (Non-African American) 53.9 ml/min; Magnesium 1.7 mg/dl (1.7-2.4); Potassium 4.2 mmol/L (3.5-5.1)
[2022-03-30 09:15] LABS: Hematocrit (blood only) 26.6 % (37-47); Hemoglobin 9.4 g/dL (12.0-16.0); Mean Corpuscular Hemoglobin 32.5 pg (25-34); Mean Corpuscular Hgb Conc 35.3 g/dL (32-36); Platelet Count 5 K/uL (130-400); RDW Coefficient of Variation 15.6 % (11.5-14.5); RDW Standard Deviation 52.7 fL (36.4-46.3); Red Blood Count 2.89 M/uL (4.2-5.4); White Blood Count 1.96 K/uL (4.8-10.8)
[2022-03-30 09:17] LABS: Platelet Estimate SIGNIFIC DECREASED (Normal)
[2022-03-30 09:20] LABS: Troponin I High Sensitivity 2202.4 pg/ml (0-14)
[2022-03-30] MEDS: AMIODARONE 200 MG TAB PO SCH ×2 (10:05→16:24)
[2022-03-30 10:50] LABS: D Dimer 370 ug/L FEU (0-500); Fibrinogen 514 mg/dl (184-400)
[2022-03-30] MEDS: AMIODARONE / D5W 360 MG/200 ML BAG IV SCH ×2 (11:16→23:02)
--- NOTE | 2022-03-30 11:36 | Electrocardiogram Report ---
Test Reason : Blood Pressure : / mmHG Vent. Rate : 146 BPM Atrial Rate : 178 BPM P-R Int : 000 ms QRS Dur : 076 ms QT Int : 262 ms P-R-T Axes : 000 -07 124 degrees QTc Int : 408 ms Atrial fibrillation with rapid ventricular response Poor R wave progression, consider anterior CA vs. lead placement vs. LVH Abnormal ECG No previous ECGs available Confirmed by Asael Mei ([id number]) on 03/30/2022 11:35:53 AM Referred By: REFERRED SELF Confirmed By:Asael Mei
--- NOTE | 2022-03-30 12:33 | Electrocardiogram Report ---
Test Reason : Blood Pressure : / mmHG Vent. Rate : 058 BPM Atrial Rate : 058 BPM P-R Int : 182 ms QRS Dur : 082 ms QT Int : 476 ms P-R-T Axes : 058 -16 035 degrees QTc Int : 467 ms Sinus bradycardia Otherwise normal ECG When compared with ECG of 29-MAR-2022 13:10, No significant change was found Confirmed by Asael Mei ([id number]) on 03/30/2022 12:33:16 PM Referred By: REFERRED SELF Confirmed By:Asael Mei
[2022-03-30] MEDS: DIGOXIN 0.125 MG TAB PO SCH (16:23)
--- NOTE | 2022-03-30 16:35 | Hospitalist Progress Note ---
Date of Service March 30, 2022 Assessment & Plan (1) Atrial fibrillation with RVR: Plan: Patient presents with atrial fibrillation RVR she has associated chest pain related symptoms and elevated troponin. Escalate metoprolol to 100 twice daily replete magnesium, continue Eliquis Electrophysiology consultation leadless intraventricular pacemaker, has been interrogated appreciate cardiology recs (2) Pancytopenia: Plan: most likley secondary to chemotherapy Patient has a hx of bladder cancer and is on chemo Spoke to hemonc who suggested that blood counts may be nearing a salvatore Transfuse RBC and platelets as needed (3) Elevated troponin: Plan: Most likely secondary to demand ischemia trend trops (4) Anemia: Plan: Patient is pancytopenic but the anemia may be stressing her cardiac symptoms subsequently she is ordered 2 units transfusion packed red blood cells in the emergency department recheck hemoglobin this evening Assume that the anemia is from her chemotherapy iron and B12 levels pending for the morning last TSH was checked March 08 and was found to be normal (5) H/O primary malignant neoplasm of urinary bladder: Plan: Patient known to have bony mets follows [facility] under care of Dr. Yen She is known to have a clavicular met as evidenced in September 2021 (6) Chronic steroid use: Plan: Patient is on chronic steroid use. She does have some softer blood pressures here in the emergency department. Patient will be given some intravenous hydrocortisone and transition back to her daily dose of 15 of prednisone on 03/30/2022 Plan: Eliquis is DVT prevention, will use scd when on hold Admission and Anticipated Discharge Date Admission Date: March 29, 2022 Subjective patient seen and examined, says chest discomfort has improved Review of Systems Review of Systems: All systems reviewed are negative, apart from the ones contained in the history. Physical Exam Physical Exam: The patient is awake, alert and oriented 3, well developed and well nourished, normocephalic and atraumatic, lying in bed and in no acute distress. HEENT--PERRL, EOMI, mucous membranes and oropharynx mildly dry Neck--supple. No JVD. No bruits. Thyroid normal, trachea midline, no adenopathy. Heart--normal S1 and S2. No murmurs, rubs or gallops. Lungs--clear bilaterally, no respiratory distress, no accessory muscle use. Abdomen--normal bowel sounds and soft. Mild epigastric and left sided abdominal pain Extremities--no cyanosis or clubbing. No edema. Dermatologic--normal skin turgor, normal color, no abnormal lymph nodes, no rash. Neurologic--cranial nerves II through XII grossly intact. Rheumatologic--normal range of motion. Psychiatric--normal affect. Results & Data Results & Data ([facility]) Vital Signs (Past 12 Hours) Vital Signs Temp Pulse Pulse Resp BP BP Pulse Ox 03/30/22 16:23 67 03/30/22 16:03 97.7 F 66 18 145/78 H 95 03/30/22 13:48 97.5 F L 54 L 16 114/66 97 03/30/22 13:37 97.5 F L 56 L 17 122/68 94 03/30/22 13:07 97.5 F L 54 L 16 115/65 93 03/30/22 12:52 97.5 F L 54 L 16 111/68 94 03/30/22 12:29 97.3 F L 57 L 16 130/71 94 03/30/22 11:42 97.7 F 64 18 125/72 94 03/30/22 10:32 97.2 F L 61 19 141/68 H 95 03/30/22 10:12 97.3 F L 55 L 17 154/80 H 95 03/30/22 10:04 55 L 03/30/22 09:42 97.5 F L 57 L 18 154/82 H 92 03/30/22 09:27 97.7 F 54 L 18 139/80 95 03/30/22 09:05 97.9 F 55 L 18 148/81 H 95 03/30/22 07:57 55 L 03/30/22 07:24 97.7 F 58 L 20 177/91 H 96 03/30/22 05:00 98.6 F 56 L 16 154/88 H 95 PG Care Time/CCT Total # of Minutes Spent Total Time Spent with Patient: Total time spent is greater than 50% in coordination of care (as documented) at patient's floor/unit and/or counseling patient: Coding Level of Care Code 71297 Subseq Hosp Care Lvl 2 Diagnoses Atrial fibrillation with RVR I48.91 Elevated troponin R77.8 Anemia D64.9 H/O primary malignant neoplasm of urinary bladder Z85.51 Chronic steroid use Pancytopenia D61.818 Time Spent (min) 35
[2022-03-30] MEDS: METOPROLOL TARTRATE 1 MG/ML VIAL IV PRN (18:02)
[2022-03-30] MEDS: MELATONIN 3 MG TAB PO PRN (21:12)
[2022-03-30] MEDS: FERROUS SULFATE 325 MG TAB PO SCH (21:13)
[2022-03-30] MEDS: TAMSULOSIN HCL 0.4 MG CAP PO SCH (21:13)
[2022-03-30] MEDS: CALCIUM CARBONATE 1250MG TAB PO SCH (21:13)
[2022-03-31] MEDS: CHECK fentaNYL PATCH PLACEMENT SCH ×8 (00:25→23:55)
[2022-03-31] MEDS: oxyCODONE HCL IR 5 MG TAB (IMMEDIATE RELEASE) PO PRN ×3 (00:59→19:23)
[2022-03-31] MEDS: ACETAMINOPHEN 325 MG TAB PO PRN ×3 (00:59→19:23)
[2022-03-31 06:21] LABS: Hematocrit (blood only) 23.4 % (37-47); Hemoglobin 8.2 g/dL (12.0-16.0); Mean Corpuscular Hemoglobin 32.8 pg (25-34); Mean Corpuscular Volume 93.6 fL (80-100); Mean Platelet Volume 11.4 fL (7.4-10.4); Platelet Count 34 K/uL (130-400); RDW Coefficient of Variation 15.5 % (11.5-14.5); RDW Standard Deviation 53.4 fL (36.4-46.3)
[2022-03-31 06:30] LABS: BUN Creatinine Ratio 25.5 (10-20); Calcium 8.3 mg/dl (8.5-10.1); Creatinine Clr Calc Pharmacy 43.1 ml/min; Est GFR (Non-African American) 52.6 ml/min; Magnesium 1.4 mg/dl (1.7-2.4); Potassium 3.8 mmol/L (3.5-5.1)
[2022-03-31] MEDS: AMIODARONE 200 MG TAB PO SCH ×2 (07:27→16:42)
--- NOTE | 2022-03-31 08:56 | Cardiology Progress Note ---
Date of Service March 31, 2022 Assessment & Plan (1) Paroxysmal atrial fibrillation: (2) Chest discomfort: (3) Tachy-atif syndrome: (4) S/P placement of cardiac pacemaker: (5) Hypertension: Plan: 1. Paroxysmal atrial fibrillation: Her atrial fibrillation has been better controlled on a combination of increased beta-blockade and amiodarone, this morning on overlapping oral and intravenous amiodarone. At this point I am going to discontinue the intravenous amiodarone but continue the oral. Of note, her amiodarone level will likely drop over the next week with this change and she may have recurrent atrial fibrillation before the oral loading dose becomes effective. I am going to continue 400 mg twice a day of oral amiodarone which she seems to be tolerating. I am going to continue digoxin (dig level 1.1 this morning) dose. 2. Chest discomfort: Her chest discomfort appears to be myocardial ischemia however it is only present during the atrial arrhythmia when the rate is fast. With ECG changes showing lateral ST depression, a significantly elevated troponin and chest discomfort I think it is quite likely ischemia possibly in the presence of underlying coronary artery disease which is asymptomatic otherwise. I am reluctant to investigate that at the moment given her other issues (low blood counts especially) and the fact that she is asymptomatic except with very rapid heart rates. Her worsening symptoms on presentation yesterday could represent worsening of her underlying disease but it could also represent an additional factor of low hemoglobin resulting in worsening of her ischemia without a change in coronary arteries. Without chest discomfort yesterday afternoon when the heart rate was controlled I believe this approach will be effective. 3. Tachybradycardia syndrome: She does have a resting sinus bradycardia and does have a pacemaker to control her lowest heart rates, however it is a single- chamber device and is programmed for 50 bpm so that does not pace very often. This could be reprogrammed although I have not done that, hoping not to pace very often since that can be hemodynamically detrimental. The amiodarone may ultimately slow her heart rate down but on the intravenous it has not done that appreciably. 4. Pacemaker: Excellent pacing and sensing characteristics. Pacemaker reprogrammed to VVI 50 to eliminate heart rates less than 50 bpm. 5. Hypertension: Her blood pressure has not been elevated on her current regimen, however she does have orthostasis and a somewhat low blood pressure when sitting upright. Some of this may be deconditioning from laying in bed for several days, however we may need to back off on some of her blood pressure medications. I do not want to reduce the metoprolol so I am going to discontinue the losartan. That will make any difference today but should start to make a difference tomorrow. Admission and Anticipated Discharge Date Admission Date: March 29, 2022 Subjective She is feeling quite well today. She did have an episode of low blood pressure documented but was not feeling poorly, she also had orthostatic signs documented. Additionally she had some atrial fibrillation yesterday afternoon, and although she was told about it she did not feel it. The heart rate was better controlled than in the past. She remained on intravenous amiodarone until this morning as well as oral amiodarone. Physical Exam Physical Exam: Constitutional: Alert, cooperative and in no distress. HEENT: Unremarkable Neck: No jugular venous distention, carotid pulses are normal and equal bilaterally without bruits. Pulmonary: Clear to auscultation bilaterally. Cardiac: Regular rhythm with no murmur, gallop or rub. Abdomen: Soft, nontender with normal bowel sounds. Extremities: No edema. Distal pulses intact. Neurologic: No focal findings. Gait is steady. Skin: No rash, ecchymoses or petechiae. She has a port in her right chest. Results & Data ([facility]) Vital Signs (Past 12 Hours) Vital Signs Temp Pulse Pulse Resp BP BP Pulse Ox 03/31/22 07:31 36.4 C L 59 L 16 152/78 H 93 03/31/22 04:24 36.3 C L 59 L 14 126/66 94 03/30/22 23:00 36.8 C 53 L 56 L 16 105/60 94 Laboratory Results Cardiac Enzymes 03/30/22 03/30/22 Range/Units 07:50 09:24 Lactate Dehydrogenase 160 (86-244) U/L Troponin I High Sens 2202.4 H* D (0-14) pg/ml CBC 03/30/22 03/31/22 Range/Units 07:50 05:40 WBC 1.96 L 2.20 L (4.8-10.8) K/uL RBC 2.89 L 2.50 L (4.2-5.4) M/uL Hgb 9.4 L 8.2 L (12.0-16.0) g/dL Hct 26.6 L 23.4 L (37-47) % Plt Count 5 L* D 34 L D (130-400) K/uL Comprehensive Metabolic Panel 03/30/22 03/31/22 Range/Units 07:50 05:40 Sodium 136 139 (136-145) mmol/L Potassium 4.2 3.8 (3.5-5.1) mmol/L Chloride 105 107 (98-107) mmol/L Carbon Dioxide 25 27 (21-32) mmol/L BUN 30 H 26 H (6-23) mg/dl Creatinine 1.00 1.02 (0.6-1.2) mg/dl Glucose 101 H 83 (70-99(Fasting)) mg/dl Calcium 8.7 8.3 L (8.5-10.1) mg/dl Intake and Output 03/30/22 03/31/22 03/31/22 22:59 06:59 14:59 Intake Total 476.503 / 1249.666 Output Total 125 / 125 Balance 351.503 / 1124.666 Intake: IV 196.503 / 389.666 Amiodarone / D5w 360 mg In 200 196.503 / 389.666 ml @ 0.5 MG/MIN 16.667 mls/hr IV .Q12H ROMERO Rx#:[id number] Oral 280 / 280 Output: Urine 125 / 125 Other: # Unmeasured Voids 1 1 Weight 68.1 kg Weight Measurement Method Built in [facility] Diagnostic Findings Telemetry: Sinus bradycardia predominantly with about 1-1/2 hours of atrial fibrillation on the afternoon of March 30, 2022. Heart rate around 100 bpm on average. PG Care Time/CCT Total # of Minutes Spent Total Time Spent with Patient: Total time spent is greater than 50% in coordination of care (as documented) at patient's floor/unit and/or counseling patient: Coding Level of Care Code 36162 Subseq Hosp Care Lvl 3 Diagnoses Paroxysmal atrial fibrillation I48.0 Chest discomfort R07.89 Tachy-atif syndrome I49.5 S/P placement of cardiac pacemaker Z95.0 Hypertension I10 Hypertension type: primary hypertension (1) Hypertension Hypertension type: primary hypertension Qualified Code(s): I10 - Essential (primary) hypertension
[2022-03-31] MEDS: METOPROLOL SUCC 50MG EXT REL TAB PO SCH ×2 (09:41→22:01)
[2022-03-31] MEDS: allopurinoL 300 MG TAB PO SCH (09:42)
[2022-03-31] MEDS: LOSARTAN POTASSIUM 50 MG TAB PO SCH (09:42)
[2022-03-31] MEDS: PANTOprazole 40 MG TAB PO SCH (09:43)
[2022-03-31] MEDS: AMIODARONE / D5W 360 MG/200 ML BAG IV SCH (10:32)
--- NOTE | 2022-03-31 15:17 | Hospitalist Progress Note ---
Date of Service March 31, 2022 Assessment & Plan (1) Atrial fibrillation with RVR: Plan: Patient presents with atrial fibrillation RVR she has associated chest pain related symptoms and elevated troponin. 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 Patient has a hx of bladder cancer and is on chemo Spoke to hemon who suggested that blood counts may be nearing a salvatore Transfuse RBC and platelets as needed (3) Tachy-atif syndrome: Plan: Patients heart rate fluctuates Currently on Amiodarone to help control rate and rythm Electrophysiology on consult (4) Elevated troponin: Plan: Most likely secondary to demand ischemia trend trops (5) Anemia: Plan: Patient is pancytopenic but the anemia may be stressing her cardiac symptoms subsequently she is ordered 2 units transfusion packed red blood cells in the emergency department recheck hemoglobin this evening Assume that the anemia is from her chemotherapy iron and B12 levels pending for the morning last TSH was checked March 08 and was found to be normal (6) H/O primary malignant neoplasm of urinary bladder: Plan: Patient known to have bony mets follows with [facility] under care of Dr. 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 She does have some softer blood pressures here in the emergency department. Patient will be given some intravenous hydrocortisone and transition back to her daily dose of 15 of prednisone on 03/30/2022 Plan: Eliquis is DVT prevention, will use scd when on hold Admission and Anticipated Discharge Date Admission Date: March 29, 2022 Subjective patient seen and examined, says chest discomfort has improved Review of Systems Review of Systems: All systems reviewed are negative, apart from the ones contained in the history. Physical Exam Physical Exam: The patient is awake, alert and oriented 3, well developed and well nourished, normocephalic and atraumatic, lying in bed and in no acute distress. HEENT--PERRL, EOMI, mucous membranes and oropharynx mildly dry Neck--supple. No JVD. No bruits. Thyroid normal, trachea midline, no adenopathy. Heart--normal S1 and S2. No murmurs, rubs or gallops. Lungs--clear bilaterally, no respiratory distress, no accessory muscle use. Abdomen--normal bowel sounds and soft. Mild epigastric and left sided abdominal pain Extremities--no cyanosis or clubbing. No edema. Dermatologic--normal skin turgor, normal color, no abnormal lymph nodes, no rash. Neurologic--cranial nerves II through XII grossly intact. Rheumatologic--normal range of motion. Psychiatric--normal affect. Results & Data Results & Data ([facility]) Vital Signs (Past 12 Hours) Vital Signs Temp Pulse Pulse Resp BP BP Pulse Ox 03/31/22 11:02 77 85/51 L 03/31/22 11:01 60 98/61 L 03/31/22 11:00 61 115/66 03/31/22 10:46 97.9 F 61 16 86/50 L 97 03/31/22 09:43 76 133/75 03/31/22 07:31 97.5 F L 59 L 16 152/78 H 93 03/31/22 06:11 56 L 03/31/22 04:24 97.3 F L 59 L 14 126/66 94 PG Care Time/CCT Total # of Minutes Spent Total Time Spent with Patient: Total time spent is greater than 50% in coordination of care (as documented) at patient's floor/unit and/or counseling patient: Coding Level of Care Code 69338 Subseq Hosp Care Lvl 2 Diagnoses Atrial fibrillation with RVR I48.91 Pancytopenia D61.818 Elevated troponin R77.8 Anemia D64.9 H/O primary malignant neoplasm of urinary bladder Z85.51 Chronic steroid use Tachy-atif syndrome I49.5 Time Spent (min) 35
[2022-03-31] MEDS: DIGOXIN 0.125 MG TAB PO SCH (16:41)
[2022-03-31] MEDS: MELATONIN 3 MG TAB PO PRN (21:59)
[2022-03-31] MEDS: CALCIUM CARBONATE 1250MG TAB PO SCH (22:01)
[2022-03-31] MEDS: FERROUS SULFATE 325 MG TAB PO SCH (22:01)
[2022-03-31] MEDS: TAMSULOSIN HCL 0.4 MG CAP PO SCH (22:01)
[2022-04-01] MEDS: ACETAMINOPHEN 325 MG TAB PO PRN (03:35)
[2022-04-01] MEDS: oxyCODONE HCL IR 5 MG TAB (IMMEDIATE RELEASE) PO PRN (03:36)
--- NOTE | 2022-04-01 07:34 | Electrocardiogram Report ---
Test Reason : Blood Pressure : / mmHG Vent. Rate : 056 BPM Atrial Rate : 056 BPM P-R Int : 176 ms QRS Dur : 082 ms QT Int : 458 ms P-R-T Axes : 001 -19 033 degrees QTc Int : 441 ms Sinus bradycardia Nonspecific T wave abnormality When compared with ECG of 30-MAR-2022 05:55, No significant change was found Confirmed by Raghavendra Soria ([id number]) on 04/01/2022 7:33:50 AM Referred By: REFERRED SELF Confirmed By:Raghavendra Soria
[2022-04-01 07:46] LABS: BUN Creatinine Ratio 19.8 (10-20); Calcium 8.1 mg/dl (8.5-10.1); Est GFR (African American) 58.2 ml/min; Est GFR (Non-African American) 50.3 ml/min; Hematocrit (blood only) 24.3 % (37-47); Hemoglobin 8.4 g/dL (12.0-16.0); Magnesium 1.4 mg/dl (1.7-2.4); Mean Corpuscular Hemoglobin 32.3 pg (25-34); Mean Corpuscular Hgb Conc 34.6 g/dL (32-36); Mean Corpuscular Volume 93.5 fL (80-100); Mean Platelet Volume 9.6 fL (7.4-10.4); Nucleated RBC # (auto) 0.03 K/uL (0-0); Nucleated RBC % (auto) 1.4 %; Platelet Count 30 K/uL (130-400); Potassium 3.9 mmol/L (3.5-5.1); RDW Coefficient of Variation 15.3 % (11.5-14.5); RDW Standard Deviation 52.3 fL (36.4-46.3); White Blood Count 2.19 K/uL (4.8-10.8)
[2022-04-01] MEDS: PANTOprazole 40 MG TAB PO SCH (09:14)
[2022-04-01] MEDS: allopurinoL 300 MG TAB PO SCH (09:14)
[2022-04-01] MEDS: AMIODARONE 200 MG TAB PO SCH (09:14)
[2022-04-01] MEDS: CHECK fentaNYL PATCH PLACEMENT SCH ×2 (09:15→09:16)
[2022-04-01] MEDS: METOPROLOL SUCC 50MG EXT REL TAB PO SCH (09:17)
--- NOTE | 2022-04-01 09:31 | Cardiology Progress Note ---
Date of Service April 01, 2022 Assessment & Plan (1) Paroxysmal atrial fibrillation: (2) Chest discomfort: (3) Tachy-atif syndrome: (4) S/P placement of cardiac pacemaker: (5) Hypertension: Plan: 1. Paroxysmal atrial fibrillation: Her atrial fibrillation has been better controlled on a combination of increased beta-blockade and amiodarone, no atrial fibrillation for about 36 hours. Of note, her amiodarone level will likely drop over the next week with this change and she may have recurrent atrial fibrillation before the oral loading dose becomes effective. I mentioned this to her but I do not know if she understands. I told her that she does not need to come in if she feels well and notices the arrhythmia, but if she is feeling poorly, especially with chest discomfort, she should come in. I would discharge her on 400 mg twice a day of oral amiodarone which she seems to be tolerating. I am going to continue digoxin (dig level 1.1 yesterday morning) at the current dose. We can reevaluate things at an upcoming visit which I believe is schedu led for Monday. 2. Chest discomfort: Her chest discomfort appears to be myocardial ischemia however it is only present during the atrial arrhythmia when the rate is fast. With ECG changes showing lateral ST depression, a significantly elevated troponin and chest discomfort I think it is quite likely ischemia possibly in the presence of underlying coronary artery disease which is asymptomatic ot herwise. I am reluctant to investigate that at the moment given her other issues (low blood counts especially) and the fact that she is asymptomatic except with very rapid heart rates. Her worsening symptoms on presentation yesterday could represent worsening of her underlying disease but it could also represent an additional factor of low hemoglobin resulting in worsening of her ischemia without a change in coronary arteries. Without chest discomfort during atrial fibrillation when the heart rate was controlled I believe this approach will be effective. 3. Tachybradycardia syndrome: She does have a resting sinus bradycardia and does have a pacemaker to control her lowest heart rates, however it is a single- chamber device and is programmed for 50 bpm so that does not pace very often. This could be reprogrammed although I have not done that, hoping not to pace very often since that can be hemodynamically detrimental. The amiodarone may ultimately slow her heart rate down but so far has not done that appreciably. 4. Pacemaker: Excellent pacing and sensing characteristics. Pacemaker reprogrammed to VVI 50 to eliminate heart rates less than 50 bpm. 5. Hypertension: Her blood pressure has not been elevated on her current regimen, however she did have orthostasis and a somewhat low blood pressure when sitting upright. Some of this may be deconditioning from laying in bed for several days. I do not want to reduce the metoprolol so I did discontinue the losartan. Admission and Anticipated Discharge Date Admission Date: March 29, 2022 Subjective She is feeling very well. She feels much better than when she came in and has had no chest discomfort or palpitations over the last several days. She is tolerating her medications well and has had no lightheadedness or dizziness or orthostatic symptoms. Physical Exam Physical Exam: Constitutional: Alert, cooperative and in no distress. HEENT: Unremarkable Neck: No jugular venous distention, carotid pulses are normal and equal bilaterally without bruits. Pulmonary: Clear to auscultation bilaterally. Cardiac: Regular rhythm with no murmur, gallop or rub. Abdomen: Soft, nontender with normal bowel sounds. Extremities: No edema. Distal pulses intact. Neurologic: No focal findings. Gait is steady. Skin: No rash, ecchymoses or petechiae. She has a port in her right chest. Results & Data ([facility]) Vital Signs (Past 12 Hours) Vital Signs Temp Pulse Pulse Resp BP BP Pulse Ox 04/01/22 07:25 36.9 C 51 L 16 115/69 91 04/01/22 03:24 37.0 C 54 L 16 126/68 95 04/01/22 01:01 63 03/31/22 23:08 37.1 C 58 L 16 134/73 99 Laboratory Results CBC 04/01/22 Range/Units 07:15 WBC 2.19 L (4.8-10.8) K/uL RBC 2.60 L (4.2-5.4) M/uL Hgb 8.4 L (12.0-16.0) g/dL Hct 24.3 L (37-47) % Plt Count 30 L (130-400) K/uL Comprehensive Metabolic Panel 04/01/22 Range/Units 07:15 Sodium 139 (136-145) mmol/L Potassium 3.9 (3.5-5.1) mmol/L Chloride 107 (98-107) mmol/L Carbon Dioxide 27 (21-32) mmol/L BUN 21 (6-23) mg/dl Creatinine 1.06 (0.6-1.2) mg/dl Glucose 82 (70-99(Fasting)) mg/dl Calcium 8.1 L (8.5-10.1) mg/dl Intake and Output 03/31/22 04/01/22 04/01/22 22:59 06:59 14:59 Intake Total 120 / 330.698 Output Total 150 / 800 300 / 800 Balance -30 / -469.302 -300 / -469.302 Intake: Oral 120 / 120 Output: Urine 150 / 800 300 / 800 Other: Other Intake Source sips # Unmeasured Voids 1 Weight 69.9 kg Weight Measurement Method Built in [facility] Diagnostic Findings Telemetry: Predominantly sinus bradycardia, occasional pacing. No atrial fibrillation for 24 hours. PG Care Time/CCT Total # of Minutes Spent Total Time Spent with Patient: Total time spent is greater than 50% in coordination of care (as documented) at patient's floor/unit and/or counseling patient: Coding Level of Care Code 74023 Subseq Hosp Care Lvl 2 Diagnoses Paroxysmal atrial fibrillation I48.0 Chest discomfort R07.89 Tachy-atif syndrome I49.5 S/P placement of cardiac pacemaker Z95.0 Hypertension I10 Hypertension type: primary hypertension (1) Hypertension Hypertension type: primary hypertension Qualified Code(s): I10 - Essential (primary) hypertension
[2022-04-01] MEDS: HEPARIN 100 UNIT/ML 5ML FLUSH FLUSH PRN (11:19)
--- NOTE | 2022-04-01 14:11 | Discharge Summary ---
Date of Service April 01, 2022 Admission HPI Per Admitting Provider 68-year-old female who is a history of atrial fibrillation and has an intracardiac leadless pacemaker placed for tachybradycardia syndrome. Patient presents with substernal chest burning and sensation of palpations. This was associated with a squeezing sensation. In the emergency department the patient was tachycardic which was remedied by intravenous metoprolol. She has an elevated high-sensitivity troponin but she does not have any acute changes on her EKG. Patient is found to be anemic as she is undergoing concurrent cancer treatment for metastatic bladder cancer to her skeleton and hypomagnesemic. She carries a history of her atrial fibrillation for which she takes metoprolol 100 the morning 50 at night and is anticoagulated with Eliquis. Currently she is stable after administration of the metoprolol Patient COVID-negative on admission Principal Diagnosis Afib, Thrombocytopenia Discharge Exam The patient is awake, alert and oriented 3, well developed and well nourished, normocephalic and atraumatic, lying in bed and in no acute distress. HEENT--PERRL, EOMI, mucous membranes and oropharynx mildly dry Neck--supple. No JVD. No bruits. Thyroid normal, trachea midline, no adenopathy. Heart--normal S1 and S2. No murmurs, rubs or gallops. Lungs--clear bilaterally, no respiratory distress, no accessory muscle use. Abdomen--normal bowel sounds and soft. Mild epigastric and left sided abdominal pain Extremities--no cyanosis or clubbing. No edema. Dermatologic--normal skin turgor, normal color, no abnormal lymph nodes, no rash. Neurologic--cranial nerves II through XII grossly intact. Rheumatologic--normal range of motion. Psychiatric--normal affect. Discharge Data Allergies Allergy/AdvReac Type Severity Reaction Status Date / Time morphine AdvReac Intermediate "Makes me Verified 03/21/22 15:57 crazy" Consultations 03/29/22 13:04 ED Decision to Admit Stat 03/29/22 15:18 Consult Cardiology Routine Hospital Course (1) Atrial fibrillation with RVR: Patient presents with atrial fibrillation RVR she has associated chest pain related symptoms and elevated troponin. Escalate metoprolol to 100 twice daily replete magnesium, continue Eliquis Electrophysiology consultation leadless intraventricular pacemaker, has been interrogated Currently on IV and Oral Amiodarone appreciate cardiology recs (2) Pancytopenia: most likely secondary to chemotherapy induced cytopenia Patient has a hx of bladder cancer and is on chemo Spoke to hemonc who suggested that blood counts may be nearing a salvatore Transfuse RBC and platelets as needed (3) Tachy-atif syndrome: Patients heart rate fluctuates Currently on Amiodarone to help control rate and rythm Electrophysiology on consult (4) Elevated troponin: Most likely secondary to demand ischemia trend trops (5) Anemia: Patient is pancytopenic but the anemia may be stressing her cardiac symptoms subsequently she is ordered 2 units transfusion packed red blood cells in the emergency department recheck hemoglobin this evening Assume that the anemia is from her chemotherapy iron and B12 levels pending for the morning last TSH was checked March 08 and was found to be normal (6) H/O primary malignant neoplasm of urinary bladder: Patient known to have bony mets follows with [facility] under care of Dr. 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 She does have some softer blood pressures here in the emergency department. Patient will be given some intravenous hydrocortisone and transition back to her daily dose of 15 of prednisone on 03/30/2022 Eliquis is DVT prevention, will use scd when on hold Total Time Total Time Spent Total Time Spent (In Minutes): 35 Discharge Plan Discharge Items Patient Disposition: Home - Self-Care Reason For Visit: ATRIAL FIB, HYPOMAGNESEMIA, MET BLADDER CA Discharge Diagnosis: paroxysmal Afib Activity: Resume your previous activity Non-emergency contact: Primary Care Provider, Life Skills Educator and Oncologist Call non-emergency contact if: you have any medication questions Follow-up/Referrals: Britt Maria MD [Primary Care Provider] - Diet: Regular Addtl Attending Provider Instructions: please make appointment to follow up with your regular doctors Pending Studies at Discharge: No Stand-Alone Forms: [employer], Smoking Cessation Medications and DC Order Prescriptions: New amiodarone 200 mg Tablet 400 mg PO BIDM 30 Days Qty: 120 RF: 0 digoxin [Digitek] 125 mcg (0.125 mg) Tablet 125 mcg PO DAILY@1600 30 Days Qty: 30 RF: 0 Continued omeprazole 20 mg tablet,delayed release (DR/EC) 20 mg PO QAM Qty: 30 RF: 5 allopurinol 300 mg tablet 300 mg PO QAM Qty: 180 RF: 0 apixaban 5 mg tablet 5 mg PO BID Qty: 60 RF: 11 metoprolol succinate 100 mg tablet extended release 24 hr 100 mg PO .COMPLEX Qty: 135 RF: 3 amlodipine 2.5 mg tablet 2.5 mg PO DAILY Qty: 90 RF: 3 prednisone 5 mg tablet 15 mg PO QAM RF: 0 olanzapine 2.5 mg tablet 2.5 mg PO HS RF: 0 ondansetron HCl 8 mg tablet 8 mg PO BID RF: 0 prochlorperazine maleate 10 mg tablet 10 mg PO Q6 PRN (Reason: Nausea) RF: 0 fentanyl 37.5 mcg/hour Patch 72 Hour 1 patch TRANSDERMAL Q72H RF: 0 calcium carbonate [Calcium 600] 600 mg calcium (1,500 mg) Tablet 600 mg PO HS RF: 0 losartan 50 mg tablet 50 mg PO QAM RF: 0 ferrous sulfate 325 mg (65 mg iron) Tablet 325 mg PO HS RF: 0 tamsulosin 0.4 mg capsule 0.4 mg PO HS Qty: 30 RF: 0 acetaminophen 325 mg Tablet 650 mg PO QID PRN (Reason: Pain) RF: 0 oxycodone 5 mg tablet 5 mg PO Q6H PRN (Reason: Pain) RF: 0 Discharge Orders: Discharge Order (Routine); Ordered 04/01/22 Ordered By: Hernandez Kauffman Admission Data Admit Date/Time: 03/29/22 13:16 Attending Provider: Hernandez Kauffman Admit Provider: Frederick Herring Primary Care Provider: Britt Maria Other Providers: Frederick Herring ; Rafita Krueger ; [facility] Other Interventions: Discharge Summary Assessment (RN) Last Done: 04/01/22 10:59 Coding Level of Care Code D/C DAY MANAGEMENT >30 MINS Diagnoses Atrial fibrillation with RVR I48.91 Pancytopenia D61.818 Tachy-atif syndrome I49.5 Elevated troponin R77.8 Anemia D64.9 H/O primary malignant neoplasm of urinary bladder Z85.51 Chronic steroid use Time Spent (min) 35
== END 2022-04-01 12:04 | disposition home health service (06) | DRG 308 ==
LOC: ED 11:30 → 2S 13:16 → SUATTDRO 13:16 → 2S 14:35